=== PATIENT | female | born 1965 | race Caucasian/White ===

== ENCOUNTER 2018-08-16 09:05 | Outpatient (CLI) | payer BC, SELFPAY ==
--- NOTE | 2018-08-16 09:03 | DI.RAD_ITS ---
SYMPTOMS/DIAGNOSIS: RIGHT KNEE PAIN RIGHT KNEE: The joint spaces are well maintained. There is mild periarticular spurring. No joint effusion is visible. IMPRESSION: Mild degenerative changes.
== END 2018-08-16 09:25 ==
PROVIDERS: PCP Family Medicine; Visit Provider Physician Assistant
DX: M25.561 Pain in right knee (principal); M17.11 Unilateral primary osteoarthritis, right knee
CPT/HCPCS: 73562

== ENCOUNTER 2018-08-20 00:59 | Outpatient (CLI) | payer BC, SELFPAY ==
--- NOTE | 2018-08-20 15:17 | DI.MRI_ITS ---
SYMPTOMS/DIAGNOSIS: RIGHT KNEE INJURY LAST NOVEMBER, ANTERIOR PAIN, M25.569 MRI OF THE RIGHT KNEE: Comparison is made with plain films dated August,. Fat-suppressed T2 axial, proton density and fat-suppressed T2 sagittal and coronal sequences and proton density oblique sagittal sequences were performed. The cruciate and collateral ligaments and extensor mechanism appear intact. There is some fluid anterior to the anterior horn and body of the lateral meniscus, but no evidence of a meniscal tear. The medial meniscus is somewhat peripherally displaced and shows some irregularity, as well as some intrasubstance signal consistent with degenerative change. No focal tear is visible. There is some cartilage thinning over the medial femoral condyle. There is minimal high signal in the patellar cartilage near the apex, but no irregularity or focal defect. IMPRESSION: Degenerative changes of the medial meniscus and medial cartilage thinning.
== END 2018-08-20 01:19 ==
PROVIDERS: PCP Family Medicine; Visit Provider Physician Assistant
DX: M25.561 Pain in right knee (principal); M17.11 Unilateral primary osteoarthritis, right knee
CPT/HCPCS: 73721

== ENCOUNTER 2018-09-07 07:46 | Day surgery (SDC) | payer BC, SELFPAY ==
[2018-09-07] VITALS (8 sets, daily range): BP systolic 111–148; BP diastolic 60–83; PULSE 64–83; RESP 12–18; TEMP 36.1–36.9; O2SAT 94–98
[2018-09-07] MEDS: Lactated Ringers 1,000 ML 80 ML IV (08:40)
--- NOTE | 2018-09-07 09:56 | W.PM.DSUDISC ---
Discharge Plan Disposition Patient Disposition: HOME Condition: Good Discharge Details Reason For Visit: Right Knee Medial Meniscus Tear Attending Provider: Ernesto Bishop Primary Care Provider: Ceci Issa V Home Meds and New Rx's Prescriptions: New acetaminophen 500 mg tablet 1,000 mg PO Q8H PRN (Reason: pain) Qty: 90 RF: 3 hydromorphone 2 mg tablet 1 - 2 mg PO Q4H PRN (Reason: pain) Qty: 12 RF: 0 ibuprofen 600 mg tablet 600 mg PO TID PRNQty: 90 RF: 3 Continued dextroamphetamine-amphetamine [Adderall] 30 MG tablet 30 mg PO DAILY RF: 0 bupropion HCl [Wellbutrin] 100 MG tablet 100 mg PO BID RF: 0 albuterol sulfate 8.5 GM HFA aerosol inhaler 2 puff Inhalation PRN PRNRF: 0 Discharge Instructions Stand Alone Forms: Edna Knee Arthroscopy Referrals: Ernesto Bishop MD [ [facility] STAFF PHYSICIAN] - Equipment/Supplies: Partial Weight Bearing Crutches Activity:: Elevate Remove Dressings/Wound Care:: 72 hours Shower/Bathe:: 72 hours Diet:: As Tolerated Discharge Orders Discharge Orders: Discharge Order (Routine); Ordered 09/07/18 Ordered By: Ernesto Bishop DS: Diagnosis Discharge Diagnosis (1) Tear of medial meniscus of right knee: Status: Chronic
[2018-09-07] MEDS: ceFAZolin 2 GM/50 ML BAG IVPB (09:58)
[2018-09-07] MEDS: Bupivacaine 0.5% Pres-Free 30 ML VIAL (10:18)
[2018-09-07] MEDS: Normal Saline Flush 10 ML SYR IV (11:07)
[2018-09-07] MEDS: HYDROmorphone 2 MG/ML VIAL IVP (11:07)
[2018-09-07] MEDS: HYDROmorphone 2 MG TAB PO (11:56)
--- NOTE | 2018-09-07 14:38 | W.PM.OP ---
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 This was confirmed based on MRI and exam findings. Nonoperative measures were exhausted but disability and pain persisted. I discussed knee arthroscopy with meniscal intervention with the patient. I reviewed the risks of the procedure to include, but not limited to, bleeding, infection, pain, stiffness, damage to nerves or vessels, recurrence, blood clot. Despite these risks, the patient elected to proceed. Findings: A diagnostic arthroscopy was performed with the following findings: Suprapatellar Pouch: Mild inflammatory change, no loose bodies Medial Compartment: Complex medial meniscal tear, intact meniscal root, 2 small cartilage flaps from the medial, distal femur with grade III chondromalacia less than 1 cm? and some associated grade II chondromalacia in a similar space of the tibia, no loose bodies Notch: ACL and PCL were intact Lateral Compartment: No meniscal tear, fraying at the meniscal root but the root was still intact, focal area of grade III chondromalacia over the posterior lateral tibia, no loose bodies Patellofemoral Compartment: Grade I chondromalacia, no apparent patellar maltracking Procedure Description: Latisha was greeted in the preoperative holding area where the correct side was identified and marked. The consent was reviewed with the patient and signed. The history and physical was updated. All questions were answered. She was taken back to the operating room. The patient was placed into the supine position on the operating room table. A nonsterile tourniquet was placed high onto the leg but not used. All bony prominences were well padded. Prophylactic antibiotics in the form of cefazolin were administered. The right leg was then prepped with Chloraprep and draped in a standard fashion with stockinette and extremity drape. A timeout to confirm correct identity, side and site, procedure, allergies, anesthesia, and medical concerns was performed. The leg was placed into a pneumatic leg walden, SPIDER2. A standard lateral portal was made at the lateral border of the patella tendon in line with the inferior pole of the patella, soft spot. The skin and deep tissue was incised sharply and the blunt trochar was inserted atraumatically. A diagnostic arthroscopy was performed and the findings are listed above. The suprapatellar pouch had mild inflammatory change. The patellofemoral articulation showed grade I chondromalacia as well as good tracking. The lateral gutter had no loose bodies and the medial gutter had no loose bodies. The knee was brought into some valgus stress in extension to open the medial compartment. A medial portal was made, localized by a spinal needle. The portal was created with an #11 blade through skin and capsule under direct visualization avoiding any meniscal injury. A probe was then inserted into the medial compartment. The medial compartment was fully inspected. The chondral surface of the tibia showed grade II chondromalacia and the surface of the femur showed grade III chondromalacia with 2-3 small displaceable flaps. The medial meniscus had a complex meniscal tear at the posterior horn with both radial and horizontal components. After evaluation, the meniscus was debrided down to a stable base using a series of biters and arthroscopic nestor. It was probed afterwards to confirm that the tear had been removed and the meniscus was stable. Cartilage surfaces were debrided of any flaps, leaving any intact fibers. The notch was then inspected which showed an intact ACL and an intact PCL. The leg was then brought into a figure of 4 position. The lateral compartment was fully inspected with the arthroscope and a probe. The chondral surface of the lateral femur showed a focal area of grade III/IV chondromalacia over the posterior rim. The chondral surface of the lateral tibia showed no significant chondromalacia. The lateral meniscus had no discrete tear of the meniscus itself but there was significant fraying at the meniscal root. This tearing and fraying at the root was debrided down until stable fibers were appreciated. There is no disconnection of the meniscus from the posterior tibia. After evaluation, the meniscus was debrided down to a stable base using a series of biters and arthroscopic nestor. It was probed afterwards to confirm that the tear had been removed and the meniscus was stable. The arthroscope was brought back into the suprapatellar pouch and the leg was in full extension. The knee was thoroughly irrigated with the arthroscopic fluid on high flow and pressure. Inflow was stopped and excess fluid was removed. The wounds were closed with 4-0 Nylon. They were dressed with Xeroform, 4x4 gauze, ABD pad, Kerlix and an SUSAN wrap. A cryo-cuff was applied. The patient tolerated the procedure well and was returned to the Same Day Surgery area in a stable condition suffering no known complication.
== END 2018-09-07 13:28 | disposition home or self-care (01) ==
PROVIDERS: PCP Family Medicine; Visit Provider Student in an Organized Health Care Education/Training Program
PROC: (CPT 29870; principal; 2018-09-07 09:45)
DX: S83.231A Complex tear of medial meniscus, current injury, right knee, initial encounter (principal); X50.0XXA Overexertion from strenuous movement or load, initial encounter; M22.41 Chondromalacia patellae, right knee; M94.261 Chondromalacia, right knee
CPT/HCPCS: 29881; J0131; J0690; J1100; J1885; J2250; J2405

== ENCOUNTER 2018-11-17 03:34 | Outpatient (CLI) | payer BC, SELFPAY ==
--- NOTE | 2018-11-17 17:00 | DI.MAMMO_ITS ---
SYMPTOM/DIAGNOSIS: SCREENING Z12.31 MAMMOGRAM: Mammograms were interpreted according to the usual protocol including computer analysis with CAD system, tomosynthesis and C view imaging. The breasts are of moderate density with fairly symmetrical distribution of fibroglandular tissue. No dominant mass or clumped microcalcification is identified in either breast. The current examination is compared with previous examinations including 02/2016 and there is increased prominence of an area of asymmetric density with vaguely nodular appearance projected in the lateral aspect of the left breast on CC view. Additional mammographic views of this area are requested to include CC sot compression view of the left breast. No other significant change seen. CONCLUSION: Additional mammographic views of the left breast requested as described above. Breast ultrasound may be indicated as well depending on results of additional mammographic views. Category 0, breast density category B. MQSA ASSESSMENT OF FINDINGS: Incomplete: Needs additional imaging evaluation. Category 0. Patient will receive a letter notifying them of these results. BI-RADS category B. There are scattered areas of fibroglandular density.
== END 2018-11-17 03:54 ==
PROVIDERS: PCP Family Medicine; Visit Provider Nurse Practitioner Family
DX: R92.8 Other abnormal and inconclusive findings on diagnostic imaging of breast
CPT/HCPCS: 77063; 77067

== ENCOUNTER 2018-11-25 01:09 | Outpatient (CLI) | payer BC, SELFPAY ==
--- NOTE | 2018-11-25 13:59 | DI.COMBO_ITS ---
SYMPTOMS/DIAGNOSIS: F/U ABNORMAL MAMMO, INCREASED PROMINENCE OF AREA OF ASYMMETRIC DENSITY, LEFT BREAST ADDITIONAL VIEWS OF THE LEFT BREAST AND LEFT BREAST ULTRASOUND: Additional images are interpreted according to the usual protocol including tomosynthesis and 2D imaging. Additional views of the left breast fail to show a persistent discrete mass. A left breast ultrasound was performed. The upper outer and lower outer quadrants of the left breast were evaluated sonographically. No suspicious cystic or solid mass is seen. IMPRESSION: No evidence for malignancy. Yearly mammography is recommended. Category 1, breast density B. The findings were discussed with the patient on the date of the examination. SA ASSESSMENT OF FINDINGS: Negative. Category 1. Patient will receive a letter notifying them of these results. BI-RADS category B. There are scattered areas of fibroglandular density.
== END 2018-11-25 01:29 ==
PROVIDERS: PCP Family Medicine; Visit Provider Nurse Practitioner Family
DX: Z12.31 Encounter for screening mammogram for malignant neoplasm of breast (principal); R92.8 Other abnormal and inconclusive findings on diagnostic imaging of breast; N64.59 Other signs and symptoms in breast
CPT/HCPCS: 76642; 77063; 77067

== ENCOUNTER 2018-12-22 09:16 | Day surgery (SDC) | payer OTHER, BC, SELFPAY ==
[2018-12-22 09:30] VITALS: BP 129/85; PULSE 77; RESP 16; TEMP 36.5; O2SAT 94
[2018-12-22] MEDS: Lactated Ringers 1,000 ML 80 ML IV (09:56)
--- NOTE | 2018-12-22 09:56 | W.PM.HP.N ---
Date of service: 12/22/18 Time of Service: 09:56 Assessment and Plan Assessment and plan (1) Right carpal tunnel syndrome: Status: Chronic Assessment and plan: Recurrent CTS. I discussed carpal tunnel release. We will attempt to do this endoscopically although it is a revision from 27 years ago. I discusse dthe risks to include bleeding, infection, pain, stiffness, damage to nerves and vessels. She desires to proceed. (2) Ganglion cyst of volar aspect of right wrist: Status: Acute Assessment and plan: Likely volar ganglion cyst arising from tendon. Patient desires this to be removed. I discussed the risks in removal to include bleeding, infection, pain, stiffness, damage to nerves and vessels, numbness and tingling. She desires to proceed. History of Present Illness History of Present Illness Chief Complaint: Right Carpal Tunnel Syndrome and Cyst Narrative: Latisha is a 52yo female who has had pain and numbness in the median nerve distribution. She had a previous carpal tunnel release 27 years ago and has had recurrence. She also has a small cyst over the radial border of the palmaris longus which is bothersome and painful. Review of Systems Review of Systems ROS Unobtainable: All systems reviewed & are unremarkable except as noted in HPI and below PFSH Medical History Asthma (Chronic) Endometriosis Frequent vaginal yeast infections History of postoperative nausea and vomiting (Acute) Perfect anesthesia 09/07/2018 per Pt Menorrhagia Metatarsalgia of left foot (Inactive 03/11/17) Otalgia of right ear (Inactive 04/12/15) Vaginal yeast infection (Inactive 01/26/15) Surgical History Abdominal hysterectomy 2000 ovaries remain secondary to endometriosis and menorrhagia History of arthroscopy (Acute) Right knee Hx of foot surgery (Acute) L foot, surgical hardware in place Family History Sister Thyroid cancer Brother Tonsillar cancer Mother No problems noted. Father No problems noted. Other Personal history of malignant neoplasm Social History Smoking/Tobacco Use Status: Never Alcohol Intake: current Alcohol Intake frequency: a few times a week Alcohol type: wine Drug use: Never Substance use type: does not use current occupation: [employer] Do you feel safe at home: Yes Do you feel safe in your relationship?: Yes Additional Social history: unable to talk privately at this time. Meds Home Medications and Allergies Home Medications Medication Instructions Recorded Confirmed Type bupropion HCl [Wellbutrin] 100 mg PO BID tab-cap 12/07/13 12/22/18 History dextroamphetamine-amphetamine 30 mg PO DAILY 12/07/13 12/22/18 History [Adderall] albuterol sulfate 2 puff INHALATION PRN PRN 03/24/14 12/22/18 History acetaminophen 1,000 mg PO Q8H PRN #90 tab 09/07/18 12/22/18 Rx ibuprofen 600 mg PO TID PRN #90 tab 09/07/18 12/22/18 Rx cyclobenzaprine 5 mg tablet 5 mg PO TID PRN #10 tab 10/01/18 12/22/18 Rx Allergies Allergy/AdvReac Type Severity Reaction Status Date / Time oxycodone HCl [From Percocet] AdvReac Intermediate Psychosis Verified 12/21/18 12:45 Exam Resp Effort & Inspection: normal respiratory effort Auscultation: clear to auscultation bilaterally Cardio Rate: regular rate Rhythm: regular rhythm Extrem Other: +Durkins and +Phalens to the right carpal tunnel. 1cm cyst over the radial bordre of the palmaris longus, proximal to wrist crease. -Tinel at the cyst. No discoloration. Results Last Vital Signs Temp 36.5 C 12/22/18 09:30 Pulse 77 12/22/18 09:30 Resp 16 12/22/18 09:30 BP 129/85 12/22/18 09:30 Pulse Ox 94 L 12/22/18 09:30
--- NOTE | 2018-12-22 10:27 | PDOC.DSDIS_ITS ---
Discharge Plan Disposition Patient Disposition: HOME Condition: Good Discharge Details Reason For Visit: R carpal tunnel syndrome, R wrist ganglion cyst Attending Provider: Ernesto Bishop Primary Care Provider: Ceci Issa V Home Meds and New Rx's Prescriptions: New acetaminophen 500 mg tablet 1,000 mg PO Q8H PRN (Reason: pain) Qty: 30 RF: 3 hydromorphone 2 mg tablet 1 - 2 mg PO Q8H PRN PRN (Reason: pain) Qty: 5 RF: 0 ibuprofen 600 mg tablet 600 mg PO TID PRNQty: 30 RF: 3 Continued dextroamphetamine-amphetamine [Adderall] 30 MG tablet 30 mg PO DAILY RF: 0 bupropion HCl [Wellbutrin] 100 MG tablet 100 mg PO BID RF: 0 cyclobenzaprine 5 mg tablet 5 mg PO TID PRN (Reason: muscle spasm) Qty: 10 RF: 0 albuterol sulfate 8.5 GM HFA aerosol inhaler 2 puff Inhalation PRN PRNRF: 0 acetaminophen 500 mg tablet 1,000 mg PO Q8H PRN (Reason: pain) Qty: 90 RF: 3 ibuprofen 600 mg tablet 600 mg PO TID PRNQty: 90 RF: 3 Discharge Instructions Stand Alone Forms: Edna Dixon Tunnel Release Referrals: Ernesto Bishop MD [ [facility] STAFF PHYSICIAN] - Equipment/Supplies: Sling Activity:: Elevate Remove Dressings/Wound Care:: 48 hours Shower/Bathe:: 48 hours Diet:: As Tolerated Discharge Orders Discharge Orders: Discharge Order (Routine); Ordered 12/22/18 Ordered By: Ernesto Bishop DS: Diagnosis Discharge Diagnosis (1) Right carpal tunnel syndrome: Status: Chronic (2) Ganglion cyst of volar aspect of right wrist: Status: Acute
--- NOTE | 2018-12-22 11:48 | SOFT_PTH ---
PATIENT: Latisha Wiggins LOC: [facility] U#:[id number] AGE/SX: 52/F ROOM: RE12/22/[address]: Ernesto Bishop MD : 1965 BED: DIS: 12/22/2018 SPEC #: [id number] RECD: 12/22/18 12:36 STATUS: ANDREW REQ #: [id number] TOREY: 12/22/18 11:[address]: Ernesto Bishop DEPT: Surgical Specimen RECD BY: Mariana Hanks ENTERED: 12/22/18 12:39 SP TYPE: SOFT OTHR DR: Ceci Issa V Tissues: 1 - SOFT TISSUE MISC (INC. LIPOMA) Procedures: GROSS AND MICRO LEVEL 3 Comments: [id number]
[2018-12-22] MEDS: Lidocaine 1% Multi-Dose 50 ML VIAL (11:55)
[2018-12-22] MEDS: Sodium Bicarbonate 50 MEQ/50 ML VIAL (11:56)
[2018-12-22 12:35] VITALS: BP 126/77; PULSE 81; RESP 16; TEMP 36.3; O2SAT 95
--- NOTE | 2018-12-24 05:32 | W.PM.OP ---
Date of service: 12/24/18 Time of Service: 05:32 Operative Note Operative Note DATE OF PROCEDURE: 12/24/18 PRE-OP DIAGNOSIS: Right carpal tunnel syndrome, Right volar forearm mass POST-OP DIAGNOSIS: same PROCEDURE: Right Endoscopic Carpal Tunnel Release, Excisional Biopsy of Right Volar Forearm Mass SURGEON: Ernesto Bishop ANESTHESIA: GETA ESTIMATED BLOOD LOSS: 0 PATHOLOGY: none sent TOURNIQUET TIME: 10 COMPLICATIONS: None Patient was transported to: same day Patient's condition: stable Indications: I have seen Latisha in clinic for symptoms of carpal tunnel syndrome. The numbness, tingling, and pain limited function. Clinical exam findings with nerve conduction tests confirmed the diagnosis of carpal tunnel syndrome. Nonoperative measures such as bracing, time, activity modifications had been tried but disability and pain persisted. I discussed carpal tunnel release with the patient. I reviewed the risks of the procedure to include, but not limited to, bleeding, infection, pain, stiffness, incomplete release, damage to nerves or vessels, persistent numbness, recurrence. Additionally, Latisha had a persistent mass of the volar right forearm. It was superficial and small but has not gone away and continues to cause discomfort with direct pressure. She desired this to be removed. I discussed the risks of surgical excision to include recurrence, need for repeat procedures. Despite these risks, the patient elected to proceed. Findings: There was tightened carpal tunnel. This was dilated and released successfully with the endoscopic with increased space within the tunnel. The antebrachial fascia was released proximally freeing the median nerve at the wrist. A 1cm fatty mass was removed superficial to the fascia radial to the palmaris longus tendon. This was sent to pathology. Procedure Description: Latisha was greeted in the preoperative holding area where the correct side was identified and marked. The consent was reviewed with the patient and signed. The history and physical was updated. All questions were answered. Latisha was taken back to the operating room. The patient was placed into the supine position on the operating room table with the right arm on an arm board. A nonsterile tourniquet was placed high onto the arm. All bony prominences were well padded. Prophylactic antibiotics in the form of [Cefazolin] were administered. The right arm was then prepped with Chloraprep and draped in a standard fashion with stockinette and extremity drape. A timeout to confirm correct identity, side and site, procedure, allergies, anesthesia, and medical concerns was performed. The surgical site was marked in the volar wrist creases in line with the radial border of the fourth ray. This area was anesthetized with approximately 6cc of 1% Lidocaine. The area surrounding the volar forearm mass was also anesthetized with 1% lidocaine. The limb was then exsanguinated with an Esmarch. Starting with the excisional biopsy, a 1/2 cm incision was made longitudinally overlying the area of the forearm mass. This is incised sharply through the skin. Blunt dissection with tenotomy scissors was performed next which was able to easily identify a ovoid, fatty mass. It was superficial to the fascia and just radial to the palmaris longus tendon. It was loosely associated with connective tissue but not derived from any nerve or tendon. It appeared to be a lipoma. It was sent to the lab for pathology. This area was then irrigated and closed with a single 4-0 nylon suture. The skin for the carpal tunnel release was incised with a 15 blade in line with her previous incision, approximately 1cm. The skin only was cut and the deeper tissue was dissected bluntly with a tenotomy scissor, avoiding passing nerve and venous structures. The fascia was penetrated and opened bluntly. A two-prong skin hook was placed under this proximal fascial edge. A series of hamate finders were used to identify and dilate the carpal tunnel. Synovial elevator was used to free synovial attachments to the underside of the transverse carpal ligament. My thumb was kept in the palm to thomas the distal extent of the carpal tunnel and correctly position the hand. The Microaire endoscope was inserted without difficulty and without resistance. Excellent visualization showed horizontally running fibers of the transverse carpal ligament (TCL). The distal extent of the TCL was visualized and the end of the scope palpated with the thumb. The blade was elevated and withdrawn from distal to proximal. The TCL was split into two flaps. The endoscope was reinserted to confirm complete release and any remnant ligament was incised. The scope was withdrawn and the proximal aspect of the carpal tunnel was grossly inspected and appeared release with the median nerve visible. The antebrachial fascia at the level of the wrist was then freed from the overlying skin and then the underlying median nerve with blunt dissection. This was transected longitudinally for about 3cm proximal to the wrist incision. The wound was then irrigated with easy flow of irrigant distally and proximally. The incision was closed with a single 4-0 Nylon suture. The wound was dressed with Xeroform, Gauze, Kerlix and Twin. The tourniquet was deflated with the initial dressing and held with some pressure. Blood flow returned easily to all digits with capillary refill less than 2 seconds. The patient tolerated the procedure well and was returned to the Same Day Surgery area in a stable condition suffering no known complication.
== END 2018-12-22 12:50 | disposition home or self-care (01) ==
PROVIDERS: PCP Family Medicine; Visit Provider Student in an Organized Health Care Education/Training Program
PROC: 01N54ZZ Release Median Nerve, Percutaneous Endoscopic Approach (ICD-10-PCS; CPT 29848; principal; 2018-12-22 12:00)
DX: G56.01 Carpal tunnel syndrome, right upper limb (principal); D17.21 Benign lipomatous neoplasm of skin and subcutaneous tissue of right arm
CPT/HCPCS: 29848; 11400; NC; 88304; L3650

== ENCOUNTER 2019-01-10 11:49 | Day surgery (SDC) | payer BC, SELFPAY ==
--- NOTE | 2019-01-10 07:11 | W.COLOREPORT ---
Date of service: 01/10/19 Time of Service: 13:30 Colonoscopy Report Date of procedure: 01/10/19 Pre-op diagnosis general: Colon Cancer Screening Post-op diagnosis procedure note: other (polyps and internal hemorrhoids) Procedure: Colonoscopy with polypectomy Surgeon: Pily Torrez Anesthesia proc note operative: other (General/ ASA 2/ Jaycob Hoffman, ASHLEY) Estimated blood loss (mL): 3 Pathology: other (Transverse polyp x 2 and rectal polyp) Complications: None Disposition: same day Indications: Mrs. Wei is a pleasant 53 year old female seen in the office for a screening colonoscopy. Risks, benefits and complications have been reviewed. Complications include but are not limited to bleeding, pain, perforation, missed small lesion/polyp, sore throat, aspiration and adverse reaction to the medications. Questions were entertained and answered to their satisfaction and they wished to proceed. No guarantees were given or implied. Prep: Miralax/Dulcolax Procedure Start Time: 13:30 Procedure End Time: 14:00 Retraction Time: 16 minutes Findings: 3 polyps Grade 1 internal hemorrhoids Procedure Description: After informed consent was obtained the patient was taken to the procedure room and placed in a left decubitous position. Monitors were applied and a time out was done. The patients name, date of , procedure, allergies to medications and metal in their body was reviewed. The patient was then sedated. Once sedated and comfortable a rectal exam was done. External exam was normal. Internal exam revealed a normal sphincter tone and no palpable masses. The scope was then introduced and retro-flexed. Grade 1 internal hemorrhoids were identified. The scope was then advanced to the cecum with difficulty due to tortuousity. The TI and appendiceal orifice were identified. The prep was adequate. The scope was then slowly retracted over 16 minutes back into the rectum. Polyps were removed in the transverse colon x2 with cold forceps and x1 in the rectum with cold forceps. The scope was removed and the patient was woken up and taken back to Same day surgery in stable condition. The patient tolerated the procedure well and there were no immediate complications. Follow up: The patient should follow up in 3-5 years unless they develop changes in bowel habits or other new gastrointestinal complaints.
--- NOTE | 2019-01-10 07:13 | W.PM.DSUDISC ---
Discharge Plan Disposition Patient Disposition: HOME Condition: Good Discharge Details Reason For Visit: Colon Cancer Screening Attending Provider: Pily Torrez Primary Care Provider: Ceci Issa V Home Meds and New Rx's Prescriptions: Continued gabapentin 300 mg capsule 300 mg PO QHS Qty: 14 RF: 0 dextroamphetamine-amphetamine [Adderall] 30 MG tablet 30 mg PO DAILY RF: 0 bupropion HCl [Wellbutrin] 100 MG tablet 100 mg PO BID RF: 0 albuterol sulfate 8.5 GM HFA aerosol inhaler 2 puff Inhalation PRN PRNRF: 0 acetaminophen 500 mg tablet 1,000 mg PO Q8H PRN (Reason: pain) Qty: 30 RF: 3 ibuprofen 600 mg tablet 600 mg PO TID PRNQty: 30 RF: 3 Discontinued polyethylene glycol 3350 17 gram/dose powder 238 g PO ONCE Qty: 238 RF: 0 bisacodyl [Dulcolax (bisacodyl)] 5 mg tablet,delayed release (DR/EC) 5 mg PO ONCE Qty: 4 RF: 0 Discharge Instructions Instructions: Colonoscopy (DC), Colorectal Polyps (DC), Hemorrhoids (DC) Additional Instructions: Findings: Small internal hemorrhoids 3 polyps Follow up: 3-5 years Please call if you develop: fevers >101.5 Nausea or Vomiting Abdominal pain that is not transient DAY SURGERY UNIT POST ENDOSCOPY INSTRUCTIONS 1. Because there will be medication in your system for the next 24 hours, you may feel a little sleepy. Your coordination will be affected. Therefore: a. Do not drive or operate dangerous equipment for 24 hours. b. Do not drink alcohol beverages for 24 hours (not even beer). c. Plan to go home and rest for the day. 2. Generally there are no restrictions on your activity after a day or so has gone by, but you may feel a bit fatigued for a few days. 3 After you arrive home you may have a light meal and return to a normal diet as you can tolerate it without feeling sick to your stomach. 4. After surgery, you may feel pain or discomfort. This should be only transient, but if it persists please contact your doctor. 5. If there are any questions regarding the findings of your procedure, please feel free to contact your doctor. 6. If you are unable to contact your doctor with a problem, contact the hospital at [phone]. 7. Continue all your regular medications unless directed otherwise. I understand the above instructions and have no questions. Signature of Patient or Responsible Adult Escort Date/Time Name of Responsible Adult Escort Signature of Nurse Date/Time Activity:: Activity as Tolerated Diet:: high fiber diet Discharge Orders Discharge Orders: Discharge Order (Routine); Ordered 01/10/19 Ordered By: Pily Torrez DS: Diagnosis Discharge Diagnosis (1) S/P colonoscopy: Status: Acute (2) Colorectal polyp detected on colonoscopy: Status: Acute (3) Internal hemorrhoids without complication: Status: Acute
[2019-01-10 12:12] VITALS: BP 122/85; PULSE 86; RESP 16; TEMP 35.9; O2SAT 98
[2019-01-10] MEDS: Lactated Ringers 1,000 ML 80 ML IV (12:25)
--- NOTE | 2019-01-10 13:50 | BOWEL_PTH ---
PATIENT: Latisha Wiggins LOC: [facility] U#:[id number] AGE/SX: 53/F ROOM: RE01/10/[address]: Pily Torrez MD : [id number] BED: DIS: 01/10/2019 SPEC #: [id number] RECD: 01/10/19 17:26 STATUS: ANDREW REAntoni #: [id number] TOREY: 01/10/19 13:[address]: Pily Torrez DEPT: Surgical Specimen RECD BY: Mariana Hanks ENTERED: 01/10/19 17:26 SP TYPE: Bowel OTHR DR: Ceci Issa V Tissues: 1 - BIOPSY BOWEL 2 - BIOPSY BOWEL Procedures: GROSS AND MICRO LEVEL 4 Comments: [id number]
[2019-01-10 14:35] VITALS: BP 122/72; PULSE 74; RESP 18; TEMP 36.2; O2SAT 96
== END 2019-01-10 15:22 | disposition home or self-care (01) ==
LOC: SUR 11:49
PROVIDERS: PCP Family Medicine; Visit Provider Surgery
PROC: 0DJD8ZZ Inspection of Lower Intestinal Tract, Via Natural or Artificial Opening Endoscopic (ICD-10-PCS; CPT 45378; principal; 2019-01-10 13:15)
DX: Z12.11 Encounter for screening for malignant neoplasm of colon (principal); D12.3 Benign neoplasm of transverse colon; K63.5 Polyp of colon; K64.0 First degree hemorrhoids; K63.89 Other specified diseases of intestine; E66.9 Obesity, unspecified; J45.909 Unspecified asthma, uncomplicated
CPT/HCPCS: 88305; J2250

== ENCOUNTER 2019-03-09 09:22 | Day surgery (SDC) | payer OTHER, BC, SELFPAY ==
[2019-03-09 09:39] VITALS: BP 119/82; PULSE 82; RESP 18; TEMP 36.2; O2SAT 96
[2019-03-09] MEDS: Lactated Ringers 1,000 ML 80 ML IV (10:00)
[2019-03-09] MEDS: ceFAZolin 2 GM/50 ML BAG IVPB (10:56)
[2019-03-09] MEDS: Sodium Bicarbonate 50 MEQ/50 ML VIAL (11:13)
--- NOTE | 2019-03-09 11:52 | PDOC.DSDIS_ITS ---
Discharge Plan Disposition Patient Disposition: HOME Condition: Good Discharge Details Reason For Visit: Right Recurrent Carpal Tunnel Syndrome Attending Provider: Ernesto Bishop Primary Care Provider: Ceci Issa V Home Meds and New Rx's Prescriptions: New hydromorphone 2 mg tablet 2 mg PO Q6H PRN PRN (Reason: pain) Qty: 8 RF: 0 Continued dextroamphetamine-amphetamine [Adderall] 30 MG tablet 30 mg PO DAILY RF: 0 bupropion HCl [Wellbutrin] 100 MG tablet 100 mg PO BID RF: 0 albuterol sulfate 8.5 GM HFA aerosol inhaler 2 puff Inhalation PRN PRNRF: 0 acetaminophen 500 mg tablet 1,000 mg PO Q8H PRN (Reason: pain) Qty: 30 RF: 3 ibuprofen 600 mg tablet 600 mg PO TID PRNQty: 30 RF: 3 Discharge Instructions Additional Instructions: Activity: You should keep the hand/wrist elevated as much as possible for the first few days. You may use the other fingers as tolerated but avoid trying to do too much too soon. You may perform light activities with the splint in place. Dressing/Cast: Your splint should stay in place at all times. Do NOT get it wet. You may loosen the SUSAN wrap if you feel it is too tight and then rewrap more loosely. Medications: - You should take Tylenol and Ibuprofen for baseline pain control. - You have been prescribed a stronger pain medication, Hydromorphone, for breakthrough pain. - You may apply ice over the wrist, just double bag so it doesn't get wet. Follow-up: 10 days for wound check and suture removal and placement of removable brace Referrals: Ernesto Bishop MD [ [facility] ST[facility]FF PHYSICIAN] - Equipment/Supplies: Splint and Sling Activity:: Elevate Remove Dressings/Wound Care:: Do Not Remove Shower/Bathe:: Cover Diet:: As Tolerated Discharge Orders Discharge Orders: Discharge Order (Routine); Ordered 03/09/19 Ordered By: Ernesto Bishop DS: Diagnosis Discharge Diagnosis (1) Right carpal tunnel syndrome: Status: Chronic
[2019-03-09 12:29] VITALS: BP 109/72; PULSE 82; RESP 16; TEMP 36.4; O2SAT 94
--- NOTE | 2019-03-09 20:17 | ROE_ITS ---
Date of service: 03/09/19 Time of Service: 12:18 Operative Note Operative Note DATE OF PROCEDURE: 03/09/19 PRE-OP DIAGNOSIS: Right Carpal Tunnel Syndrome POST-OP DIAGNOSIS: same PROCEDURE: Open Right Carpal Tunnel Release SURGEON: Ernesto Bishop ANESTHESIA: GETA ESTIMATED BLOOD LOSS: 0 PATHOLOGY: none sent TOURNIQUET TIME: 31 COMPLICATIONS: None Patient was transported to: same day Patient's condition: stable Indications: Latisha is a 53yo who previously underwent an endoscopic right carpal tunnel release by myself. Unfortunately, she did not have complete relief of her symptoms but had persistent numbness and tingling of the median nerve, mostly of the radial ring finger and the ulnar middle finger. She gave this time but continued to be limited. Given the persistent symptoms, I recommended a revision open carpal tunnel release. I discussed the risks of the procedure to include bleeding, infection, pain, stiffness, continued symptoms, damage to nerves and vesels. Despite these risks,she elected to proceed. Findings: The carpal tunnel was notably limited with thickened tissue all the way to the previous incision/entry site. Procedure Description: Latisha was greeted in the preoperative holding area where the correct side was identified and marked. The consent was reviewed with the patient and signed. The history and physical was updated. All questions were answered. She was taken back to the operating room. The patient was placed into the supine position on the operating room table with the right arm on an arm board. A nonsterile tourniquet was placed high onto the arm. All bony prominences were well padded. Prophylactic antibiotics in the form of cefazolin were administered. The right arm was then prepped with Chloraprep and draped in a standard fashion with stockinette and extremity drape. A timeout to confirm correct identity, side and site, procedure, allergies, anesthesia, and medical concerns was performed. The surgical site was marked. This area was anesthetized with approximately 10cc of 1% Lidocaine with epinephrine. The limb was then exsanguinated with an Esmarch. The skin was incised with a 15 blade. The skin only was cut and the deeper tissue was dissected bluntly with a tenotomy scissor, avoiding passing nerve and venous structures. The carpal tunnel was identified and lightly feathered with a [place] blade. I was able to place a freer underneath the transverse carpal ligament and incise it close to the hamate. The tissue was very thick. It was difficult to appreciate any significant cut or thinning of the TCL. The transverse carpal ligament was fully released and I was able to inspect the contents of the carpal tunnel. There were no masses. There is no suspicious lesions. The median nerve did seem to have some scarring around it but there were no defects. The first branch to the 3rd webspace was intact and did not show any signs of clear injury . The median nerve was lightly freed from the overlying TCL. The antebrachial fascia at the level of the wrist was then freed from the overlying skin and then the underlying median nerve with blunt dissection. This was transected longitudinally for about 3cm proximal to the wrist incision. The wound was then irrigated. The incision was closed with a single 4-0 Nylon suture. The wound was dressed with Xeroform, Gauze, [place]br[place] and a short arm splint. The tourniquet was deflated with the initial dressing and held with some pressure. Blood flow returned easily to all digits with capillary refill less than 2 seconds. The patient tolerated the procedure well and was returned to the Same Day Surgery area in a stable condition suffering no known complication.
== END 2019-03-09 13:05 | disposition home or self-care (01) ==
PROVIDERS: PCP Family Medicine; Visit Provider Student in an Organized Health Care Education/Training Program
PROC: (CPT 64721; principal; 2019-03-09 10:45)
DX: G56.01 Carpal tunnel syndrome, right upper limb (principal)
CPT/HCPCS: 64721; J0690; J2250; L3650

== ENCOUNTER 2019-08-24 12:07 | Emergency (ER) | payer OTHER, SELFPAY ==
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
[2019-08-24 12:12] VITALS: BP 127/83; PULSE 92; RESP 16; TEMP 37; O2SAT 97
[2019-08-24 12:34] VITALS: BP 123/80; PULSE 86; O2SAT 94
[2019-08-24 12:35] VITALS: O2SAT 93
[2019-08-24 12:35] LABS: Abs Immature Grans 0.03 k/cumm (0.0-0.09); Absolute Basophil Count 0.02 k/cumm (0.0-0.2); Absolute Eosinophil Count 0.07 k/cumm (0.0-0.7); Absolute Lymphocyte Count 2.87 k/cumm (1.2-3.4); Absolute Monocyte Count 0.59 k/cumm (0.11-0.7); Absolute Neutrophil Count 5.39 k/cumm (1.2-6.7); Basophils % 0.2; Eosinophils % 0.8; HGB 14.9 g/dL (12.0-15.5); Immature Grans % 0.3 %; Mean Corp. HGB Concentration 33.9 g/dL (32.0-36.0); Mean Corpuscular Hemoglobin 31.2 pg (27.0-33.0); Mean Corpuscular Volume 92.1 fL (80-95); Mean Platelet Volume 10.9 fL (8.0-11.0); Monocytes % 6.6; Neutrophils % 60.1; Platelet Count 244 x1000/uL (130-400); RBC 4.78 m/cumm (4.00-5.20); White Blood Cell Count 8.97 k/cumm (4.4-10.8)
[2019-08-24] MEDS: Normal Saline 1,000 ML 1000 ML IV (12:35)
[2019-08-24] MEDS: Ondansetron 4 MG/2 ML VIAL IVP (12:35)
[2019-08-24 12:40] VITALS: O2SAT 96
[2019-08-24 12:51] LABS: ALT 65 U/L (14-59); AST 32 U/L (15-37); Albumin 3.5 g/dL (3.4-5.0); Alkaline Phosphatase 87 U/L (46-116); Anion Gap 8.6 mmol/L (3-11); BUN 12 mg/dL (7-18); Bilirubin, Total 0.5 mg/dL (0.2-1.0); CO2 24.4 mmol/L (21.0-32.0); CREATININE 0.77 mg/dL (0.55-1.02); Calcium 9.1 mg/dL (8.5-10.1); Chloride 105 mmol/L (98-107); Glucose 105 mg/dL (74-106); Lipase 90 U/L (73-393); Potassium 3.9 mmol/L (3.5-5.1); Sodium 138 mmol/L (136-145); Total Protein 7.4 g/dL (6.4-8.2)
[2019-08-24 13:24] LABS: Bilirubin Negative (Negative); Blood Negative (Negative); Clarity Clear (Clear); Glucose Negative (Negative); Ketones Negative (Negative); Leukocyte Esterase Negative (Negative); Nitrite Negative (Negative); Specific Gravity 1.015 (1.005-1.025); Urobilinogen 0.2 EU/dL (Up TO 0.2)
[2019-08-24] MEDS: Breeza Beverage 473 ML BTL PO (14:13)
[2019-08-24] MEDS: Omnipaque 350 MG/ML 50 ML BTL IJ (14:14)
[2019-08-24] MEDS: Normal Saline - Diluent 50 ML VIAL IV (14:15)
[2019-08-24] MEDS: Omnipaque 350 MG/ML 100 ML BTL IJ (14:16)
--- NOTE | 2019-08-24 14:17 | DI.CT_ITS ---
EXAM: CT ABDOMEN PELVIS W CLINICAL HISTORY: lower abd pain, worse in LLQ TECHNIQUE: Imaging Protocol: Axial computed tomography images with coronal and sagittal reformatted images were created and reviewed CONTRAST MATERIAL: Intravenous: Omnipaque 350 Contrast volume:100 mL Oral: Yes COMPARISON: CT RIGHT LOWER EXTREM WO CONTRAST from 01/13/2011 FINDINGS: ABDOMEN: Lung Bases: Atelectasis or scarring in the lung bases. Liver: Hepatic steatosis. No measurable mass. Portal, Superior Mesenteric, and Splenic Veins: Unremarkable. Gallbladder and Biliary Tract: No radiodense calculus or dilation. Pancreas: Normal density, no abnormal calcifications or inflammatory process. Spleen: Normal. Adrenals: No masses seen. Kidneys: Normal size, contour and axis. No radiodense stones or obstructive uropathy. No masses seen. Abdominal Aorta: Abdominal portion non-dilated. Bowel: No obstruction or bowel wall thickening. Large hiatal hernia. Scattered colonic diverticuli. No evidence of an acute appendicitis. There is a fat density ovoid structure seen in the left lowe r quadrant adjacent to the proximal sigmoid colon with surrounding inflammation. The finding is most suspicious for epiploic appendagitis. Acute diverticulitis is considered less likely. Peritoneal Cavity: No ascites, collection or mesenteric inflammatory response. Lymph Nodes: Within normal limits. Bones: Age appropriate degenerative changes. Soft Tissues: Unremarkable. PELVIS: Bladder: Symmetric distention, no gross wall thickening. Reproductive Organs: Status post hysterectomy. Lymph Nodes: Within normal limits. Bones: Degenerative changes. IMPRESSION: 1. Fat density ovoid structure adjacent to the proximal sigmoid colon. No bowel wall thickening is s een. Primary diagnostic concern is for epiploic appendagitis. Acute diverticulitis is considered le ss likely. 2. The findings were discussed with the emergency department on the date of the examination. RADIATION DOSE DELIVERED: 1,566.03mGy.cm Total DLP DATA REPOSITORY: All CT scans at this facility are submitted to the National Radiology Data Registry (NRDR) Dose Index Registry (DIR) with the [employer] (ACR). RADIATION OPTIMIZATION: All CT scans at this facility use at least one of these dose optimization te chniques: automated exposure control; mA and/or kV adjustment per patient size (includes targeted exa ms where dose is matched to clinical indication); or iterative reconstruction.
[2019-08-24 14:45] VITALS: BP 134/70; PULSE 79; RESP 17; TEMP 36.6; O2SAT 97
== END 2019-08-24 14:51 | disposition home or self-care (01) ==
PROVIDERS: Emergency Provider Physician Assistant; PCP Family Medicine
DX: K63.89 Other specified diseases of intestine (principal); R11.0 Nausea; K59.00 Constipation, unspecified
CPT/HCPCS: 36415; 80053; 83690; 96361; 96374; 96375; 96376; 99285; 74177; 81003; 85025; 99284; J2405; J3490; Q9967

== ENCOUNTER 2019-08-24 12:36 | Outpatient (REF) | payer OTHER, SELFPAY ==
[2019-08-24 20:13] LABS: Epithelial Cells Moderate HPF (Negative); RBC Negative HPF (0-2); WBC Negative HPF (0-5)
[2019-08-24 20:14] LABS: Bacteria Negative HPF (Negative); C & S Indicated? C&S Done As Ordered; Crystals Many Calcium Oxalate HPF (Negative); Mucus Moderate (Negative); Other Cells Few Renal (Negative)
== END 2019-08-24 12:56 ==
LOC: NCHCN 12:36
PROVIDERS: PCP Family Medicine; Visit Provider Nurse Practitioner Family
DX: R10.9 Unspecified abdominal pain (principal)
CPT/HCPCS: 81015; 87086

== ENCOUNTER 2020-04-03 12:31 | Emergency (ER) | payer BC, OTHER, SELFPAY ==
[2020-04-03 12:35] VITALS: BP 159/93; PULSE 94; RESP 16; TEMP 36.3; O2SAT 100
--- NOTE | 2020-04-03 12:35 | W.ED.GENAD ---
Discharge Plan Disposition Patient Disposition: HOME Condition: Improving Discharge Details Clinical Impression: Low back pain Primary Care Provider: Ceci Issa V ED Provider: Linda Mcbride Home Meds and New Rx's Prescriptions: New methocarbamol 500 mg tablet 500 mg PO Q6H PRN (Reason: muscle spasm) Qty: 14 RF: 0 lidocaine [Lidoderm] 5 % adhesive patch,medicated 1 patch TP DAILY PRN (Reason: pain) Qty: 15 RF: 0 Continued bupropion HCl [Wellbutrin] 100 MG tablet 100 mg PO BID RF: 0 albuterol sulfate 8.5 GM HFA aerosol inhaler 2 puff Inhalation PRN PRNRF: 0 ondansetron 4 mg tablet,disintegrating 4 mg PO TID PRN (Reason: nausea and vomiting) Qty: 6 RF: 0 Discharge Instructions Instructions: Back Pain (ED) Additional Instructions: Drink plenty of fluids and get plenty of rest. Alternate tylenol and motrin as needed and directed for pain. Use the Lidoderm patch as needed and directed. Take the muscle relaxers as needed and directed for pain not relieved with Tylenol or Motrin. Follow-up with your primary care doctor in 1 week. Return to the emergency department with any worsening or new concerning symptoms. If your nausea and decreased appetite persists, you can consider follow-up with general surgery for further evaluation and consideration for outpatient upper endoscopy to rule out possible gastritis or ulcer. Referrals: Lisa Armas MD [ [facility] STAFF PHYSICIAN] - Discharge Data Discharge Date/Time-TO BE ENTERED AT DEPARTURE: 04/03/20 15:35 Discharge Physician: Linda Mcbride Medical Decision Making 1245 -- 54-year-old female with a history of asthma and endometriosis presents with right flank pain for the past several months, more constant for the past 5 days. No cauda equina symptoms. She appears slightly uncomfortable but nontoxic. She has tenderness to palpation of her right flank. She does also have right upper quadrant and right lower quadrant tenderness. She has some pain with movement. She has no focal deficits. She has neurovascular intact. The chronic nature of her pain makes kidney stones or appendicitis less likely. Also less likely consistent with shingles considering there is no history of itching, burning or sensitivity to touch. Differential diagnosis includes muscle strain, sciatica, disc herniation, biliary colic, cholecystitis, peptic ulcer. We will place an IV, bolus IV fluids, screening labs, urinalysis, CT abdomen pelvis and gallbladder ultrasound. We will give a dose of 15 mg Toradol as she took 400 mg ibuprofen 2 hours prior to arrival. We will also give Zofran, Valium p.o. and Lidoderm patch and reassess. 1520 -- Labs and imaging reviewed and unremarkable. Normal white blood cell count, renal function and urinalysis. Abdominal ultrasound and CAT scan negative for acute findings. Patient reassessed and she feels much better. Suspect this is likely muscular in nature. Advised to alternate ice and heat, Tylenol and Motrin. We will send home with Lidoderm patch and muscle relaxers. Discussed that other possibilities could include sciatica or disc herniation and that if symptoms persist or worsen, can consider additional imaging with lumbar spine MRI. Advised to follow up with the primary care doctor for re-evaluation. Usual and customary return precautions given prior to discharge. She was also given referral information for surgery if her nausea and decreased appetite did not improve as she may need further evaluation including upper endoscopy. Medical Records Medical records reviewed: Yes I reviewed the patient's medical records. Imaging Data Radiologic Study: Radiologist's impression: US ABDOMEN LIMITED CLINICAL HISTORY: RUQ pain, r/o acute cholecystitis TECHNIQUE: Ultrasound abdomen performed using standard protocol. COMPARISON: CT CT ABDOMEN PELVIS W from 08/24/2019 FINDINGS: LIVER: Normal size. Increased echogenicity and decreased through transmission, consistent with fatty infiltration. Posterior portions of the liver are not well seen.. No focal liver lesions are visible.. GALLBLADDER: No evidence of cholelithiasis. No evidence of wall thickening. No pericholecystic fluid identified. STANFORD'S SIGN: Negative. BILIARY SYSTEM: No intrahepatic or extrahepatic biliary ductal dilation. KIDNEYS: Right kidney are symmetric in size. There is a small echogenic focus at the upper pole of the right kidney which could represent a stone versus artifact. No evidence of hydronephrosis. No renal mass identified. PANCREAS: Normal where visualized. ABDOMINAL AORTA AND IVC: Visualized portions normal caliber. ASCITES: None seen. IMPRESSION: No evidence of cholecystitis. Question of a small stone near the upper pole of the right kidney versus artifact. CT ABDOMEN PELVIS W CLINICAL HISTORY: RUQ/RLQ/R flank pain. TECHNIQUE: Imaging Protocol: Axial computed tomography images with coronal and sagittal reformatted images were created and reviewed CONTRAST MATERIAL: Intravenous: Omnipaque 350 Contrast volume:100 ml Oral: no COMPARISON: CT CT ABDOMEN PELVIS W from 08/24/2019 FINDINGS: A moderate-sized hiatal hernia is noted. There is no evidence of obstruction or of normal gastric distension. The appendix is normal. There is been interval clearing of previously noted inflammation anterior to the lower descending colon. There are small scattered diverticula in the sigmoid region. There is no evidence of diverticulitis. The bowel is not abnormally distended. There is a normal quantity of stool. Heart size is normal. The lung bases are clear. The liver shows fatty infiltration. The gallbladder is unremarkable. The spleen is normal in size. There is a small adjacent splenule. The pancreas and adrenals as well as kidneys are unremarkable. No renal calculi are seen. There is a tiny cyst near the upper pole of the right kidney. The urinary bladder is unremarkable. The patient is status post hysterectomy. No significant bony abnormalities are seen. The aorta is normal in diameter. Impression: Hiatal hernia. No acute abnormality. Lab Data Lab results reviewed: Yes I reviewed the patient's lab results. Labs: Laboratory Tests Range/Units 04/03/20 04/03/20 04/03/20 12:46 13:40 13:40 WBC (4.4-10.8) 10^3/uL 9.29 RBC (3.93-5.22) 10^6/uL 4.63 Hgb (11.2-15.7) g/dL 13.9 Hct (36.0-46.0) % 42.7 MCV (80-95) fL 92.2 MCH (27.0-33.0) pg 30.0 MCHC (32.0-36.0) % 32.6 RDW (11.7-14.6) % 12.6 Plt Count (130-400) 10^3/uL 235 MPV (8.0-11.0) fL 10.8 Immature Gran % 0.3 Neutrophils % 57.6 Lymphocytes % 34.1 Monocytes % 5.9 Eosinophils % 1.8 Basophils % 0.3 Nucleated RBC % % 0 Absolute Neutrophils (1.2-6.7) 10^3/uL 5.34 Absolute Lymphocytes (1.2-3.4) 10^3/uL 3.17 Absolute Monocytes (0.1-0.8) 10^3/uL 0.55 Absolute Eosinophils (0.0-0.7) 10^3/uL 0.17 Absolute Basophils (0.0-0.2) 10^3/uL 0.03 Sodium (136-145) mmol/L 138 Potassium (3.5-5.1) mmol/L 4.0 Chloride (98-107) mmol/L 107 Carbon Dioxide (21.0-32.0) mmol/L 23.3 Anion Gap (3-11) mmol/L 7.7 BUN (7-18) mg/dL 16 Creatinine (0.55-1.02) mg/dL 0.70 Estimated GFR/1.73 m2 (mL/min/1.73m2) >= 60.00 Glucose (74-106) mg/dL 107 H Calcium (8.5-10.1) mg/dL 8.6 Total Bilirubin (0.2-1.0) mg/dL 0.3 AST (15-37) U/L 24 ALT (14-59) U/L 48 Alkaline Phosphatase (46-116) U/L 91 Total Protein (6.4-8.2) g/dL 6.6 Albumin (3.4-5.0) g/dL 3.2 L Lipase (73-393) U/L 91 Urine Color (Yellow) Yellow Urine Clarity (Clear) Clear Urine pH (5-8) 5.5 Ur Specific [place] (1.005-1.025) 1.015 Urine Protein (Negative) mg/dL Negative Urine Ketones (Negative) mg/dL Negative Urine Blood (Negative) Negative Urine Nitrite (Negative) Negative Urine Bilirubin (Negative) Negative Urine Urobilinogen (Up TO 0.2) EU/dL 0.2 Ur Leukocyte Esterase (Negative) Negative Urine Glucose (Negative) mg/dL Negative HPI General Mode of arrival: ambulatory. Date/Time Provider Initiated Documentation: 04/03/20 12:32. Limitations to Documentation: no limitations. Information obtained by: patient. HPI Narrative: Patient is a 54-year-old female with a history of asthma, endometriosis, hysterectomy who presents for right lower back pain for the past several months, worse over the past 5 days. She states the pain has been intermittent, crampy and occasionally worse with movement but otherwise denies any aggravating or alleviating factors. She does admit to nausea and decreased appetite of the past 2 months. She states her back pain has been occurring 1 weekly for the past several months but has been constant for the past 5 days. She states the pain is currently 4/10 but was 8/10 earlier today. She admits to occasional radiation of pain around to her right mid to lower abdomen. She saw her primary care doctor for this complaint yesterday and was recommended for outpatient lab work and CT imaging but was told that her insurance did not yet cover for this to be done so was sent to the ER for further evaluation. Patient denies any known fever, abdominal pain, vomiting, urinary symptoms, recent travel, recent known sick contacts or recent known exposure to coronavirus. Patient states she was seen here in August 2019 and diagnosed with epiploic appendagitis and has had chronic loose stools occurring daily since then. She denies any rectal bleeding. She denies any recent antibiotics. She denies any history of injury to her back. Related Data Home Medications Medication Instructions Recorded Confirmed bupropion HCl [Wellbutrin] 100 mg PO BID tab-cap 12/07/13 04/03/20 albuterol sulfate 2 puff INHALATION PRN PRN 03/24/14 04/03/20 ondansetron 4 mg PO TID PRN #6 tab 08/24/19 04/03/20 lidocaine [Lidoderm] 1 patch TP DAILY PRN #15 each 04/03/20 methocarbamol 500 mg PO Q6H PRN #14 tab 04/03/20 Previous Rx's Medication Instructions Recorded ondansetron 4 mg PO TID PRN #6 tab 08/24/19 lidocaine [Lidoderm] 1 patch TP DAILY PRN #15 each 04/03/20 methocarbamol 500 mg PO Q6H PRN #14 tab 04/03/20 Allergies Allergy/AdvReac Type Severity Reaction Status Date / Time oxycodone HCl [From Percocet] AdvReac Intermediate Psychosis Verified 04/03/20 12:42 General TAMMIE: 3 Review of Systems All systems reviewed & are unremarkable except as noted in HPI and below Constitutional Constitutional: Reports as per HPI, Denies chills and Denies fever(s) Eyes Eyes: Denies blurry vision ENT Ears, Nose, Mouth, and Throat: Denies dizziness, Denies sore throat and Denies throat swelling Cardiovascular Cardiovascular: Denies chest pain and Denies dyspnea Respiratory Respiratory: Denies cough and Denies dyspnea Gastrointestinal Gastrointestinal: Denies abdominal pain, Denies diarrhea, Reports nausea and Denies vomiting Genitourinary Genitourinary: Denies hematuria and Denies dysuria Musculoskeletal Musculoskeletal: Reports back pain and Denies numbness Integumentary/Breasts Skin/Breast: Denies lesions and Denies rash Neurologic Neurologic: Denies dizziness, Denies localized weakness and Denies numbness Allergic/Immunologic Allergic/Immunologic: Denies throat swelling [facility] Medical History (Updated 04/03/20 @ 15:09 by Linda Mcbride DO) Asthma Colorectal polyp detected on colonoscopy Endometriosis Frequent vaginal yeast infections History of postoperative nausea and vomiting Perfect anesthesia 09/07/2018 per Pt Internal hemorrhoids without complication Menorrhagia Metatarsalgia of left foot (03/11/17) Otalgia of right ear (04/12/15) Vaginal yeast infection (01/26/15) Surgical History Abdominal hysterectomy 2001 ovaries remain secondary to endometriosis and menorrhagia History of arthroscopy Right knee History of hand surgery R hand, cyst and carpal tunnel Hx of foot surgery L foot, surgical hardware in place, five total surgeries S/P colonoscopy (~01/10/19) Family History Sister Thyroid cancer Brother Tonsillar cancer Mother No problems noted. Father No problems noted. Other Personal history of malignant neoplasm Social History Smoking/Tobacco Use Status: Never Smoking risk assessment performed?: Yes Alcohol Intake: current Alcohol Intake frequency: a few times a week Alcohol type: wine Drug use: Never Substance use type: does not use Details: alcohol: t-1, one glass current occupation: [employer] Current gender identity: female Do you feel safe at home: Yes Do you feel safe in your relationship?: Yes Exam Const General: cooperative, healthy appearing and no acute distress HENMT Head: normal to inspection Face and sinus: normal facial exam Eyes General: appearance normal, both eyes and all related structures Pupils: PERRL EOM: EOM intact bilaterally Neck Neck: normal visual inspection and No submandibular swelling Lymphatic: no lymphadenopathy noted Chest Chest: normal inspection of the chest and no tenderness Resp Effort & Inspection: normal respiratory effort and able to speak in complete sentences Auscultation: clear to auscultation bilaterally Cardio Rate: regular rate Rhythm: regular rhythm GI Inspection: normal to inspection Palpation: soft, not firm, not rigid and nontender Auscultation: normal bowel sounds Back/Spine/Pelvis Thoracic/Lumbar Spine: thoracic and lumbar spine normal to inspection and straight leg raise negative bilaterally Pelvis: no pain with anterior-posterior compression Other: There is no midline back or buttock tenderness. Back/spine/pelvis image: 1. Tenderness to palpation right flank. There is no erythema, edema, ecchymosis, crepitus, rash or evidence of trauma. Skin General skin exam: no rashes or lesions noted Neuro General: patient alert, patient awake and patient oriented x3 Cognition: normal cognition Speech: speech normal Motor: muscle tone normal throughout and strength 5/5 throughout Sensory Exam: no sensory deficits noted DTR's: Rt Patellar: 1+, Lt Patellar: 1+, Rt Ankle: 1+ and Lt Ankle: 1+ Plantar Reflexes: Equivocal: bilateral (Negative babinski bilaterally) Extrem General: normal to inspection, full ROM, capillary refill normal, no calf tenderness bilaterally and no edema Other: Bilateral DP/PT pulses intact. Psych Appearance: grossly normal Mental Status: mental status grossly normal Speech and Movement: speech and movement normal Affect: normal affect
--- NOTE | 2020-04-03 13:00 | DI.US_ITS ---
EXAM: US ABDOMEN LIMITED CLINICAL HISTORY: RUQ pain, r/o acute cholecystitis TECHNIQUE: Ultrasound abdomen performed using standard protocol. COMPARISON: CT CT ABDOMEN PELVIS W from 08/24/2019 FINDINGS: LIVER: Normal size. Increased echogenicity and decreased through transmission, consistent with fatty infiltration. Posterior portions of the liver are not well seen.. No focal liver lesions are visib le.. GALLBLADDER: No evidence of cholelithiasis. No evidence of wall thickening. No pericholecystic fluid identified. STANFORD'S SIGN: Negative. BILIARY SYSTEM: No intrahepatic or extrahepatic biliary ductal dilation. KIDNEYS: Right kidney are symmetric in size. There is a small echogenic focus at the upper pole of th e right kidney which could represent a stone versus artifact. No evidence of hydronephrosis. No lizeth l mass identified. PANCREAS: Normal where visualized. ABDOMINAL AORTA AND IVC: Visualized portions normal caliber. ASCITES: None seen. IMPRESSION: No evidence of cholecystitis. Question of a small stone near the upper pole of the right kidney vers us artifact. DATA REPOSITORY:
[2020-04-03] MEDS: diazePAM 5 MG TAB PO (13:20)
[2020-04-03 13:52] LABS: Abs Immature Grans 0.03 10^3/uL (0.0-0.06); Absolute Basophil Count 0.03 10^3/uL (0.0-0.2); Absolute Eosinophil Count 0.17 10^3/uL (0.0-0.7); Absolute Lymphocyte Count 3.17 10^3/uL (1.2-3.4); Absolute Monocyte Count 0.55 10^3/uL (0.1-0.8); Absolute Neutrophil Count 5.34 10^3/uL (1.2-6.7); Basophils % 0.3; Eosinophils % 1.8; HCT 42.7 % (36.0-46.0); HGB 13.9 g/dL (11.2-15.7); Immature Grans % 0.3; Lymphocytes % 34.1; MCHC 32.6 % (32.0-36.0); MCV 92.2 fL (80-95); MPV 10.8 fL (8.0-11.0); Monocytes % 5.9; Neutrophils % 57.6; Nucleated RBC 0 %; Platelet Count 235 10^3/uL (130-400); RBC 4.63 10^6/uL (3.93-5.22); RDW 12.6 % (11.7-14.6); RDW-SD 43.2 fL; WBC 9.29 10^3/uL (4.4-10.8)
[2020-04-03 14:02] LABS: ALT 48 U/L (14-59); AST 24 U/L (15-37); Albumin 3.2 g/dL (3.4-5.0); Alkaline Phosphatase 91 U/L (46-116); Anion Gap 7.7 mmol/L (3-11); BUN 16 mg/dL (7-18); Bilirubin, Total 0.3 mg/dL (0.2-1.0); CO2 23.3 mmol/L (21.0-32.0); Calcium 8.6 mg/dL (8.5-10.1); Chloride 107 mmol/L (98-107); Glucose 107 mg/dL (74-106); Lipase 91 U/L (73-393); Sodium 138 mmol/L (136-145); Total Protein 6.6 g/dL (6.4-8.2)
[2020-04-03] MEDS: Omnipaque 350 MG/ML 100 ML BTL IJ (14:33)
[2020-04-03] MEDS: Normal Saline - Diluent 50 ML VIAL IV (14:34)
[2020-04-03] MEDS: Normal Saline Flush 10 ML SYR IVP (14:34)
--- NOTE | 2020-04-03 14:35 | DI.CT_ITS ---
EXAM: CT ABDOMEN PELVIS W CLINICAL HISTORY: RUQ/RLQ/R flank pain. TECHNIQUE: Imaging Protocol: Axial computed tomography images with coronal and sagittal reformatted images were created and reviewed CONTRAST MATERIAL: Intravenous: Omnipaque 350 Contrast volume:100 ml Oral: no COMPARISON: CT CT ABDOMEN PELVIS W from 08/24/2019 FINDINGS: A moderate-sized hiatal hernia is noted. There is no evidence of obstruction or of normal gastric di stension. The appendix is normal. There is been interval clearing of previously noted inflammation anterior to the lower descending colon. There are small scattered diverticula in the sigmoid region. There is no evidence of diverticulitis. The bowel is not abnormally distended. There is a normal quantity of stool. Heart size is normal. The lung bases are clear. The liver shows fatty infiltration. The gallbladde r is unremarkable. The spleen is normal in size. There is a small adjacent splenule. The pancreas and adrenals as well as kidneys are unremarkable. No renal calculi are seen. There is a tiny cyst n ear the upper pole of the right kidney. The urinary bladder is unremarkable. The patient is status post hysterectomy. No significant bony abnormalities are seen. The aorta is normal in diameter. Impression: Hiatal hernia. No acute abnormality. RADIATION DOSE DELIVERED: 1,653.59mGy.cm Total DLP DATA REPOSITORY: All CT scans at this facility are submitted to the National Radiology Data Registry (NRDR) Dose Index Registry (DIR) with the [employer] (ACR). RADIATION OPTIMIZATION: All CT scans at this facility use at least one of these dose optimization te chniques: automated exposure control; mA and/or kV adjustment per patient size (includes targeted exa ms where dose is matched to clinical indication); or iterative reconstruction.
[2020-04-03 14:47] LABS: Bilirubin Negative (Negative); Blood Negative (Negative); Clarity Clear (Clear); Glucose Negative (Negative); Ketones Negative (Negative); Leukocyte Esterase Negative (Negative); Nitrite Negative (Negative); Specific Gravity 1.015 (1.005-1.025); Urobilinogen 0.2 EU/dL (Up TO 0.2); pH 5.5 (5-8)
[2020-04-03 15:30] VITALS: BP 137/76; PULSE 77; TEMP 36.6; O2SAT 96
== END 2020-04-03 15:35 | disposition home or self-care (01) ==
PROVIDERS: Emergency Provider Physician Assistant; PCP Family Medicine
DX: M54.5 Low back pain (principal)
CPT/HCPCS: 36415; 80053; 83690; 99285; 74177; 76705; 81003; 85025; J3490

== ENCOUNTER 2020-05-23 01:17 | Outpatient (CLI) | payer BC, OTHER, SELFPAY ==
--- NOTE | 2020-05-23 15:47 | DI.MAMMO_ITS ---
EXAM: MG MAMMO SCREENING CLINICAL HISTORY: screening. TECHNIQUE: Bilateral full field digital CC and MLO mammographic images were obtained with 3D tomosyn thesis and utilizing computer aided detection (CAD). COMPARISON: Prior mammograms dating back to 2013, the most recent being November 2018. Breast ultraso und November 2018 was also reviewed. FINDINGS: There are no new significant radiograph findings in left breast. Previously described asymmetric den sities unchanged from prior studies. In the opposite-right breast there is a small benign-appearing nodule located 5 cm in from the nipple which is unchanged from prior studies and has the appearance of a probable benign lymph node. Other small benign-appearing nodules in the right breast are noted, somewhat more prompt than on prior chica dies. There are no malignant-appearing microcalcification groups in either breast. There is no sig nificant architectural distortion nor skin thickening-retraction. IMPRESSION: 1. No radiographic evidence of malignancy in the left breast. 2. Right breast nodules. Spot compression views plus ultrasound of the right breast recommended. BI-RADS Category 0 - Assessment Incomplete: Need additional imaging evaluation Breast Density - Category B - Scattered areas of fibroglandular density Breast density Category C or D implies that the patient has dense breast tissue. Dense breast tissue can make it harder to find cancer on a mammogram. Dense breast tissue is also associated with an incr eased risk of breast cancer. This information about the result of the mammogram report was provided to the patient to raise their awareness. Use this report when you speak with the patient about their risks for breast cancer, which includes their family history. At that time, you may recommend additional screening tests (Ultrasoun d or MRI) as these tests may add significant information. A negative radiographic report should not delay biopsy if a dominant or clinically suspicious mass is present. Up to ten percent of cancers are not identified on mammography. A negative report may reinforce clinical impression. Adenosis and dense breasts may obscure an underlying neoplasm. False positive reports average 6 to 10%. Patient will receive a letter notifying them of these results.
== END 2020-05-23 01:18 ==
LOC: DI 01:17
PROVIDERS: PCP Family Medicine; Visit Provider Nurse Practitioner Family
DX: Z12.31 Encounter for screening mammogram for malignant neoplasm of breast (principal); R92.8 Other abnormal and inconclusive findings on diagnostic imaging of breast
CPT/HCPCS: 77063; 77067

== ENCOUNTER 2020-05-25 00:58 | Outpatient (CLI) | payer BC, SELFPAY ==
--- NOTE | 2020-05-25 14:48 | DI.MAMMO_ITS ---
EXAM: MG MAMMO SCREEN CALL BACK UNI CLINICAL HISTORY: F/U MAMMO, RT BREAST NODULES TECHNIQUE: Spot compression views and tomographic imaging were performed. COMPARISON: 23 May 2020 and exams from 2013 through 2018. FINDINGS: No suspicious masses or suspicious microcalcifications are seen. There has been no significant change from prior exams. IMPRESSION: BI-RADS Category 1, Negative Yearly screening mammography is recommended. Breast Density - Category B, scattered fibroglandular densities.
== END 2020-05-25 00:59 ==
PROVIDERS: PCP Family Medicine; Visit Provider Nurse Practitioner Family
DX: Z12.31 Encounter for screening mammogram for malignant neoplasm of breast (principal); R92.8 Other abnormal and inconclusive findings on diagnostic imaging of breast; N64.59 Other signs and symptoms in breast
CPT/HCPCS: 77063; 77067

== ENCOUNTER 2020-11-16 02:36 | Outpatient (CLI) | payer BC, SELFPAY ==
[2020-11-16 09:01] LABS: Calculated LDL 119 mg/dL (<100); Cholesterol 194 mg/dL (<200); Glucose 84 mg/dL (74-106); HDL Cholesterol 61 mg/dL (40-60); Triglyceride 72 mg/dL (<150)
== END 2020-11-16 02:37 | disposition home or self-care (01) ==
LOC: LBO 02:36
PROVIDERS: PCP Family Medicine; Visit Provider Nurse Practitioner Family
DX: Z13.220 Encounter for screening for lipoid disorders (principal); Z13.1 Encounter for screening for diabetes mellitus
CPT/HCPCS: 36415; 80061; 82947

== ENCOUNTER 2020-12-03 10:08 | Outpatient (REF) | payer BC, SELFPAY ==
[2020-12-04 17:56] LABS: COVID-19 RT-PCR UVMMC Result Negative (Negative)
== END 2020-12-03 10:09 | disposition home or self-care (01) ==
LOC: LBN 10:08
PROVIDERS: PCP Family Medicine; Visit Provider Family Medicine
DX: Z20.822 Contact with and (suspected) exposure to COVID-19 (principal); J06.9 Acute upper respiratory infection, unspecified
CPT/HCPCS: U0003

== ENCOUNTER → 2021-09-25 01:17 | Outpatient (CLI) | payer BC, SELFPAY ==
--- NOTE | 2021-09-25 16:30 | DI.MAMMO_ITS ---
Exam(s) MAMMO SCREENING EXAM: MAMMO SCREENING CLINICAL HISTORY: screening TECHNIQUE: Mammograms were interpreted according to the usual protocol including computer analysis w [employer] CAD system, tomosynthesis and C-view imaging. COMPARISON: 2013 through 2020 FINDINGS: The breasts are composed of mainly fatty density , Breast Density category A. No suspicious masses or suspicious microcalcifications are seen. No skin thickening or abnormal axillary lymph nodes are seen. There has been no significant change from prior exams. IMPRESSION: BI-RADS Category 1, Negative mammogram Yearly screening mammography is recommended. Breast Density - Category A, fatty density. A negative radiographic report should not delay biopsy if a dominant or clinically suspicious mass is present. Up to ten percent of cancers are not identified on mammography. A negative report may reinforce clinical impression. Adenosis and dense breasts may obscure an underlying neoplasm. False positive reports average 6 to 10%. Patient will receive a letter notifying them of these results.
== END ==
PROVIDERS: PCP Family Medicine; Visit Provider Nurse Practitioner Family
DX: Z12.31 Encounter for screening mammogram for malignant neoplasm of breast (principal)
CPT/HCPCS: 77063; 77067

== ENCOUNTER 2022-01-14 16:06 | Outpatient (REF) | payer BC, SELFPAY ==
[2022-01-14 19:07] LABS: ALT 32 U/L (14-59); AST 22 U/L (15-37); Albumin 3.8 g/dL (3.4-5.0); Alkaline Phosphatase 96 U/L (46-116); Anion Gap 12.4 mmol/L (3-11); BUN 13 mg/dL (7-18); Bilirubin, Total 0.5 mg/dL (0.2-1.0); CO2 21.6 mmol/L (21.0-32.0); CREATININE 0.7 mg/dL (0.55-1.02); Calcium 9.1 mg/dL (8.5-10.1); Calculated LDL 127 mg/dL (<100); Chloride 106 mmol/L (98-107); Cholesterol 205 mg/dL (<200); Estimated GFR 102.07 (mL/min/1.73m2); Glucose 92 mg/dL (74-106); HDL Cholesterol 64 mg/dL (40-60); Potassium 3.9 mmol/L (3.5-5.1); Sodium 140 mmol/L (136-145); TSH (W/Ref FT4) 1.16 uIU/mL (0.36-3.74); Total Protein 7.3 g/dL (6.4-8.2); Triglyceride 72 mg/dL (<150)
== END 2022-01-14 16:07 | disposition home or self-care (01) ==
LOC: NCHCN 16:06
PROVIDERS: PCP Family Medicine; Visit Provider Family Medicine
DX: R63.5 Abnormal weight gain (principal); K76.0 Fatty (change of) liver, not elsewhere classified; Z00.00 Encounter for general adult medical examination without abnormal findings
CPT/HCPCS: 80053; 80061; 84443

== ENCOUNTER 2023-01-27 16:52 | Outpatient (REF) | payer BC, SELFPAY ==
[2023-01-27 16:34] LABS: ALT 21 U/L (14-59); AST 12 U/L (15-37); Albumin 3.5 g/dL (3.4-5.0); Alkaline Phosphatase 95 U/L (46-116); Anion Gap 12.4 mmol/L (3-11); BUN 12 mg/dL (7-18); Bilirubin, Total 0.5 mg/dL (0.2-1.0); CO2 21.6 mmol/L (21.0-32.0); CREATININE 0.7 mg/dL (0.55-1.02); Calcium 9.1 mg/dL (8.5-10.1); Calculated LDL 119 mg/dL (<100); Chloride 109 mmol/L (98-107); Cholesterol 184 mg/dL (<200); Estimated GFR 101.44 (mL/min/1.73m2); Glucose 93 mg/dL (74-106); HDL Cholesterol 53 mg/dL (40-60); Potassium 3.9 mmol/L (3.5-5.1); Sodium 143 mmol/L (136-145); TSH (W/Ref FT4) 1.04 uIU/mL (0.36-3.74); Total Protein 6.7 g/dL (6.4-8.2); Triglyceride 62 mg/dL (<150)
[2023-01-27 17:22] LABS: Hemoglobin A1C 5.3 % (<5.7)
== END 2023-01-27 16:53 | disposition home or self-care (01) ==
LOC: NCHCN 16:52
PROVIDERS: PCP Family Medicine; Visit Provider Family Medicine
DX: E66.9 Obesity, unspecified (principal); Z00.00 Encounter for general adult medical examination without abnormal findings
CPT/HCPCS: 80053; 80061; 83036; 84443

== ENCOUNTER → 2023-02-11 00:38 | Outpatient (CLI) | payer BC, SELFPAY ==
--- NOTE | 2023-02-11 | DI.MAMMO_ITS ---
Exam(s) MAMMO SCREENING EXAM: MAMMO SCREENING CLINICAL HISTORY: screening, z12.31, preventive health care, z00.00 TECHNIQUE: Bilateral full field digital CC and MLO mammographic images were obtained with 3D tomosyn thesis and utilizing computer aided detection (CAD). COMPARISON: Available for comparison. FINDINGS: Masses/Architectural Distortion: Stable small bilateral breast nodules are present. No suspicious no dules or areas of architectural distortion are seen. Microcalcifications: No suspicious pleomorphic-type are seen. Skin Thickening/Nipple Retraction: None. IMPRESSION: 1. No significant interval change with no specific features of malignancy noted. 2. Unless there is more urgent need, screening mammography is recommended, as per [employer] guidelines. BI-RADS Category 2 - Benign Findings Breast Density - Category B - Scattered areas of fibroglandular density Breast density category C or D implies that the patient has dense breast tissue. Dense breast tissue is very common and is not abnormal but dense breast tissue can make it harder to find cancer on a ma mmogram. Also, dense breast tissue may increase their breast cancer risk. This information about the result of the mammogram report was provided to the patient to raise their awareness. Use this report when you speak with the patient about their risks for breast cancer, which includes their family hist ory. At that time, you may recommend for more screening tests (Ultrasound or MRI) as they might be us eful based on their risk. A negative radiographic report should not delay biopsy if a dominant or clinically suspicious mass is present. Up to ten percent of cancers are not identified on mammography. A negative report may reinforce clinical impression. Adenosis and dense breasts may obscure an underlying neoplasm. False positive reports average 6 to 10%. Patient will receive a letter notifying them of these results.
== END ==
PROVIDERS: PCP Family Medicine; Visit Provider Family Medicine
DX: Z12.31 Encounter for screening mammogram for malignant neoplasm of breast (principal); R92.323 Mammographic fibroglandular density, bilateral breasts
CPT/HCPCS: 77063; 77067

== ENCOUNTER 2023-05-05 08:26 | Day surgery (SDC) | payer BC, SELFPAY ==
[2023-05-05 08:30] VITALS: BP 124/82; PULSE 93; RESP 18; TEMP 36.7; O2SAT 99
[2023-05-05] MEDS: Lactated Ringers 1,000 ML 80 ML IV (09:00)
[2023-05-05 09:13] VITALS: BMI 36.5
--- NOTE | 2023-05-05 09:13 | ANES.PREOP_ITS ---
General Info Date of Service Date Performed: 05/05/23 Height: 5 ft 5 in Weight: 99.5 kg Body Mass Index (BMI): 36.5 Surgical Procedure: Operation Date: 05/05/23 10:20 Proposed Procedure Side Surgeon p Lyubov Brewster MD Meds Allergies and Home Medications Allergies Allergy/AdvReac Type Severity Reaction Status Date / Time oxycodone HCl [From Percocet] AdvReac Intermediate Psychosis Verified 05/05/23 08:37 Home Medication Medication Instructions Recorded albuterol sulfate 90 mcg/actuation 2 puff inhalation PRN PRN 03/24/14 aerosol inhaler estradiol-norethindrone acet 1 See Rx Instructions .Route 08/13/21 mg-0.5 mg tablet .COMPLEX #84 tabs budesonide-formoterol HFA 80 2 puff inhalation BID PRN 04/17/23 mcg-4.5 mcg/actuation aerosol inhaler (Symbicort) bupropion HCl 100 mg tablet 300 mg PO ONCE 04/17/23 (Wellbutrin) diazepam 10 mg tablet 10 mg PO ONCE PRN 04/17/23 fluocinonide 0.05 % topical 1 applic topical BID PRN 04/17/23 ointment ondansetron HCl 4 mg tablet 4 mg PO Q8H PRN 04/17/23 semaglutide (weight loss) 2.4 2.4 mg subcut QWEEK 04/17/23 mg/0.75 mL subcutaneous pen injector (Wegovy) triamcinolone acetonide 55 mcg 2 spray intranasal DAILY 04/17/23 nasal spray aerosol (Nasacort) bisacodyl 5 mg tablet,delayed 5 mg PO ONCE colonscopy bowel prep 04/23/23 release (Dulcolax (bisacodyl)) #4 tabs gabapentin 100 mg capsule 100 mg PO TID PRN 04/23/23 omeprazole 20 mg capsule,delayed 20 mg PO DAILY 04/23/23 release polyethylene glycol 3350 17 238 g PO ONCE colonoscopy prep 04/23/23 gram/dose oral powder #238 grams polyethylene glycol 3350 17 238 g PO ONCE colonoscopy prep 04/23/23 gram/dose oral powder #238 grams Current Visit Medications: Current Medications Generic Name Dose Route Start Last Admin Trade Name Freq PRN Reason Stop Dose Admin Ringer's Solution 1,000 mls @ 80 mls/hr 05/05/23 06:00 05/05/23 09:00 IV 06/03/23 23:59 80 mls/hr INFUSION MENDEL Administration IV Miscellaneous Supplies 1 each 05/05/23 06:00 Iv Access IV 06/03/23 23:59 DIRECTED MENDEL Sodium Chloride 0 ml 05/05/23 06:00 Normal Saline Flush 10 Ml Syr IV 06/03/23 23:59 PRN PRN Sodium Chloride 0 ml 05/05/23 06:00 Normal Saline 10 Ml Vial IJ 06/03/23 23:59 DIRECTED PRN Sterile Water 0 ml 05/05/23 06:00 Water,Injection,Sterile 10 Ml Vial IJ 06/03/23 23:59 DIRECTED PRN PFSH Active Problems Active Problems: Problem Status Onset Code Obesity E66.9 Chronic rhinitis 04/12/15 J31.0 Acquired absence of both cervix and uterus 01/26/15 Z90.710 Pes anserinus bursitis of right knee M70.51 Tear of medial meniscus of right knee S83.241A Right carpal tunnel syndrome 03/09/19 G56.01 Lipoma of right forearm 12/22/18 D17.21 Internal hemorrhoids without complication K64.8 Colorectal polyp detected on colonoscopy K63.5 S/P colonoscopy ~01/10/19 Z98.890 History of arthroscopy Z98.890 Medical History Medical History History of postoperative nausea and vomiting Perfect anesthesia 09/07/2018 per Pt Asthma Metatarsalgia of left foot (03/11/17) Otalgia of right ear (04/12/15) Vaginal yeast infection (01/26/15) Menorrhagia Frequent vaginal yeast infections Endometriosis Medical History Comments:: pt states PONV after anesthesia and high anxiety before. pt states she is normally pre-medicated before procedures d/t anxiety Surgical History Surgical History History of colonoscopy History of hand surgery R hand, cyst and carpal tunnel Hx of foot surgery L foot, surgical hardware in place, five total surgeries Abdominal hysterectomy 2000 ovaries remain secondary to endometriosis and menorrhagia Tobacco Smoking/Tobacco Use Status: Never Alcohol Alcohol Intake: current Alcohol intake frequency: other Alcohol type: wine Substance Use Substance use: Never Substance use type: does not use Details: pt states she no longer drinks alcohol since starting wegovy-feels unw ell when she does Vital Signs and Lab Results Vital Signs Most Recent Vital Signs in EMR: Most Recent Vital Signs Temp Pulse Resp BP Pulse Ox 36.7 C 93 H 18 124/82 99 05/05/23 08:30 05/05/23 08:30 05/05/23 08:30 05/05/23 08:30 05/05/23 08:30 Lab Results Blood Type / Crossmatch: No Data to Display Complete Blood Count: No Data to Display Complete Metabolic Panel: No Data to Display Liver Function Panel: No Data to Display Coagulation Panel: No Data to Display Cardiac Panel: No Data to Display Arterial Blood Gas: No Data to Display Venous Blood Gas: No Data to Display Pancreas Panel: No Data to Display Thyroid Panel: No Data to Display Infectious Disease: No Data to Display Blood Cultures: No Data to Display Toxicology Panel: No Data to Display Anesthesia Assessment and Plan Anesthesia History Personal History: PONV Family History: No Family History of Anesthesia Complications Exercise Tolerance Exercise Tolerance: Metabolic Equivalents>4 Pertinent Negatives Pertinent Negatives: No Symptoms of GERD Cardiac & Pulmonary Exam Cardiac Exam: Normal S1/S2 Heart Sounds Pulmonary Exam: Clear Bilateral Breath Sounds Implantable Cardiac Device Does patient have a Pacemaker or an ICD?: No Airway Exam Known Difficult Airway: No Mallampati Class: 2 Mouth Opening: Normal (> 3cm) Thyromental Distance: Greater than 3 cm Neck Range of Motion: Full ROM Neck Circumference: Normal Teeth Condition: Normal Dentition ASA Classification ASA Score: ASA 2 Emergency Case?: No NPO Status NPO Status: NPO Clears >2 hours, Solids >8 hours Anesthesia Plan Resuscitation Status: Full Code Anesthesia Technique: General Anesthesia Airway Planned: Natural Airway Monitors Used: Standard Monitors
--- NOTE | 2023-05-05 09:29 | BOWEL_PTH ---
PATIENT: Latisha Wiggins LOC: [facility] U#:[id number] AGE/SX: 57/F ROOM: RE05/05/[address]: Roland Brewster : 1965 BED: DIS: 05/05/2023 SPEC #: [id number] RECD: 05/05/23 11:33 STATUS: [facility] #: [id number] TOREY: 05/05/23 09:[address]: Roland Brewster DEPT: Surgical Specimen RECD BY: Mariana Hanks ENTERED: 05/05/23 11:34 SP TYPE: Bowel OTHR DR: Ceci Issa V Tissues: 1 - BIOPSY BOWEL 2 - BIOPSY BOWEL 3 - BIOPSY BOWEL 4 - BIOPSY BOWEL Procedures: GROSS AND MICRO LEVEL 4 Comments: [id number]
--- NOTE | 2023-05-05 09:52 | W.COLOREPORT ---
Date of service: 05/05/23 Time of Service: 09:45 Colonoscopy Report Procedure Description: PROCEDURES PERFORMED: 1. Colonoscopy with hot snare polypectomy x2 2. Endoscopic clip placement 3. Cold Forceps biopsy/polypectomy PREOPERATIVE DIAGNOSIS: Surveillance colonoscopy POSTOPERATIVE DIAGNOSIS: Colon polyps, mild diverticular changes, mild grade 1 internal hemorrhoids, colon lipoma SURGEON: Malaika Brewster MD INDICATION for procedure: The patient is a 57-year-old woman due for surveillance colonoscopy. No family history of colon cancer. FINDINGS: The terminal ileum was normal. In the cecum a 10-12 mm sessile polyp was removed with hot snare technique. The mucosal defect edges were approximated with an endoscopic clip. Nearby an ascending colon polyp, 5-7 mm in size was removed with hot snare technique. At the hepatic flexure, within 10-20 cm of the valve, there is a large lipoma of the colon wall. This was biopsied to confirm benign histology. In the sigmoid colon are some very minimal/mild diverticular changes. In the sigmoid and rectum are a couple of flat, hyperplastic?appearing polyps and one was removed with cold forceps technique to confirm benign histology. Minimal grade 1 internal hemorrhoids noted. SURVEILLANCE interval/FOLLOW-UP: 3 years SPECIMENS: yes EBL: Minimal COMPLICATIONS: None QUALITY of prep: Excellent Procedure in detail: The patient gave written consent and was in agreement with the indications, the potential risks as well as the benefits of the procedure. They taken to the endoscopy suite and laid in the left lateral decubitus position. A timeout was performed and anesthesia was administered which was tolerated well. I started the procedure. Digital rectal and visual examination was performed and grossly within normal limits. A well-lubricated flexible colonoscope was then introduced and passed without any notable difficulty all the way to the cecum identified by the ileocecal valve and the appendiceal orifice. The terminal ileum was intubated and appeared normal. The scope was then slowly withdrawn with the above-noted findings. The patient tolerated the procedure well and was taken to the PACU in hemodynamically stable condition.
[2023-05-05 09:55] VITALS: BP 84/67; PULSE 84; RESP 16; TEMP 36.2; O2SAT 100
--- NOTE | 2023-05-05 09:56 | W.PM.DSUDISC ---
Date of service: 05/05/23 Time of Service: 09:56 Discharge Plan Disposition Patient Disposition: Home Condition: Good Discharge Details Attending Provider: Roland Brewster Primary Care Provider: Ceci Issa V Home Meds and New Rx's Prescriptions: No Action Wegovy 2.4 mg/0.75 mL pen injector 2.4 mg subcut QWEEK diazepam 10 mg tablet 10 mg PO ONCE PRN Rx Instructions: as needed for migraine budesonide-formoterol [Symbicort] 80-4.5 mcg/actuation HFA aerosol inhaler 2 puff inhalation BID PRN ondansetron HCl 4 mg tablet 4 mg PO Q8H PRN Rx Instructions: as needed for nausea triamcinolone acetonide [Nasacort] 55 mcg aerosol,spray 2 spray intranasal DAILY Rx Instructions: administer into each nostril fluocinonide 0.05 % ointment 1 applic topical BID PRN gabapentin 100 mg capsule 100 mg PO TID PRN omeprazole 20 mg capsule,delayed release(DR/EC) 20 mg PO DAILY polyethylene glycol 3350 17 gram/dose powder 238 g PO ONCE Qty: 238 0RF Rx Instructions: take per colonoscopy instructions bisacodyl [Dulcolax (bisacodyl)] 5 mg tablet,delayed release (DR/EC) 5 mg PO ONCE Qty: 4 0RF Rx Instructions: take per colonoscopy instructions polyethylene glycol 3350 17 gram/dose powder 238 g PO ONCE Qty: 238 0RF Rx Instructions: take per colonoscopy instructions estradiol-norethindrone acet 1-0.5 mg tablet See Rx Instructions .ROUTE .COMPLEX Qty: 84 3RF Dose Instruction: TAKE ONE TABLET BY MOUTH EVERY DAY Rx Instructions: TAKE ONE TABLET BY MOUTH EVERY DAY bupropion HCl [Wellbutrin] 100 mg tablet 300 mg PO ONCE albuterol sulfate 8.5 GM HFA aerosol inhaler 2 puff Inhalation PRN PRN Discharge Instructions Additional Instructions: FINDINGS: 3 polyps were found today and removed from your colon. These were above?average/large polyps. Because of this she need to have another colonoscopy in 3 years. Some mild hemorrhoid disease and diverticular disease was seen today. This is extremely common, benign and nothing needs to be done about these conditions. Stand Alone Forms: Colonoscopy Post Instructions Activity:: Activity as Tolerated Diet:: As Tolerated
--- NOTE | 2023-05-05 10:01 | W.ANESPOSTOP ---
Postoperative Evaluation Date, Time and Location Date Performed: 05/05/23 Time Performed: 10:01 Patient Location: Day Surgery Unit Vital Signs Most Recent Imported Vital Signs: Most Recent Vital Signs Temp Pulse Resp BP Pulse Ox 36.2 C L 84 16 84/67 L 100 05/05/23 09:55 05/05/23 09:55 05/05/23 09:55 05/05/23 09:55 05/05/23 09:55 Pain Score Most Recent Pain Score: Most Recent Pain Score Pain Level 0 05/05/23 09:55 Assessment Mental Status: Awake (Alert & Oriented to Patient Baseline) Airway and Respiratory Function: Patent airway with normal (patient baseline) respiratory exam Cardiovascular Function: Hemodynamically Stable Hydration Status: Adequately Hydrated Nausea & Vomiting: No Nausea or Vomiting Pain: Pt. Denies Any Pain Peripheral Nerve Block: Patient did not receive a nerve block
[2023-05-05 10:02] VITALS: BP 97/69; PULSE 81; RESP 18; TEMP 36.6; O2SAT 96
[2023-05-05 10:25] VITALS: BP 103/73; PULSE 79; RESP 16; TEMP 36.6; O2SAT 100
== END 2023-05-05 10:43 | disposition home or self-care (01) ==
PROVIDERS: PCP Family Medicine; Visit Provider Student in an Organized Health Care Education/Training Program
PROC: 0DJD8ZZ Inspection of Lower Intestinal Tract, Via Natural or Artificial Opening Endoscopic (ICD-10-PCS; CPT 45378; principal; 2023-05-05 10:15)
DX: Z12.11 Encounter for screening for malignant neoplasm of colon (principal); D12.0 Benign neoplasm of cecum; D17.5 Benign lipomatous neoplasm of intra-abdominal organs; K57.30 Diverticulosis of large intestine without perforation or abscess without bleeding; K64.0 First degree hemorrhoids; Z86.010 Personal history of colon polyps; D12.2 Benign neoplasm of ascending colon
CPT/HCPCS: 45380; 45385; 00123; 88305; J2001; J2704

== ENCOUNTER 2023-12-17 20:06 | Outpatient (REF) | payer BC, SELFPAY ==
--- OUTSIDE RECORDS SUMMARY | 2023-12-17 20:10 | XMS_ITS | Encounter Summary ---
[place] [address] Care Team Providers Care Clinical Engineering Manager Name Role Phone Ceci Issa MD Primary Care Provider [phone] Encounter Details Date Type Department Care Team (Latest Contact Info) Description 05/24/2021 Travel Social History Tobacco Use Types Packs/Day Years Used Date Smoking Tobacco: Never Smokeless Tobacco: Never Alcohol Use Standard Drinks/Week Comments Yes 0 (1 standard drink = 0.6 oz pur e alcohol) occasional Sex and Gender Information Value Date Recorded Sex Assigned at Not on file Gender Identity Not on file Sexual Orientation Not on file documented as of this encounter Plan of Treatment Upcoming Encounters Date Type Department Care Team (Late st Contact Info) Description 12/21/2023 3:15 PM EDT Office Visit Dermatology at [address] [place] [phone] John Leon MD [address], [place] [address] documented as of this encounter Visit Diagnoses Not on filedocumented in this encounter Care Teams Clinical Engineering Manager Relationship Specialty Start Date End Date Ceci Issa MD [address] [place] [address] PCP - General 02/26/10 documented as of this encounter
--- OUTSIDE RECORDS SUMMARY | 2023-12-17 20:10 | XMS_ITS | Encounter Summary ---
[place] [address] Care Team Providers Care Credit Risk Manager Name Role Phone Ceci Issa MD Primary Care Provider [phone] Encounter Details Date Type Department Care Team (Latest Contact Info) Description 02/05/2023 Travel Social History Tobacco Use Types Packs/Day [...] 3:15 PM EDT Office Visit Dermatology at [address] [place] [phone] John Leon MD [address], [place] [address] documented as of this encounter Visit Diagnoses Not on filedocumented in this encounter Care Teams Credit Risk Manager Relationship Specialty Start Date End Date Ceci Issa MD [address] [place] [address] PCP - General 02/26/10 documented as of this encounter
--- OUTSIDE RECORDS SUMMARY | 2023-12-17 20:10 | XMS_ITS | Encounter Summary ---
[place] [address] Care Team Providers Care Supervisor Taping Name Role Phone Ceci Issa MD Primary Care Provider [phone] Reason for Visit * Reason Comments Annual Exam Encounter Details Date Type Department Care Team (Late st Contact Info) Description 12/18/2022 3:30 PM EDT Office Visit Dermatology at [address] [phone] John Leon MD [address] [place] [address], [place] [address] Nevus; Family history of malignant melanoma; Tinea versicolor Social History Tobacco Use Types Packs/Day Years Used Date Smoking Tobacco: Never Smokeless Tobacco: Never Alcohol Use Standard Drinks/Week Comments Yes 0 (1 standard drink = 0.6 oz pur e alcohol) occasional Sex and Gender Information Value Date Recorded Sex Assigned at Not on file Gender Identity Not on file Sexual Orientation Not on file documented as of this encounter Progress Notes * John Leon MD - 12/18/2022 3:30 PM EDT PROBLEM: 1. Yearly skin checkup. 2. History of tinea versicolor. 3. History of melanoma in her father, on his toe, with later metastasis. 4. Patient desirous of yearly skin examinations given her father's history of skin cancers Latisha follows up for her yearly skin checkup. She has been doing well. Her daughter was this November. Physical examination reveals a pleasant 56-year-old woman who has benign examination of the head and the neck the chest the back the hands informs thighs and calves. She has some tinea versicolor in the lower presacral back area. She is moderately tanned. She has a number of solar lentigos over thedorsal arms and forearms. There is no evidence of any cutaneous malignancy today. She has mild melasma along the lateral cheeks and lateral neck bilaterally. Right more prominently than left. Assessment and plan: Benign skin examination 1. Patient reassured about her benign skin examination 2. Continue sun avoidance precautions. Outlined these at some length. 3. Return to clinic in a year for repeat check. Family history of malignant melanoma in her father 1. Patient reassured about her benign examination today Tinea versicolor 1. Patient is using selenium sulfide containing Selsun Blue shampoo as needed. Continue this Melasma 1. Patient reassured about benign nature of these 2. Could consider hydroquinone 4% cream in the future, but patient defers for today. CC: Ceci Issa MD documented in this encounter Plan of Treatment Upcoming Encounters Date Type Department Care Team (Late st Contact Info) Description 12/21/2023 3:15 PM EDT Office Visit Dermatology at [address] [phone] John Leon MD [address], [place] [address] documented as of this encounter Visit Diagnoses Diagnosis Nevus Benign neoplasm of skin, site unspecified Family history of malignant melanoma Family history of other specified malignant neoplasm Tinea versicolor Pityriasis versicolor documented in this encounter Care Teams Supervisor Taping Relationship Specialty Start Date End Date Ceci Issa MD [address] [place] [address] PCP - General 02/26/10 documented as of this encounter
--- OUTSIDE RECORDS SUMMARY | 2023-12-17 20:10 | XMS_ITS | Encounter Summary ---
[place] [address] Care Team Providers Care Equipment Superintendent Name Role Phone Ceci Issa MD Primary Care Provider [phone] Reason for Visit * Reason Comments Suture / Staple Removal Encounter Details Date Type Department Care Team (Late st Contact Info) Description 12/13/2020 4:15 PM EDT Office Visit Dermatology at [address] [place] [address] John Leon MD [address] [place] [address], [facility] [place] [address] Visit for suture removal Social History Tobacco Use Types Packs/Day Years [...] Progress Notes * John Leon MD - 12/13/2020 4:15 PM EDT Problem: Follow-up for suture removal and biopsy results Noemy follows up and had an uneventful postoperative course. The biopsy did come back showing follicular cyst and it was completely removed with excision. Physical examination reveals good healing of the site. Assessment plan: Status post excision follicular cyst nape left lateral base of neck 1. Sutures removed 2. August DC wound instructions 3. Return to clinic in a year for repeat check cc: Ceci Dowling MD documented in this encounter Plan of Treatment Upcoming Encounters Date Type Department Care Team (Late st Contact Info) Description 12/21/2023 3:15 PM EDT Office Visit Dermatology at [place] [address] [place] [address] John Leon MD [address] [facility], [place] [address] documented as of this encounter Visit Diagnoses Diagnosis Visit for suture removal Encounter for removal of sutures documented in this encounter Care Teams Equipment Superintendent Relationship Specialty Start Date End Date Ceci Issa MD [address] [place] [address] PCP - General 02/26/10 documented as of this encounter
--- OUTSIDE RECORDS SUMMARY | 2023-12-17 20:10 | XMS_ITS | Clinical Summary ---
[facility] [address] Care Team Providers Care Insurance Executive Name Role Phone Ceci Issa MD Primary Care Provider [phone] Allergies Active Allergy Reactions Criticality Noted Date Comments Oxycodone-Acetaminophen CIS - feeling of disorientation Medications Medication Sig Dispensed Refills Start Date End Date Status fluocinonide (LIDEX) 0.05 % Ointment 09/14/2015 Active SYMBICORT 80-4.5 mcg/actuation HFA Aerosol Inhaler INHALE TWO PUFFS BY MOUTH ONCE OR TWICE A DAY 3 10/22/2016 Active fluticasone (FLONASE) 50 mcg/actuation Bypro, Suspension 03/31/2017 Active ibuprofen (ADVIL;MOTRIN) 600 mg Tablet TAKE ONE TABLET BY MOUTH THREE TIMES A DAY NEEDED 3 11/17/2018 Active albuteroL 90 mcg/actuation HFA Aerosol Inhaler INHALE 2 PUFFS BY MOUTH EVERY 4 HOURS NEEDED 11/14/2020 Active benzonatate (Tessalon) 100 mg Capsule 12/05/2020 Active diazePAM (Valium) 10 mg Tablet TAKE ONE TABLET BY MOUTH EVERY DAY 10/25/2020 Active estradiol-norethindr one (ACTIVELLA) 1-0.5 mg Tablet TAKE ONE TABLET BY MOUTH EVERY DAY 11/14/2020 Active cefdinir (OMNICEF) 300 mg Capsule Take 300 mg by mouth 2 times daily. 11/19/2021 Active gabapentin (Neurontin) 100 mg Capsule Take 1 capsule by mouth 3 times daily. 90 capsule 12 06/09/2022 Active ondansetron (Zofran) 4 mg tablet TAKE ONE TABLET BY MOUTH THREE TIMES A DAY NEEDED FOR NAUSEA 08/01/2022 Active Wegovy 1 mg/0.5 mL Pen Injector INJECT 1MG UNDER THE SKIN ONCE WEEKLY 09/04/2022 Active Wegovy 1.7 mg/0.75 mL Pen Injector INJECT 1.7MG (0.75ML) UNDER THE SKIN ONCE WEEKLY 10/01/2022 Active buPROPion XL (Wellbutrin XL) 300 mg XL 24 hr tablet Take 300 mg by mouth daily. 07/16/2022 Active fluconazole (Diflucan) 100 mg tablet TAKE ONE TABLET BY MOUTH EVERY DAY NEEDED FOR YEAST SYMPTOMS 09/30/2022 Active Active Problems Problem Noted Date Diagnosed Date Surgery follow-up 11/08/2020 Nerve injury 07/20/2020 Overview (07/20/2020): Added automatically from request for surgery [id number] Left foot pain 04/14/2017 Nevus 09/07/2014 Tinea versicolor 12/29/2011 Melasma 12/29/2011 Encounters Date Type Department Care Team Description 10/06/2023 Interpretation Only [address] [address] Greg Lobato, SUSI from Last 3 Months Social History Tobacco Use Types Packs/Day Years Used Date Smoking Tobacco: Never Smokeless Tobacco: Never Alcohol Use Standard Drinks/Week Comments Yes 0 (1 standard drink = 0.6 oz pur e alcohol) occasional Sex and Gender Information Value Date Recorded Sex Assigned at Not on file Gender Identity Not on file Sexual Orientation Not on file Last Filed Vital Signs Vital Sign Reading Time Taken Comments Blood Pressure 107/80 10/14/2021 2:09 PM EDT Pulse 78 10/14/2021 2:09 PM EDT Temperature 36 ??C (96.8 ??F) 10/14/2021 1:50 PM EDT Respiratory Rate 20 10/14/2021 2:09 PM EDT Oxygen Saturation 95% 10/14/2021 2:09 PM EDT Inhaled Oxygen Concentration - - Weight 113.4 kg (250 lb) 10/14/2021 11:07 AM EDT Height 165.1 cm (5' 5) 10/14/2021 11:07 AM EDT Body Mass Index 41.6 10/14/2021 11:07 AM EDT Plan of Treatment Upcoming Encounters Date Type Department Care Team (Late st Contact Info) Description 12/21/2023 3:15 PM EDT Office Visit Dermatology at [place] [address] [facility] [place] [phone] John Leon MD [address], [place] [address] Health Maintenance Due Date Last Done Comments CT Colonography 1966 Colonoscopy 1966 Colorectal Cancer Screening 1966 FIT DNA 1966 FIT 1966 Sigmoidoscopy (10 year) with FIT yearly 1966 Sigmoidoscopy 1966 HIV screen 1984 Hepatitis C Screening 1984 Lipid Screening 1984 Hepatitis B vaccine (0-59 yrs) (1) 1985 Tdap adult 1985 Tetanus vaccine 1985 HPV test 1996 PAP Smear 1996 Breast Cancer Share Decision Needed 2006 Breast Cancer screening 2006 Diabetes Screening (HgbA1C or Glucose) 2006 Zoster vaccine (1 of 2) 2016 Advance Directive 2021 Covid-19 Vaccine (1 - 2022- season) 2023 Influenza (Flu) vaccine (1 o f 1 - Influenza standard series) 12/06/2023 Medical Devices Implanted Type Area Manufacturing Group Leader Device Identifier Shelf Expiration Date Model / Serial / Lot Graft Tissue Peripheral Nerve Repair 2-3x70mm Dermis ([id number]) - [id number] Implanted:Qty: 1 on 10/14/2021 by Danny Veliz MD at [facility] IMPLANTS Right: Hand [employer]EN Feesheh - AXOGEN [id number] 06/03/2024 [id number] / / [id number] Avance Nerve Graft Implanted:Qty: 1 on 07/27/2020 by Danny Veliz MD at [facility] Right: Wrist [employer]heh - [employer] [id number] 11/03/2020 [id number] / / [id number] Description:2-3mm diameter 7 0mm length Procedures Procedure Name Priority Date/Time Associated Diagnosis Comments XR FOOT MIN 3 VIEWS LEFT Routine 10/06/2023 1:39 PM EDT from Last 3 Months Results * XR Foot Min 3 views Left (Generic) (10/06/2023 1:39 PM EDT) PT CLASS O RAD ADMITDTTM [id number] RAD PT RAD MD INFO [id number]^[place] ^Greg^P RAD EXAM DESC [id number]^XR Foot Complete 3+ Views Left^RIS [facility] WORKSTATION ID [id number] [facility] Anatomical Region Laterality Modality Foot Left Radiographic Jenni ging 10/06/2023 1:29 PM EDT Impressions 10/06/2023 3:45 PM EDT 1. No fracture. Slight lateral deviation of the fourth toe is of uncertain acuity but could correspond with medial collateral ligament injury at the PIP joint in the appropriate clinical setting. 2. Uncomplicated second hammertoe correction hardware. Thank you for letting us participate in the care of this patient. ??If you are a health care provider and have any questions regarding this report, please contact the number below. ??For patients who have questions please contact the health wound care coordinator that requested your imaging first. ? Narrative 10/06/2023 3:45 PM EDT EXAMINATION: XR Foot Complete 3+ Views Left CLINICAL HISTORY: Left foot injury TECHNIQUE: AP, oblique and lateral weightbearing views left foot COMPARISON: None FINDINGS: Percutaneous pin reduces the second toe PIP joint. Osseous bridging is complete. No adjacent lucency or malalignment. Single screw reduces the healed second metatarsal neck osteotomy. No adjacent lucency or bone malalignment. Bones are intact with mildly decreased mineralization. Slight lateral deviation at the fourth toe PIP joint without subluxation. Mild pes cavus alignment. Aside from peripheral arterial calcifications, no focal soft tissue abnormality. Procedure Note Rosana Ward MD - 10/06/2023 EXAMINATION: XR Foot Complete 3+ Views Left CLINICAL HISTORY: Left foot injury TECHNIQUE: AP, oblique and lateral weightbearing views left foot COMPARISON: None FINDINGS: Percutaneous pin reduces the second toe PIP joint. Osseous bridging iscomplete. No adjacent lucency or malalignment. Single screw reduces the healed second metatarsal neck osteotomy. Noadjacent lucency or bone malalignment. Bones are intact with mildly decreased mineralization. Slight lateral deviation at the fourth toe PIP joint without subluxation.Mild pes cavus alignment. Aside from peripheral arterial calcifications, no focal soft tissueabnormality. IMPRESSION 1. No fracture. Slight lateral deviation of the fourth toe is ofuncertain acuity but could correspond with medial collateral ligament injury at thePIP joint in the appropriate clinical setting. 2. Uncomplicated second hammertoe correction hardware. Thank you for letting us participate in the care of this patient. If youare a health care provider and have any questions regarding this report,please contact the number below. For patients who have questions please contactthe health wound care coordinator that requested your imaging first. Electronically signed by: Rosana Ward MD, [facility]([phone]), at 10/06/2023 3:45 PM Greg Lobato DPWilda IMG DX ORDERABLES from Last 3 Months Advance Directives * Attempt Cardiopulmonary Resuscitation - Inpatient (Latest Code Status on File) Date Activated Date Inactivated Comments 07/27/2020 1:04 PM 07/27/2020 6:41 PM Question Answer Comments Code Status decision made by: Patient Care Teams Insurance Executive Relationship Specialty Start Date End Date Ceci Issa MD [address] [place] [address] PCP - General 02/26/10
--- OUTSIDE RECORDS SUMMARY | 2023-12-17 20:10 | XMS_ITS | Encounter Summary ---
[place] [address] Care Team Providers Care Application Development Project Manager Name Role Phone Ceci Issa MD Primary Care Provider [phone] Encounter Details Date Type Department Care Team (Latest Contact Info) Description 12/18/2022 Travel Social History Tobacco Use Types Packs/Day [...] 3:15 PM EDT Office Visit Dermatology at [address] [place] [address] John Leon MD [address], [place] [address] documented as of this encounter Visit Diagnoses Not on filedocumented in this encounter Care Teams Application Development Project Manager Relationship Specialty Start Date End Date Ceci Issa MD [address] [place] [address] PCP - General 02/26/10 documented as of this encounter
--- OUTSIDE RECORDS SUMMARY | 2023-12-17 20:10 | XMS_ITS | Encounter Summary ---
Author Organization [facility] [place] [address] Care Team Providers Care Skoog Patching Machine Operator Name Role Phone Ceci Issa MD Primary Care Provider [phone] Reason for Visit * Reason Comments Follow-up Follow Up Surgery S/p right median clint sheila Encounter Details Date Type Department Care Team (Late st Contact Info) Description 02/05/2023 3:45 PM EDT Office [place] [address] Danny Veliz MD [facility] [place] [address] Nerve injury Social History Tobacco Use Types Packs/Day Years Used Date Smoking Tobacco: Never Smokeless Tobacco: Never Alcohol Use Standard Drinks/Week Comments Yes 0 (1 standard drink = 0.6 oz pur e alcohol) occasional Sex and Gender Information Value Date Recorded Sex Assigned at Not on file Gender Identity Not on file Sexual Orientation Not on file documented as of this encounter Progress Notes * Marilynn Vergara - 02/05/2023 3:45 PM EDT Plastic Surgery Follow Up Note Danny Veliz M.D Reason for visit: follow up Date of surgery: 10/14/21 Procedure(s): Right long finger suture digital nerve, fat grafting, nerve repair, allograft, neuroplasty Complications: None reported Date of surgery: 07/27/20 Procedure(s): nerve repair, right CTR Complications: None reported HPI: Patient is here in follow up. She reports having numbness in her fingers. She notes that one of her finger is cold all of the time. Examination: Patient is alert, conversant, comfortable, ambulating Right Hand: Normal finger on radial side of index Tingling Protective sensibility on ulnar side of index finger Tingling on radial side of long finger Tingling on ulnar side of long finger Absent feeling on ulnar side of long finger Absent feeling on radial side of ring finger Normal feeling on ulnar side of ring finger Impression: Latisha Wiggins is a 57 y.o. female who was seen today for follow up. Improving. Plan: Follow up 6 months. Workers comp paperwork completed in clinic today. The patient was provided with a copy of the report. Marilynn Faustin am acting as scribe for Dr. Danny Veliz. All work documented was performed by Dr. Veliz. documented in this encounter Plan of Treatment Upcoming Encounters Date Type Department Care Team (Late st Contact Info) Description 12/21/2023 3:15 PM EDT Office Visit Dermatology at [place] [address] [place] [phone] John Leon MD [address] [facility], [place] [address] documented as of this encounter Visit Diagnoses Diagnosis Nerve injury Injury to nerves, unspecified site documented in this encounter Care Teams Skoog Patching Machine Operator Relationship Specialty Start Date End Date Ceci Issa MD [address] [place] [address] PCP - General 02/26/10 documented as of this encounter
--- OUTSIDE RECORDS SUMMARY | 2023-12-17 20:10 | XMS_ITS | Encounter Summary ---
Author Organization [facility] Address [facility] [place] [address] Care Team Providers Care Date Night Caregiver Name Role Phone Ceci Issa MD Primary Care Provider [phone] Reason for Visit * Reason Comments Follow Up Surgery S/p exploration R me cherry nerve 10/14 Encounter Details Date Type Department Care Team (Late st Contact Info) Description 11/04/2021 1:15 PM EDT Office [place] [address] Danny Dennis MD [facility] [place] [address] Nerve injury Social History Tobacco Use Types [...] as of this encounter Progress Notes * Danny Dennis MD - 11/04/2021 1:15 PM EDT Plastic Surgery Post Op Note Provider: Danny Dennis M.D Reason for visit: F/U status post procedure Date of surgery: 10/14/21 Procedure(s): re-explore the nerve Complications: None reported Date of surgery: 07/27/20 Procedure(s): 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 Having increased aching pain. Primary concern is the numbness on the ulnar and radial side of the long finger which she reports is new and concerning. She has not started Occupational Therapy as of yet but is scheduled to do so in the middle of the month. Examination: There were no vitals taken for this visit. Patient is alert, conversant, comfortable, ambulating Right hand Incision: CDI, healing well. Good ROM Numbness on the radial side of the ring finger and the ulnar and radial side of the long finger andthe ulnar side of the little finger No collection, no erythema, no evidence of cellulitis. Impression: Latisha Wigigns is a 55 y.o. female who was seen today for follow-up after the aboveprocedure. Please see the operative note for details. Healing well with some increased discomfort. Reassured patient that there are no signs or infection. Her pain should improve over time. Will trycourse of gabapentin to see if this offers relief. Plan: Follow up: in one month. Prescription for gabapentin I, Magaly Ortega, have performed the documentation for this encounter in the presence of and acting as a scribe for DANNY DENNIS MD. documented in this encounter Plan of Treatment Upcoming Encounters Date Type Department Care Team (Late st Contact Info) Description 12/21/2023 3:15 PM EDT Office Visit Dermatology at [place] [address] [facility] [place] [address] John Leon MD [address], [place] [address] documented as of this encounter Visit Diagnoses Diagnosis Nerve injury Injury to nerves, unspecified site documented in this encounter Care Teams Date Night Caregiver Relationship Specialty Start Date End Date Ceci Issa MD [address] [place] [address] PCP - General 02/26/10 documented as of this encounter
--- OUTSIDE RECORDS SUMMARY | 2023-12-17 20:10 | XMS_ITS | Encounter Summary ---
[place] [address] Care Team Providers Care Research Home Economist Name Role Phone Ceci Issa MD Primary Care Provider [phone] Reason for Visit * Reason Comments Follow Up Surgery S/p neuroma excision 07/27 - no improvements since last visit Encounter Details Date Type Department Care Team (Late st Contact Info) Description 07/22/2021 10:00 AM EDT Office Visit [place] [address] Danny Dennis MD [facility] [place] [address] Nerve injury Social History Tobacco Use Types Packs/Day Years Used Date Smoking Tobacco: Never Smokeless Tobacco: Never Alcohol Use Standard Drinks/Week Comments Yes 0 (1 standard drink = 0.6 oz pur e alcohol) occasional Sex and Gender Information Value Date Recorded Sex Assigned at Not on file Gender Identity Not on file Sexual Orientation Not on file documented as of this encounter Patient Instructions * Patient Instructions* Adriana Yancey RN - 07/22/2021 10:28 AM EDT Preoperative Instructions You have been scheduled to have plastic surgery. The instructions below are specific to your procedure. If you are a smoker, we ask that you stop at least 2 months prior to your surgical date and remain nicotine free for at least a month after surgery. Smoking can impair healing and increase your chance of infection. Two Weeks prior to Surgery Do not take any Aspirin or aspirin containing products for the 2 weeks leading up to surgery. You may resume taking 48 hours after surgery. Stop Vitamin E, Garlic supplements, Ginseng, Fish Oil tablets, Ginkgo and Olivia's Wort and any other herbals. You may resume taking 48 hours after surgery. If you need medication for pain, you may take Tylenol or extra strength Tylenol during this two week period. One Week prior to Surgery Please call if you feel ill, have cold or fever, have a rash or breaks in the skin near your surgical site. Stay hydrated. Avoid alcohol and recreational drugs Three Days before Surgery Do not shave near your surgical site One Day before Surgery Hand Surgery - Scrub your hand with an antibacterial soap for several minutes the night before and morning of surgery. Trim your fingernails and scrub them with a nail brush. DO NOT wear any rings, nail kenyan or artifical nails. The Same Day Surgery Team will call you the business day before your surgery to give you instructions specific to your procedure and your surgical time. Generally, you will be asked not to eat any solids after midnight. You are allowed clear liquids (water, daniel lin, apple juice, black coffee andplain tea) until 2 hours prior to your surgery. Day of Surgery A rickshaw driver is required at time of discharge. If you are a Same Day procedure and do not have a driveryour surgery will be canceled. DO NOT wear any jewelry, makeup or artificial nails the day of surgery. DO NOT apply any lotions, powders or deodorants on or near the surgical site the day of surgery. Do wear comfortable, loose fitting clothes. Anesthesia will meet with you the morning of surgery. They will perform an assessment and review your history with you. Contact Information: During regular office hours (Thursday- Thursday, non-holiday 8:00 am- 5:00 pm) For an appointment or insurance questions For questions pertaining to your surgical date [phone] For nursing related questions [phone] On weekends, holidays or after office hours: Call [phone] and ask the electroslag welding machine operator to page the Plastic Surgery Resident rag production worker. documented in this encounter Progress Notes * Danny Dennis MD - 07/22/2021 10:00 AM EDT Plastic Surgery Post Op Note Danny Dennis M.D. 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 She reports no new changes since her last visit. She continues to have tingling on the ulnar aspect of the long finger. Even after proceeding with surgery she has seen minimal improvement and is a little disappointed. Examination: There were no vitals taken for this visit. Patient is alert, conversant, comfortable, ambulating. Right hand- Sensation in tact to the median distrubution except tingling on the ulnar aspect of the long finger 80 % radial aspect of ring finger and normal distrubution No tinels sign Impression: Latisha Wiggins is a 55 y.o. female who was seen today for follow-up after the aboveprocedure. Please see the operative note for details. Reassured patient that there are signs of nerve regeneration/recovery. Discussed with her that I could offer proceeding with revision/explorationto ensure nerve is still intact. Will also proceed with fat grafting. (Fat from abdomen area) Patient would like to proceed. Surgical Grid Dr Dennis Duration: 2 hours Timeframe: next available Procedure: common digital nerve/possible nerve graft/ CPT: 48523,63537, 36851, [address]056 Surgical site: hand Side: finger, long Anesthesia: General Follow up: 10 Days THHF: Y/N: no PAT: No Implants needed: Micro instruments needed and advance graft 7cm long 2mm diameter graft, mini c-arm, 50 cc's of puregraft, sandhu cannulas and tumesecent Plan: Proceed with neurolysis Follow up 10 days postop Magaly Faustin have performed the documentation for this encounter in the presence of and acting as a scribe for DANNY DENNIS MD. documented in this encounter Plan of Treatment Upcoming Encounters Date Type Department Care Team (Late st Contact Info) Description 12/21/2023 3:15 PM EDT Office Visit Dermatology at [place] [address] [place] [address] John Leon MD [address], [place] [address] documented as of this encounter Visit Diagnoses Diagnosis Nerve injury Injury to nerves, unspecified site documented in this encounter Care Teams Research Home Economist Relationship Specialty Start Date End Date Ceci Issa MD [address] [place] [address] PCP - General 02/26/10 documented as of this encounter
--- OUTSIDE RECORDS SUMMARY | 2023-12-17 20:10 | XMS_ITS | Encounter Summary ---
Author Organization [facility] Address [facility] [place] [address] Care Team Providers Care Educational Assistant Teacher Name Role Phone Ceci Issa MD Primary Care Provider [phone] Reason for Visit * Auth/Cert Specialty Diagnoses / Procedures Referred By Stuart stone Referred To Contact Diagnoses Other injury of unspecified body region, initial encounter nerve Procedures PRO SUTURE DIGITAL NERVE HAND/FOOT 1 NERVE PRO GRAFTING OF AUTOLOGOUS SOFT TISS BY DIRECT EXCISION PRO NERVE REPAIR W/ALLOGRAFT OR SYNTH PRO REVISE/REPAIR HAND/FOOT NERVE SUTURE DIGITAL NERVE, HAND, ONE NERVE (WRVU 9.16) GRAFTING OF AUTOLOGOUS SOFT TISSUE, OTHER, HARVESTED BY DIRECT EXCISION (FAT, DERMIS, OR FASCIA) NERVE REPAIR, W/ SYNTHETIC CONDUIT OR VEIN ALLOGRAFT, EACH NERVE (WRVU 11.39) NEUROPLASTY, NERVE HAND (WRVU 4.69) Referral ID Status Reason Start Date Expiration Date Visits Re quested Visits Authorized [id number] 1 1 Encounter Details Date Type Department Care Team (Late st Contact Info) Description 10/14/2021 12:22 PM EDT - 10/14/2021 3:12 PM EDT Surgery Outpatient [place] [address] Danny Dennis MD [facility] [place] [address] SUTURE DIGITAL NERVE, HAND, ONE NERVE (WRVU 9.16) Social History Tobacco Use Types Packs/Day Years Used Date Smoking Tobacco: Never Smokeless Tobacco: Never Alcohol Use Standard Drinks/Week Comments Yes 0 (1 standard drink = 0.6 oz pur e alcohol) occasional Sex and Gender Information Value Date Recorded Sex Assigned at Not on file Gender Identity Not on file Sexual Orientation Not on file documented as of this encounter Last Filed Vital Signs Vital Sign Reading [...] Mass Index 41.6 10/14/2021 11:07 AM EDT documented in this encounter Discharge Instructions * Discharge Instructions* Lisandra Bhatt, RN - 10/14/2021 1:47 PM EDT You received Ibuprofen/or other nsaid medication at 130 pm. Your next dose should not be taken before 730 pm today. General Anesthesia Discharge Instructions Go home and rest. You may be sleepy for several hours. Take it easy as sudden position changes may cause nausea and/or dizziness. Use caution on stairs. Do not smoke if you are alone. Follow a light to regular diet as tolerated today. If nausea occurs, start with clear liquids, and progress slowly to a regular diet. Do not drive, operate machinery, drink alcoholic beverages or make any legal decisions after havinggeneral anesthesia. The medications given change your reaction time and alter your judgement. IV site -- slight redness is normal, you can use warm compresses. If tenderness and redness increases or foul drainage occurs, please contact your M.D. Patients who have had endotracheal tubes/LMA (tubes used by the anesthesia staff to ensure a safe airway during your operation) may have a sore throat. This is normal and cold liquids or soothing lozenges will help ease this discomfort. Narcotic pain medications can cause constipation, please ask the surgeons office what they recommend for prevention of this. Some non-pharmaceutical means of constipation prevention include increasing intake of fluids, eating more fruits and vegetables as well as fruit juices. If you are uncomfortable and/or unable to urinate within 8 hours of discharge and it is before 5 pm, call your physician. If it is after 5pm go to the closest emergency room or call the hospital envelope sealer operator at [phone] and ask for physician diamond die polisher covering for your physician. Questions or problems after 5pm or on a weekend: Call the [facility] envelope sealer operator at and ask for the physician diamond die polisher covering for your doctor. * Patient Instructions* Chantell Quintana APRN - 10/14/2021 11:27 AM EDT Instructions following Surgery Keep your splint clean and dry and leave on until your follow up appointment. You may shower after 48 hours (protect the splint with a plastic bag etc.) ICE: You may apply ice to incision during the first 48 hours following surgery to help limit swelling, bruising, and discomfort. Your stitches will need to be removed at your clinic appointment in 1-2 weeks Activity: As tolerated by your comfort level. Call Doctor for: Please call if you notice worsening redness or drainage from incision(s) lasting longer than 5 days after your surgery, any foul-smelling drainage from the incision, pain not controlled by pain medications, persistent nausea and vomiting, or for any fevers greater than 101.3 F. The number for questions is [phone] before 5 PM weekdays and [phone] after 5 PM and weekends. Pain Medication: No driving for 8 hours after any dose of opioid pain medication if one was prescribed for you. You may use ibuprofen (motrin, advil) in addition to this medication if your pain is not totally controlled by the opioid. Follow-up: Follow-up appointment will be scheduled with Dr. Dennis in 1-2 weeks. Appointment will bemailed to you. Please call [phone] (clinic number for appointments) to confirm date and time of your appointment if you do not receive your apointment in 1 week. Future Appointments Date Time Provider Department Center 10/24/2021 3:30 PM Danny Dennis MD [facility] [address] [place] [address] 12/16/2021 3:30 PM John Leon MD [facility] documented in this encounter Medications at Time of Discharge Medication Sig Dispensed Refills Start Date End Date albuteroL 90 mcg/actuation HFA Aerosol Inhaler INHALE 2 PUFFS BY MOUTH EVERY 4 HOURS NEEDED 11/14/2020 SYMBICORT 80-4.5 mcg/actuation HFA Aerosol Inhaler INHALE TWO PUFFS BY MOUTH ONCE OR TWICE A DAY 3 10/22/2016 benzonatate (Tessalon) 100 mg Capsule 12/05/2020 diazePAM (Valium) 10 mg Tablet TAKE ONE TABLET BY MOUTH EVERY DAY 10/25/2020 estradiol-norethindrone (ACTIVELLA) 1-0.5 mg Tablet TAKE ONE TABLET BY MOUTH EVERY DAY 11/14/2020 ibuprofen (ADVIL;MOTRIN) 600 mg Tablet TAKE ONE TABLET BY MOUTH THREE TIMES A DAY NEEDED 3 11/17/2018 fluticasone (FLONASE) 50 mcg/actuation Fletcher, Suspension 03/31/2017 fluocinonide (LIDEX) 0.05 % Ointment 09/14/2015 buPROPion (WELLBUTRIN SR OR ZYBAN) 150 mg Tablet Sustained Release 12 hr 01/22/2017 12/18/2022 ADDERALL XR 30 mg Capsule, Sust. Release 24 hr TAKE ONE CAPSULE BY MOUTH EVERY DAY 0 09/20/2015 02/10/2022 fluconazole (Diflucan) 150 mg Tablet TAKE ONE TABLET BY MOUTH ONCE A SINGLE DOSE 08/13/2021 12/18/2022 traMADoL (Ultram) 50 mg Tablet Take 1 tablet by mouth every 6 hours as needed for Pain. 10 tablet 10/14/2021 11/04/2021 acetaminophen-codeine (Tylenol #3) 300-30 mg Tablet TAKE 1 TO 2 TABLETS BY MOUTH EVERY 4 HOURS FOR PAIN 08/17/2019 02/10/2022 fluconazole (DIFLUCAN) 100 mg Tablet 09/14/2015 12/16/2021 documented as of this encounter Progress Notes * Lisandra Bhatt RN - 10/14/2021 2:20 PM EDT Discharge instructions and medications reviewed with patient and . All questions answered and written copy sent home with patient. Patient ambulated to car for discharge accompanied by Lisandra DUFFY. documented in this encounter H&P Notes * Tamanna Dang MD - 10/14/2021 11:20 AM EDT Patient Name: Latisha Wiggins Patient Age: 55 y.o. Birthdate: 1965 Admit date: 10/14/2021 Attending Physician: Danny Dennis MD Plastic Surgery Preoperative H&P: Patient Name: Latisha Wiggins Patient : 1965 Today's Date: 10/14/2021 Latisha Wiggins is a 55 y.o. female with No chief complaint on file. who presents today for right hand common digital nerve to 3rd webspace neurolysis and fat grafting,possible nerve autograft/allograft. No changes since last seen. History reviewed. No pertinent past medical history. Past Surgical History: Procedure Laterality Date ??? PRO GRAFTING OF AUTOLOGOUS SOFT TISS BY DIRECT EXCISION 07/27/2020 GRAFTING OF AUTOLOGOUS SOFT TISSUE, OTHER, HARVESTED BY DIRECT EXCISION (FAT, DERMIS, OR FASCIA) performed by Danny Dennis MD at [facility] MAIN OR ??? PRO NERVE REPAIR W/NERVE ALLOGRAFT FIRST STRAND Right 07/27/2020 NERVE REPAIR,W/ NERVE ALLOGRAFT,EA.NERVE,FIRST STRAND performed by Danny Dennis MD at [facility]RAD ??? PRO REVISE MEDIAN N/CARPAL TUNNEL SURG Right 07/27/2020 MEDIAN NERVE DECOMPRESSION (CARPAL TUNNEL RELEASE) (WRVU 4.97) performed by Danny Dennis MD at [facility] MAIN OR History reviewed. No pertinent family history. Social History Socioeconomic History ??? Marital status: Spouse name: Not on file ??? Number of children: Not on file ??? Years of education: Not on file ??? Highest education level: Not on file Occupational History ??? Not on file Tobacco Use ??? Smoking status: Never Smoker ??? Smokeless tobacco: Never Used Vaping Use ??? Vaping Use: Never used Substance and Sexual Activity ??? Alcohol use: Yes Comment: occasional ??? Drug use: No ??? Sexual activity: Not on file Other Topics Concern ??? Not on file Social History Narrative ??? Not on file Social Determinants of Health Financial Resource Strain: Not on file Food Insecurity: Not on file Transportation Needs: Not on file Physical Activity: Not on file Housing Stability: Not on file Allergies Allergen Reactions ??? Oxycodone-Acetaminophen CIS - feeling of disorientation Review of systems: As per HPI, otherwise non-contributory. Exam: General: NAD Resp: CTAB CV: normal rate, regular rhythm A/P: Latisha Wiggins is a 55 y.o. female with No chief complaint on file. who presents for right hand common digital nerve to 3rd webspace neurolysis and fat grafting, possible nerve autograft/allograft. - Proceed to OR. The risks, benefits and indications were reviewed with the patient and there remains an indication for surgery. Consent signed. - Preoperative abx ordered Tamanna Dang MD Plastic Surgery Resident P# [id number] documented in this encounter Miscellaneous Notes * Brief Op Note - Chanetll Quintana APRN - 10/14/2021 1:48 PM EDT Brief Operative Note Patient Name: Latisha Wiggins : [id number] MR#: [id number] Case Date: 10/14/2021 Surgeon: Surgeon(s) and Role: * Danny Dennis MD - Primary * Chantell Quintana APRN - Nurse Practitioner * Tamanna Dang MD - Resident Preoperative diagnosis: nerve pain Postoperative diagnosis: nerve pain Procedure(s) (LRB): SUTURE DIGITAL NERVE, HAND, ONE NERVE (WRVU 9.16) (Right) GRAFTING OF AUTOLOGOUS SOFT TISSUE, OTHER, HARVESTED BY DIRECT EXCISION (FAT, DERMIS, OR FASCIA) (Right) NERVE REPAIR, W/ SYNTHETIC CONDUIT OR VEIN ALLOGRAFT, EACH NERVE (WRVU 11.39) (Right) NEUROPLASTY, NERVE HAND (WRVU 4.69) (Right) Anesthesia: General Minimal sedation Findings: Common digital nerve to 3rd webspace, proximal nerve ending with neuroma identified, significant thelma-neural scar tissue s/p neurolysis and interpositional nerve allograft Complications: none Estimated Blood Loss: * No values recorded between 10/14/2021 11:56 AM and 10/14/2021 1:43 PM No values recorded between 10/14/2021 11:56 AM and 10/14/2021 1:43 PM * Specimens removed during surgery: Order Name Source Comment Collection Info Order Time SPECIMEN TO PATHOLOGY nerve pain right hand proximal neuroma excision 10/14/2021 12:58 PM Time specimen removed from patient: 12:54 PM Number of tissue samples (in container) 1 SPECIMEN TO PATHOLOGY nerve pain right hand neuroma excision 10/14/2021 12:58 PM Time specimen removed from patient: 12:54 PM Number of tissue samples (in container) 1 Fluids: Intraprocedure Crystalloid Total Intake lactated ringers infusion 700.00 mL Total Intake 700 mL Output Blood Loss 3 mL Total Output 3 mL Net Net Volume 697 mL PRBCs: none (See Anesthesia Record/Report for Other Blood Products) Urine Output: (no urine output recorded) Drains: none Disposition: awakened from anesthesia, extubated and taken to the recovery room in a stable condition, having suffered no apparent untoward event. Condition: doing well without problems (Please see the Surgical Encounter Summary for any Implant and Specimen details pertinent to this patient.) Surgical Infection Prevention Bundle Used? N/A Post-Op Plan: - Follow up in: 10-14 days - Wound Check - Suture removal: 10-14 days - Dressings: remove splint and replace Future Appointments Date Time Provider Department Center 10/24/2021 3:30 PM Danny Dennis MD [facility] 12/16/2021 3:30 PM John Leon MD [facility] * Op Note - Danny Dennis MD - 10/14/2021 11:56 AM EDT [facility] [place] [place] Patient Name: Latisha Wiggins : [id number] MR#: [id number] Case Date: 10/14/2021 Surgeon: Surgeon(s) and Role: * Danny Dennis MD - Primary * Chantell Quintana APRN - Nurse Practitioner * Tamanna Dang MD - Resident Preoperative diagnosis: nerve pain Postoperative diagnosis: nerve pain Procedure(s) (LRB): SUTURE DIGITAL NERVE, HAND, ONE NERVE (WRVU 9.16) (Right) GRAFTING OF AUTOLOGOUS SOFT TISSUE, OTHER, HARVESTED BY DIRECT EXCISION (FAT, DERMIS, OR FASCIA) (Right) NERVE REPAIR, W/ SYNTHETIC CONDUIT OR VEIN ALLOGRAFT, EACH NERVE (WRVU 11.39) (Right) NEUROPLASTY, NERVE HAND (WRVU 4.69) (Right) Exploration of the Right median nerve and common digital branches, resection of neuroma, and nerve grafting with allograft Anesthesia: General Estimated Blood Loss: * No values recorded between 10/14/2021 11:56 AM and 10/14/2021 1:43 PM * Specimens removed during surgery: Order Name Source Comment Collection Info Order Time SPECIMEN TO PATHOLOGY nerve pain right hand proximal neuroma excision 10/14/2021 12:58 PM Time specimen removed from patient: 12:54 PM Number of tissue samples (in container) 1 SPECIMEN TO PATHOLOGY nerve pain right hand neuroma excision 10/14/2021 12:58 PM Time specimen removed from patient: 12:54 PM Number of tissue samples (in container) 1 Drains: * No LDAs found * Surgical Closure: Primary Closure - skin incision is completely closed without any wires, jayne, drains or other devices Disposition: awakened from anesthesia, extubated and taken to the recovery room in a stable condition, having suffered no apparent untoward event. Condition: doing well without problems (Please see the Surgical Encounter Summary for any Implant and Specimen details pertinent to this patient.) HPI/Surgical Indications: Patient had prior carpal tunnel release with injury to the common digitalnerve to the third web space. This was explored 07/25/2020 and a neuroma in continuity was excised and replaced with a graft. She however failed to have any significant return of function after one year. There fore it was elected to re-explore the nerve and perform either a neurolysis or re- rection and repeat nerve grafting either with another allograft or an autograft. Procedure Description: Patient was brought to the OR. Time out was done. Patient was given general anesthesia. Right arm was prepped and draped. In a sterile manner. A tourniquet was applied. Throughthe prior incision the common Digital nerve was explored. Proper digital nerve to the third web space were found. The radial digital nerve to the radial side of the ring finger and ulnar digital nerve to the ulnar side of the long finger. However proximally the nerves ended in scar and a proximal end was not found in the palm. We then explored the wrist where we found the proximal end of the nerve to the third web space. . We cleaned the proximal end of the distal branches and the distal end ofthe proximal nerve for nerve grafting. There was a 5 cm gap between the ends. Neuromas were sent topathology for evaluation. Using magnification the allograft was sewn in place between the proximal stump and the distal stump.8-0 nylon micro sutures were used. There was a good match between the 3 mm diameter allograft and the nerve stumps. This was all done under tourniquet control. At the end ofthe case the tourniquet was taken down. Bleeding was controled with electrocautery.Skin was closed with 4-0 vicryl deep sutures and skin with 4-0 nylon. The patient was then Placed in a resting splint for immobilization. There were no complications. Surgical Infection Prevention Bundle Used? No Attestation: Case Date: 10/14/2021 I was present and I participated during the entire procedure (does not need to include opening and closing). DANNY DENNIS MD 10/14/2021 documented in this encounter Plan of Treatment Upcoming Encounters Date Type Department Care Team (Late st Contact Info) Description 12/21/2023 3:15 PM EDT Office Visit Dermatology at [place] [address] [facility] [place] [address] John Leon MD [address] [facility] [place] [address] documented as of this encounter Procedures Procedure Name Priority Date/Time Associated Diagnosis Comments SURGICAL PATHOLOGY REPORT Routine 10/14/2021 12:58 PM EDT SPECIMEN TO PATHOLOGY Routine 10/14/2021 12:58 PM EDT SPECIMEN TO PATHOLOGY Routine 10/14/2021 12:58 PM EDT Revise/Repair Hand/Foot Nerve (07985) 10/14/2021 11:34 AM EDT Nerve injury Nerve Repair W/Allograft Or Synth (14129) 10/14/2021 11:34 AM EDT Nerve injury Grafting of Autologous Soft Tiss by Direct Excision (41304) 10/14/2021 11:34 AM EDT Nerve injury Suture Digital Nerve Hand/Foot 1 Nerve (25269) 10/14/2021 11:34 AM EDT Nerve injury NERVE REPAIR,W/SYN CONDUIT/VEIN ALLOGRAFT,EA NERVE Routine 10/14/2021 10:45 AM EDT Nerve injury GRAFTING OF AUTOLOGOUS SOFT TISSUE, OTHER, HARVESTED BY DIRECT EXCISION (FAT, DERMIS, OR FASCIA) Routine 10/14/2021 10:45 AM EDT Nerve injury SUTURE DIGITAL NERVE, HAND, ONE NERVE Routine 10/14/2021 10:45 AM EDT Nerve injury NEUROPLASTY, NERVE HAND Routine 10/14/2021 10:45 AM EDT Nerve injury documented in this encounter Results * Surgical Pathology Report (10/14/2021 12:58 PM EDT) Final Diagnosis [id number] ? Location: [facility] The signing pathologist has (i) examined the relevant preparation(s) for the specimen(s) and (ii) rendered or confirmed the diagnosis(es). . ?Surgical Pathology DIAGNOSIS A - Right hand proximal neuroma; excision: ?Consistent with neuroma. B - Right hand neuroma ?Consistent with neuroma. Electronically signed by: ?Dameon Cervantes MD Verified: ??10/17/2021 13:35 ??Pathologist Performed at: ??-[facility] [place], [place], [place] SPECIMEN(S) SUBMITTED A - Right hand proximal neuroma B - Right hand neuroma CLINICAL INFORMATION Nerve pain. SPECIMEN PROCESSING A - Labeled/Fixativ e: ?? Right hand proximal neuroma , formalin. Quantity/Size: Single, 0.5 x 0.4 x 0.3 cm. Tissue Description: Goss-pink soft tissue. Sections/Proces sing: Entirely submitted in 1 cassette labeled A1. B - Labeled/Fixativ e: ?? Right hand neuroma, formalin. Quantity/Size: Single, 1.3 x 0.7 x 0.2 cm. Tissue Description: Soft, goss-pink tissue. Sections/Proces sing: Entirely submitted in 1 cassette labeled B1. ??pps 10/17/2021 1:35 PM EDT [facility] SPECIMEN FROM NERVE / Unknown 10/14/2021 12:58 PM EDT 10/14/2021 12:58 PM EDT SPECIMEN FROM NERVE / Unknown 10/14/2021 12:58 PM EDT 10/14/2021 12:58 PM EDT Danny Dennis MD PATHOLOGY/CYTOLOGY O YUMIKO Performing Organization Address [facility] Co de Phone Number [facility] [place] [address] * Specimen to Pathology (10/14/2021 12:58 PM EDT) AP Specimen 10/14/2021 12:5 8 PM EDT 10/14/2021 12:58 PM EDT Narrative [facility] - 10/14/2021 12:58 PM EDT Specimen requisition ordered. ??Separate Pathology report to follow Danny Dennis MD PATHOLOGY/CYTOLOGY O YUMIKO Performing Organization Address [facility]/ZIP Co de Phone Number [facility] [place] [address] * Specimen to Pathology (10/14/2021 12:58 PM EDT) AP Specimen 10/14/2021 12:5 8 PM EDT 10/14/2021 12:58 PM EDT Narrative [facility] - 10/14/2021 12:58 PM EDT Specimen requisition ordered. ??Separate Pathology report to follow Danny Dennis MD PATHOLOGY/CYTOLOGY O RDERAMISTY [facility] [place] [address] documented in this encounter Visit Diagnoses Diagnosis Nerve injury Injury to nerves, unspecified site Nerve injury Injury to nerves, unspecified site documented in this encounter Administered Medications Inactive Administered Medications - up to 3 most recent administrations Medication Order MAR Action Action Date Dose Rate Site bacitracin ointment ONCE PRN, Starting on Thu10/14/21 at 1212, Until Thu10/14/21 at 1625, Intra-Operative (Intra-Procedure) Given 10/14/2021 12:12 PM EDT 1 Tube 19- Surgical Site BUpivacaine (pf) (Marcaine) (2.5 mg/mL) 0.25% injection ONCE PRN, Starting on Thu10/14/21 at 1157, Until Thu10/14/21 at 1625, Intra-Operative (Intra-Procedure), Routine Given 10/14/2021 1:35 PM EDT 5.5 mLs 19- Surgical Site Given 10/14/2021 12:35 PM EDT 3 mLs 1 9- Surgical Site Given 10/14/2021 11:57 AM EDT 7 mLs 1 9- Surgical Site traMADoL (Ultram) tablet 50 mg 50 mg, Oral, EVERY 6 HOURS PRN, Starting on Thu10/14/21 at 1122, Until Thu10/14/21 at 1625, Pain, Routine documented in this encounter Active and Recently Administered Medications Times are shown in EDT. Continuous Medication Order 10/12/2021 10/13/2021 10/14/2021 lactated ringers infusion (CANCELED) 1,000 mL, at 100 mL/hr, Intravenous, CONTINUOUS, Starting on Thu10/14/21 at 1115, Until Thu10/14/21 at 1422, Day of Surgery (Day of Procedure) 1128 (New Bag - Prov ider: Katy S Lexy, MATERIAL CONTROLLER)1146 (Anesthesia Volume Adjustment - Provider: Katy Pugh CRNA)1223 (Anesthesia Volume Adjustment - Provider: Katy Pugh CRNA)1332 (Anesthesia Volume Adjustment - Provider: Katy Pugh CRNA) PRN Medication Order 10/12/2021 10/13/2021 10/14/2021 bacitracin ointment (CANCELED) ONCE PRN, Starting on Thu10/14/21 at 1212, Until Thu10/14/21 at 1625, Intra-Operative (Intra-Procedure) 1212 (Given - Provid er: Danny Dennis MD - Comment: Contents of tube placed on field for surgeon use) BUpivacaine (pf) (Marcaine) (2.5 mg/mL) 0.25% injection (CANCELED) ONCE PRN, Starting on Thu10/14/21 at 1157, Until Thu10/14/21 at 1625, Intra-Operative (Intra-Procedure), Routine 1157 (Given - Provid er: Danny Dennis MD - Comment: Hand)1235 (Given - Provider: Danny Dennis MD)1335 (Given - Provider: Danny Dennis MD) traMADoL (Ultram) tablet 50 mg 50 mg, Oral, EVERY 6 HOURS PRN, Starting on Thu10/14/21 at 1122, Until Thu10/14/21 at 1625, Pain, Routine No Frequency Medication Order 10/12/2021 10/13/2021 10/14/2021 ceFAZolin (Ancef) 2 gram/100 mL infusion Soln 1 dose, Starting on Thu10/14/21 at 1113, Until Thu10/14/21 at 1625, Patricia Villa: cabinet override 1115 (Due) documented in this encounter Care Teams Educational Assistant Teacher Relationship Specialty Start Date End Date Ceci Issa MD [address] [place] [address] PCP - General 02/26/10 documented as of this encounter
--- OUTSIDE RECORDS SUMMARY | 2023-12-17 20:10 | XMS_ITS | Encounter Summary ---
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 [place] [address] Nerve injury Social History Tobacco Use Types [...] Progress Notes * Danny Dennis MD - 05/24/2021 10:00 AM EST Plastic Surgery Post Op Note Danny Dennis M.D. 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 She continues to have significant numbness on the ulnar aspect of her right long finger. Otherwise, she has seen some improvement. Examination: There were no vitals taken for this visit. Patient is alert, conversant, comfortable, ambulating. Right hand- Incision well healed Pt has complete numbness on the ulnar aspect right long finger. Mid palm + tinel sign Impression: Latisha Wiggins is a 55 y.o. female who was seen today for follow-up after the aboveprocedure. Please see the operative note for details. Seeing some overall improvement but continuesto have complete numbness on the ulnar aspect right long finger. Will re evaluate in 3 months -may consider nerve exploration. Plan: Follow up in 3 months Magaly Faustin have performed the documentation for this encounter in the presence of and acting as a scribe for DANNY DENNIS MD. documented in this encounter Plan of Treatment Upcoming Encounters Date Type Department Care Team (Late st Contact Info) Description 12/21/2023 3:15 PM EDT Office Visit Dermatology at [place] [address] [place] [phone] John Leon MD [address] [facility], [place] [address] documented as of this encounter Visit Diagnoses Diagnosis Nerve injury Injury to nerves, unspecified site documented in this encounter Care Teams Warp Knitting Machine Operator Relationship Specialty Start Date End Date Ceci Issa MD [address] [place] [address] PCP - General 02/26/10 documented as of this encounter
--- OUTSIDE RECORDS SUMMARY | 2023-12-17 20:10 | XMS_ITS | Encounter Summary ---
[place] [address] Care Team Providers Care Portfolio Analyst Name Role Phone Ceci Issa MD Primary Care Provider [phone] Encounter Details Date Type Department Care Team (Latest Contact Info) Description 08/28/2022 Travel Social History Tobacco Use Types Packs/Day [...] 3:15 PM EDT Office Visit Dermatology at [address] [place] [phone] John Leon MD [address], [place] [address] documented as of this encounter Visit Diagnoses Not on filedocumented in this encounter Care Teams Portfolio Analyst Relationship Specialty Start Date End Date Ceci Issa MD [address] [place] [address] PCP - General 02/26/10 documented as of this encounter
--- OUTSIDE RECORDS SUMMARY | 2023-12-17 20:10 | XMS_ITS | Encounter Summary ---
Author Organization [facility] [place] [address] Care Team Providers Care Obiee Consultant Name Role Phone Ceci Issa MD Primary Care Provider [phone] Encounter Details Date Type Department Care Team (Late Contact Info) Description 02/12/2023 Telephone [place] [phone] Marilynn Vergara Social History Tobacco Use Types Packs/Day Years Used Date Smoking Tobacco: Never Smokeless Tobacco: Never Alcohol Use Standard Drinks/Week Comments Yes 0 (1 standard drink = 0.6 oz pur e alcohol) occasional Sex and Gender Information Value Date Recorded Sex Assigned at Not on file Gender Identity Not on file Sexual Orientation Not on file documented as of this encounter Miscellaneous Notes * Telephone Encounter - Marilynn Vergara - 02/12/2023 10:08 AM EST LM for pt to call and schedule 6 month follow up with Veliz: OBDULIO, s/p right median neuroma 10/14/21. documented in this encounter Plan of Treatment Upcoming Encounters Date Type Department Care Team (Late Contact Info) Description 12/21/2023 3:15 PM EDT Office Visit Dermatology at [address] [place] [phone] John Leon MD [address], [place] [address] documented as of this encounter Visit Diagnoses Not on filedocumented in this encounter Care Teams Obiee Consultant Relationship Specialty Start Date End Date Ceci Issa MD [address] [place] [address] PCP - General 02/26/10 documented as of this encounter
--- OUTSIDE RECORDS SUMMARY | 2023-12-17 20:10 | XMS_ITS | Encounter Summary ---
Author Organization [facility] Address [facility] [place] [address] Care Team Providers Care Assembler Ping Pong Table Name Role Phone Ceci Issa MD Primary Care Provider [phone] Reason for Visit * Auth/Cert Specialty Diagnoses [...] Expiration Date Visits Re quested Visits Authorized [id number] 1 1 Encounter Details Date Type Department Care Team (Late st Contact Info) Description 10/14/2021 11:33 AM EDT Anesthesia Event Outpatient [place] [phone] Hayder Watson MD [facility] [place] [address] Leanne De Leon DO [facility] [place] [address] Anesthesia Record Procedure Summary Procedure Name Responsible Anesthesiologist Anesthesia Start Time Anesthesia Stop Time SUTURE DIGITAL NERVE, HAND, ONE NERVE (WRVU 9.16) (Right: Hand) Hayder Watson MD 10/14/21 1133 10/14/21 1353 Events Date Time Event Comment 10/14/2021 1104 1133 Start 1135 AN Verify 1135 An Start Data 1136 An Induction 1138 An Intubation 1139 Anesthesia Ready 1347 Extubation/LMA Out 1347 an stop data 1352 Recovery or ICU Handoff Natalia ent care was transferred to the destination unit staff after review of the patient's medical history, current anesthetic/surgical status and plan, according to the Provider Handoff Checklist. 1353 Stop Meds Name Total Propofol 200 mg Propofol INF 635.04 mg fentaNYL 100 mcg Midazolam 2 mg IV Lidocaine 100 mg Dexamethasone 8 mg Ondansetron 8 mg ePHEDrine 10 mg PHENYLephrine 640 mcg Dexmedetomidine 24 mcg ceFAZolin 2 g PHENYLephrine INF 2,270 mcg ketorolac (Toradol) (30 mg/mL) injection 30 mg lactated ringers infusion 700 mL * Agents Name O2 Air N2O Sevoflurane (et) * Blood No blood administrations on file. Lines, Drains, and Airways Type Details Placement Removal Incision 07/27/20; 1352; Righ t; wrist 07/27/20 1352 by Shayla Mccray, RN (RETIRED) Peripheral IV Line - Single Lumen 10/14/21; 1112; metacarpal vein (top of hand), left; duet-ryv-kvaykg catheter system; 20 gauge; Laurence Villa RN; 10/14/21; 1420 10/14/21 1112 by Patricia Villa RN 10/14/21 1420 by Lisandra Bhatt RN Supraglottic Mask Ventilation: Ea sy (1); LMA Type: iGel; LMA Size: 5; Inserted by: HW; Removal Date: 10/14/21; Removal Time: 1347 10/14/21 1143 by Katy Pugh CRNA 10/14/21 1347 by Katy Pugh CRNA documented in this encounter Social History Tobacco Use Types Packs/Day Years Used Date Smoking Tobacco: Never Smokeless Tobacco: Never Alcohol Use Standard Drinks/Week Comments Yes 0 (1 standard drink = 0.6 oz pur e alcohol) occasional Sex and Gender Information Value Date Recorded Sex Assigned at Not on file Gender Identity Not on file Sexual Orientation Not on file documented as of this encounter OR Notes * Anesthesia Postprocedure Evaluation - Hayder Watson MD - 10/16/2021 11:18 AM EDT Department of Anesthesiology Post-procedure Note Patient: Latisha Wiggins Procedure Summary Date: 10/14/21 [place] / [place] [facility] [place] [address] [place] [address] Anesthesia Start: 1133 Anesthesia Stop: 1353 Procedures: SUTURE DIGITAL NERVE, HAND, ONE NERVE (WRVU 9.16) (Right Hand) GRAFTING OF AUTOLOGOUS SOFT TISSUE, OTHER, HARVESTED BY DIRECT EXCISION (FAT, DERMIS, OR FASCIA) (Right Hand) NERVE REPAIR, W/ SYNTHETIC CONDUIT OR VEIN ALLOGRAFT, EACH NERVE (WRVU 11.39) (Right Hand) NEUROPLASTY, NERVE HAND (WRVU 4.69) (Right Hand) Diagnosis: Nerve injury (nerve pain) Surgeons: Danny Veliz MD Responsible Provider: Hayder Watson MD Anesthesia Type: general ASA Status: 2 All Anesthesia Providers: Anesthesiologist: Hayder Watson MD ASSOCIATE VICE PRESIDENT: Katy Pugh CRNA Vitals Value Taken Time BP 107/80 10/14/21 1409 Temp 36 ??C (96.8 ??F) 10/14/21 1350 Pulse 78 10/14/21 1409 Resp 20 10/14/21 1409 SpO2 95 % 10/14/21 1409 Pain Level 0 10/14/21 1409 Patient Location: PACU/[facility] Level of Consciousness: Awake and Alert Pain Management: Satisfactory Analgesia PONV: None Cardiovascular Status: At Baseline and Hemodynamically Stable Respiratory Status: At Baseline and Room Air Postoperative Fluid Status: Intravascular EUvolemia Possible Anesthetic Complications: NONE apparent at time of evaluation Final Primary Anesthesia Type: General (The anesthetic type performed was the same as planned.) Comments: Hayder Watson MD * Anesthesia Preprocedure Evaluation - Hayder Watson MD - 10/14/2021 9:14 AM EDT Pre-Anesthesia Evaluation for: Latisha Wiggins a 55 y.o. female. Procedure(s): SUTURE DIGITAL NERVE, HAND, ONE NERVE (WRVU 9.16) GRAFTING OF AUTOLOGOUS SOFT TISSUE, OTHER, HARVESTED BY DIRECT EXCISION (FAT, DERMIS, OR FASCIA) NERVE REPAIR, W/ SYNTHETIC CONDUIT OR VEIN ALLOGRAFT, EACH NERVE (WRVU 11.39) NEUROPLASTY, NERVE HAND (WRVU 4.69) Patient Active Problem List Diagnosis Date Noted ??? Surgery follow-up 11/08/2020 ??? Nerve injury 07/20/2020 ??? Left foot pain 04/14/2017 ??? Nevus 09/07/2014 ??? Tinea versicolor 12/29/2011 ??? Melasma 12/29/2011 No past medical history on file. Past Surgical History: Procedure Laterality Date ??? PRO GRAFTING OF AUTOLOGOUS SOFT TISS BY DIRECT EXCISION 07/27/2020 GRAFTING OF AUTOLOGOUS SOFT TISSUE, OTHER, HARVESTED BY DIRECT EXCISION (FAT, DERMIS, OR FASCIA) performed by Danny Veliz MD at [facility] MAIN OR ??? PRO NERVE REPAIR W/NERVE ALLOGRAFT FIRST STRAND Right 07/27/2020 NERVE REPAIR,W/ NERVE ALLOGRAFT,EA.NERVE,FIRST STRAND performed by Danny Veliz MD at [facility] [place] ??? PRO REVISE MEDIAN N/CARPAL TUNNEL SURG Right 07/27/2020 MEDIAN NERVE DECOMPRESSION (CARPAL TUNNEL RELEASE) (WRVU 4.97) performed by Danny Veliz MD at [facility] MAIN OR Social History Tobacco Use ??? Smoking status: Never Smoker ??? Smokeless tobacco: Never Used Substance Use Topics ??? Alcohol use: Yes Comment: occasional Social History Substance and Sexual Activity Drug Use No Allergies Allergen Reactions ??? Oxycodone-Acetaminophen CIS - feeling of disorientation Medications: MAR and/or home medications have been reviewed. Physical Exam: Preprocedure Vitals Current as of 10/14/21 0914 No BP, pulse, respiration, SpO2, or temperature recorded. Height: Weight: BMI: IBW: Airway Assessment: Mallampati: II TM distance: >3 FB Neck ROM: full Cardiovascular Assessment: Rhythm: regular Rate: normal system normal Pulmonary Assessment: unlabored breathing pulmonary exam normal Dental Assessment: Misc Assessment: IV access: Peripheral line Last Filed Perioperative Cognitive Screening None Anesthesia Plan: ASA 2 general, with a(n) intravenous induction Brief HPI: 55 y.o. for ??SUTURE DIGITAL NERVE, HAND, ONE NERVE (WRVU 9.16) (N/A Hand) ?GRAFTING OF AUTOLOGOUS SOFT TISSUE, OTHER, HARVESTED BY DIRECT EXCISION (FAT, DERMIS, OR FASCIA) (N/A Hand) ?NERVE REPAIR, W/ SYNTHETIC CONDUIT OR VEIN ALLOGRAFT, EACH NERVE (WRVU 11.39) (N/A Hand) ?NEUROPLASTY, NERVE HAND (WRVU 4.69) (N/A Hand) Patient Active Problem List: Tinea versicolor (B36.0) Melasma (L81.1) Nevus (D22.9) Left foot pain (M79.672) Nerve injury (T14.8XXA) Surgery follow-up (Z09) No past medical history on file. METS:>4 Cardiac Symptoms: none LABS: Type and Screen: No results found for: ABORH Past anesthetic problems: none NPO status: Reviewed and appropriate Anesthetic Plan: GALMA, ETT back up, piv Monitoring: Standard ASA monitors I have seen and examined the patient. I have reviewed the medical record and pertinent laboratory information. I have reviewed risks from minor to major as outlined in the anesthesia consent form. The patient acknowledged These risks and would like to proceed with the anesthesia plan. Region - Other Informed Consent: Anesthetic plan and risks discussed with patient. Use of blood products discussed with patient who. Plan discussed with ASSOCIATE VICE PRESIDENT and attending. Anesthesia Screening documented in this encounter Plan of Treatment Upcoming Encounters Date Type Department Care Team (Late st Contact Info) Description 12/21/2023 3:15 PM EDT Office Visit Dermatology at [place] [address] [facility] [address] John Leon MD [address], [place] [address] documented as of this encounter Visit Diagnoses Not on filedocumented in this encounter Administered Medications Inactive Administered Medications - up to 3 most recent administrations Medication Order MAR Action Action Date Dose Rate Site ceFAZolin (Ancef) 1 g in dextrose 5% 50 mL infusion Intravenous, PRN, Starting on Thu10/14/21 at 1137, Until Thu10/14/21 at 1353, Administer over 30 Minutes, Anesthesia Intra-op Given 10/14/2021 11:37 AM EDT 2 g dexAMETHasone (Decadron) injection Intravenous, PRN, Starting on Thu10/14/21 at 1138, Until Thu10/14/21 at 1353, Anesthesia Intra-op, Routine Given 10/14/2021 11:38 AM EDT 8 mg dexmedeTOMIDine (Precedex) (4 mcg/mL) bolus injection (Anesthsia) Intravenous, PRN, Starting on Thu10/14/21 at 1134, Until Thu10/14/21 at 1353, Anesthesia Intra-op, Routine Given 10/14/2021 1:24 PM EDT 4 mcg Given 10/14/2021 1:12 PM EDT 8 mcg Given 10/14/2021 11:48 AM EDT 4 mcg ePHEDrine sulfate (5 mg/mL) multi-dose injection Intravenous, PRN, Starting on Thu10/14/21 at 1225, Until Thu10/14/21 at 1353, Anesthesia Intra-op, Routine Given 10/14/2021 12:25 PM EDT 10 mg fentaNYL (pf) (50 mcg/mL) multi-dose injection Intravenous, PRN, Starting on Thu10/14/21 at 1154, Until Thu10/14/21 at 1353, Anesthesia Intra-op, Routine Given 10/14/2021 12:37 PM EDT 50 mcg Given 10/14/2021 11:54 AM EDT 50 mcg ketorolac (Toradol) (30 mg/mL) injection Intravenous, PRN, Starting on Thu10/14/21 at 1317, Until Thu10/14/21 at 1353, Anesthesia Intra-op, Routine Given 10/14/2021 1:17 PM EDT 30 mg lactated ringers infusion 1,000 mL, at 100 mL/hr, Intravenous, CONTINUOUS, Starting on Thu10/14/21 at 1115, Until Thu10/14/21 at 1422, Day of Surgery (Day of Procedure) New Bag 10/14/2021 11:28 AM EDT lidocaine (pf) (Xylocaine) (20 mg/mL) 2% injection syringe Intravenous, PRN, Starting on Thu10/14/21 at 1136, Until Thu10/14/21 at 1353, Anesthesia Intra-op, Routine Given 10/14/2021 11:36 AM EDT 100 mg midazolam (pf) (Versed) (1 mg/mL) multi-dose injection Intravenous, PRN, Starting on Thu10/14/21 at 1134, Until Thu10/14/21 at 1353, Anesthesia Intra-op, Routine Given 10/14/2021 11:34 AM EDT 2 mg ondansetron (pf) (Zofran) (2 mg/mL) injection Intravenous, PRN, Starting on Thu10/14/21 at 1317, Until Thu10/14/21 at 1353, Anesthesia Intra-op, Routine Given 10/14/2021 1:17 PM EDT 8 mg PHENYLephrine (Sanford-Synephrine) (80 mcg/mL) in sodium chloride 0.9% 250 mL infusion Intravenous, CONTINUOUS PRN, Starting on Thu10/14/21 at 1211, Until Thu10/14/21 at 1353, Anesthesia Intra-op, Routine Rate/Dose Change 10/14/2021 12:21 PM EDT 30 mcg/min 22.5 mL/hr New Bag 10/14/2021 12:11 PM EDT 20 mcg/min 15 mL/hr PHENYLephrine in NS (PF) (SANFORD-SYNEPHRINE) 0.8 mg/10 mL (80 mcg/mL) multi-dose injection Syrg Intravenous, PRN, Starting on Thu10/14/21 at 1158, Until Thu10/14/21 at 1353, Anesthesia Intra-op, Routine Given 10/14/2021 12:30 PM EDT 160 mcg Given 10/14/2021 12:14 PM EDT 160 mcg Given 10/14/2021 12:08 PM EDT 160 mcg propofoL (Diprivan) (10 mg/mL) infusion Intravenous, CONTINUOUS PRN, Starting on Thu10/14/21 at 1140, Until Thu10/14/21 at 1353, Anesthesia Intra-op, Routine Rate/Dose Change 10/14/2021 12:02 PM EDT 50 mcg/kg/min 34.02 mL/hr New Bag 10/14/2021 11:40 AM EDT 50 mcg/kg/min 34.02 mL/ hr propofoL (Diprivan) 10 mg/mL bolus injection (Anesthesia) Intravenous, PRN, Starting on Thu10/14/21 at 1136, Until Thu10/14/21 at 1353, Anesthesia Intra-op Given 10/14/2021 11:36 AM EDT 200 mg documented in this encounter Care Teams Assembler Ping Pong Table Relationship Specialty Start Date End Date Ceci Issa MD [address] [place] [address] PCP - General 02/26/10 documented as of this encounter
--- OUTSIDE RECORDS SUMMARY | 2023-12-17 20:10 | XMS_ITS | Encounter Summary ---
Author Organization [facility] [place] [address] Care Team Providers Care Senior Software Engineer Name Role Phone Ceci Issa MD Primary Care Provider [phone] Encounter Details Date Type Department Care Team (Late st Contact Info) Description 12/02/2021 3:15 PM EDT Office [place] [address] Danny Dennis MD [facility] [place] [address] Surgery follow-up Social History Tobacco Use Types Packs/Day Years Used Date Smoking Tobacco: Never Smokeless Tobacco: Never Alcohol Use Standard Drinks/Week Comments Yes 0 (1 standard drink = 0.6 oz pur e alcohol) occasional Sex and Gender Information Value Date Recorded Sex Assigned at Not on file Gender Identity Not on file Sexual Orientation Not on file documented as of this encounter Progress Notes * Magaly Ortega H - 12/02/2021 3:15 PM EDT Plastic Surgery Post Op Note Provider: Danny Dnenis M.D Reason for visit: F/U status post procedure Date of surgery: 10/14/21 Procedure(s): re-explore the nerve Complications: None reported Date of surgery: 07/27/20 Procedure(s): 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 Examination: Patient is alert, conversant, comfortable, ambulating Incision well healed Normal feeling in little finger Ulnar side of ring finger Protective sensibility of radial side right finger Numbness in long finger of radial ulnar side Protective sensibility of ulnar side of index Normal feeling of radial side and ulnar side of thumb Full ROM Impression: Latisha Wiggins is a 55 y.o. female who was seen today for follow-up. Recommend waiting for things to heal more. Workers comp paperwork completed in clinic today. The patient was provided with a copy of the report. Plan: Follow up: 6 weeks. Continue with OT. IMarilynn, have performed the documentation for this encounter in the presence of and acting as a scribe for DANNY DENNIS MD. documented in this encounter Plan of Treatment Upcoming Encounters Date Type Department Care Team (Late st Contact Info) Description 12/21/2023 3:15 PM EDT Office Visit Dermatology at [place] [address] [place] [address] John Leon MD [address] [facility] [place] [address] documented as of this encounter Visit Diagnoses Diagnosis Surgery follow-up Follow-up examination, following unspecified surgery documented in this encounter Care Teams Senior Software Engineer Relationship Specialty Start Date End Date Ceci Issa MD [address] [place] [address] PCP - General 02/26/10 documented as of this encounter
--- OUTSIDE RECORDS SUMMARY | 2023-12-17 20:10 | XMS_ITS | Encounter Summary ---
[place] [address] Care Team Providers Care Engraver Machine Name Role Phone Ceci Issa MD Primary Care Provider [phone] Encounter Details Date Type Department Care Team (Latest Contact Info) Description 06/09/2022 Travel Social History Tobacco Use Types Packs/Day [...] 3:15 PM EDT Office Visit Dermatology at [address] [place] [phone] John Leon MD [address], [place] [address] documented as of this encounter Visit Diagnoses Not on filedocumented in this encounter Care Teams Engraver Machine Relationship Specialty Start Date End Date Ceci Issa MD [address] [place] [address] PCP - General 02/26/10 documented as of this encounter
--- OUTSIDE RECORDS SUMMARY | 2023-12-17 20:10 | XMS_ITS | Encounter Summary ---
[place] [address] Care Team Providers Care Cattle Manager Name Role Phone Ceci Issa MD Primary Care Provider [phone] Encounter Details Date Type Department Care Team (Late st Contact Info) Description 09/24/2021 Telephone [place] [phone] Elva Byers Social History Tobacco Use Types Packs/Day Years [...] 3:15 PM EDT Office Visit Dermatology at [place] [address] [facility] [place] [phone] John Leon MD [address] [facility], [place] [address] documented as of this encounter Visit Diagnoses Not on filedocumented in this encounter Care Teams Cattle Manager Relationship Specialty Start Date End Date Ceci Issa MD [address] [place] [address] PCP - General 02/26/10 documented as of this encounter
--- OUTSIDE RECORDS SUMMARY | 2023-12-17 20:10 | XMS_ITS | Encounter Summary ---
Author Organization [facility] Address [facility] [place] [address] Care Team Providers Care Mine Engineering Superintendent Name Role Phone Ceci Issa MD Primary Care Provider [phone] Reason for Visit * Auth/Cert Specialty Diagnoses [...] Expiration Date Visits Re quested Visits Authorized [id number] 1 1 Encounter Details Date Type Department Care Team (Latest Contact Info) Description 10/14/2021 10:42 AM EDT - 10/14/2021 2:20 PM EDT Hospital Encounter [place] [address] Danny Dennis MD [facility] [place] [address] Nerve injury Discharge Disposition: Home Social History Tobacco Use Types Packs/Day Years [...] closest emergency room or call the hospital sanding machine operator at [phone] and ask for physician concrete hopper operator covering for your physician. Questions or problems after 5pm or on a weekend: Call the [facility] sanding machine operator at and ask for the physician concrete hopper operator covering for your doctor. * Patient Instructions* Chantell Quintana, MANUFACTURING TEST TECHNICIAN - 10/14/2021 11:27 AM EDT Instructions following [...] 101.3 F. The number for questions is [phone] before 5 PM weekdays and [phone] after 5 PM and weekends. Pain Medication: [...] Appointment will bemailed to you. Please call [phone] (clinic number for appointments) to confirm date and time of your appointment if you do not receive your apointment in 1 week. Future Appointments Date Time Provider Department Center 10/24/2021 3:30 PM Danny Dennis MD [facility] [address] [place] [address] 12/16/2021 3:30 PM John Leon MD [facility] documented in this encounter Medications at Time [...] NEEDED 3 11/17/2018 fluticasone (FLONASE) 50 mcg/actuation Midnight, Suspension 03/31/2017 fluocinonide (LIDEX) 0.05 % Ointment [...] FASCIA) performed by Danny Dennis MD at [facility] MAIN OR ??? PRO NERVE REPAIR W/NERVE ALLOGRAFT FIRST STRAND Right 07/27/2020 NERVE REPAIR,W/ NERVE ALLOGRAFT,EA.NERVE,FIRST STRAND performed by Danny Dennis MD at [facility] CONRAD ??? PRO REVISE MEDIAN N/CARPAL TUNNEL SURG Right 07/27/2020 MEDIAN NERVE DECOMPRESSION (CARPAL TUNNEL RELEASE) (WRVU 4.97) performed by Danny Dennis MD at [facility] MAIN OR History reviewed. No [...] Tamanna Dang MD Plastic Surgery Resident P# [id number] documented in this encounter Miscellaneous Notes * Brief Op Note - Chantell Quintana APRN - 10/14/2021 1:48 PM EDT Brief Operative Note Patient Name: Latisha Wiggins : [id number] MR#: [id number] Case Date: 10/14/2021 Surgeon: Surgeon(s) and Role: [...] Center 10/24/2021 3:30 PM Danny Dennis MD [facility] [address] [place] [address] 12/16/2021 3:30 PM John Leon MD [facility] * Op Note - Danny Dennis MD - 10/14/2021 11:56 AM EDT [facility] Operative Note Patient Name: Latisha Wiggins : [id number] MR#: [id number] Case Date: 10/14/2021 Surgeon: Surgeon(s) and Role: [...] 3:15 PM EDT Office Visit Dermatology at [place] [address] [facility] [place] [id number] John Leon MD [address] [facility] [place] [address] documented as of this encounter Procedures Procedure Name Priority Date/Time Associated Diagnosis Comments SURGICAL PATHOLOGY REPORT Routine 10/14/2021 12:58 PM EDT SPECIMEN TO PATHOLOGY Routine 10/14/2021 12:58 PM EDT SPECIMEN TO PATHOLOGY Routine 10/14/2021 12:58 PM EDT Revise/Repair Hand/Foot Nerve (81875) 10/14/2021 11:34 AM EDT Nerve injury Nerve Repair W/Allograft Or Synth (44116) 10/14/2021 11:34 AM EDT Nerve injury Grafting of Autologous Soft Tiss by Direct Excision (99202) 10/14/2021 11:34 AM EDT Nerve injury Suture Digital Nerve Hand/Foot 1 Nerve (10118) 10/14/2021 11:34 AM EDT Nerve injury NERVE [...] Report (10/14/2021 12:58 PM EDT) Final Diagnosis [id number] ? Location: [facility] The signing pathologist has (i) examined the relevant preparation(s) for the specimen(s) and (ii) rendered or confirmed the diagnosis(es). . ?Surgical Pathology DIAGNOSIS A - Right hand proximal neuroma; excision: ?Consistent with neuroma. B - Right hand neuroma ?Consistent with neuroma. Electronically signed by: ?Dameon Cervantes MD Verified: ??10/17/2021 13:35 ??Pathologist Performed at: ??-[facility] Dept. of Pathology, [place], [place] SPECIMEN(S) SUBMITTED A - Right hand [...] labeled B1. ??pps 10/17/2021 1:35 PM EDT [facility] SPECIMEN FROM NERVE / Unknown 10/14/2021 12:58 PM EDT 10/14/2021 12:58 PM EDT SPECIMEN FROM NERVE / Unknown 10/14/2021 12:58 PM EDT 10/14/2021 12:58 PM EDT Danny Dennis MD PATHOLOGY/CYTOLOGY O YUMIKO Performing Organization Address City/[facility]/ZIP Co de Phone Number [facility] [place] [address] * Specimen to Pathology (10/14/2021 12:58 PM EDT) AP Specimen 10/14/2021 12:5 8 PM EDT 10/14/2021 12:58 PM EDT Narrative [facility] - 10/14/2021 12:58 PM EDT Specimen requisition ordered. ??Separate Pathology report to follow Danny Dennis MD PATHOLOGY/CYTOLOGY O YUMIKO Performing Organization Address City/[facility]/ZIP Co de Phone Number [facility] [place] [address] * Specimen to Pathology (10/14/2021 12:58 PM EDT) AP Specimen 10/14/2021 12:5 8 PM EDT 10/14/2021 12:58 PM EDT Narrative [facility] - 10/14/2021 12:58 PM EDT Specimen requisition ordered. ??Separate Pathology report to follow Danny Dennis MD PATHOLOGY/CYTOLOGY O RDERAMISTY [facility] [place] [address] documented in this encounter Visit Diagnoses Diagnosis Nerve injury Injury to nerves, unspecified site documented in this encounter Administered Medications Inactive Administered Medications - up to 3 most recent administrations Medication Order MAR Action Action Date Dose Rate Site traMADoL (Ultram) tablet 50 mg 50 [...] 1128 (New Bag - Prov ider: Katy Pugh CRNA)1146 (Anesthesia Volume Adjustment - Provider: Katy Pugh [...] (Due) documented in this encounter Care Teams Mine Engineering Superintendent Relationship Specialty Start Date End Date Ceci Issa MD [address] [place] [address] PCP - General 02/26/10 documented as of this encounter
--- OUTSIDE RECORDS SUMMARY | 2023-12-17 20:10 | XMS_ITS | Encounter Summary ---
[place] [address] Care Team Providers Care Marine Transport Professionals Name Role Phone Ceci Issa MD Primary Care Provider [phone] Reason for Visit * Reason Comments Skin Check Encounter Details Date Type Department Care Team (Late st Contact Info) Description 12/06/2020 3:45 PM EDT Office Visit Dermatology at [address] [address] John Leon MD [address] [place] [address], [facility] [address] Nevus; Epidermal cyst Social History Tobacco Use Types Packs/Day Years [...] Progress Notes * John Leon MD - 12/06/2020 3:45 PM EDT PROBLEM: 1. ??Yearly skin checkup. 2. ??History of tinea versicolor. 3. ??History of melasma. 4. ??Patient desirous of yearly skin examinations given her father's history of skin cancers Noemy follows up today and is 54. She would like to have a general skin checkup as well as have a small cyst removed from the nape of her neck. We had made note of this last year and she decided to wait until today to have it treated. Physical examination reveals a pleasant 54-year-old woman who has a benign examination of the face the hands of forearms and arms thighs and the calves. She does have a small follicular cyst on the left lateral base of her neck. Assessment and plan: Follicular cyst 1. Today site was anesthetized and excised and submitted pathologic analysis 2. Closed with 4-0 Ethilon and dressing placed 3. Wound care instructions and supplies given 4. Return to clinic in 1 week for suture movable and biopsy results 5. Size of the cyst was 6 mm. Benign skin examination 1. Patient reassured about her benign skin examination 2. Return to clinic in a year for repeat skin checkup. CC: Ceci Issa MD documented in this encounter Plan of Treatment Upcoming Encounters Date Type Department Care Team (Late st Contact Info) Description 12/21/2023 3:15 PM EDT Office Visit Dermatology at [address] [address] John Leon MD [address] [facility], [facility] [place] [address] documented as of this encounter Visit Diagnoses Diagnosis Nevus Benign neoplasm of skin, site unspecified Epidermal cyst Sebaceous cyst documented in this encounter Care Teams Marine Transport Professionals Relationship Specialty Start Date End Date Ceci Issa MD [address] [place] [address] PCP - General 02/26/10 documented as of this encounter
--- OUTSIDE RECORDS SUMMARY | 2023-12-17 20:10 | XMS_ITS | Encounter Summary ---
Author Organization [facility] [place] [address] Care Team Providers Care Laborer Drying Department Name Role Phone Ceci Issa MD Primary Care Provider [phone] Reason for Visit * Occupational Therapy (Routine) - Closed Specialty Diagnoses / Procedures Referred By Stuart stone Referred To Contact Occupational Therapy Diagnoses Nerve injury Dior Berkowitz, BULLARD OPERATOR [facility] [place] [address] [address] [address] [place] [address] Referral ID Status Reason Start Date Expiration Date V isits Requested Visits Authorized [id number] Closed Evaluate and Treat 10/23/2021 10/23/2022 100 100 Encounter Details Date Type Department Care Team (Late st Contact Info) Description 12/31/2021 3:00 PM EDT Office Visit Occupational Therapy at [address] [place] [address] Nicko Tomas, [facility] PHYSICAL MEDICINE & [place] [address] Nerve injury Social History Tobacco Use Types [...] as of this encounter Progress Notes * Nicko Tomas, OT - 12/31/2021 3:00 PM EDT OCCUPATIONAL THERAPY PROGRESS NOTE Referral Source: DR. Danny Welch MD Follow-up: 01/16/22 Total Treatment time: 55 Minutes Timed Code Treatment Time: 40 minutes History of Current Condition: Latisha Wiggins is a 56 y.o. year old Right hand dominant female who had an initial right hand carpal tunnel release in 09/2018, following this surgery she had electrical feelings very intense to the middle finger, therefore she had a return surgical exploration withremoval of scar tissue in 02/2019 , eventually she was referred to Dr. Veliz at [facility] due to ongoingnumbness at her middle finger, who recommended further surgical intervention as well. 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 Latisha participated in therapy here at [facility] making gains, but game agent reports she continue to have numbness at her middle finger. She returned for further surgery this year to address this problem. The nerve was re explored in October with cleaning of proximal end of distal branchesof the middle finger ulnar digital nerve and the ring finger radial digital and the proximal ends for nerve grafting per MD OP note. There was a 5 cm gap between ends. An allograft was performed between the proximal and distal stumps. Noemy is referred back to hand therapy. Latisha reports she now has no sensation to her middle finger, or the median nerve side of her ring finger and medial side ofher index finger. She has motion to digits, but has sensory loss. Latisha Wiggins is referred to Occupational Therapy for evaluation and treatment. Patient presents today alone. Pertinent History and/or Co-morbidities: 1. 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 office Avocational Activities: Camping Patient-stated intentions for therapy: to have more feeling in hand, to decrease sensitivity, and to be able to use hand to type at work and extractor filler comfortably Patient Specific Functional Scale (PSFS) (unable to perform 0/10 - Able to perform without difficulty 10/10) Activity At Evaluation 12/31/21 1.) showering - squeeze shampoo 5 8/0 2.) dressing - hook bra- using index and thumb mostly 7 08/12 3.) typing - avoids use with this hand - 0 If watch hand 5 4.) gripping 3 Have to look at it and it quick or will slide out of hand 5 5.) lifting grandchildren 2-3 5 Average Score: 3.5 5.28 Pain: (Assessed using the visual analog pain scale) IE: At Rest: 4-5/10 middle finger always - 1/2 of index and ring some of the time With Activity: 610 Description: touching any of these fingers gets super hypersensitive reaction - can't touch the keyboard Location: middle finger Symptoms improve with: rest - little use Symptoms worsen with: cold air, gripping, touching fingertips, swim in pool Special Testing Completed: SENSATION: (Measured using Brownfield-Ignacio monofilaments) Monofilament Size Target Force Hand Thresholds 2.83 0.07 Normal 3.61 0.4 Diminished Light Touch 4.31 2 Diminished Protective Sensation 4.56 4 Loss of Protective Sensation 6.65 300 Deep Pressure Only Sensation Areas of Hand Right Right 12/31/21 Median Nerve Middle finger full volar surface and dorsal DIP to distal 6.65 4.65 intact to all volar except the median nerve side of ring finger from PIP to distal - dorsal all intact, with decreased localization at PIP to DIP on middle finger 4.31 intact 3.61 absent at volar index finger and median nerve side of ring finger from PIP to distal Middle finger 6.65 full volar down to at DPC of palm and dorsal DIP to distal. Index and ring 4.31 except 6.65 at volar DIP to distal Base of index felt 4.31 at volar surface Ulnar Nerve 2.83 2.83 Radial Nerve 2.83 2.83 Active Range of Motion: Right Left Right 12/31/21 Wrist Extension/Flexion 50/66 72/70 60/66 Digits Right: MP PIP DIP DPC Thumb - 0 Index Finger 0 Middle Finger -9/ 0 Ring Finger .50 Small Finger 0 Middle finger 9/27/22 0/ .50 Digits right: MP PIP DIP DPC Middle finger 11/27/21 0/ - 0 0 0 0 0 DPC = distance measured from finger tip to distal palmar crease Strength: 12/31/21 Right Left Monitor Tech setting 2 8.0/6.6 38.3 Monitor Tech Average 7.3 Loco 5 10 3 Pt 1 10 Tip 2.5 8 Treatment Today: Educated patient in etiology and biomechanics as related to the patient's symptoms Instructed patient in: Rest and activity modification, Appropriate pacing and how to safely return to normal activities, Safe posture and positioning to avoid re-injury and Protocol related to current diagnosis Hot pack (10619) for 15 minutes: applied with eight layers of towels in addition to hot pack insulation for a total of 12 layers, utilized for superficial heating for soft tissue preparation prior totreatment activities applied to the right hand Scar massage Soft tissue massage at volar wrist, palm, dorsal and campo interossei Metacarpal glides anterior posterior Passive wrist flexion and extension stretching including fingers for full extension Composite gripping and full finger extension actively Re-assessment of function, range of motion, strength, and sensation Discussion of function and adaptive means for middle finger during typing and driving. Recommended try of purchase of silopos gel sleeves for neutral warmth during driving and support during typing. Her finger gets cold easy. Gripping of yellow putty for tendon gliding and extractor filler strength and pinch strength and to roll on palm to work on scar and desensitize Continue with Gel pad for scar for night time, compression glove for night time and fingertip free for daytime as needed, bob straps of index to middle finger as she is finding holding the middle finger in extension outof the activity to wear as needed with activity home exercise program to include scar massage, desensitization program, compression glove use , seescanned documents Instructed in home modalities to include: Moist heat and Compression garment use ASSESSMENT: Latisha is 11weeks post surgery for nerve conduit surgery for her digital nerves in median nerve distribution. Latisha reports she notes a definite help to her symptoms with the compressiongloves especially at night time. She is working to incorporate the middle finger into more tasks even though she cannot feel when it is touching. She is using the bob straps to help have the index f kristina pull the middle finger into activity. Latisha is experiencing multiple functional limitations due to her lack of sensation to her middle finger. Updated sensory testing today does not reveal a change to her middle finger sensation, with slight improvement to the side of her index and ring fingers. Her strength numbers reveal a very weak right hand as well. She is noting need for the visual compensation of her use of the right hand but even then finds herself dropping objects as she looks at her hand. This too may be a product of her weakened strength. She will work on her extractor filler and pinch strength and look to purchase silopos sleeves as a neutral warmth to her cold middle finger during ta sks such as driving and typing. She has an upcoming MD follow up in 2 weeks, and will send updated note to surgeon following next appointment. Latisha Wiggins has fair potential for gains with therapy; potential barriers to progress include previous injury to nerve, and current decreased level of sensation post op. Global Mental Function: With gross screening of patient's global mental functions, patient demonstrates orientation to person, place, time, and situation. Patient's affect/behavior is appropriate andcooperative today. Residential Goals (to be met by discharge): Date Goal Met: 1.) Latisha Wiggins will demonstrate significantly improved functional performance from re-assessment as measured by a total average score of 7 using the PSFS. Goal Status: In progress Short Term Goals (to be met by 12/20/21): Date Goal Met: 12/31/21 Latisha Wiggins will be independent with home exercise program with written instructions. Goal Status: Ongoing meeting 12/31/21 Latisha Wiggins will gain 10 degrees of wrist extension to demonstrate significantly improved functional performance as measured by >/= 2 point improvement on the total average score ofthe PSFS. Goal Status: Met 12/31/21 Partially met Latisha Wiggins will demonstrate the ability to complete functional tasks of typing at a level of 7/10, with 1-2/10 pain using the visual analog pain scale. Goal Status: In progress PLAN: The patient is to be seen 1 time in 2 weeks to progress toward short and skilled nursing goals, Soft tissue mobilization as therapeutically necessary to decrease pain and/or increase mobility, Therapeutic exercises to increase functional mobility, Perform modalities as therapeutically necessary to decrease pain and increase mobility to include: Hot pack and Paraffin Bath, Provide positive feedback and encouragement to improve emotional and mental well-being and Due to the complex nature of injury patient will benefit from OT with a hand therapist (X) Latisha Wiggins participated in the evaluation, collaborated on treatment goals, and agrees to the treatment plan. documented in this encounter Plan of Treatment Upcoming Encounters Date Type Department Care Team (Late st Contact Info) Description 12/21/2023 3:15 PM EDT Office Visit Dermatology at [place] [address] [facility] [place] [address] John Leon MD [address] [facility] [place] [address] documented as of this encounter Visit Diagnoses Diagnosis Nerve injury Injury to nerves, unspecified site documented in this encounter Care Teams Laborer Drying Department Relationship Specialty Start Date End Date Ceci Issa MD [address] [place] [address] PCP - General 02/26/10 documented as of this encounter
--- OUTSIDE RECORDS SUMMARY | 2023-12-17 20:10 | XMS_ITS | Encounter Summary ---
Author Organization [facility] [place] [address] Care Team Providers Care Automobile Leasing Supervisor Name Role Phone Ceci Issa MD Primary Care Provider [phone] Encounter Details Date Type Department Care Team (Late st Contact Info) Description 02/10/2022 3:15 PM EST Office [place] [address] Danny Dennis MD [facility] [place] [address] Surgery follow-up Social History Tobacco Use Types [...] Progress Notes * Magaly Ortega H - 02/10/2022 3:15 PM EST Plastic Surgery Post Op Note Provider: Danny [...] up visit s/p re exploration of nerve. There has been some very slow recovery occurring and continues working with OT. Examination: Patient is alert, conversant, comfortable, ambulating Incision well healed Normal feeling on the radial and ulnar side of the thumb Normal feeling on the radial side of the index finger Protective sensibility to the ulnar side of index finger No sensation with the long finger Protective sensibility on the radial side of ring finger Normal feeing ulnar side of the small finger 5/5 abduction of thumb Scars well healed Full ROM +tinels sign is mid palm Impression: Latisha Wiggins is a 56 y.o. female who was seen today for follow-up. Continues withthe healing process. Seeing very small findings in nerve regeneration. Will continue to monitor. Ifin time there continues to be a significant delay in recovery may consider proceeding with a nerve transfer. Plan: Follow up in 3 months Magaly Faustin, have performed the documentation for this encounter in the presence of and acting as a scribe for DANNY DENNIS MD. documented in this encounter Plan of Treatment Upcoming Encounters Date Type Department Care Team (Late st Contact Info) Description 12/21/2023 3:15 PM EDT Office Visit Dermatology at [place] [address] [place] [address] John Leon MD [address] [facility] [place] [address] documented as of this encounter Visit Diagnoses Diagnosis Surgery follow-up Follow-up examination, following unspecified surgery documented in this encounter Care Teams Automobile Leasing Supervisor Relationship Specialty Start Date End Date Ceci Issa MD [address] [place] [address] PCP - General 02/26/10 documented as of this encounter
--- OUTSIDE RECORDS SUMMARY | 2023-12-17 20:10 | XMS_ITS | Encounter Summary ---
Author Organization [facility] Address [facility] [place] [address] Care Team Providers Care Net Sorter Name Role Phone Ceci Issa MD Primary Care Provider [phone] Reason for Visit * Reason Comments Follow Up Surgery Encounter Details Date Type Department Care Team (Late st Contact Info) Description 02/08/2021 11:45 AM EDT Office [place] [address] Danny Dennis MD [facility] [place] [address] Surgery follow-up Social History Tobacco Use Types [...] this encounter Progress Notes * Magaly Ortega - 02/08/2021 11:45 AM EDT Plastic Surgery Post Op Note Danny Dennis M.D. 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 She is doing well and has noticed some recovery of nerve. Examination: There were no vitals taken for this visit. Patient is alert, conversant, comfortable, ambulating. Right hand- + tinels out to the DIPJ Impression: Latisha Wiggins is a 55 y.o. female who was seen today for follow-up after the aboveprocedure. Please see the operative note for details. Healing well up to this point in time. Seeingsigns of nerve regeneration. Reassured her that this process will continue. She will need OT in the future to focus on sensory re education. Plan: Follow up in 3 months in clinic or telehealth. IMagaly have performed the documentation for this encounter in the presence of and acting as a scribe for DANNY DENNIS MD. documented in this encounter Plan of Treatment Upcoming Encounters Date Type Department Care Team (Late st Contact Info) Description 12/21/2023 3:15 PM EDT Office Visit Dermatology at [place] [address] [facility] [place] [address] John Leon MD [address] [facility], [place] [address] documented as of this encounter Visit Diagnoses Diagnosis Surgery follow-up Follow-up examination, following unspecified surgery documented in this encounter Care Teams Net Sorter Relationship Specialty Start Date End Date Ceci Issa MD [address] [place] [address] PCP - General 02/26/10 documented as of this encounter
--- OUTSIDE RECORDS SUMMARY | 2023-12-17 20:10 | XMS_ITS | Encounter Summary ---
Author Organization [facility] [place] [address] Care Team Providers Care Toggler Name Role Phone Ceci Issa MD Primary Care Provider [phone] Reason for Visit * Occupational Therapy (Routine) - Closed Specialty Diagnoses / Procedures Referred By Stuart stone Referred To Contact Occupational Therapy Diagnoses Nerve injury Dior Berkowitz, INCIDENT RESPONSE COORDINATOR [facility] [place] [address] [address] [address] [place] [address] Referral ID Status Reason Start Date Expiration Date V isits Requested Visits Authorized [id number] Closed Evaluate and Treat 10/23/2021 10/23/2022 100 100 Encounter Details Date Type Department Care Team (Late st Contact Info) Description 11/20/2021 2:00 PM EDT Office Visit Occupational Therapy at [address] [place] [address] Nicko Tomas, [facility] [place] [address] Nerve injury Social History Tobacco [...] as of this encounter Miscellaneous Notes * Initial Evaluation - Nicko Tomas Laurence, OT - 11/20/2021 2:00 PM EDT OCCUPATIONAL THERAPY INITIAL UPPER EXTREMITY EVALUATION Referral Source: DR. Danny Veliz Next Follow-up: 12/02/21 Total Treatment time: 55 Minutes Timed Code Treatment Time: 0 minutes History of Current Condition: Latisha Wiggins is a 55 y.o. year old Right hand dominant female who had an initial right hand carpal tunnel release in 09/2018, following this surgery she had electrical feelings very intense to the middle finger, therefore she had a return surgical exploration withremoval of scar tissue in 02/2019 , eventually she was referred to Dr. Veliz at [facility] due to ongoingnumbness at her middle finger, who recommended further surgical intervention as well. 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 Open a tight or new jar Unable 2. Write Severe difficulty 3. Turn a loco Unable 4. Prepare a meal Severe difficulty 5. Push open a heavy door Severe difficulty 6. Place an object on a shelf above your head Severe difficulty 7. Do heavy participant administrator (eg wash shea, wash floors) Unable 8. Garden or do yard work Unable 9. Make a bed Severe difficulty 10. Carry a shopping bag or briefcase Unable 11. Carry a heavy object (over 10 lbs) Unable 12. Change a lightbulb overhead Unable 13. Wash or blow dry your hair Severe difficulty 14. Wash your back Severe difficulty 15. Put on a pullover sweater Severe difficulty 16. Use a knife to cut food Severe difficulty 17. Recreational activities which require little effort (eg cardplaying, knitting, etc) Unable 18. Recreational activities in which you take some force or impact through your arm, shoulder or hand (eg golf, hammering, tennis, etc) Unable 19. Recreational activities in which you move your arm freely (eg playing frisbee, badminton, etc) Unable 20. Manage transportation needs (getting from one place to another) Moderate difficulty 21. Sexual activities Moderate difficulty 22. During the past week, to what extent has your arm, shoulder or hand problem interfered with your normal social activities with family, friends, neighbours or groups? Extremely 23. During the past week, were you limited in your work or other regular daily activities as a result of your arm, shoulder or hand problem? Very limited 24. Arm, shoulder or hand pain Severe 25. Arm, shoulder or hand pain when you performed any specific activity Severe 26. Tingling (pins and needles) in your arm, shoulder or hand Extreme 27. Weakness in your arm, shoulder or hand Extreme 28. Stiffness in your arm, shoulder or hand Extreme 29. During the past week, how much difficulty have you had sleeping because of the pain in your arm, shoulder or hand? Severe difficulty 30. I feel less capable, less confident or less useful because of my arm, shoulder or hand problem Strongly agree 1. Please select the answers that best describes your physical ability in the past week. Did you have any difficulty: using your usual technique for your work? Severe Difficulty 2. Did you have any difficulty: doing your usual work because of arm, shoulder or hand pain? SevereDifficulty 3. Did you have any difficulty: doing your work as well as you would like? Severe Difficulty 4. Did you have any difficulty: spending your usual amount of time doing your work? Severe Difficulty If you play more than one sport or instrument (or play both), please answer with respect to that activity which is most important to you. Do you currently play a sport or an instrument? No DASH Score 85.83 DASH - Work Score 75 Standardized measurement of functional limitation related to an upper extremity disability, using 0-100 scale indicating percent of perceived functional impairment. Pain: (Assessed using the visual analog pain scale) At Rest: 4-5/10 middle finger always - 1/2 of index and ring some of the time With Activity: 6/10 Description: touching any of these fingers gets super hypersensitive reaction - can't touch the keyboard Location: middle finger Symptoms improve with: rest - little use Symptoms worsen with: cold air, gripping, touching fingertips, swim in pool Special Testing Completed: SENSATION: (Measured using Moulton-Minh monofilaments) Monofilament Size Target Force Hand Thresholds 2.83 0.07 Normal 3.61 0.4 Diminished Light Touch 4.31 2 Diminished Protective Sensation 4.56 4 Loss of Protective Sensation 6.65 300 Deep Pressure Only Sensation Areas of Hand Right Median Nerve Middle finger full volar surface and dorsal DIP to distal 6.65 4.65 intact to all volar except the median nerve side of ring finger from PIP to distal - dorsal all intact, with decreased localization at PIP to DIP on middle finger 4.31 intact 3.61 absent at volar index finger and median nerve side of ring finger from PIP to distal Ulnar Nerve 2.83 Radial Nerve 2.83 Summary median nerve: Index finger: 4.31 Middle finger: 6.65 Ring finger: 4.31 Small finger: 2.83 Thumb: 2.83 Active Range of Motion: Right Left Wrist Extension/Flexion 50/66 72/70 Digits Right: MP PIP DIP DPC Thumb - 0 Index Finger 0 Middle Finger -9/ 0 Ring Finger .50 Small Finger 0 Digits Left: MP PIP DIP DPC Thumb - Index Finger 0 Middle Finger 0/ 0 Ring Finger 0 Small Finger 0 DPC = distance measured from finger tip to distal palmar crease Strength: not tested today Right Left Assistant Attorney General setting 2 Assistant Attorney General Average Loco 3 Pt Tip Treatment Today: Evaluation MODERATE Complexity (08620) Educated patient in etiology and biomechanics as related to the patient's symptoms Instructed patient in: Rest and activity modification, Appropriate pacing and how to safely return to normal activities, Safe posture and positioning to avoid re-injury and Protocol related to current diagnosis Scar massage Desensitization with scrub brush starting volar forearm down into palm of hand to distal tip of fingers Gel pad for scar for night time Fitted with compression glove for night time and fingertip free for daytime as needed Coban wrap to middle finger at night over coban to decrease flexion during sleep Volar plate stretch for middle finger Finger extension stretch with hand flat on table semmes minh testing Provided with home exercise program to include scar massage, desensitization program, compression glove use , see scanned documents Instructed in home modalities to include: Moist heat and Compression garment use ASSESSMENT: Latisha is 5.5 weeks post surgery for nerve conduit surgery for her digital nerves in median nerve distribution causing functional deficits in ADL/IADL performance. Please see above, PSFS and DASH for specific functional deficits. Latisha demonstrates tightness of middle finger due to scarring in palm pulling finger into flexion. She has complete less of sensation to her middle finger and diminished protective sensation to her index and ring finger. She has good motion of her wrist and digits, but is experiencing hypersensitivity to touch with her right finger tips and with grippingtasks. She will begin a desensitization program at home and scar massage and stretching. Latisha Astudillo Nhi eduardomary is able to demonstrate home exercises with written instructions provided. Latisha has identified needs for skilled therapy to address deficits noted during evaluation to maximize functional performance. Latisha Astudillo Wiggins has fair potential for gains with therapy; potential barriers to progress include previous injury to nerve, and current decreased level of sensation post op. Global Mental Function: With gross screening of patient's global mental functions, patient demonstrates orientation to person, place, time, and situation. Patient's affect/behavior is appropriate andcooperative today. Correction Goals (to be met by discharge): Date Goal Met: 1.) Latisha Wiggins will demonstrate significantly improved functional performance from re-assessment as measured by a total average score of 7 using the PSFS. Goal Status: In progress Short Term Goals (to be met by 12/20/21): Date Goal Met: Latisha Wiggins will be independent with home exercise program with written instructions. Goal Status: In progress Latisha Wiggins will gain 10 degrees of wrist extension to demonstrate significantly improved functional performance as measured by >/= 2 point improvement on the total average score of the PSFS. Goal Status: In progress Latisha Wiggins will demonstrate the ability to complete functional tasks of typing at a level of 7/10, with 1-2/10 pain using the visual analog pain scale. Goal Status: In progress PLAN: The patient is to be seen 1 time(s) per week, for 6-8 week(s) to progress toward short and termite control technician goals, Soft tissue mobilization as therapeutically necessary [...] 3:15 PM EDT Office Visit Dermatology at [place] [address] [facility] [place] [id number] John Leon MD [address], [place] [address] Scheduled Referrals Name Type Priority Associated Diagnoses Order Schedule Referral to Occupational Therapy Outpatient Referral Routine Nerve injury Ordered: 10/23/2021 documented as of this encounter Visit Diagnoses Diagnosis Nerve injury Injury to nerves, unspecified site documented in this encounter Care Teams Toggler Relationship Specialty Start Date End Date Ceci Issa MD [address] [place] [address] PCP - General 02/26/10 documented as of this encounter
--- OUTSIDE RECORDS SUMMARY | 2023-12-17 20:10 | XMS_ITS | Encounter Summary ---
Author Organization [facility] [place] [address] Care Team Providers Care Environmental Health Physician Name Role Phone Ceci Issa MD Primary Care Provider [phone] Reason for Referral * Occupational Therapy (Routine) - Closed Specialty Diagnoses / Procedures Referred By Stuart stone Referred To Contact Occupational Therapy Diagnoses Nerve injury Dior Berkowizt [employer] [facility] [place] [address] [facility] [address] [place] [address] Referral ID Status Reason Start Date Expiration Date V isits Requested Visits Authorized [id number] Closed Evaluate and Treat 10/23/2021 10/23/2022 100 100 Reason for Visit * Reason Comments Follow-up Encounter Details Date Type Department Care Team (Late st Contact Info) Description 10/23/2021 11:40 AM EDT Office [place] [address] Dior Berkowitz APRN [facility] [place] [address] Nerve injury; Surgery follow-up Social History Tobacco Use Types [...] as of this encounter Progress Notes * Dior Berkowitz APRN - 10/23/2021 11:40 AM EDT Plastic Surgery Post Op Note Date of surgery: 10/14/21 Procedure(s): Exploration of the Right median nerve and common digital branches, resection of neuroma, and nerve grafting with allograft- Dr. 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 She reports new numbness on the radial side or long finger and ulnar side of index. Examination: Patient is alert, conversant, comfortable, ambulating Fingers well perfused to the tips. Incision: CDI, healing well. Nylon sutures removed and steri-strips place. No collection, no erythema, no evidence of cellulitis. Pathology report: A - Right hand proximal neuroma; excision: ? Consistent with neuroma. B - Right hand neuroma ? Consistent with neuroma. Impression: Latisha Wiggins is a 55 y.o. female who was seen today for follow-up after the aboveprocedure. Please see the operative note for details. Healing well, no signs or concerns for infection. Plan: Follow up: 1 month. Referral to Occupation Therapy. Leave splint on and dry until OT appointment. May return to work next week 4 hours per day, no use of right hand. Slowly increase hours as tolerated. I, Magaly Oretga, have performed the documentation for this encounter in the presence of and acting as a scribe for DIOR BERKOWITZ APRN. I performed the services which were documented by the scribe, and I agree with the accuracy of the documentation in this encounter. DIOR BERKOWITZ APRN documented in this encounter Plan of Treatment Upcoming Encounters Date Type Department Care Team (Late st Contact Info) Description 12/21/2023 3:15 PM EDT Office Visit Dermatology at [place] [address] [place] [address] John Leon MD [address], [place] [address] Scheduled Referrals Name Type Priority Associated Diagnoses Order Schedule Referral to Occupational Therapy Outpatient Referral Routine Nerve injury Ordered: 10/23/2021 documented as of this encounter Visit Diagnoses Diagnosis Nerve injury Injury to nerves, unspecified site Surgery follow-up Follow-up examination, following unspecified surgery documented in this encounter Care Teams Environmental Health Physician Relationship Specialty Start Date End Date Ceci Issa MD [address] [place] [address] PCP - General 02/26/10 documented as of this encounter
--- OUTSIDE RECORDS SUMMARY | 2023-12-17 20:10 | XMS_ITS | Encounter Summary ---
Author Organization Formerly [facility] [place] [address] Care Team Providers Care Physical Metallurgist Name Role Phone Ceci Issa MD Primary Care Provider [phone] Reason for Visit * Occupational Therapy (Routine) - Closed Specialty Diagnoses / Procedures Referred By Stuart stone Referred To Contact Occupational Therapy Diagnoses Nerve injury Dior Berkowitz, BUSINESS OPERATIONS MANAGER [facility] [place] [address] [address] [place] [address] Referral ID Status Reason Start Date Expiration Date V isits Requested Visits Authorized [id number] Closed Evaluate and Treat 10/23/2021 10/23/2022 100 100 Encounter Details Date Type Department Care Team (Late st Contact Info) Description 11/27/2021 2:00 PM EDT Office Visit Occupational Therapy at [address] [place] [address] Nicko Tomas, [facility] PHYSICAL MEDICINE & [place] [address] Nerve injury Social History Tobacco [...] as of this encounter Miscellaneous Notes * Treatment - Therapy - Nicko Tomas, OT - 11/27/2021 2:00 PM EDT OCCUPATIONAL THERAPY TREATMENT NOTE Referral Source: DR. Danny Welch MD Follow-up: 12/02/21 Total Treatment time: 57 Minutes Timed Code Treatment Time: 42 minutes History of Current Condition: Latisha Wiggins is a 55 y.o. year old Right hand dominant female who had an initial right hand carpal tunnel release in 09/2018, following this surgery she had electrical feelings very intense to the middle finger, therefore she had a return surgical exploration withremoval of scar tissue in 02/2019 , eventually she was referred to Dr. Veliz at [facility] due to ongoingnumbness at her middle finger, who recommended further surgical intervention as well. 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 [...] pool Special Testing Completed: SENSATION: (Measured using Edelstein-Ignacio monofilaments) Monofilament Size Target Force Hand Thresholds [...] Ring Finger .50 Small Finger 0 Digits right: MP PIP DIP DPC Middle finger 8/24/22 0/ - 0 DPC = distance measured from finger tip to distal palmar crease Strength: not tested today Right Left Extension Clerk setting 2 Extension Clerk Average Loco 3 Pt Tip Treatment Today: Educated patient in etiology and biomechanics as related to the patient's symptoms Instructed patient in: Rest and activity modification, Appropriate pacing and how to safely return to normal activities, Safe posture and positioning to avoid re-injury and Protocol related to current diagnosis Hot pack (90977) for 15 minutes: applied with eight layers [...] Composite gripping and full finger extension actively Table top and prayer stretch for wrist extension and finger extension at middle finger Volar plate stretch for middle finger Finger extension stretch with hand flat on table Ultrasound (36627) (50%, 3.3 MHz, 0.8 W/cm2, 7 minutes) with additional 2 minutes of set-up time, used for soft tissue preparation prior to treatment activities applied today to the campo incision avoiding CT wrist area - mostly at campo built up scar tissue Desensitization with rice bucket at palm, wrist and gripping Gripping of yellow putty for tendon gliding and cement sack breaker strength and to roll on palm to work on scar and desensitize Continue with Gel pad for scar for night time, compression glove for night time and fingertip free for daytime as needed, Coban wrap to middle finger at night over coban to decrease flexion during sleep home exercise program to include scar massage, desensitization program, compression glove use , seescanned documents Instructed in home modalities to include: Moist heat and Compression garment use ASSESSMENT: Latisha is 6. 5 weeks post surgery for nerve conduit surgery for her digital nerves in median nerve distribution. Latisha reports she notes a definite help to her symptoms with the compression gloves especially at night time. She was able to carry out her home program recommended from last session without an issue. She is working to incorporate the middle finger into more tasks even thou gh she cannot feel when it is touching. She notes the electrical radiation to index and middle finger with compression at wrist and when she goes into ulnar deviation range of motion. She tolerated the desensitization of scrub brush from home program, and rice today. She did try to use the fingers for typing but due to decreased sensation she cannot tell what loco she is hitting for middle and index fingers, so she makes more errors. She continues to try but also uses a pencil eraser to help with typing at times for the right hand. Latisha wasserman was able to fully straighten the middle finger PIP joint today. She has complete less of sensation to her middle finger and diminished protective sensation to her index and ring finger. She has good motion of her wrist and digits, but is experiencing hypersensitivity to touch with her right finger tips and with gripping tasks. Latisha Wiggins has fair potential for gains with therapy; potential barriers to progress include previous injury to nerve, and current decreased level of sensation post op. Global Mental Function: With gross screening of patient's global mental functions, patient demonstrates orientation to person, place, time, and situation. Patient's affect/behavior is appropriate andcooperative today. Retirement Goals (to be met by discharge): Date [...] 6-8 week(s) to progress toward short and intermediate goals, Soft tissue mobilization as therapeutically necessary [...] 3:15 PM EDT Office Visit Dermatology at [place] [address] [facility] [place] [address] John Leon MD [address], [place] [address] Scheduled Referrals Name Type Priority Associated Diagnoses Order Schedule Referral to Occupational Therapy Outpatient Referral Routine Nerve injury Ordered: 10/23/2021 documented as of this encounter Visit Diagnoses Diagnosis Nerve injury Injury to nerves, unspecified site documented in this encounter Care Teams Physical Metallurgist Relationship Specialty Start Date End Date Ceci Issa MD [address] [place] [address] PCP - General 02/26/10 documented as of this encounter
--- OUTSIDE RECORDS SUMMARY | 2023-12-17 20:10 | XMS_ITS | Encounter Summary ---
Author Organization [facility] [place] [address] Care Team Providers Care Monitor And Storage Bin Tender Name Role Phone Ceci Issa MD Primary Care Provider [phone] Encounter Details Date Type Department Care Team (Late st Contact Info) Description 08/28/2022 1:00 PM EDT [place] [address] Danny Veliz MD [facility] [place] [address] Nerve injury Social History Tobacco Use Types [...] encounter Progress Notes * Marilynn Vergara - 08/28/2022 1:00 PM EDT Plastic Surgery Follow Up Note Danny Veliz M.D Reason for visit: follow up Date of surgery: 10/14/21 Procedure(s): nerve reexploration right hand Complications: None reported Date of surgery: 07/27/20 Procedure(s): 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 She notes having new tingling in her right thumb. Examination: Patient is alert, conversant, comfortable, ambulating Right Hand: 100% feeing on ulnar and radial side of the little finger. Normal feeling on ulnar side of ring finger Protective sensibility on radial side of ring finger +tinel's on right long finger at base of proximal phalanx Protective sensibility on ulnar side of index finger Normal feeling of radial side of index finger Full ROM Impression: Latisha Wiggins is a 56 y.o. female who was seen today for follow up. Improving. Plan: Follow up 3 months. Marilynn Faustin am acting as scribe for Dr. Danny Veliz. All work documented was performed by Dr. Veliz. documented in this encounter Plan of Treatment Upcoming Encounters Date Type Department Care Team (Late st Contact Info) Description 12/21/2023 3:15 PM EDT Office Visit Dermatology at [place] [address] [facility] [place] [address] John Leon MD [address] [facility], [place] [address] documented as of this encounter Visit Diagnoses Diagnosis Nerve injury Injury to nerves, unspecified site documented in this encounter Care Teams Monitor And Storage Bin Tender Relationship Specialty Start Date End Date Ceci Issa MD [address] [place] [address] PCP - General 02/26/10 documented as of this encounter
--- OUTSIDE RECORDS SUMMARY | 2023-12-17 20:10 | XMS_ITS | Encounter Summary ---
[place] [address] Care Team Providers Care Lumber Handler Name Role Phone Ceci Issa MD Primary Care Provider [phone] Encounter Details Date Type Department Care Team (Late st Contact Info) Description 10/06/2023 Interpretation Only [address] [address] Greg Lobato, SUSI [address] [place] [address] Social History Tobacco Use Types Packs/Day Years [...] 3:15 PM EDT Office Visit Dermatology at [place] [address] [facility] [place] [phone] John Leon MD [address] [facility], [place] [place] [address] documented as of this encounter Procedures Procedure Name Priority Date/Time Associated Diagnosis Comments XR FOOT MIN 3 VIEWS LEFT Routine 10/06/2023 1:39 PM EDT documented in this encounter Results * XR Foot Min 3 views Left (Generic) (10/06/2023 1:39 PM EDT) PT CLASS O RAD ADMITDTTM [id number] RAD PT RAD INFO [id number]^Luis Alfredo ^Greg^P RAD EXAM DESC [id number]^XR Foot Complete 3+ Views Left^[facility] WORKSTATION ID [id number] RAD Anatomical Region Laterality Modality Foot Left Radiographic [...] who have questions please contact the health manager medicare marketing that requested your imaging first. ? Narrative [...] patients who have questions please contactthe health manager medicare marketing that requested your imaging first. Greg Lobato DPWilda IMG DX ORDERABLES documented in this encounter Visit Diagnoses Not on filedocumented in this encounter Care Teams Lumber Handler Relationship Specialty Start Date End Date Ceci Issa MD [address] [place] [address] PCP - General 02/26/10 documented as of this encounter
--- OUTSIDE RECORDS SUMMARY | 2023-12-17 20:10 | XMS_ITS | Encounter Summary ---
[place] [address] Care Team Providers Care Oyster Shucker Name Role Phone Ceci Issa MD Primary Care Provider [phone] Encounter Details Date Type Department Care Team (Latest Contact Info) Description 02/10/2022 Travel Social History Tobacco Use Types Packs/Day [...] 3:15 PM EDT Office Visit Dermatology at [address] [place] [address] John Leon MD [address] [facility] [facility] [address], [place] [address] documented as of this encounter Visit Diagnoses Not on filedocumented in this encounter Care Teams Oyster Shucker Relationship Specialty Start Date End Date Ceci Issa MD [address] [place] [address] PCP - General 02/26/10 documented as of this encounter
--- OUTSIDE RECORDS SUMMARY | 2023-12-17 20:10 | XMS_ITS | Encounter Summary ---
[place] [address] Care Team Providers Care Supervisor Feed Mill Name Role Phone Ceci Issa MD Primary Care Provider Reason for Visit * Reason Comments Annual Exam Encounter Details Date Type Department Care Team (Late st Contact Info) Description 12/16/2021 3:30 PM EDT Office Visit Dermatology at [address] [address] John Leon MD [address] [place] [address], [place] [address] Nevus; Family history of malignant melanoma; Tinea [...] Progress Notes * John Leon MD - 12/16/2021 3:30 PM EDT PROBLEM: 1. ??Yearly skin checkup. 2. ??History of tinea versicolor. 3. ??History of melasma in her father, on his toe with later metastasis. 4. ??Patient desirous of yearly skin examinations given her father's history of skin cancers Noemy follows up for her repeat yearly skin checkup. Physical examination reveals a pleasant 55-year-old woman who has a benign examination of the head and the neck the chest the back the hands the arms of forearms the thighs and the calves. The left lateral nape of neck follicular cyst excision site has healed very well. She has some mild tinea versicolor at the upper nape of her neck. She is moderately tanned. Assessment and plan: Benign skin examination 1. Patient reassured about her benign skin examination 2. Continue sun avoidance precautions 3. Return to clinic in a year for repeat check. Family history malignant melanoma in her father. 1. Patient reassured about her benign examination today. Tinea versicolor 1. Patient is using selenium sulfide containing Selsun Blue shampoo 2. May also use clotrimazole or similar antifungal cream to upper back/nape of neck sites 3. Overall control has been very good. CC: Ceci Issa MD documented in this encounter Plan of Treatment Upcoming Encounters Date Type Department Care Team (Late st Contact Info) Description 12/21/2023 3:15 PM EDT Office Visit Dermatology at [address] [address] John Leon MD [address] [facility] [place] [address] documented as of this encounter Visit Diagnoses Diagnosis Nevus Benign neoplasm of skin, site unspecified Family history of malignant melanoma Family history of other specified malignant neoplasm Tinea versicolor Pityriasis versicolor documented in this encounter Care Teams Supervisor Feed Mill Relationship Specialty Start Date End Date Ceci Issa MD [address] [place] [address] PCP - General 02/26/10 documented as of this encounter
--- OUTSIDE RECORDS SUMMARY | 2023-12-17 20:10 | XMS_ITS | Encounter Summary ---
Author Organization [facility] [place] [address] Care Team Providers Care Supervisor Cytology Name Role Phone Ceci Issa MD Primary Care Provider [phone] Reason for Visit * Occupational Therapy (Routine) - Closed Specialty Diagnoses / Procedures Referred By Stuart stone Referred To Contact Occupational Therapy Diagnoses Nerve injury Dior Berkowitz, POURER OFF [facility] [place] [address] [address] Ot [address] [place] [address] Referral ID Status Reason Start Date Expiration Date V isits Requested Visits Authorized [id number] Closed Evaluate and Treat 10/23/2021 10/23/2022 100 100 Encounter Details Date Type Department Care Team (Late st Contact Info) Description 12/05/2021 2:30 PM EDT Office Visit Occupational Therapy at [address] [place] [address] Nicko Tomas, [facility] PHYSICAL MEDICINE & [place] [address] Nerve injury Social History Tobacco [...] - Therapy - Nicko Tomas, OT - 12/05/2021 2:30 PM EDT OCCUPATIONAL THERAPY TREATMENT NOTE Referral [...] she was referred to Dr. Veliz at [facility] due to ongoingnumbness at her middle finger, who recommended further surgical intervention as well. 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 Latisha participated in therapy here at [facility] making gains, but custodial reports she continue to have numbness at [...] presents today alone. Pertinent History and/or Co-morbidities: No diagnosis found. 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 Patient Specific Functional Scale (PSFS) (unable to perform 0/10 - Able to perform without difficulty 10/10) Activity At Evaluation 1.) showering 5 2.) dressing 7 3.) typing - avoids use with this hand 0 4.) gripping 3 5.) lifting grandchildren 2-3 Average Score: 3.5 Pain: (Assessed using the visual analog pain [...] pool Special Testing Completed: SENSATION: (Measured using Lincoln-Ignacio monofilaments) Monofilament Size Target Force Hand Thresholds [...] DPC Middle finger 8/24/22 0/ - 0 0 0 0 0 DPC = distance measured from finger tip to distal palmar crease Strength: not tested today Right Left Vascular Tech setting 2 Vascular Tech Average Loco 3 Pt Tip Treatment Today: Educated patient in etiology and biomechanics as related to the patient's symptoms Instructed patient in: Rest and activity modification, Appropriate pacing and how to safely return to normal activities, Safe posture and positioning to avoid re-injury and Protocol related to current diagnosis Hot pack (80214) for 15 minutes: applied with eight layers [...] Composite gripping and full finger extension actively Adaptive writing techniques practiced/demonstrated and products reviewed - she cannot feel what themiddle finger is doing so the posture is awkward. Showed Pen Again, built up handles, adaptive posture, dispensed pen rn intern. Applied bob straps of index to middle finger as she is finding holding the middle finger in extension out of the activity. Ultrasound (61934) (100%, 3.3 MHz, 0.8 W/cm2, 7 minutes) with additional 2 minutes of set-up time, used for soft tissue preparation prior to treatment activities applied today to the campo incision avoiding CT wrist area - mostly at campo built up scar tissue Gripping of yellow putty for tendon gliding and rn intern strength and to roll on palm to [...] and Compression garment use ASSESSMENT: Latisha is 7.5 weeks post surgery for nerve conduit surgery for her digital nerves in median nerve distribution. Latisha reports she notes a definite help to her symptoms with the compression gloves especially at night time. She is working to incorporate the middle finger into more tasks even though she cannot feel when it is touching. She will try the bob straps to help have the index finger pull the middle finger into activity. Latisha saw the hand surgeon for follow up earlier in the week and he educated her to give the nerve time as the new nerve graft was placed and it takes time for the nerve information to provide sensation. Latisha is seriously concerned if her middle finger is going to feel permanently. Educate to nerve process. She has complete less of sensation to [...] situation. Patient's affect/behavior is appropriate andcooperative today. Equipment Operator Warehouse Goals (to be met by discharge): Date [...] 6-8 week(s) to progress toward short and custodial goals, Soft tissue mobilization as therapeutically necessary [...] 3:15 PM EDT Office Visit Dermatology at [place] [address] [place] [address] John Leon MD [address], [place] [address] documented as of this encounter Visit Diagnoses Diagnosis Nerve injury Injury to nerves, unspecified site documented in this encounter Care Teams Supervisor Cytology Relationship Specialty Start Date End Date Ceci Issa MD [address] [place] [address] PCP - General 02/26/10 documented as of this encounter
--- OUTSIDE RECORDS SUMMARY | 2023-12-17 20:10 | XMS_ITS | Encounter Summary ---
Author Organization [facility] Address [facility] [place] [address] Care Team Providers Care Press Feeder Name Role Phone Ceci Issa MD Primary Care Provider [phone] Reason for Visit * Reason Comments Follow Up Surgery S/p numbness and tin gling/pain up to shoulder on R arm started last week Encounter Details Date Type Department Care Team (Late st Contact Info) Description 06/09/2022 2:15 PM EST Office [place] [address] Danny Dennis MD [facility] [place] [address] Surgery follow-up Social History Tobacco Use Types [...] as of this encounter Progress Notes * Carolyn Pool - 06/09/2022 2:15 PM EST Plastic Surgery Post Op Note [...] up visit s/p re exploration of nerve. The patient reports tingling and numbness that starts in her right hand and travels up into her shoulder. She states that this was intermittent but has been constant for the last couple weeks. She reports pain in her rightshoulder and shoulder blade. However, she does not have much pain in her hand or arm. She still hasdecreased sensation in her right fingers. She primarily uses her left hand now. She take ibuprofen for pain management. She is not taking gabapentin. The patient completed OT. Examination: Patient is alert, conversant, comfortable, ambulating Right Hand: Incisions well healed with minimal hypertrophy. Full ROM. 5/5 strength. Full abduction 5/5. 100% on ulnar and radial side of the little finger. No feeling on the radial side of ring finger. No feeling on ulnar side or radial side of long finger. Protective sensibility on the ulnar side of the index finger. 100% feeling on radial side of index finger. 100% on ulnar and radial side of thumb. Positive Tinel's at the distal palm. Impression: Latisha Wiggins is a 56 y.o. female who was seen today for follow-up. The patient reports numbness and tingling in her right hand that travels up to her right shoulder. Upon physical exam today, the sensation in the fingers of her right hand has improved. I suspect her symptoms will continue to improve over time. In the meantime, I will prescribe her gabapentin for pain management. Plan: Prescription for gabapentin 100 mg TID was sent. Follow up 3 months. ICarolyn, have performed the documentation for this encounter in the presence of and acting as a scribe for DANNY DENNIS MD. documented in this encounter Plan of Treatment Upcoming Encounters Date Type Department Care Team (Late st Contact Info) Description 12/21/2023 3:15 PM EDT Office Visit Dermatology at [address] [address] John Leon MD [address], [place] [address] documented as of this encounter Visit Diagnoses Diagnosis Surgery follow-up Follow-up examination, following unspecified surgery documented in this encounter Care Teams Press Feeder Relationship Specialty Start Date End Date Ceci Issa MD [address] [place] [address] PCP - General 02/26/10 documented as of this encounter
--- OUTSIDE RECORDS SUMMARY | 2023-12-17 20:11 | XMS_ITS | Encounter Summary ---
Author Organization [facility]ly [facility] [place] [address] Care Team Providers Care Green Building Design Specialist Name Role Phone Ceci Issa MD Primary Care Provider [phone] Reason for Visit * Reason Comments Follow Up Surgery s/p nerve injury Encounter Details Date Type Department Care Team (Late st Contact Info) Description 09/10/2020 8:45 AM EDT [place] [address] Danny Dennis MD [facility] [place] [address] Nerve injury Social History Tobacco Use Types [...] Progress Notes * Danny Dennis MD - 09/10/2020 8:45 AM EDT Plastic Surgery Post Op Note Provider: Danny Dennis M.D. 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 Dennis. Complications: None reported HPI: Pt returns to clinic for her first post operative follow up visit. 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 She continues with OT which has been beneficial. Overall, the hand continues to be very sensitive especially at the tips of her fingers. Examination: There were no vitals taken for this visit. Patient is alert, conversant, comfortable, ambulating No collection, no erythema, no evidence of cellulitis. Right upper extremity- Incision healed, spitting a couple of sutures Persistent numbness along the ulnar side of long and radial side of ring finger with lack of sweat sudomotor. Full ROM. Pathology: 07/27/20 A - Right neuroma, excision Impression: Latisha Wiggins is a 54 y.o. female who was seen today for follow-up after the aboveprocedure. Please see the operative note for details. Patient is healing well. No sign or concerns for infection. Discussed with patient that there were signs of nerve injury, therefore I proceeded with resection and repairing of the nerve. Discussed the time line for nerve regeneration which can take up to several years to achieve. She will continue proceeding with OT. Plan: Follow up in one month Continue with OT W/C form given to the patient. I, Pamela Ortega, have performed the documentation for this encounter in the presence of and acting as a scribe for DANNY DENNIS MD. documented in this encounter Plan of Treatment Upcoming Encounters Date Type Department Care Team (Late st Contact Info) Description 12/21/2023 3:15 PM EDT Office Visit Dermatology at [place] [address] [facility] [place] [address] John Leon MD [address], [place] [address] documented as of this encounter Visit Diagnoses Diagnosis Nerve injury Injury to nerves, unspecified site documented in this encounter Care Teams Green Building Design Specialist Relationship Specialty Start Date End Date Ceci Issa MD [address] [place] [address] PCP - General 02/26/10 documented as of this encounter
--- OUTSIDE RECORDS SUMMARY | 2023-12-17 20:11 | XMS_ITS | Encounter Summary ---
Author Organization [facility] Address [facility] [place] [address] Care Team Providers Care Data Scientist Name Role Phone Ceci Issa MD Primary Care Provider [phone] Reason for Visit * Occupational Therapy (Routine) - Specialty Diagnoses / Procedures Referred By Stuart stone Referred To Contact Diagnoses Nerve injury Danny Veliz MD [facility] [place] [address] Referral ID Status Reason Start Date Expiration Date V isits Requested Visits Authorized [id number] Evaluate and Treat 08/06/2020 02/02/2021 12 12 Encounter Details Date Type Department Care Team (Late st Contact Info) Description 09/05/2020 4:30 PM EDT Office Visit Occupational Therapy at [facility] [address] [place] [address] Nicko Tomas, OT [facility] PHYSICAL MEDICINE & [place] [address] Nerve injury Social History Tobacco Use Types [...] - Therapy - Nicko Tomas, OT - 09/05/2020 4:30 PM EDT OCCUPATIONAL THERAPY TREATMENT NOTE Referral Source: Dr. Nuno Welch MD Follow-up: 09/10/20 Total Treatment time: 40 Minutes Timed Code Treatment Time: 40 minutes OCCUPATIONAL PROFILE: Latisha Wiggins is a 54 y.o. year old Right hand dominant female who had an initial right hand carpal tunnel release in 09/2018, following this surgery she had electrical feelings very intense to the middle finger, therefore she had a return surgical exploration with removalof scar tissue in 02/2019 , eventually she was [place] [facility] [place] to ongoing numbness at her middle finger, who recommended further surgical intervention as well. 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 Latisha Wiggins is referred to Occupational Therapy for evaluation and treatment to begin range of motion, nerve glide, tendon glide, and desensitization. Patient presents today alone. Date of onset of symptoms: Gradual onset prior to 2018 Date of surgery: 09/2018, 02/2019, 07/27/20 Pertinent History and/or Co-morbidities: 1. 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 Global Mental Function: With gross screening of patient???s global mental functions, patient demonstrates orientation to person, place, time, and situation. Patient???s affect/behavior is appropriateand cooperative today. Patient Specific Functional Scale (PSFS) (unable to perform 0/10 - Able to perform without difficulty 10/10) Activity At Evaluation 1.) shampoo hair 5 2.) dressing - using only the index finger to pull up 5 3.) handwriting 0 4.) typing 0 5.) cooking 0 Average Score: 1.0 Pain: (Assessed using the visual analog pain scale) At Rest: 0/10 With Activity: 5/10 8 at times if bump it Active Range of Motion: Measured in degrees of active motion with goniometer ?? Right Left Right 08/31/20 finger DPC 08/31/20 Wrist Extension/Flexion 27/61 80/75 59/55 0 Ulnar/Radial Deviation 30/10 35/20 NT 0 Pronation/Supination 104/90 104/95 NT 0 Composite Extension/Flexion 20/ 75/64 45/44 0 Treatment Today: Therex: Strength/Endurance/ROM (96940) 31 min Ultrasound (26836) 9 min Ultrasound (46163) (100%, 3.3 MHz, 1.0 W/cm2, 7 minutes) with additional 2 minutes of set-up time, used for soft tissue preparation prior to treatment activities applied today to the volar hand incision (minus the distal portion where one suture just came out) Educated patient in etiology and biomechanics as related to the patient's symptoms Instructed patient in: Rest and activity modification, Appropriate pacing and how to safely return to normal activities, and Protocol related to current diagnosis wrist cock up orthosis with block at MP joints as well for night time to assist with stretching palm in more open posture - hand is posturing with cupping resting posture and difficulty to open palm and fingers. Additionally fabricated orthosis over the gel pad for the incision to help hold and place and fit properly. STM to volar wrist/palmar incision, and mild suture removal Performed the following: ?? Passive and active wrist flex/ext ?? Flexor tendon glides ?? Gentle finger extension stretch with hand flat on table (addition of table drags for digit extension) ?? Wrist extension stretch (prayer/table top/wall) ?? Hines putty for tendon gliding/light gripping ?? Nerve desensitization with use of sponge side of surgical scrub to brush from volar forearm intodistal fingertips of ring and middle finger ?? Fitted middle finger and ring finger with coban wrap for her to use when in the car driving withAC on - fingertips very sensitive to cold full finger compression glove for night time gel pad to place along scar and underneath compression glove or splint at night, for scar management Reviewed with home exercise program to include flexor tendon glides, wrist flexion/extension and radial and ulnar deviation, intrinsic finger stretch, finger extension stretch, gripping with foam block, wrist extension stretch, scar massage and compression glove, see scanned documents Instructed in home modalities to include: Moist heat and Compression garment use CLINICAL DECISION MAKING: Latisha Wiggins is improving nicely with her active motion of wrist and digits. She is able to bear weight on her palm as well for weight bearing and holding her 18 monthold grandson. She had one stitch fall out today with slight opening, and 2 remain at the proximal portion of her incision. The orthosis for night time is helping to decrease the extreme cupping posture of her palm. She continues with sensitivity to touch and cold air with the middle and ring fingertips. Use of coban for the cold air recommended today, but also practiced and educated to desensitization of these fingers with a variety of textures and brushing every day. She is to see the MD Thursday, therefore will send this note to her surgeon. Detention Goals (to be met by discharge): Date Goal Met: 1.) Latisha Wiggins will demonstrate significantly improved functional performance from re-assessment as measured by a total average score of 8 using the PSFS. Goal Status: In progress 2.) Latisha Wiggins will be able resume occupational roles independently or modified, based on the occupational profile, with a DASH score of less than 95 . Goal Status: In progress Short Term Goals (to be met by 09/14/20): Date Goal Met: Latisha Wiggins will be independent with home exercise program with written instructions. Goal Status: In progress Latisha Wiggins will gain 10 degrees of wrist flexion and extension, and finger range of DPC 1.0cm to digits 2-5 to demonstrate significantly improved functional performance as measured by >/=2 point improvement on the total average score of the PSFS. Goal Status: In progress Latisha Wiggins will demonstrate the ability to complete functional tasks of typing at a level of 8/10, with 0-2/10 pain using the visual analog pain scale. Goal Status: In progress Latisha Wiggins will be able resume significantly greater occupational roles independently or modified, based on the occupational profile, with a DASH score of less than 95 (using a ten point decrease for minimal detectable change that can be considered as meeting criteria for ???significant?? 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 documented in this encounter Plan of Treatment Upcoming Encounters Date Type Department Care Team (Late st Contact Info) Description 12/21/2023 3:15 PM EDT Office Visit Dermatology at [place] [address] [facility] [place] [address] John Leon MD [address], [place] [address] documented as of this encounter Visit Diagnoses Diagnosis Nerve injury Injury to nerves, unspecified site documented in this encounter Care Teams Data Scientist Relationship Specialty Start Date End Date Ceci Issa MD [address] [place] [address] PCP - General 02/26/10 documented as of this encounter
--- OUTSIDE RECORDS SUMMARY | 2023-12-17 20:11 | XMS_ITS | Encounter Summary ---
Author Organization [facility] Address [address] [place] [address] Care Team Providers Care Child Protective Investigator Name Role Phone Unavailable Primary Care Provider Unavailabl e Encounter Details Date Type Department Care Team (Late st Contact Info) Description 07/31/[address] [facility] - Maple conversion [address] [place] [address] Lauren Mart, ANGELA Social History Tobacco Use Types Packs/Day Years Used Date Smoking Tobacco: Never Assessed Sex and Gender Information Value Date Recorded Sex Assigned at Not on file Gender Identity Not on file Sexual Orientation Not on file documented as of this encounter Plan of Treatment Not on file documented as of this encounter Procedures Procedure Name Priority Date/Time Associated Diagnosis Comments CYTOPATHOLOGY Routine 07/31/1999 7:49 EDT documented in this encounter Results * CYTOPATHOLOGY (07/31/1999 7:49 EDT) Pathology Report: CYTOPATHOLOGY REPORT Reports generated via electronic interface contain original data; however they are lacking the format of the original report. Caution should be taken when reading/interpreti ng unformatted reports. Name: ? ALEX VICENTE ? Accession #: ? [id number] : ? 1965 (Age: 33) ??F ?Collect Date: ? 07/31/1999 Location: ?Receive Date: ? 07/31/1999 Provider: ?LAUREN MART NP Copy to: ?LAUREN MART SENIOR TEST ENGINEER ? Specimen/Source: ?Hob Grinder ThinPrep Last Menstrual Period: ? GYNECOLOGIC ??CYTOPATHOLOGY ??REPORT Name: ALEX VICENTE ? [facility] : 1965 ?? 33Y F ?Client ID: [id number] SS#: [id number] ? Clinician: ARIANA MART NP ?? Location: [facility] ??Copy to: ?? Specimen: ?Hob Grinder ThinPrep ? Source: Cervix/Endocervix ?Collected: 07/29/99 ? Received: 07/31/1999 ?LMP: 07/20/99 ? Hormone Therapy: No ? : No ? Radiation Therapy: No ?? Post : No ?Chemotherapy: No ?IUD: No ? Prev Abnormal Pap: Yes ?? Clinical Hx: ASCUS. Benign Cellular Changes. ?(Blank harding indicate information not provided on requisition) SPECIMEN ADEQUACY: ? Satisfactory For Evaluation ?? GENERAL CATEGORIZATION: ? EPITHELIAL CELL ABNORMALITY ?? DESCRIPTIVE DIAGNOSIS: ? Atypical Squamous Cells Of Undetermined Significance (ASCUS), ? Favor Reactive Process ? Reviewed And Electronically Signed By: ? Bianca Alonso MD., PhD. ? Report Date: ?? 08/08/1999 Subject Company Archived Tests - Final Diagnosis Text Field: Clinical History : ; ASCUS. Benign Cellular Changes. ? Document reviewed and electronically signed by: ? Conversion ? Report Date: ??08/08/1999 00:00 End of Report RAQUEL WHITNEY 07/31/1999 7:49 EDT 07/31/1999 7:50 EDT Lauren Mart SENIOR TEST ENGINEER PATHOLOGY ORDERABLES RAQUEL WHITNEY [address] [place] [address] documented in this encounter Visit Diagnoses Not on filedocumented in this encounter
--- OUTSIDE RECORDS SUMMARY | 2023-12-17 20:11 | XMS_ITS | Encounter Summary ---
Author Organization [facility] Address [address] [place] [address] Care Team Providers Care Gun Barrel Finisher Name Role Phone Unavailable Primary Care Provider Unavailabl e Encounter Details Date Type Department Care Team (Late st Contact Info) Description 03/21/2002 Results Only [facility] - Maple conversion [address] [place] [address] Lauren Mart, HOTEL OFFICE MANAGER Social History Tobacco Use Types Packs/Day Years Used Date Smoking Tobacco: Never Assessed Sex and Gender Information Value Date Recorded Sex Assigned at Not on file Gender Identity Not on file Sexual Orientation Not on file documented as of this encounter Plan of Treatment Not on file documented as of this encounter Procedures Procedure Name Priority Date/Time Associated Diagnosis Comments CYTOPATHOLOGY Routine 03/21/2002 0:00 EST documented in this encounter Results * CYTOPATHOLOGY (03/21/2002 0:00 EST) Pathology Report: CYTOPATHOLOGY REPORT Reports generated via electronic interface contain original data; however they are lacking the format of the original report. Caution should be taken when reading/interpreti ng unformatted reports. Name: ? AELX VICENTE ? Accession #: ? [id number] : ? 1965 (Age: 36) ??F ?Collect Date: ? 03/21/2002 Location: ? [facility] ? Receive Date: ? 03/22/2002 Provider: ?LAUREN MART NP Copy to: ? Specimen/Source: ?ThinPrep Pap Test, Vagina Last Menstrual Period: ? 2000 Previous Gynecologic Pathology: ? ASC-US: Benign cellular changes: Treatment History: ? Hysterectomy ? SPECIMEN ADEQUACY ? Satisfactory for Evaluation - assessment of transformation zone component not applicable ( e.g. atrophy, vaginal sample, hysterectomy) GENERAL CATEGORIZATION ? Negative for Intraepithelial Lesion or Malignancy ? Document reviewed and electronically signed by: ? SAL York(ASCP) ? Report Date: ??03/23/2002 08:01 End of Report RAQUEL WHITNEY 03/21/2002 03/22/2002 Lauren Mart NP PATHOLOGY ORDERABLES RAQUEL WHITNEY [address] [place] [address] documented in this encounter Visit Diagnoses Not on filedocumented in this encounter
--- OUTSIDE RECORDS SUMMARY | 2023-12-17 20:11 | XMS_ITS | Encounter Summary ---
Author Organization [facility] [place] [address] Care Team Providers Care Ebay Reseller Name Role Phone Ceci Issa MD Primary Care Provider [phone] Reason for Visit * Reason Onset Date Comments Medication Refill 08/27/2020 Encounter Details Date Type Department Care Team (Late st Contact Info) Description 08/27/2020 Refill [place] [address] Danny Veliz MD [facility] [place] [address] Social History Tobacco Use Types Packs/Day Years [...] 3:15 PM EDT Office Visit Dermatology at [address] [place] [address] John Leon MD [address], [place] [address] documented as of this encounter Visit Diagnoses Not on filedocumented in this encounter Care Teams Ebay Reseller Relationship Specialty Start Date End Date Ceci Issa MD [address] [place] [address] PCP - General 02/26/10 documented as of this encounter
--- OUTSIDE RECORDS SUMMARY | 2023-12-17 20:11 | XMS_ITS | Encounter Summary ---
Author Organization [facility] Address [address] [place] [address] Care Team Providers Care Optoelectronics Engineer Name Role Phone Unavailable Primary Care Provider Unavailabl e Encounter Details Date Type Department Care Team (Late st Contact Info) Description 03/01/2001 Results Only [facility] - Maple conversion [address] [place] [address] Sanket Tomlin MD [address] [place], [place] [id number] Social History Tobacco Use Types Packs/Day Years Used Date Smoking Tobacco: Never Assessed Sex and Gender Information Value Date Recorded Sex Assigned at Not on file Gender Identity Not on file Sexual Orientation Not on file documented as of this encounter Plan of Treatment Not on file documented as of this encounter Procedures Procedure Name Priority Date/Time Associated Diagnosis Comments SURGICAL PATHOLOGY Routine 03/01/2001 0:00 EST documented in this encounter Results * SURGICAL PATHOLOGY (03/01/2001 0:00 EST) Pathology Report: SURGICAL PATHOLOGY REPORT Reports generated via electronic interface contain original data; however they are lacking the format of the original report. Caution should be taken when reading/interpreti ng unformatted reports. Name: ? ALEX VICENTE ? Accession #: ? [id number] ? : ? 1965 (Age: 35) ??F ? Collect Date: ? 03/01/2001 ? Location: ? [facility] ? Receive Date: ? 03/02/2001 ? Provider: SANKET TOMLIN MD Copy to: KOBY ADAMES MD ? Final Pathologic Diagnosis: ? Uterus, left fallopian tube, and ovary, hysterectomy and unilateral salpingo-oophorect dayanna: 1. ?Cervix: ? - Chronic cervicitis. 2. ?Endometrium: ? - Weakly proliferative endometrium. 3. ?Myometrium: ? - ??Adenomyosis. ? - Subserosal leiomyoma (greatest diameter 0.7 cm). 4. ?Serosa: ? - Granulomatous inflammation associated with cauterized tissue, possibly secondary to previous endometriosis. - Adhesions. 5. ?Fallopian tube: ? - No pathologic features. 6. ?Ovary: ? - No pathologic features. ? Document reviewed and electronically signed by: JODY LEE MD Report ??Date: 03/04/2001 14:36 By the signature above, the attending physician certifies that he/she has personally conducted a gross and/or microscopic examination of the described specimens and rendered or confirmed the above diagnosis. Specimen(s) Received: ? Uterus lt tube and ovary Clinical History: ? Pelvic pain endometriosis Gross Description: ? Received in formalin labelled Lambert and uterus left tube and ovary is the product of a hysterectomy and unilateral salpingo-oophorect dayanna. The corpus uteri weighs 96 grams and measures 8.0 cm fundus to cervix, 5.2 cm cornu to cornu and 2.8 cm anterior to posterior. ??The serosal surface is goss-orange and focally purple-ontiveros. ??There is a single 0.7 x 0.6 x 0.3 cm subserosal nodule that is well circumscribed and firm, located on the anterior portion of the fundus. ??The posterior portion of the fundus is remarkable for a dark brown-red potential adhesion to multiple subserosal, well circumscribed, goss-orange nodule measuring no greater than 0.4 cm in maximum dimension. The cervical mucosa is goss-white and grossly unremarkable. ??There is a centrally located slit-like os measuring 1.8 cm in maximum diameter, and the transformation zone is identifiable. The specimen is bivalved into anterior and posterior halves revealing a goss-orange, blood tinged, lush endometrium measuring 0.3 cm in thickness. ??The goss-yellow, whorled-like myometrium ranges in thickness from 2.0 cm at the fundus to 0.9 cm at the lower uterine segment. ??Sectioning through the endomyometrium reveals potential hemorrhagic foci (adenomyosis) located mainly within the fundus of both the anterior and posterior portions of the uterus. These foci measure no greater than 0.2 cm in maximum dimension. The remainder of the sections are grossly unremarkable. ??The fallopian tube has a ontiveros-purple, smooth and shiny exterior surface, and the tube measures 6.5 cm in length. Sectioning of the fallopian tube reveals a ogss-white cut surface with a centrally located pinpoint lumen. ??In addition, there are approximately three foci of paratubal, well-circumscribed , dark brown hemorrhagic foci measuring no greater than 0.2 cm in maximum dimension. ??The ovary measures 3.1 x 2.4 x 2.1 cm and has a purple-ontiveros, smooth, focally lobulated exterior surface. ??In addition, there is a 1.2 x 0.8 cm well-circumscribed brown hemorrhagic lesion located on the anterior surface of the ovary. ??Sectioning through the ovary reveals a multicystic and hemorrhagic cut surface which makes identification of normal ovarian parenchyma difficult. ?? BLOCK CHAN A1 ?Cervix, 12 o' clock A2 ?Cervix, 6 o' clock ? A3-A5 ? Pigs Feet Finisher sections of posterior endomyometrium (A3 with posterior nodules and adhesions) ? A6-A9 ?Pigs Feet Finisher sections of anterior myometrium (A6 subserosal myomatous nodule) A10 ?Three truck sales representative sections of fallopian tube A11 ?Two truck sales representative sections of left ovary (Catrachita Rosado)/[facility] End of Report RAQUEL WHITNEY 03/01/2001 03/02/2001 15: 29 EST Sanket Tomlin MD PATHOLOGY ORDERABLES RAQUEL WHITNEY [address] [place] [address] documented in this encounter Visit Diagnoses Not on filedocumented in this encounter
--- OUTSIDE RECORDS SUMMARY | 2023-12-17 20:11 | XMS_ITS | Encounter Summary ---
[place] [address] Care Team Providers Care Relay Worker Name Role Phone Ceci Issa MD Primary Care Provider [phone] Reason for Visit * Reason Comments Annual Exam Encounter Details Date Type Department Care Team (Late st Contact Info) Description 12/02/2018 1:45 PM EDT Office Visit Dermatology at [address] [address] John Leon MD [address] [place] [address], [facility] [place] [address] Nevus; Melasma; Tinea versicolor Social History Tobacco Use Types [...] Progress Notes * John Leon MD - 12/02/2018 1:45 PM EDT PROBLEM: 1. Yearly skin checkup. 2. History of tinea versicolor. 3. History of melasma. 4. Patient desirous of yearly skin examinations given her father's history of skin cancers Latisha follows up is now 52. She is here for a repeat skin checkup. She enjoys the sun and tries toprotect herself but does get pretty dark goss over the course of the summer. Her melasma is been forthe most part behaving itself. Her tinea versicolor is acting up again. Because of her father's history of skin cancer she like to get a yearly skin checkup. Physical examination reveals a pleasant 52-year-old woman who has melasma present on the right cheek and right upper forehead. She is a dark goss of the presternal chest and face and neck. She fortunately has a benign examination of the head and the neck the chest the back the hands arms forearms thighs and the calves. There is no evidence of any malignant lesions on examination today. She has some erythematous patches of tinea versicolor on the lower pre-spinous back Assessment plan: Benign nevi/benign skin examination 1. Patient assured about her benign skin examination 2. No lesions of concern noted 3. Continue sun avoidance precautions 4. Return to clinic in a year for repeat check. Melasma 1. Continue to try and follow sun avoidance precautions 2. Utilize hydroquinone cream 4% twice daily in the winter to fade; will refill as needed Tinea versicolor 1. Active today on the patient's lower back otherwise quiescent 2. In the past we had used selenium sulfide 2.5% lotion but Selsun Blue worked better for it was less irritating the resume Selsun Blue to lower back. Allow lather to sit on skin for 20 minutes on a daily basis for a week and then once a week thereafter to combine his back under control. CC: Ceci Dowling MD documented in this encounter Plan of Treatment Upcoming Encounters Date Type Department Care Team (Late st Contact Info) Description 12/21/2023 3:15 PM EDT Office Visit Dermatology at [place] [address] [facility] [place] [phone] John Leon MD [address] [facility], [place] [address] documented as of this encounter Visit Diagnoses Diagnosis Nevus Benign neoplasm of skin, site unspecified Melasma Other dyschromia Tinea versicolor Pityriasis versicolor documented in this encounter Care Teams Relay Worker Relationship Specialty Start Date End Date Ceci Issa MD [address] [place] [address] PCP - General 02/26/10 documented as of this encounter
--- OUTSIDE RECORDS SUMMARY | 2023-12-17 20:11 | XMS_ITS | Encounter Summary ---
Author Organization [facility] Address [address] [place] [address] Care Team Providers Care Painting And Coating Worker Name Role Phone Ceci Issa MD Primary Care Provider [phone] Reason for Visit * Reason Comments Foot Pain left Encounter Details Date Type Department Care Team (Late st Contact Info) Description 11/12/2017 13:30 EDT Post-op Visit [facility] - [address] [id number] Beto Vega MD [address] [place] [address] Flexor hallucis longus tendinitis (Primary Dx) Social History Tobacco Use Types Packs/Day Years Used Date Smoking Tobacco: Never Smokeless Tobacco: Never Sex and Gender Information Value Date Recorded Sex Assigned at Not on file Gender Identity Not on file Sexual Orientation Not on file documented as of this encounter Progress Notes * Beto Vega MD - 11/12/2017 1330 EDT PROGRESS NOTE/FOLLOWUP NOTE Chief Complaint Patient presents with ??? Foot Pain left PROCEDURE: Left FHL tenosynovectomy on 10/29/17. SUBJECTIVE: Latisha Wei came in today in follow up of the above surgery, stating that things have been going very well and she had no complaints. REVIEW OF SYSTEMS: Negative except for pertinent positives listed above. OBJECTIVE: Patient is in no acute distress. Left Foot: Skin: Incision dry, clean, healing well, no sign of infection. Appropriate swelling and ecchymoses. Pulses: Nicely palpable. Sensation: Intact. Musculoskeletal: FHL has much better motion. Good plantarflexion at 1st MTP. ASSESSMENT AND PLAN: The patient is doing well and she is having a good recovery. Her FHL already has much improved motion and she had no pain today. Continue to work at ankle motion. She can get back to her FHL stretches and can work at grasping a towel with her toes. Will keep previously scheduled appointment. Abena Faustin, am scribing for Dr. Beto Vega, while he is personally performing the service. 11/12/2017 13:46 documented in this encounter Plan of Treatment Not on file documented as of this encounter Visit Diagnoses Diagnosis Flexor hallucis longus tendinitis- Primary Tenosynovitis of foot and ankle documented in this encounter Care Teams Painting And Coating Worker Relationship Specialty Start Date End Date Ceci Issa MD [address] [place] [address] PCP - General 09/02/17 documented as of this encounter
--- OUTSIDE RECORDS SUMMARY | 2023-12-17 20:11 | XMS_ITS | Encounter Summary ---
Author Organization [facility] [place] [address] Care Team Providers Care Dry Box Operator Name Role Phone Ceci Issa MD Primary Care Provider [phone] Encounter Details Date Type Department Care Team (Latest Contact Info) Description 12/10/2016 - 12/10/2016 11:59 PM EDT Hospital Encounter [place] [address] Jay Jay Barry MD [facility] [place] [address] Discharge Disposition: Home Social History Tobacco Use Types Packs/Day Years Used Date Smoking Tobacco: Never Sex and Gender Information Value Date Recorded Sex Assigned at Not on file Gender Identity Not on file Sexual Orientation Not on file documented as of this encounter Medications at Time of Discharge Medication Sig Dispensed Refills Start Date End Date SYMBICORT 80-4.5 mcg/actuation HFA Aerosol Inhaler INHALE TWO PUFFS BY MOUTH ONCE OR TWICE A DAY 3 10/22/2016 fluocinonide (LIDEX) 0.05 % Ointment 09/14/2015 ketorolac (TORADOL) 10 mg Tablet 10/21/2016 12/02/2018 ADDERALL XR 30 mg Capsule, Sust. Release 24 hr TAKE ONE CAPSULE BY MOUTH EVERY DAY 0 09/20/2015 02/10/2022 fluconazole (DIFLUCAN) 100 mg Tablet 09/14/2015 12/16/2021 hydroquinone 4 % Cream Apply topically 2 times daily. To darkened areas on face until they fade 28.35 g 10/11/2015 12/05/2019 CIS Free Text Med - BuSpar 08/23/2009 04/14/2017 BUPROPION HCL (WELLBUTRIN ORAL) 08/23/2009 04/14/2017 documented as of this encounter Plan of Treatment Upcoming Encounters Date Type Department Care Team (Late st Contact Info) Description 12/21/2023 3:15 PM EDT Office Visit Dermatology at [place] [address] [facility] [place] [address] John Leon MD [address] [facility], [place] [address] documented as of this encounter Procedures Procedure Name Priority Date/Time Associated Diagnosis Comments FILM LIBRARY STORAGE ONLY DX FOOT Routine 12/10/2016 12:00 AM EDT documented in this encounter Results * Film Library- Storage Only DX Foot (12/10/2016 12:00 AM EDT) Narrative [facility] - 03/20/2017 11:41 AM EST This exam is for storage only and is auto-finalizing. Jay Jay Barry MD IMG FILM LIBRARY ORD ERABLES [place], [place] documented in this encounter Visit Diagnoses Not on filedocumented in this encounter Care Teams Dry Box Operator Relationship Specialty Start Date End Date Ceci Issa MD [address] [place] [address] PCP - General 02/26/10 documented as of this encounter
--- OUTSIDE RECORDS SUMMARY | 2023-12-17 20:11 | XMS_ITS | Encounter Summary ---
[place] [address] Care Team Providers Care Chemical Research Technician Name Role Phone Ceci Issa MD Primary Care Provider [phone] Reason for Visit * Reason Onset Date Comments Questions 04/28/2017 Encounter Details Date Type Department Care Team (Late st Contact Info) Description 04/28/2017 Telephone [place] [address] Magaly Ortega Questions Social History Tobacco Use Types Packs/Day Years [...] encounter Miscellaneous Notes * Telephone Encounter - Magaly Ortega - 04/28/2017 2:32 PM EST Christine called in today because at her last appointment with Dr. Barry he told her he was going to speak with a colleague then give her a call back. It has been a couple weeks and Latisha is just checking in because she hasn't heard anything yet. I told her I would let Dr. Barry know she is waiting and the best number to reach her at is [phone] Mon-Thu 8-5. documented in this encounter Plan of Treatment Upcoming Encounters Date Type Department Care Team (Late st Contact Info) Description 12/21/2023 3:15 PM EDT Office Visit Dermatology at [place] [address] [facility] [address] [place] [address] John Leon MD [address] [address] [place] [address] documented as of this encounter Visit Diagnoses Not on filedocumented in this encounter Care Teams Chemical Research Technician Relationship Specialty Start Date End Date Ceci Issa MD [address] [place] [address] PCP - General 02/26/10 documented as of this encounter
--- OUTSIDE RECORDS SUMMARY | 2023-12-17 20:11 | XMS_ITS | Encounter Summary ---
Author Organization [facility] Address [address] [place] [address] Care Team Providers Care Care Transition Mgr Name Role Phone Ceci Issa MD Primary Care Provider [phone] Encounter Details Date Type Department Care Team (Latest Contact Info) Description 01/10/2019 14:02 EDT - 01/10/2019 23:59 EDT Hospital Encounter [address] [address] Unknown, Provider, Discharge Disposition: Home or Self Care Social History Tobacco Use Types Packs/Day Years Used Date Smoking Tobacco: Never Smokeless Tobacco: Never Sex and Gender Information Value Date Recorded Sex Assigned at Not on file Gender Identity Not on file Sexual Orientation Not on file documented as of this encounter Medications at Time of Discharge Medication Sig Dispensed Refills Start Date End Date albuterol 90 mcg/actuation inhaler Inhale 180 mcg as directed every 4 hours as needed for Wheezing. buPROPion (WELLBUTRIN XL) 150 mg XL tablet Take 150 mg by mouth 2 times daily. dextroamphetamine-ampheta mine (ADDERALL XR) 30 mg XR capsule Take 30 mg by mouth every morning. fluticasone (FLONASE) 50 mcg/actuation nasal spray Instill 100 mcg into both nostrils daily. HYDROmorphone (DILAUDID) 2 mg tablet Take 1 Tab by mouth every 4 hours as needed for Pain. Daily Max: 12 mg 10 Tab 10/29/2017 documented as of this encounter Discharge Disposition Disposition Code Departure Means Destination Home or Self Longterm documented in this encounter Plan of Treatment Not on file documented as of this encounter Visit Diagnoses Not on filedocumented in this encounter Care Teams Care Transition Mgr Relationship Specialty Start Date End Date Ceci Issa MD [address] [place] [address] PCP - General 09/02/17 documented as of this encounter
--- OUTSIDE RECORDS SUMMARY | 2023-12-17 20:11 | XMS_ITS | Encounter Summary ---
[place] [address] Care Team Providers Care Anesthesiologists' Assistant Name Role Phone Ceci Issa MD Primary Care Provider [phone] Reason for Visit * Reason Comments Skin Check Encounter Details Date Type Department Care Team (Late st Contact Info) Description 12/29/2011 8:05 AM EDT Office Visit Dermatology [address] [facility] [address] [place] [address] John Leon MD [address] [place] [address], [facility] [place] [address] Tinea versicolor (Primary Dx); Melasma Social History Tobacco Use Types Packs/Day Years Used Date Smoking Tobacco: Never Sex and Gender Information Value Date Recorded Sex Assigned at Not on file Gender Identity Not on file Sexual Orientation Not on file documented as of this encounter Progress Notes * John Leon MD - 12/29/2011 8:27 AM EDT Dictated documented in this encounter Miscellaneous Notes * Miscellaneous - Martinez Sharma - 01/01/2012 5:23 PM EDT documented in this encounter Plan of Treatment Upcoming Encounters Date Type Department Care Team (Late st Contact Info) Description 12/21/2023 3:15 PM EDT Office Visit Dermatology at [place] [address] [place] [address] John Leon MD [address] [place] [address] documented as of this encounter Visit Diagnoses Diagnosis Tinea versicolor- Primary Pityriasis versicolor Melasma Other dyschromia documented in this encounter Care Teams Anesthesiologists' Assistant Relationship Specialty Start Date End Date Ceci Issa MD [address] [place] [address] PCP - General 02/26/10 documented as of this encounter
--- OUTSIDE RECORDS SUMMARY | 2023-12-17 20:11 | XMS_ITS | Encounter Summary ---
Author Organization [facility] [place] [address] Care Team Providers Care Stroke Belt Sander Operator Name Role Phone Ceci Issa MD Primary Care Provider [phone] Reason for Visit * Reason Comments Left Foot Pain 2nd Opinion * Consultation (Routine) - Closed Specialty Diagnoses / Procedures Referred By Contclotilde t Referred To Contact Orthopaedics Diagnoses Left Foot pain Multiple Surgeries on the Left Foot Metatarsal Heads are not Balanced Procedures Ernesto Bishop MD [address] [place] [address] Jay Jay Barry MD [facility] [place] [address] Referral ID Status Reason Start Date Expiration Date V isits Requested Visits Authorized [id number] Closed Consult, Test & Treat 03/20/2017 03/20/2018 1 1 Encounter Details Date Type Department Care Team (Late st Contact Info) Description 04/14/2017 2:30 PM EST Office [place] [phone] Jay Jay Barry MD [facility] [place] [address] Left foot pain Social History Tobacco Use Types Packs/Day Years [...] Sign Reading Time Taken Comments Blood Pressure 134/93 04/14/2017 2:25 PM EST Pulse 106 04/14/2017 2:25 PM EST Temperature - - Respiratory Rate - - Oxygen Saturation - - Inhaled Oxygen Concentration - - Weight 111.6 kg (246 lb) 04/14/2017 2:2 5 PM EST measured last week Height 166.4 cm (5' 5.5) 04/14/2017 2: 25 PM EST measured last week Body Mass Index 40.31 04/14/2017 2:25 PM EST documented in this encounter Progress Notes * Cassandra Bedolla PA - 04/14/2017 2:30 PM EST Chief complaint: Left foot pain History of present illness: Latisha Wei is a 51 y.o. year-old female 2 years of left foot pain. Noemy reports that 2 years ago she fell down stairs and broke her foot. Since that time she is obtained 3 surgeries however continues to have significant discomfort. She is unclear on what specific area of the foot she broke, or what surgeries she obtained. She does note that she has a pin in her 2cd ray. The pain she describes is located on the plantar aspect of her second metatarsal head, noticed primarily when weightbearing, however can sometimes experience pain not related to ambulation.She reports that she feels as if she is cupping foot to avoid walking on this area. She is seen multiple orthopedic surgeons including the original surgeon Dr. Jernigan from [facility] And recently Dr. Bishop in [facility]. She recently obtained a CT and was sent here for second opinion She is not currently taking any pain medication. She has previously tried metatarsal pads as well as orthotics with no pain relief. Past medical history: Patient Active Problem List Diagnosis Date Noted ??? Left foot pain 04/14/2017 ??? Nevus 09/07/2014 ??? Tinea versicolor 12/29/2011 ??? Melasma 12/29/2011 Medications: ??? buPROPion (WELLBUTRIN SR OR ZYBAN) 150 mg Tablet Sustained Release 12 hr ??? SYMBICORT 80-4.5 mcg/actuation HFA Aerosol Inhaler ??? fluticasone (FLONASE) 50 mcg/actuation [place], Suspension ??? ketorolac (TORADOL) 10 mg Tablet ??? ADDERALL XR 30 mg Capsule, Sust. Release 24 hr ??? fluconazole (DIFLUCAN) 100 mg Tablet ??? fluocinonide (LIDEX) 0.05 % Ointment ??? hydroquinone 4 % Cream Allergies: Allergies Allergen Reactions ??? Oxycodone-Acetaminophen CIS - feeling of disorientation Social history: Social History Substance Use Topics ??? Smoking status: Never Smoker ??? Smokeless tobacco: Never Used ??? 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 No flexion or extension of the 2cd toe. Appropriate flexion and extension of the 1, 3, 4, 5 ray. 2cd and 3rd toe does not touch the floor when weightbearing. Palpable met head on the plantar aspect TTP PT/DP pulses 2+. Superficial peroneal, deep peroneal, sural, saphenous, and tibial nerves intact totouch. Imaging: Personal review of the patient's imaging reveals: CT imaging shows no fracture line. Hardware is appropriately placed. Assessment: 51 y.o. year-old female with metatarsalgia of the left foot. Plan: Patient seen and plan discussed in conjunction with Dr. Barry. We had a long discussion about the nature of his pain. We reviewed his x-ray images together which show no fracture line with well placed hardware. Clinically, she has a palpable 2cd met head plantarly. She is not bearing weight on her 2cd and 3rd ray. It does not appear as if there is any complication of the surgical treatments. She has previously attempted conservative management for this. In terms of surgical treatment, we could offer removal of the metatarsal head, however this is unlikely to relieve her pain. She would like us to look into this as a possible treatment. At this point, we will need to obtain the images ofher 8.5/17 XR images done at [facility] and review these. We will discuss this case with Dr. Dixon and give her a call back with our suggestions. Follow up: PRN This plan was discussed with the patient and they are in agreement. All of the patient's questions were answered. The above dictation was made with voice recogonition software * Jay Jay Barry MD - 04/14/2017 2:30 PM EST I saw the patient in conjunction with debbie Bedolla and agree with her assessment and plan. 51-year-old female who has had numerous surgeries to her left second ray. Her current complaints are pain underneath the second metatarsal head. She has a plantar incision here. She has pain with palpation an d walks with a antalgic gait. X-rays and CT show that she is status post PIP joint fusion of the second toe with a retained K wire interosseously. She has a Klaus shortening osteotomy of the second metatarsal. Imaging shows healing of the osteotomy site without prominent hardware or osteophytes. Shehas tried numerous different treatment options. She feels she is at her wits end and desperately desires to be able to stand and walk with less discomfort. Unfortunately, I am not optimistic that another surgery will be able to reliably produce this. The only other thing to potentially consider is resection of the second metatarsal head. This has the potential to create a floating toe with loss of alignment. I am concerned that a large portion of her discomfort may be coming from soft tissue injury from the numerous surgeries she has had. I would like her to further consider her options. I donot think that surgery again for this problem is something to be entered into lightly. documented in this encounter Plan of Treatment Upcoming Encounters Date Type Department Care Team (Late st Contact Info) Description 12/21/2023 3:15 PM EDT Office Visit Dermatology at [place] [address] [facility] [place] [phone] John Leon MD [address] [place] [address] documented as of this encounter Visit Diagnoses Diagnosis Left foot pain Pain in limb documented in this encounter Care Teams Stroke Belt Sander Operator Relationship Specialty Start Date End Date Ceci Issa MD [address] [place] [address] PCP - General 02/26/10 documented as of this encounter
--- OUTSIDE RECORDS SUMMARY | 2023-12-17 20:11 | XMS_ITS | Encounter Summary ---
[place] [address] Care Team Providers Care Mannequin Sander And Finisher Name Role Phone Ceci Issa MD Primary Care Provider [phone] Reason for Visit * Reason Comments Skin Check Encounter Details Date Type Department Care Team (Late st Contact Info) Description 09/07/2014 11:00 AM EDT Office Visit Dermatology at [address] [place] [id number] John Leon MD [address] [place] [address], [place] [address] Nevus (Primary Dx) Discharge Disposition: Home Social History Tobacco Use Types Packs/Day Years Used Date Smoking Tobacco: Never Sex and Gender Information Value Date Recorded Sex Assigned at Not on file Gender Identity Not on file Sexual Orientation Not on file documented as of this encounter Patient Instructions * Patient Instructions* Joy Stone LPN - 09/07/2014 11:06 AM EDT Images from the original note were not included. [facility] Moles: After Your Visit Your Care Instructions Moles are skin growths made up of cells that produce color (pigment). A mole can appear anywhere onthe skin, alone or in groups. Most people get a few moles during their first 20 years of life. Theyare usually brown in color but can be blue, black, or flesh-colored. Most moles are harmless and donot cause pain or other symptoms, unless you rub them or they bump against something. You usually do not need treatment for moles. But some can turn into cancer. Talk to your doctor if a mole bleeds, itches, martínez, or changes size or color. Also let your doctor know if you get a new mole. Make sure to wear sunscreen and other sun protection every day to help prevent skin cancer. Follow-up care is a card part of your treatment and safety. Be sure to make and go to all appointments, and call your doctor if you are having problems. It???s also a good idea to know your test results and keep a list of the medicines you take. How can you care for yourself at home? ?? Check all the skin on your body once a month for skin growths or other changes, such as in the color and feel of the skin. ?? embedded software test engineer front of a full-length mirror. Look carefully at the front and back of your body. Then look at your right and left sides with your arms raised. ?? Bend your elbows and look carefully at your forearms, the back of your upper arms, and your palms. ?? Look at your feet, the bottoms of your feet, and the spaces between your toes. ?? Use a hand mirror to look at the back of your legs, the back of your neck, and your back, rear end (buttocks), and genital area. Part the hair on your head to look at your scalp. ?? If you see a change in a skin growth, contact your doctor. Look for: ?? A mole that bleeds. ?? A fast-growing mole. ?? A scaly or crusted growth on the skin. ?? A sore that will not heal. To prevent skin cancer ?? Always wear sunscreen on exposed skin. Make sure the sunscreen blocks ultraviolet rays (both UVAand UVB) and has a sun protection factor (SPF) of at least 15. Use it every day, even when it is cloudy. Some doctors may recommend a higher SPF, such as 30. ?? Wear a wide-brimmed hat and long sleeves and pants if you are going to be outdoors for very long. ?? Avoid the sun between 10 a.m. and 4 p.m., which is the peak time for the sun's ultraviolet rays. ?? Avoid sunburns, tanning booths, and sunlamps. ?? Be sure to protect children from the sun. Sunburns in childhood damage the skin and increase therisk of cancer. When should you call for help? Watch closely for changes in your health, and be sure to contact your doctor if: ?? A mole looks different than it did before. It may have changed in size, color, shape, or the wayit looks. ?? You have a new mole. ?? You have a new pimple or skin growth that does not go away. Where can you learn more? Visit our health information library at http://[employer] You can also view health information on [employer], your personal patient account. Log in or sign up today. Enter M489 in the search box to learn more about Moles: After Your Visit. ?? [id number] [employer]. Care instructions adapted under license by [facility]. This care instruction is for use with your licensed healthcare professional. If you have questions about a medical condition or this instruction, always ask your healthcare professional. [employer] disclaims any warranty or liability for your use of this information. Content Version: 10.4.752408; Current as of: June 15, 2013 documented in this encounter Progress Notes * John Leon MD - 09/07/2014 11:18 AM EDT Problem: Changing nevus. Latisha follows up after last being seen in 2011. Her tinea versicolor is under control, and her melasma has largely faded. However, she would like to have a new mole on her left shoulder checked. She just noticed it over the winter. Physical examination reveals a pleasant, 48-year-old woman who has a 4-mm, light goss, dome-shaped, compound versus intradermal nevus, which is symmetric and round on the left superior shoulder; it is about 4 or 5 mm in diameter. It has some speckled pigmentation, light goss, within it. It appears benign by the ABCD criteria. Examination of the face, chest, back, hands, arms, forearms, thighs, and calves is otherwise benign. She has benign-appearing junctional melanocytic nevi and several compound versus intradermal nevi also on the upper arms and upper chest. She has no tinea versicolor and no melasma currently. Assessment and Plan: 1. Benign nevus, left superior shoulder. a. Patient reassured. b. I recommended I see her again in another year for repeat check. If doing well at that time, we will then just plan p.r.n. followup. 2. Benign skin examination. a. Patient reassured about benign skin examination. b. Continue sun avoidance precautions. c. Congratulated on current resolution of tinea versicolor/melasma. COPY: Ceci Issa M.D. documented in this encounter Plan of Treatment Upcoming Encounters Date Type Department Care Team (Late st Contact Info) Description 12/21/2023 3:15 PM EDT Office Visit Dermatology at [address] [address] John Leon MD [address] [facility] [place] [address] documented as of this encounter Visit Diagnoses Diagnosis Nevus- Primary Benign neoplasm of skin, site unspecified documented in this encounter Care Teams Mannequin Sander And Finisher Relationship Specialty Start Date End Date Ceci Issa MD [address] [place] [address] PCP - General 02/26/10 documented as of this encounter
--- OUTSIDE RECORDS SUMMARY | 2023-12-17 20:11 | XMS_ITS | Encounter Summary ---
Author Organization [facility] Address [address] [place] [address] Care Team Providers Care Senior Sustainability Consultant Name Role Phone Ceci Issa MD Primary Care Provider [phone] Reason for Visit * Reason Comments Foot Pain left Encounter Details Date Type Department Care Team (Late st Contact Info) Description 01/19/2018 14:45 EDT Office Visit [facility] Foot & Ankle Program - [address] [id number] Beto Vega MD [address] [place] [address] Flexor hallucis longus tendinitis (Primary Dx) Social History Tobacco Use Types Packs/Day Years Used Date Smoking Tobacco: Never Smokeless Tobacco: Never Sex and Gender Information Value Date Recorded Sex Assigned at Not on file Gender Identity Not on file Sexual Orientation Not on file documented as of this encounter Progress Notes * Beto Vega MD - 01/19/2018 4896 EDT PROGRESS NOTE/FOLLOWUP NOTE Chief Complaint Patient presents with ??? Foot Pain left PROCEDURE: ??Left FHL tenosynovectomy, 10/29/17. SUBJECTIVE: Latisha Wei came in today in follow up of the above surgery, stating today that things are progressing well. REVIEW OF SYSTEMS: Negative except for pertinent positives listed above. OBJECTIVE: Patient is in no acute distress. Right Foot: Skin: Well healed incision. Pulses: Nicely palpable. Sensation: Intact. Strength: Intact. Musculoskeletal: FHL has improved motion. ASSESSMENT AND PLAN: Ms. Wei has had a nice recovery and is doing well. She has no restrictions. Continue to work ather FHL stretches. Increase activity gradually as tolerated. Follow up PRN. I, Abena Jim, am scribing for Dr. Beto Vega, while he is personally performing the service. 01/19/2018 15:32 documented in this encounter Plan of Treatment Not on file documented as of this encounter Visit Diagnoses Diagnosis Flexor hallucis longus tendinitis- Primary Tenosynovitis of foot and ankle documented in this encounter Care Teams Senior Sustainability Consultant Relationship Specialty Start Date End Date Ceci Issa MD [address] [place] [address] PCP - General 09/02/17 documented as of this encounter
--- OUTSIDE RECORDS SUMMARY | 2023-12-17 20:11 | XMS_ITS | Encounter Summary ---
Author Organization [facility] [place] [address] Care Team Providers Care Court Monitor Name Role Phone Ceci Issa MD Primary Care Provider [phone] Reason for Visit * Reason Comments Follow-up S/P right digital ne rve repain 07/27/20 Encounter Details Date Type Department Care Team (Late st Contact Info) Description 11/08/2020 2:15 PM EDT Office Visit [place] [address] Danny Dennis MD [facility] [place] [address] Surgery follow-up Social History Tobacco Use Types [...] as of this encounter Progress Notes * Zina Tanner - 11/08/2020 2:15 PM EDT Plastic Surgery Post Op Note Danny Dennis M.D. 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 She is unaccompanied for today's visit. She reports numbness in her middle finger. She noticed this right after surgery. Examination: There were no vitals taken for this visit. Patient is alert, conversant, comfortable, ambulating. Numbness in the 3rd web space, radial side of ring finger and ulnar side of long finger. Incisions are well-healed. Some hypertrophy of incision on the distal forearm. Full ROM. Impression: Latisha Wiggins is a 54 y.o. female who was seen today for follow-up after the aboveprocedure. Please see the operative note for details. She is doing relatively well with complaints of numbness in the 3rd web space, radial side of the ring finger and the ulnar side of the long finger. The incisions are well-healed. There is some hypertrophy of the incision on the distal forearm. She has full ROM. I assured the patient that she is healing well and that it takes time for everything to fully settle and heal. We will continue to monitor her progression and will see her back in clinic in 3 months for follow-up. Plan: Follow up: [address] Dennis. I, Zina Tanner, have performed the documentation for this encounter in the presence of andacting as a scribe for DANNY DENNIS MD. I performed the services which were documented by the scribe, and I agree with the accuracy of the documentation in this encounter. DANNY DENNIS MD. documented in this encounter Plan of Treatment Upcoming Encounters Date Type Department Care Team (Late st Contact Info) Description 12/21/2023 3:15 PM EDT Office Visit Dermatology at [place] [address] [facility] [place] [phone] John Leon MD [address], [place] [address] documented as of this encounter Visit Diagnoses Diagnosis Surgery follow-up Follow-up examination, following unspecified surgery documented in this encounter Care Teams Court Monitor Relationship Specialty Start Date End Date Ceci Issa MD [address] [place] [address] PCP - General 02/26/10 documented as of this encounter
--- OUTSIDE RECORDS SUMMARY | 2023-12-17 20:11 | XMS_ITS | Encounter Summary ---
Author Organization [facility] Address [address] [place] [address] Care Team Providers Care Grain Scooper Name Role Phone Ceci Issa MD Primary Care Provider [phone] Reason for Visit * Reason Comments Foot Pain left * Consult, Test and Treat (Routine) - Closed Specialty Diagnoses / Procedures Referred By Stuart stone Referred To Contact Orthopedic Surgery Diagnoses Left foot pain Edgardo Erazo MD [address] [place] [address] [facility] [address] [place] [address] Referral ID Status Reason Start Date Expiration Date Visits Re quested Visits Authorized [id number] Closed 1 1 Encounter Details Date Type Department Care Team (Late st Contact Info) Description 09/03/2017 8:45 EDT Office Visit [facility] Foot & Ankle Program - [place] [address] Beto Vega MD [address] [place] [address] Flexor hallucis longus tendinitis (Primary Dx); Gastrocnemius equinus of left lower extremity; Metatarsalgia of left foot Social History Tobacco Use Types Packs/Day Years Used Date Smoking Tobacco: Never Smokeless Tobacco: Never Sex and Gender Information Value Date Recorded Sex Assigned at Not on file Gender Identity Not on file Sexual Orientation Not on file documented as of this encounter Last Filed Vital Signs Vital Sign Reading Time Taken Comments Blood Pressure - - Pulse - - Temperature - - Respiratory Rate - - Oxygen Saturation - - Inhaled Oxygen Concentration - - Weight 104.3 kg (230 lb) 09/03/2017 0834 EDT Height 165.1 cm (5' 5) 09/03/2017 0834 EDT Body Mass Index 38.27 09/03/2017 0834 EDT documented in this encounter Progress Notes * Beto Vega MD - 09/03/2017 0845 EDT NEW FOOT PAIN Chief Complaint Patient presents with ??? Foot Pain left SUBJECTIVE: Latisha Wei came in today as a new patient regarding left foot pain, sent here by Dr. Erazo at [facility]. The patient has a complicated history with regard to her foot and she is s/p multiple cortisone injection and three surgeries. Today she said that when she walks it feels like there is a big marble in her shoe or like she is walking on bone. It is very painful and she avoids walking as much as possible. At this point her 3rdtoe is curling in because of the way she holds her foot. She tends to cup her foot when walking to avoid pain. All shoes are uncomfortable and she cannot walk barefoot at all. Occasionally she gets atingling feeling in the foot. At rest the foot has a tight feeling in the toe area, but no pain. 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 Prior to having her foot issues she liked to walk and camp, but at this point she does not do much. She thinks she has had at least 6 cortisone injection into the dorsal foot. The injections helped for about a month the first time and then for about a week and the last did nothing. Injections went between 2nd and 3rd toes. She has had 3 surgeries. She thought that surgery helped at first, but shethinks the last surgery was focused on the wrong bone, as it did nothing to change her symptoms. She has been doing regular calf stretching, which may have helped a bit. For some time she was seeing a chiropractor who was manipulating her foot and that worked for some time, but no longer does. Her right hip is painful now as she tries to put all her weight on the right side. Right foot has some heel pain, especially with the first few steps in the morning. No past medical history on file. No past surgical history on file. Current Outpatient Prescriptions: buPROPion (WELLBUTRIN XL) 150 mg XL tablet dextroamphetamine-amphetamine (ADDERALL XR) 30 mg XR capsule fluticasone (FLONASE) 50 mcg/actuation nasal spray No current facility-administered medications for this visit. Allergies Allergen Reactions ??? Percocet [Oxycodone-Acetaminophen] Nausea Only REVIEW OF SYSTEMS: Documented on the patient intake form. These were reviewed by me. Pertinent positives mentioned above. OBJECTIVE: Patient is in no acute distress. Standing alignment: Does not have any significant hind, mid or forefoot malalignment. She ambulates with a shorter stance phase on left compared to right. Not an antalgic gait. Right Foot: Skin: Intact, no skin changes. Pulses: Nicely palpable. Sensation: Intact. Strength: Intact. Musculoskeletal: Foot does come past neurtral with knee extended. No tenderness. The FHL is tight. No plantar tenderness. No pain with Sidney's. There is a Soto's click in the 3rd webspace. Left Foot: Skin: Intact, no skin changes. Pulses: Nicely palpable. Sensation: Intact. Strength: Intact. Musculoskeletal: Hindfoot moves well. The gastroc is tight. Foot comes to neutral with knee extended. Well healed dorsal incision over 2nd metatarsal. Plantar incision. The 2nd is elevated more than 3rd. More fat pad atrophy compared to right. No tenderness over posterior tibial tendon. The FHL is tight. The 3rd is tender with Sidney's. IMAGING: X-rays: Three views of left foot, weightbearing, obtained at [facility] and independently reviewed by me show a snap off screw in 2nd metatarsal neck. Residual K-wire in 2nd toe. Her 3rd metatarsal is longer than 2nd and 4th . The 2nd is shortened so it is just shorter than the 1st. Hallux looks good. No midfoot degenerative change. Alignment looks good otherwise. ASSESSMENT AND PLAN: She has some fat pad atrophy and unfortunately there is nothing that can be done for that. I do notthink that shortening her 3rd metatarsal will be helpful for her. Her pain is not over the 3rd metatarsal and is more over some thickening of her plantar scar. For this she can try using Gelsheet to condition the scar, which may or may not help. Her bigger issue is that her gastroc muscles are still tight and as well, the FHL is very tight andboth issues are contributing to her pain by shifting weight onto the lateral foot, causing metatarsalgia. Before deciding to do any further surgery on her foot, the recommendation is to begin regularFHL stretches to see if she can get the tendon stretched out so that her foot position improves. It was stressed that the stretches must be done religiously, 2 to 3 times a day on a daily basis in order to make a difference. It will take 4 to 6 weeks before the patient begins to feel that the stretches are being effective. Stretches were demonstrated and a handout of stretches was provided. She should continue with regular gastroc stretches on a regular basis as well. If she cannot get her FHL moving and gliding and it is entrapped, then we can consider surgical release of the tendon along with gastroc lengthening and we briefly discussed this today. The patient was satisfied with the assessment and plan and will return in 6 weeks. Abena Faustin, am scribing for Dr. Beto Vega, while he is personally performing the service. 09/03/2017 8:39 Cc: Ceci Issa Cc: Kacey documented in this encounter Plan of Treatment Not on file documented as of this encounter Visit Diagnoses Diagnosis Flexor hallucis longus tendinitis- Primary Tenosynovitis of foot and ankle Gastrocnemius equinus of left lower extremity Metatarsalgia of left foot Enthesopathy of ankle and tarsus, unspecified documented in this encounter Historical Medications * This list may reflect changes made after this encounter. Medication Sig Dispensed Refills Start Date End Date fluticasone (FLONASE) 50 mcg/actuation nasal spray Instill 100 mcg into both nostrils daily. buPROPion (WELLBUTRIN XL) 150 mg XL tablet Take 150 mg by mouth 2 times daily. dextroamphetamine-ampheta mine (ADDERALL XR) 30 mg XR capsule Take 30 mg by mouth every morning. added in this encounter Care Teams Grain Scooper Relationship Specialty Start Date End Date Ceci Issa MD [address] [place] [address] PCP - General 09/02/17 documented as of this encounter
--- OUTSIDE RECORDS SUMMARY | 2023-12-17 20:11 | XMS_ITS | Encounter Summary ---
Author Organization [facility] Address [address] [place] [address] Care Team Providers Care Registered Nurse Fetal Name Role Phone Ceci Issa MD Primary Care Provider [phone] Reason for Visit * Reason Onset Date Comments Pre-procedure 10/13/2017 Encounter Details Date Type Department Care Team (Late st Contact Info) Description 10/13/2017 Pre-Procedure Orders Encounter [facility] Foot & [facility]le Program - [place] [address] [place] [address] Elana Lea LPN [address] [place] [address] Flexor hallucis longus tendinitis (Primary Dx) Social [...] ankle documented in this encounter Care Teams Registered Nurse Fetal Relationship Specialty Start Date End Date Ceci Issa MD [address] [place] [address] PCP - General 09/02/17 documented as of this encounter
--- OUTSIDE RECORDS SUMMARY | 2023-12-17 20:11 | XMS_ITS | Encounter Summary ---
Author Organization [facility] Address [address] [place] [address] Care Team Providers Care Fusion Analyst Name Role Phone Unavailable Primary Care Provider Unavailabl e Encounter Details Date Type Department Care Team (Late st Contact Info) Description 03/22/2003 Results Only [facility] - Maple conversion [address] [place] [address] Lauren Mart, ASSISTANT COOK Social History Tobacco Use Types Packs/Day Years Used Date Smoking Tobacco: Never Assessed Sex and Gender Information Value Date Recorded Sex Assigned at Not on file Gender Identity Not on file Sexual Orientation Not on file documented as of this encounter Plan of Treatment Not on file documented as of this encounter Procedures Procedure Name Priority Date/Time Associated Diagnosis Comments CYTOPATHOLOGY Routine 03/22/2003 0:00 EST documented in this encounter Results * CYTOPATHOLOGY (03/22/2003 0:00 EST) Pathology Report: CYTOPATHOLOGY REPORT Reports generated via electronic interface contain original data; however they are lacking the format of the original report. Caution should be taken when reading/interpreti ng unformatted reports. Name: ? ALEX VICENTE ? Accession #: ? [id number] : ? 1965 (Age: 37) ??F ?Collect Date: ? 03/22/2003 Location: ? [facility] ? Receive Date: ? 03/23/2003 Provider: ?LAUREN MART ASSISTANT COOK Copy to: ? Specimen/Source: ?ThinPrep Pap Test, Vagina Last Menstrual Period: ? 02/04 hyst. Previous Gynecologic Pathology: ? ASC-US: Benign cellular changes: Treatment History: ? Hysterectomy: 03/01/01 ? SPECIMEN ADEQUACY ? Satisfactory for Evaluation - assessment of transformation zone component not applicable ( e.g. atrophy, vaginal sample, hysterectomy) GENERAL CATEGORIZATION ? Negative for Intraepithelial Lesion or Malignancy ? Document reviewed and electronically signed by: ? Irish Parry, SCT(ASCP) ? Report Date: ??03/27/2003 16:08 End of Report [facility] 03/22/2003 03/23/2003 Lauren Mart NP PATHOLOGY ORDERABLES [facility] [address] [place] [address] documented in this encounter Visit Diagnoses Not on filedocumented in this encounter
--- OUTSIDE RECORDS SUMMARY | 2023-12-17 20:11 | XMS_ITS | Encounter Summary ---
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 Name Role Phone Ceci Issa MD Primary Care Provider Encounter Details Date Type Department Care Team (Latest Contact Info) Description 10/29/2017 11:22 EDT - 10/29/2017 18:15 EDT Hospital Encounter [facility] Perioperative Services- [facility] [address] [place] [address] Beto Vega MD [address] [place] [id number] Flexor hallucis longus tendinitis Discharge Disposition: Home or Self Care Social History Tobacco Use Types Packs/Day Years Used Date Smoking Tobacco: Never Smokeless Tobacco: Never Sex and Gender Information Value Date Recorded Sex Assigned at Not on file Gender Identity Not on file Sexual Orientation Not on file documented as of this encounter Last Filed Vital Signs Vital Sign Reading Time Taken Comments Blood Pressure 133/81 10/29/2017 1730 EDT Pulse - - Temperature 36.1 ??C (97 ??F) 10/29/2017 1715 EDT Respiratory Rate 16 10/29/2017 1730 EDT Oxygen Saturation 97% 10/29/2017 1730 EDT Inhaled Oxygen Concentration - - Weight 106.6 kg (235 lb) 10/22/2017 0955 EDT Height 165.1 cm (5' 5) 10/22/2017 0955 EDT Body Mass Index 39.11 10/22/2017 0955 EDT documented in this encounter Discharge Diagnoses Diagnosis M77.52 Other enthesopathy of left foot-M77.52[ICD-10-CM] E66.9 Obesity, unspecified-E66.9[ICD-10-CM] Z68.39 Body mass index (BMI) 39.0-39.9, adult-Z68.39[ICD-10-CM] J45.909 Unspecified asthma, uncomplicated-J45.909[ICD-10-CM] documented in this encounter Discharge Instructions * Discharge Instr - Activity* Adelina Santiago MD - 10/29/2017 15:59 EDT Foot/Ankle Surgery Post-Op Discharge Instructions Your Surgeon: Beto Vega MD [facility] [address] [place] [address] [place] [address] (ask for Elana Lea LPN) After Hours (ask for the Orthopaedic Chief Resident injection molding machine offbearer) What to expect: It is normal to feel tired and washed out after surgery. Rest is important, but being up and about is also important to prevent problems and to regain your strength and energy. Pace yourself according to how you feel. Rest when you feel tired. You may have a sore throat if you have had general anesthesia. This is normal and will resolve typically in 1-2 days. If you have a nerve block, the local anesthetic may keep your foot/ankle numb for up to 24 hours. Please refer to the separate nerve block instructions for more information. Your foot/ankle can remain painful and swollen for several weeks time, depending on the problem youhave and the amount of surgery that was done to correct it. You may experience some bruising aroundyour incisions. Swelling is to be expected after any surgery. It is difficult to specify what constitutes an abnormal amount of swelling. You can minimize swelling by staying off your feet and keeping the foot elevated above the level of your heart. This is best accomplished by lying flat on your back with your foot propped up on a few pillows. Pain management: You can expect to have pain for the first week or so after surgery. The pain is often worse at night. You will be given a prescription for pain medication upon discharge from the hospital. You should take this pain medication as directed for moderate to severe pain. You should takeyour pain medication with food. If you cannot tolerate the pain medication because of nausea or itching, please call the office. If you are going to run out of pain medication call the office prior to running out. Narcotics will not be refilled by the on-call physician after hours or on weekends. The narcotic pain medication you are prescribed is: dilaudid Take acetaminophen (tylenol) 2 extra strength tablets every 6 hours around the clock. Do not [id number] mg of acetaminophen in a 24 hour period. Do not drink alcohol while taking acetaminophen. You may take ibuprofen (Advil) 600 mg every 6 hours around the clock, alternating with acetaminophen (space them 3 hours apart). Pain medication can cause constipation. To help prevent this you can drink extra fluids, eat foods high in fiber or take an over the counter stool softener such as Colace (docusate sodium). Do not drive, drink alcohol or make any important decisions while taking narcotic pain medication. Please call your doctor if the pain medication is not working. Pain medication can also cause itching of the skin. For mild itching you can take Benadryl. Treatment of Nausea: If you are nauseous or vomiting limit your intake to clear liquids only, and advance diet as tolerated. If you are still nauseous or vomiting after 12 hours, please call the office. Dressing/Splint: You may remove your dressing three days following the operation and at that point get into the shower and let warm soapy water run over the wound. Do not scrub the incision. Then cover with dry gauzeand an SUSAN wrap. Keep your splint clean and dry. You may shower with a bag and tape over the splint. Call if the splint becomes saturated. If it just gets damp you can try and use a chairman president and chief executive officer on the lowest setting to dry it out. Weight Bearing: You can weight bear on your left extremity, using crutches if needed. Tomorrow, youcan take boot off and start range of motion exercises of your ankle. Elevate your foot as much as possible. It is ok to be up and about for the things you absolutely need to do such as meals and using the restroom, but now is not the time to begin cleaning the house or running errands. You should try to keep your foot above the level of your heart. You should not do any sports or athletics, such as aerobics, running, or weight lifting until you have been seen for your first post operative visit at which point activities moving forward can be addressed. Do not drive until you have been cleared by Dr. Vega or his staff. You should drink lots of fluids, and eat light foods at first such as toast, crackers, soup and daniel lin. Smoking and caffeinated beverages can impair healing so avoid these. When to Call: If you have any trouble breathing or are having chest pain, you should dial 911 rightaway. For any of the following danger signs, you should call our office: You have continual bleeding that soaks through the dressing. You have a fever over 100.4 degrees Fahrenheit (38.6 degrees Celsius) There is redness, a foul odor, or white drainage associated with your wound. Your toes become pale, cool or feel numb. Please understand that the post-operative course varies from patient to patient, and these are meant only as guidelines to a smoother recovery. These instructions may not cover all aspects of your post-operative care and recovery. Please call if you have any further questions that are unanswered bythis sheet. LOWER EXTREMITY NERVE BLOCK INSTRUCTIONS WHAT IS REGIONAL ANESTHESIA/NERVE BLOCK? *Regional anesthesia or Nerver Block is a procedure that makes a certain part (or region) of yourbody numb (or blocked) for surgery. Your lower extremity is your leg, knee, ankle, foot and/or toes. *Your anesthesiologist will use an ultrasound machine to find the nerves in your leg that will be blocked. They will then use a special needle to inject a numbing medication into the area. *The local anesthetic (numbing medication) is similar to Novacaine which is often used by dentists. It makes the blocked leg/foot numb and weak. It may be impossible to move your leg/foot until the effect wears off. HOW LONG DOES THE BLOCK LAST? *The amount of time the block lasts will vary. It can last from 4-24 hours depending on the type ofnumbing medication that is used and if adjuvant medicines are added. Sometimes the block can last up to 48 hours. The block is usually still in effect when you go home the day of surgery. FOR YOUR COMFORT: *Fill your prescription of pain medication. Often it will be sent to the pharmacy electronically and you can pick it up on your way home. *Begin taking tylenol every 6 hours even while the block is working so you already have it in your system. *As the nerve block wears off, you will begin to regain sensation (pins and needles, tingling, hot, etc) When this begins, it is important to use your pain medication so that you do not get behind on your pain control. FOR YOUR SAFETY: *You should protect your leg/foot because you may not be able to feel or move it. *You should NOT put weight on your leg/foot while the block is in effect. *You must use crutches/walker/rolling knee walker while block is in effect. *Do not walk by yourself until you regain full sensation in your leg/foot (unless otherwise directed by your surgeon). *Be careful with hot/cold objects. *Avoid banging your leg/foot, such as walking through doorways, getting into a car etc... *Be careful when you dress, stand or walk; keeping balance may be difficult. You may not have full muscle control or normal strength. WHOM AND WHEN TO CALL: For any of the following warning signs, call your surgeon and our anesthesia team: *If you experience shortness of breath or chest pain -- Call 911. *If your leg or foot turns cool. *If your leg or foot turns purple, elevate the leg first to make certain it is not from pooling of blood in a dependant extremity. If it doesn't resolve within 5-10 minutes call. *If you notice increasing tenderness, swelling, or redness at the site of the block injection. *If you have any weakness, numbness, or tingling long after the block wears off. documented in this encounter Medications at Time [...] Tab 10/29/2017 documented as of this encounter Ordered Prescriptions Prescription Sig Dispensed Refills Start Date End Da te HYDROmorphone (DILAUDID) 2 mg tablet Take 1 Tab by mouth every 4 hours as needed for Pain. Daily Max: 12 mg 10 Tab 10/29/2017 documented in this encounter Discharge Disposition Disposition Code Departure Means Destination Home or Self Care documented in this encounter Progress Notes * Brianna Wiley RN - 10/22/2017 1010 EDT Latisha Wei has been instructed as follows regarding medication administration for the day of the scheduled procedure. Date of Surgery: 10/29/17 Instructions for Taking Medications Day of Surgery Medication Sig Last Dose Hold DOS Take DOS albuterol 90 mcg/actuation inhaler Inhale 180 mcg as directed every 4 hours as needed for Wheezing.Yes buPROPion (WELLBUTRIN XL) 150 mg XL tablet Take 150 mg by mouth 2 times daily. yes dextroamphetamine-amphetamine (ADDERALL XR) 30 mg XR capsule Take 30 mg by mouth every morning. yes fluticasone (FLONASE) 50 mcg/actuation nasal spray Instill 100 mcg into both nostrils daily. yes documented in this encounter H&P Notes * Beto Vega MD - 10/29/2017 1508 EDT The preoperative history and physical which was performed within 30 days of this procedure has been reviewed and the clinically appropriate elements of the physical examination have been repeated. There are no changes to the documented history and physical or if so such changes are documented below Beto Vega MD 10/29/2017 15:08 Source Note - SIMULATION TECH, CHAR 2 - 10/20/2017 13:46 EDT documented in this encounter OR Notes * OR Surgeon - Adelina Santiago MD - 10/29/2017 0000 EDT OPERATIVE REPORT SERVICE DATE: 10/29/2017 PREOPERATIVE DIAGNOSIS: Left flexor hallucis longus tendinitis. SURGEON: Beto Vega MD GRID INSPECTOR: Adelian Santiago MD POSTOPERATIVE DIAGNOSIS: Left flexor hallucis longus tendinitis. PROCEDURE: Left FHL tenosynovectomy. ANESTHESIA: General. ESTIMATED BLOOD LOSS: Minimal. IV FLUIDS: 500 mL of crystalloid. TOURNIQUET TIME: Four minutes. INDICATIONS: Latisha Wei is a 51-year-old female who presented today with Dr Vega's clinic with complaints of left great toe pain and decreased motion. On exam, she was found to have a tight left flexor hallucis longus that was refractory to stretching and conservative treatment. She elected to proceed with FHL tenosynovectomy after risks, benefits,and alternatives were discussed with her, and Dr Vega. Consent was obtained and all of her questions were answered. NARRATIVE: She was met in the preoperative holding area where her consent was updated, her identitywas confirmed and her surgical site was marked. All of her questions were answered. She was broughtback to the operating room suite where a WHO 1 was performed and all participating members were in agreement. She was given general anesthesia by our anesthesia colleagues and then flipped prone ontothe operating room table and all bony prominences were padded. A nonsterile tourniquet was placed in the left lower extremity. She was then prepped and draped in the usual sterile fashion. Prior to surgical start, a WHO 2 was performed and again all participating members were in agreement. Using a roughly 2.5 inch incision medial to the Achilles tendon, her FHL tendon was clearly visualized usinga combination of sharp and blunt dissection. There was extensive tenosynovitis around the sheath, which was removed. The fibro-osseous tunnel was released sharply. The FHL tendon was then clinically tested using FHL stress test and found to have a significant improved excursion prior to preoperative ly. The wound was then thoroughly irrigated and was sutured closed with Monocryl and Prolene stitches. She was placed in a sterile dressing and a walking boot. The tourniquet was up for 4 minutes. PLAN: For her to be weightbearing as tolerated in a walking boot. She can remove her walking boot tomorrow and start light range of motion exercises. Dr Vega was present and scrubbed for the entirety of the procedure. Unless otherwise noted, there were no complications, no blood loss, no cultures obtained, no specimens removed, and no drains retained. Beto Vega MD 04 05 PM / Adelina Santiago MD cn Confirmation: [id number] Dictation ID: [id number] documented in this encounter Miscellaneous Notes * Anesthesia Post-Eval - Danny Fry - 10/29/2017 1817 EDT Anesthesia Post op Note Latisha Wei AO0100/01 Anesthesia received: General; Vital Signs: Temp: 36.1 ??C (97 ??F), Heart Rate: 79 BPM, BP: 133/81, Resp: 16, SpO2: 97 % Vital signs Stable: Yes Consciousness: Recovered to baseline Patient's participation in evaluation:Able to participate Temperature Status: Normothermic Respiratory Status: Airway patent Supplemental O2: Room air Oxygen Saturation: Within patient's normal range Cardiovascular Status: Within patient's normal range Post-op Hydration: Adequate Nausea / Vomiting: None Pain Control: Adequate Current Pain Score: Numeric Pain Level (Scale 1-10): 5 Post-op Assessment: Tolerated procedure well Disposition: Home Complications: No apparent anesthetic complications Danny Fry MD 10/29/2017 18:17 * Brief Op Note - Adelina Santiago MD - 10/29/2017 1600 EDT BRIEF OP NOTE Preop Diagnosis: left FHL tendinitis Post op Diagnosis: same Procedure: left FHL tenosynovectomy Surgeon: Gary KRAUSE Solidworks Mechanical Designer: Pamela KRAUSE Anesth: general Findings: tenosynovitis EBL: Minimal mL IVF: 500 cc crystalloid UOP: NR Tourniquet time: 4 minutes Specimen: none Cultures: none Closure: prolene Complications: None Dispo: PACU then home Adelina Santiago MD 10/29/2017 16:00 Pager: [phone] documented in this encounter Plan of Treatment Not on file documented as of this encounter Procedures Procedure Name Priority Date/Time Associated Diagnosis Comments ECG REPORT - SCANNED 11/02/2017 13:36 EDT documented in this encounter Results * ECG REPORT - SCANNED (11/02/2017 13:36 EDT) 11/02/2017 13:3 6 EDT Scan 2 Fire Prevention Chief PROCEDURE/MINOR CHUCKY GICAL ORDERABLES documented in this encounter Visit Diagnoses Diagnosis Flexor hallucis longus tendinitis Tenosynovitis of foot and ankle Flexor hallucis longus tendinitis Tenosynovitis of foot and ankle documented in this encounter Administered Medications Inactive Administered Medications - up to 3 most recent administrations Medication Order MAR Action Action Date Dose Rate Site acetaminophen (TYLENOL) solution unit dose cup 995 mg 995 mg (rounded from 1,000 mg), oral, EVERY 6 HOURS PRN, Starting on Tory 10/29/17 at 2000, Until Tory 10/29/17 at 2035, Fever, Routine, Recovery (only) acetaminophen (TYLENOL) tablet 1,000 mg 1,000 mg, oral, PRN, Starting on Tory 10/29/17 at 2000, Until Tory 10/29/17 at 2035, Fever, Routine, Recovery (only) acetaminophen (TYLENOL) tablet 1,000 mg 1,000 mg, oral, ONCE PRN, 1 dose, Starting on Tory 10/29/17 at 1617, Until Tory 10/29/17 at 1635, Pain, Routine Given 10/29/2017 16:35 EDT 1,000 mg atropine 0.1 mg/mL syringe 0.5 mg 0.5 mg, intravenous, PRN, Starting on Tory 10/29/17 at 1551, Until Tory 10/29/17 at 2035, Symptomatic HR < 50, Routine, Recovery (only) ceFAZolin (ANCEF) syringe 2 g 2 g, intravenous, Administer over 10 Minutes, PRE-OP ONCE, 1 dose, On Tory 10/29/17 at 1300, Routine, Pre-Op DOS Rx Approved Given 10/29/2017 15:33 EDT 2 g celecoxib (CELEBREX) capsule 200 mg 200 mg, oral, PRE-OP ONCE, 1 dose, On Tory 10/29/17 at 1300, Routine, Pre-Op DOS Rx Approved Given 10/29/2017 13:08 EDT 200 mg diphenhydrAMINE (BENADRYL) injection 12.5 mg 12.5 mg, intravenous, PRN, 1 dose, Starting on Tory 10/29/17 at 1551, Until Tory 10/29/17 at 2035, nausea, Routine, Recovery (only) fentaNYL citrate (PF) 50 mcg/mL injection 25-50 mcg 25-50 mcg, intravenous, EVERY 5 MIN PRN, Starting on Tory 10/29/17 at 1551, Until Tory 10/29/17 at 2035, Pain, Routine, Recovery (only) Given 10/29/2017 17:17 EDT 50 mcg Given 10/29/2017 16:57 EDT 50 mcg Given 10/29/2017 16:49 EDT 50 mcg HYDROmorphone (DILAUDID) tablet 2-4 mg 2-4 mg, oral, EVERY 30 MINUTES PRN, 2 doses, Starting on Tory 10/29/17 at 1551, Until Tory 10/29/17 at 1657, Pain, Routine, Recovery (only) Given 10/29/2017 16:57 EDT 2 mg Given 10/29/2017 16:35 EDT 2 mg lactated ringers (LR) infusion at 100 mL/hr, intravenous, CONTINUOUS, Starting on Tory 10/29/17 at 1300, Until Tory 10/29/17 at 2035, Routine, Pre-Op DOS Rx Approved New Bag 10/29/2017 13:06 EDT 100 mL/hr lactated ringers (LR) infusion at 75 mL/hr, intravenous, CONTINUOUS, Starting on Tory 10/29/17 at 1615, Until Tory 10/29/17 at 2035, Routine, Recovery (only) metoCLOPramide (REGLAN) injection 10 mg 10 mg, intravenous, PRN, 1 dose, Starting on Tory 10/29/17 at 1551, Until Tory 10/29/17 at 203, Nausea, Routine, Recovery (only) naloxone (NARCAN) injection 0.2 mg 0.2 mg, intravenous, PRN, Starting on Tory 10/29/17 at 1551, Until Tory 10/29/17 at 2036, Opioid Reversal, Routine, Recovery (only) ondansetron (PF) (ZOFRAN) injection 4 mg 4 mg, intravenous, PRN, 1 dose, Starting on Tory 10/29/17 at 1551, Until Tory 10/29/17 at 1759, Nausea, Vomiting, Routine, Recovery (only) Given 10/29/2017 17:59 EDT 4 mg pregabalin (LYRICA) capsule 75 mg 75 mg, oral, PRE-OP ONCE, 1 dose, On Tory 10/29/17 at 1300, Routine, Pre-Op DOS Rx Approved Given 10/29/2017 13:07 EDT 75 mg documented in this encounter Historical Medications * This list may reflect changes made after this encounter. Medication Sig Dispensed Refills Start Date End Date albuterol 90 mcg/actuation inhaler Inhale 180 mcg as directed every 4 hours as needed for Wheezing. added in this encounter Active and Recently Administered Medications Times are shown in EDT. Scheduled Medication Order 10/27/2017 10/28/2017 10/29/2017 acetaminophen (TYLENOL) tablet 1,000 mg 1,000 mg, oral, PRE-OP ONCE, 1 dose, On Tory 10/29/17 at 1300, Routine, Pre-Op DOS Rx Approved 1306 (Not Given - Pr ovider: Susan Hernandez RN - Reason: Other - Comment: patient took 2 tabs of 500 mg at 0800) ceFAZolin (ANCEF) syringe 2 g (COMPLETED) 2 g, intravenous, Administer over 10 Minutes, PRE-OP ONCE, 1 dose, On Tory 10/29/17 at 1300, Routine, Pre-Op DOS Rx Approved 1533 (Given - Provid er: Sarah Castanon RN) celecoxib (CELEBREX) capsule 200 mg (COMPLETED) 200 mg, oral, PRE-OP ONCE, 1 dose, On Tory 10/29/17 at 1300, Routine, Pre-Op DOS Rx Approved 1308 (Given - Provid er: Susan Hernandez RN) pregabalin (LYRICA) capsule 75 mg (COMPLETED) 75 mg, oral, PRE-OP ONCE, 1 dose, On Tory 10/29/17 at 1300, Routine, Pre-Op DOS Rx Approved 1307 (Given - Provid er: Susan Hernandez RN) Continuous Medication Order 10/27/2017 10/28/2017 10/29/2017 lactated ringers (LR) infusion at 100 mL/hr, intravenous, CONTINUOUS, Starting on Tory 10/29/17 at 1300, Until Tory 10/29/17 at 2036, Routine, Pre-Op DOS Rx Approved 1306 (New Bag - Prov ider: Susan Hernandez RN)1613 (Completed - Provider: Rahat Khan RN) lactated ringers (LR) infusion at 75 mL/hr, intravenous, CONTINUOUS, Starting on Tory 10/29/17 at 1615, Until Tory 10/29/17 at 203, Routine, Recovery (only) 1613 (Continued Infu julio - Provider: Rahat Khan, TATI)1815 (Completed - Provider: Rahat Khan, TATI) PRN Medication Order 10/27/2017 10/28/2017 10/29/2017 acetaminophen (TYLENOL) solution unit dose cup 995 mg(Linked Group 1) 995 mg (rounded from 1,000 mg), oral, EVERY 6 HOURS PRN, Starting on Tory 10/29/17 at 2000, Until Tory 10/29/17 at 2036, Fever, Routine, Recovery (only) acetaminophen (TYLENOL) tablet 1,000 mg(Linked Group 1) 1,000 mg, oral, PRN, Starting on Tory 10/29/17 at 2000, Until Tory 10/29/17 at 2036, Fever, Routine, Recovery (only) acetaminophen (TYLENOL) tablet 1,000 mg (COMPLETED) 1,000 mg, oral, ONCE PRN, 1 dose, Starting on Tory 10/29/17 at 1617, Until Tory 10/29/17 at 1635, Pain, Routine 1635 (Given - Provid er: Rahat Khan RN) atropine 0.1 mg/mL syringe 0.5 mg 0.5 mg, intravenous, PRN, Starting on Tory 10/29/17 at 1551, Until Tory 10/29/17 at 2036, Symptomatic HR < 50, Routine, Recovery (only) diphenhydrAMINE (BENADRYL) injection 12.5 mg 12.5 mg, intravenous, PRN, 1 dose, Starting on Tory 10/29/17 at 1551, Until Tory 10/29/17 at 2035, nausea, Routine, Recovery (only) fentaNYL citrate (PF) 50 mcg/mL injection 25-50 mcg 25-50 mcg, intravenous, EVERY 5 MIN PRN, Starting on Tory 10/29/17 at 1551, Until Tory 10/29/17 at 203, Pain, Routine, Recovery (only) 1635 (Given - Provid er: Rahat Khan RN)1649 (Given - Provider: Rahat Khan, RN)1657 (Given - Provider: Rahat Khan, RN)1717 (Given - Provider: Rahat Khan, RN) HYDROmorphone (DILAUDID) tablet 2-4 mg (COMPLETED) 2-4 mg, oral, EVERY 30 MINUTES PRN, 2 doses, Starting on Tory 10/29/17 at 1551, Until Tory 10/29/17 at 1657, Pain, Routine, Recovery (only) 1635 (Given - Provid er: Rahat Khan, TATI)1657 (Given - Provider: Rahat Khan, RN) metoCLOPramide (REGLAN) injection 10 mg 10 mg, intravenous, PRN, 1 dose, Starting on Tory 10/29/17 at 1551, Until Tory 10/29/17 at 2035, Nausea, Routine, Recovery (only) naloxone (NARCAN) injection 0.2 mg 0.2 mg, intravenous, PRN, Starting on Tory 10/29/17 at 1551, Until Tory 10/29/17 at 2035, Opioid Reversal, Routine, Recovery (only) ondansetron (PF) (ZOFRAN) injection 4 mg (COMPLETED) 4 mg, intravenous, PRN, 1 dose, Starting on Tory 10/29/17 at 1551, Until Tory 10/29/17 at 1759, Nausea, Vomiting, Routine, Recovery (only) 1759 (Given - Provid er: Rahat Khan RN) Linked Groups Order Group 1: acetaminophen (TYLENOL) solution unit dose cup 995 mgJump to med 995 mg (rounded from 1,000 mg), oral, EVERY 6 HOURS PRN, Starting on Tory 10/29/17 at 2000, Until Tory 10/29/17 at 2035, Fever, Routine, Recovery (only) Or acetaminophen (TYLENOL) tablet 1,000 mgJump to med 1,000 mg, oral, PRN, Starting on Tory 10/29/17 at 2000, Until Tory 10/29/17 at 2035, Fever, Routine, Recovery (only) documented in this encounter Orders Medications Ordered That Randall ht Not Have Been Administered Count Last Ordered Date First Ordered Date acetaminophen (TYLENOL) solu tion unit dose cup 995 mg 1 10/29/2017 acetaminophen (TYLENOL) tablet 1,000 mg 2 0 10/29/2017 atropine 0.1 mg/mL syringe 0.5 mg 2 018 diphenhydrAMINE (BENADRYL) i njection 12.5 mg 2 10/29/2017 fentaNYL citrate (PF) 50 mcg /mL injection 25-50 mcg 1 10/29/2017 HYDROmorphone (DILAUDID) tablet 2-4 mg 1 lactated ringers (LR) infusion 2 10/29/2017 metoCLOPramide (REGLAN) injection 10 mg 1 0 10/29/2017 naloxone (NARCAN) injection 0.2 mg 2 2017 Admission Count Last Ordered Date First Orde red Date STATUS: OUTPATIENT SURGICAL OP BED/SERVICES 1 10/29/2017 Transfer Count Last Ordered Date First Orde red Date NOTIFY PPS PACU PATIENT DISCHARGE 1 018 NOTIFY PPS PATIENT ARRIVAL IN PACU 1 2017 Discharge Count Last Ordered Date First Orde red Date DISCHARGE PATIENT 1 10/29/2017 documented in this encounter Care Teams Sewing Trimmer Relationship Specialty Start Date End Date Ceci Issa MD [address] [place] [address] PCP - General 09/02/17 documented as of this encounter
--- OUTSIDE RECORDS SUMMARY | 2023-12-17 20:11 | XMS_ITS | Encounter Summary ---
Author Organization [facility] Address [address] [place] [address] Care Team Providers Care Heavy Duty Diesel Mechanic Name Role Phone Ceci Issa MD Primary Care Provider [phone] Encounter Details Date Type Department Care Team (Late st Contact Info) Description 05/05/2023 Lab Requisition [facility] Pathology & Laboratory Medicine - [facility] [address] [place] [address] Roland Brewster MD [address] [place] [phone] Encounter for other general examination Social History Tobacco Use Types Packs/Day Years Used Date Smoking Tobacco: Never Smokeless Tobacco: Never Interpersonal Safety Answer Date Record ed Physically Hurt Never 11/06/2019 Verbally Threaten Not on file 11/06/2019 Sex and Gender Information Value Date Recorded Sex Assigned at Not on file Gender Identity Not on file Sexual Orientation Not on file documented as of this encounter Plan of Treatment Not on file documented as of this encounter Procedures Procedure Name Priority Date/Time Associated Diagnosis Comments SURGICAL PATHOLOGY Today 05/05/2023 9: 29 EST Encounter for other general examination documented in this encounter Results * SURGICAL PATHOLOGY (05/05/2023 9:29 EST) Note to Patient The following pathology results have been interpreted by your pathologist and may be available to you before your health provider has had the opportunity to review them. Please allow time for your provider to receive these results and explore management options, if applicable. 05/08/2023 11:16 [facility] Final Diagnosis A. COLON, CECUM, POLYP, BIOPSY: - Tubular adenoma. B. COLON, HEPATIC FLEXURE, LIPOMA, BIOPSY: - Consistent with benign submucosal lipoma. C. COLON, ASCENDING, POLYP, BIOPSY: - Tubular adenoma. D. RECTUM, POLYP, BIOPSY: - Hyperplastic polyp. 05/08/2023 11:16 [facility] Attestation There was significant resident/fellow involvement in the diagnostic evaluation of this case. By the signature below, the attending physician certifies that they have personally conducted a gross and/or microscopic examination of the described specimens and rendered or confirmed the above diagnosis. 05/08/2023 11:16 [facility] at 1116 Clinical History Screening history of polyps 05/08/2023 11:16 [facility] Gross Description A. Received in formalin labelled with proper patient identification (initials G, D) and cecal polyp are multiple goss irregular soft tissue fragments ranging from 0.2 x 0.2 x 0.2 cm to 1.1 x 0.6 x 0.4 cm. Entirely submitted as follows: BLOCK CHAN A1- 2 larger tissue fragments A2- 3 smaller tissue fragments B. Received in formalin labelled with proper patient identification (initials G, D) and hepatic flexure lipoma is a 0.4 x 0.3 x 0.2 cm goss irregular soft tissue fragment. Entirely submitted in B1. C. Received in formalin labelled with proper patient identification (initials G, D) and ascending colon polyp are 3 goss irregular soft tissue fragments ranging from 0.1 x 0.1 x 0.1 cm to 0.3 x 0.2 x 0.2 cm. Entirely submitted in C1. D. Received in formalin labelled with proper patient identification (initials G, D) and rectal polyp is a 0.3 x 0.3 x 0.3 cm goss irregular soft tissue fragment. Entirely submitted in D1. TIM STONE(ASCP) 05/06/2023 7:51 05/08/2023 11:16 [facility] Resident/Torres w: Melissa Fan MD 05/08/2023 11:16 EST [facility] Performing Lab [facility] 05/08/2023 11:16 EST [facility] Scanned Images 05/08/2023 11:16 EST [facility] Tissue SPECIMEN FROM RECTUM / Unknown 05/05/2023 9:29 EST 05/05/2023 20:06 EST Tissue specimen (specimen) STRUCTURE OF RIGHT COLIC FLEXURE / Unknown 05/05/2023 9:29 EST 05/05/2023 20:06 EST Tissue specimen (specimen) POLYP OF COLON / Unknown 05/05/2023 9:29 EST 05/05/2023 20:06 EST Tissue specimen (specimen) SPECIMEN FROM RECTUM / Unknown 05/05/2023 9:29 EST 05/05/2023 20:06 EST Roland Brewster MD PATHOLOGY [facility] [address] [place] [address] documented in this encounter Visit Diagnoses Diagnosis Encounter for other general examination documented in this encounter Care Teams Heavy Duty Diesel Mechanic Relationship Specialty Start Date End Date Ceci Issa MD [address] [place] [address] PCP - General 09/02/17 documented as of this encounter
--- OUTSIDE RECORDS SUMMARY | 2023-12-17 20:11 | XMS_ITS | Encounter Summary ---
[place] [address] Care Team Providers Care Hospital Carrier Name Role Phone Ceci Issa MD Primary Care Provider [phone] Encounter Details Date Type Department Care Team (Late st Contact Info) Description 12/05/2019 Refill Dermatology at [address] [phone] Rylee Mijraes LPN Social History Tobacco Use Types Packs/Day Years [...] 3:15 PM EDT Office Visit Dermatology at [address] [phone] John Leon MD [address] [place] [address], [facility] DERMAT[facility] [place], [place] [phone] documented as of this encounter Visit Diagnoses Not on filedocumented in this encounter Care Teams Hospital Carrier Relationship Specialty Start Date End Date Ceci Issa MD [address] [place] [address] PCP - General 02/26/10 documented as of this encounter
--- OUTSIDE RECORDS SUMMARY | 2023-12-17 20:11 | XMS_ITS | Encounter Summary ---
Author Organization [facility] Address [facility] [place] [address] Care Team Providers Care Kitchen Food Server Name Role Phone Ceci Issa MD Primary Care Provider [phone] Reason for Referral * Occupational Therapy (Routine) - Specialty Diagnoses / Procedures Referred By Stuart stone Referred To Contact Diagnoses Nerve injury Danny Dennis MD [facility] [place] [address] Referral ID Status Reason Start Date Expiration Date V isits Requested Visits Authorized [id number] Evaluate and Treat 08/06/2020 02/02/2021 12 12 Reason for Visit * Reason Comments Follow Up Surgery right hand nerve rep air Encounter Details Date Type Department Care Team (Late st Contact Info) Description 08/06/2020 8:15 AM EDT Office [place] [phone] Danny Dennis MD [facility] [place] [address] Nerve injury Social History Tobacco Use Types [...] Progress Notes * Danny Dennis MD - 08/06/2020 8:15 AM EDT Plastic Surgery Post Op Note Provider: Danny Dennis M.D. 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 Dennis. Complications: None reported HPI: Pt returns to clinic for her first post operative follow up visit. She is doing well. No signsor concerns for pain. She had some slight discomfort post operatively but is doing well now and manages with over the counter medications (Tylenol/Ibuprofen.) Occasionally, she will notice some shock like sensations. Examination: There were no vitals taken for this visit. Patient is alert, conversant, comfortable, ambulating Incision: CDI, healing well. No collection, no erythema, no evidence of cellulitis. Sutures removed today Pathology: 07/27/20 A - Right neuroma, excision Impression: Latisha Wiggins is a 54 y.o. female who was seen today for follow-up after the aboveprocedure. Please see the operative note for details. I discussed with patient the surgical technique completed during her surgical procedure. I had to disect the common digital nerves, it was noted that there was a neuroma in continuity in one of the branches. To confirm it was of the long finger the incision was extended distally and the proper digital branch of the long finger was dissected out and traced to the neuroma identified. I discussed that she will need to proceed with OT to help with ROM/nerve Gliding/desensitization. If she continues to have hypersensitivity/nerve pain may continue with her gabapentin. Plan: Follow up in one month Referral to OT for Nerve gliding/ROM-closer to home Pamela Faustin, have performed the documentation for this encounter in the presence of and acting as a scribe for DANNY DENNIS MD. documented in this encounter Plan of Treatment Upcoming Encounters Date Type Department Care Team (Late st Contact Info) Description 12/21/2023 3:15 PM EDT Office Visit Dermatology at [place] [address] [place] [phone] John Leon MD [address], [place] [address] Scheduled Referrals Name Type Priority Associated Diagnoses Order Schedule Referral to Occupational Therapy Outpatient Referral Routine Nerve injury Ordered: 08/06/2020 documented as of this encounter Visit Diagnoses Diagnosis Nerve injury Injury to nerves, unspecified site documented in this encounter Care Teams Kitchen Food Server Relationship Specialty Start Date End Date Ceci Issa MD [address] [place] [address] PCP - General 02/26/10 documented as of this encounter
--- OUTSIDE RECORDS SUMMARY | 2023-12-17 20:11 | XMS_ITS | Encounter Summary ---
Author Organization [facility] Address [address] [place] [address] Care Team Providers Care Cranberry Bog Supervisor Name Role Phone Ceci Issa MD Primary Care Provider [phone] Reason for Visit * Reason Comments Foot Pain left Encounter Details Date Type Department Care Team (Late st Contact Info) Description 12/10/2017 14:00 EDT Office Visit [facility] Foot & Ankle Program - [address] [phone] Beto Vega MD [address] [place] [address] Flexor hallucis longus tendinitis (Primary Dx) Social History Tobacco Use Types Packs/Day Years Used Date Smoking Tobacco: Never Smokeless Tobacco: Never Sex and Gender Information Value Date Recorded Sex Assigned at Not on file Gender Identity Not on file Sexual Orientation Not on file documented as of this encounter Progress Notes * Beto Vega MD - 12/10/2017 1400 EDT PROGRESS NOTE/FOLLOWUP NOTE Chief Complaint Patient presents with ??? Foot Pain left PROCEDURE: Left FHL tenosynovectomy, 10/29/17. SUBJECTIVE: Latisha Wei came in today in follow up of the above. She still has swelling and has not worn a regular shoe yet. Also the incision is somewhat sore, but overall she feels that thingsare going well. REVIEW OF SYSTEMS: Negative except for pertinent positives listed above. OBJECTIVE: Patient is in no acute distress. Left Foot: Skin: Well healed incision. Pulses: Nicely palpable. Sensation: Intact. Strength: Intact. Musculoskeletal: FHL motion is very improved. ASSESSMENT AND PLAN: Ms. Wei continues to have a good recovery. Her foot looks very good on exam and FHL motion is improved with no pain. gelsheet provided to help condition scar. Continue with her FHL stretches and working at gripping with her toes. Will keep previously scheduled appointment. IAbena, am scribing for Dr. Beto Vega, while he is personally performing the service. 12/10/2017 14:34 documented in this encounter Plan of Treatment Not on file documented as of this encounter Visit Diagnoses Diagnosis Flexor hallucis longus tendinitis- Primary Tenosynovitis of foot and ankle documented in this encounter Care Teams Cranberry Bog Supervisor Relationship Specialty Start Date End Date Ceci Issa MD [address] [place] [address] PCP - General 09/02/17 documented as of this encounter
--- OUTSIDE RECORDS SUMMARY | 2023-12-17 20:11 | XMS_ITS | Encounter Summary ---
Author Organization [facility] [place] [address] Care Team Providers Care Wood Processing Worker Name Role Phone Ceci Issa MD Primary Care Provider [phone] Reason for Visit * Auth/Cert Specialty Diagnoses / Procedures Referred By Stuart stone Referred To Contact Diagnoses finger injury Procedures PRO NERVE REPAIR W/NERVE ALLOGRAFT FIRST STRAND PRO GRAFTING OF AUTOLOGOUS SOFT TISS BY DIRECT EXCISION PRO REVISE MEDIAN N/CARPAL TUNNEL SURG NERVE REPAIR,W/ NERVE ALLOGRAFT,EA.NERVE,FIRST STRAND GRAFTING OF AUTOLOGOUS SOFT TISSUE, OTHER, HARVESTED BY DIRECT EXCISION (FAT, DERMIS, OR FASCIA) MEDIAN NERVE DECOMPRESSION (CARPAL TUNNEL RELEASE) (WRVU 4.97) Referral ID Status Reason Start Date Expiration Date Visits Re quested Visits Authorized [id number] 1 1 Encounter Details Date Type Department Care Team (Late st Contact Info) Description 07/27/2020 1:24 PM EDT Anesthesia Event [place] [phone] Annette Joseph MD [facility] [place] [address] Sarah Win CRNA [facility] [place] [address] Anesthesia Record Procedure Summary Procedure Name Responsible Anesthesiologist Anesthesia Start Time Anesthesia Stop Time NERVE REPAIR,W/ NERVE ALLOGRAFT,EA.NERVE, FIRST STRAND (WRVU 12) (Right: Wrist) Annette Joseph MD 07/27/20 1324 07/27/20 1512 Events Date Time Event Comment 07/27/2020 1250 1324 AN Verify 1324 Start 1327 An Start Data 1329 Masked Placed/ Pre O2 1329 ASA Monitors 1332 An Induction 1334 An Intubation 1338 Anesthesia Ready 1351 Skin Incision Local injected by surgeon 1351 An Tourn Inflated 250mmHg 1440 An Tourn Deflated Ttime 49 m in 1500 PACU Bed Splinting 1505 Extubation/LMA Out 1508 an stop data 1512 Recovery or ICU Handoff Natalia ent care was transferred to the destination unit staff after review of the patient's medical history, current anesthetic/surgical status and plan, according to the Provider Handoff Checklist. 1512 Stop Meds Name Total Propofol 300 mg Propofol INF 1,672.88 mg fentaNYL 200 mcg Midazolam 4 mg IV Lidocaine 60 mg Dexamethasone 8 mg Ondansetron 4 mg ceFAZolin 2 g PHENYLephrine 160 mcg Lactated Ringers 600 mL * Agents Name O2 Air N2O O2 Auxiliary Flowmeter 1 * Blood No blood administrations on file. Lines, Drains, and Airways Type Details Placement Removal Incision 07/27/20; 1352; Righ t; wrist 07/27/20 1352 by Shayla Mccray, RN (RETIRED) Peripheral IV Line - Single Lumen 07/27/20; 1256; metacarpal vein (top of hand), left; ewsj-ziz-qyphku catheter system; Anatomical Landmarks; 22 gauge; hardy; intradermal injection; 07/27/20; 1633 07/27/20 1256 by Capri Wlil RN 07/27/20 1633 by Nas Vega RN Supraglottic Mask Ventilation: No t Attempted (0); LMA Type: iGel; LMA Size: 4; Inserted by: ASHLEY; Removal Date: 07/27/20; Removal Time: 1505 07/27/20 1334 by Sarah Win CRNA 07/27/20 1505 by Sarah Win CRNA documented in this encounter Social History [...] OR Notes * Anesthesia Postprocedure Evaluation - Annette Joseph MD - 07/27/2020 3:19 PM EDT Department of Anesthesiology Post-procedure Note Patient: Latisha Wiggins Procedure Summary Date: 07/27/20 Room / Location: [facility] OR [facility] MAIN OR Anesthesia Start: 1324 Anesthesia Stop: 1512 Procedures: NERVE REPAIR,W/ NERVE ALLOGRAFT,EA.NERVE,FIRST STRAND (Right Wrist) GRAFTING OF AUTOLOGOUS SOFT TISSUE, OTHER, HARVESTED BY DIRECT EXCISION (FAT, DERMIS, OR FASCIA) (Abdomen) MEDIAN NERVE DECOMPRESSION (CARPAL TUNNEL RELEASE) (WRVU 4.97) (Right Wrist) Diagnosis: Nerve injury (finger injury) Surgeons: Danny Veliz MD Responsible Provider: Annette Joseph MD Anesthesia Type: general ASA Status: 2 All Anesthesia Providers: Anesthesiologist: Annette Joseph MD STACK CLERK: Sarah Win CRNA Vitals Value Taken Time BP 112/68 07/27/20 1515 Temp 36 ??C (96.8 ??F) 07/27/20 1513 Pulse 83 07/27/20 1519 Resp 18 07/27/20 1519 SpO2 95 % 07/27/20 1519 Pain Level Vitals shown include unvalidated device data. Patient Location: PACU/[facility] Level of Consciousness: Awake and Alert Pain Management: Satisfactory Analgesia PONV: None Cardiovascular Status: At Baseline and Hemodynamically Stable Respiratory Status: At Baseline and Room Air Postoperative Fluid Status: Intravascular EUvolemia Possible Anesthetic Complications: NONE apparent at time of evaluation Final Primary Anesthesia Type: General (The anesthetic type performed was the same as planned.) Comments: Annette Joseph MD * Anesthesia Preprocedure Evaluation - Annette Joseph MD - 07/27/2020 12:49 PM EDT Pre-Anesthesia Evaluation for: Latisha Wiggins a 54 y.o. female. Procedure(s): NERVE REPAIR,W/ NERVE ALLOGRAFT,EA.NERVE,FIRST STRAND GRAFTING OF AUTOLOGOUS SOFT TISSUE, OTHER, HARVESTED BY DIRECT EXCISION (FAT, DERMIS, OR FASCIA) MEDIAN NERVE DECOMPRESSION (CARPAL TUNNEL RELEASE) ([facility]) Patient Active Problem List Diagnosis ??? Nerve injury Added automatically from request for surgery [id number] ??? Left foot pain ??? Nevus ??? Tinea versicolor ??? Melasma History reviewed. No pertinent past medical history. History reviewed. No pertinent surgical history. Social History Tobacco Use ??? Smoking status: Never Smoker ??? Smokeless tobacco: Never Used Substance Use Topics ??? Alcohol use: Yes Comment: occasional Social History Substance and Sexual Activity Drug Use No Allergies Allergen Reactions ??? Oxycodone-Acetaminophen CIS - feeling of disorientation Medications: MAR and/or home medications have been reviewed. Physical Exam: Preprocedure Vitals Current as of 07/27/20 1249 BP: 136/77 Pulse: 76 Resp: 16 SpO2: 99 Temp: 36.9 ??C (98.4 ??F) Height: 165.1 cm (5' 5) (07/20/20) Weight: 112.5 kg (248 lb) (07/20/20) BMI: 41.26 IBW: 57 kg (125 lb 10.6 oz) Last edited 07/27/20 1207 by CS Airway Assessment: Mallampati: II TM distance: >3 FB Neck ROM: full Cardiovascular Assessment: Rhythm: regular Rate: normal system normal Pulmonary Assessment: unlabored breathing pulmonary exam normal Dental Assessment: Misc Assessment: IV access: Peripheral line Last Filed Perioperative Cognitive Screening None Anesthesia Plan: ASA 2 general, with a(n) intravenous induction 54 yo F with nerve injury present for nerve repair with nerve allograft. PMH: L foot pain Anes: LMA Region - Other Informed Consent: Anesthetic plan and risks discussed with patient. Plan discussed with STACK CLERK and attending. PAT Clinic Note documented in this encounter Plan of Treatment Upcoming Encounters Date Type Department Care Team (Late st Contact Info) Description 12/21/2023 3:15 PM EDT Office Visit Dermatology at [place] [address] [place] [address] John Leon MD [address], [place] [address] documented as of this encounter Visit Diagnoses Not on filedocumented in this encounter Administered Medications Inactive Administered Medications - up to 3 most recent administrations Medication Order MAR Action Action Date Dose Rate Site ceFAZolin (Ancef) 1 g in dextrose 5% 50 mL infusion Intravenous, PRN, Starting on Thu07/27/20 at 1338, Until Thu07/27/20 at 1514, Administer over 30 Minutes, Anesthesia Intra-op Given 07/27/2020 1:38 PM EDT 2 g dexamethasone (Decadron) injection Intravenous, PRN, Starting on Thu07/27/20 at 1337, Until Thu07/27/20 at 1514, Anesthesia Intra-op, Routine Given 07/27/2020 1:37 PM EDT 8 mg fentaNYL (pf) (50 mcg/mL) multi-dose injection Intravenous, PRN, Starting on Thu07/27/20 at 1332, Until Thu07/27/20 at 1514, Anesthesia Intra-op, Routine Given 07/27/2020 3:01 PM EDT 25 mcg Given 07/27/2020 2:55 PM EDT 25 mcg Given 07/27/2020 2:11 PM EDT 50 mcg lactated ringers infusion Intravenous, CONTINUOUS PRN, Starting on Thu07/27/20 at 1300, Until Thu07/27/20 at 1514, Anesthesia Intra-op New Bag 07/27/2020 1:00 PM EDT lidocaine (pf) (Xylocaine) (20 mg/mL) 2% injection syringe Intravenous, PRN, Starting on Thu07/27/20 at 1332, Until Thu07/27/20 at 1514, Anesthesia Intra-op, Routine Given 07/27/2020 1:32 PM EDT 60 mg midazolam (pf) (Versed) (1 mg/mL) multi-dose injection Intravenous, PRN, Starting on Thu07/27/20 at 1324, Until Thu07/27/20 at 1514, Anesthesia Intra-op, Routine Given 07/27/2020 1:24 PM EDT 2 mg Given 07/27/2020 1:11 PM EDT 2 mg ondansetron (pf) (Zofran) (2 mg/mL) injection Intravenous, PRN, Starting on Thu07/27/20 at 1337, Until Thu07/27/20 at 1514, Anesthesia Intra-op, Routine Given 07/27/2020 1:37 PM EDT 4 mg PHENYLephrine in NS (PF) (DARELL-SYNEPHRINE) 0.8 mg/10 mL (80 mcg/mL) multi-dose injection Syrg Intravenous, PRN, Starting on Thu07/27/20 at 1427, Until Thu07/27/20 at 1514, Anesthesia Intra-op, Routine Given 07/27/2020 2:52 PM EDT 80 mcg Given 07/27/2020 2:27 PM EDT 80 mcg propofoL (Diprivan) 10 mg/mL bolus injection (Anesthesia) Intravenous, PRN, Starting on Thu07/27/20 at 1332, Until Thu07/27/20 at 1514, Anesthesia Intra-op Given 07/27/2020 2:55 PM EDT 50 mg Given 07/27/2020 1:54 PM EDT 50 mg Given 07/27/2020 1:32 PM EDT 200 mg propofoL (Diprivan) infusion Intravenous, CONTINUOUS PRN, Starting on Thu07/27/20 at 1333, Until Thu07/27/20 at 1514, Anesthesia Intra-op, Routine Rate/Dose Change 07/27/2020 2:47 PM EDT 125 mcg/kg/min 84.375 mL/hr Rate/Dose Change 07/27/2020 2:41 PM EDT 150 mcg/kg/min 101 .25 mL/hr Rate/Dose Change 07/27/2020 2:27 PM EDT 180 mcg/kg/min 121 .5 mL/hr documented in this encounter Care Teams Wood Processing Worker Relationship Specialty Start Date End Date Ceci Issa MD [address] [place] [address] PCP - General 02/26/10 documented as of this encounter
--- OUTSIDE RECORDS SUMMARY | 2023-12-17 20:11 | XMS_ITS | Encounter Summary ---
Author Organization [facility] Address [address] [place] [address] Care Team Providers Care Certified Surgical Tech/First Assistant Name Role Phone Ceci Issa MD Primary Care Provider [phone] Encounter Details Date Type Department Care Team (Late st Contact Info) Description 01/10/2019 Results Only [facility] [phone] Julito Gonzalez MD [address] [place] [address] [id number] Social History Tobacco Use Types Packs/Day Years [...] Date/Time Associated Diagnosis Comments SURGICAL PATHOLOGY Routine 01/10/2019 22 :50 EDT documented in this encounter Results * SURGICAL PATHOLOGY (01/10/2019 22:50 EDT) Pathology Report: SURGICAL PATHOLOGY REPORT Reports generated via electronic interface contain original data; however they are lacking the format of the original report. Caution should be taken when reading/interpret ing unformatted reports. Name: ? ALEX VICENTE ? Accession #: ? [id number] ? : ? 1965 (Age: 53) ??F ? Collect Date: ? 01/10/2019 ? Location: ? [facility] ? Receive Date: ? 01/10/2019 ? Provider: JULITO GONZALEZ MD Copy to: CECI ISSA MD ? Final Pathologic Diagnosis: A. COLON, TRANSVERSE, POLYPS, BIOPSY: - ??Fragments of tubular adenomas. B. COLON, SIGMOID, POLYP, BIOPSY: - ??Fragments of hyperplastic polyp with features of mucosal prolapse. - ??Additional findings suggestive of angiodysplasia. ?? Document reviewed and electronically signed by: JUAN ANTONIO ENWMAN MD Report ??Date: 01/14/2019 14:18 By the signature above, the attending physician certifies that he/she has personally conducted a gross and/or microscopic examination of the described specimens and rendered or confirmed the above diagnosis. Specimen(s) Received: A. ??Transverse colon polyps x2 B. ??Sigmoid polyp Clinical History: Colon cancer screening Gross Description: A. ?Received in formalin labelled with proper patient identification (initials L, D) and transverse colon polyp are five goss-white tissues (0.1 x 0.1 x 0.1 cm to 0.3 x 0.2 x 0.1 cm). Entirely submitted in A1 and A2. B. ?Received in formalin labelled with proper patient identification (initials L, D) and sigmoid polyp is a single goss-brown tissue fragment (0.3 x 0.2 x 0.1 cm). Submitted intact in B1. Analy Maher 01/11/2019 8:31 AM End of Report [facility] 01/10/2019 22:5 0 EDT 01/10/2019 22:50 EDT Julito Gonzalez MD PATHOLOGY ORDERA BLES [facility] [address] [place] [address] documented in this encounter Visit Diagnoses Not on filedocumented in this encounter Care Teams Certified Surgical Tech/First Assistant Relationship Specialty Start Date End Date Ceci Issa MD [address] [place] [address] PCP - General 09/02/17 documented as of this encounter
--- OUTSIDE RECORDS SUMMARY | 2023-12-17 20:11 | XMS_ITS | Encounter Summary ---
Author Organization [facility] Address [facility] [place] [address] Care Team Providers Care Fire Investigator Name Role Phone Ceci Issa MD Primary Care Provider [phone] Reason for Visit * Occupational Therapy (Routine) - Specialty Diagnoses / Procedures Referred By Stuart stone Referred To Contact Diagnoses Nerve injury Danny Veliz MD [facility] [place] [address] Referral ID Status Reason Start Date Expiration Date V isits Requested Visits Authorized [id number] Evaluate and Treat 08/06/2020 02/02/2021 12 12 Encounter Details Date Type Department Care Team (Late st Contact Info) Description 08/31/2020 1:30 PM EDT Office Visit Occupational Therapy at [facility] [address] [place] [address] Nicko Tomas, OT [facility] PHYSICAL MEDICINE & [place] [address] Nerve injury Social History Tobacco Use Types [...] - Therapy - Nicko Tomas, OT - 08/31/2020 1:30 PM EDT OCCUPATIONAL THERAPY TREATMENT NOTE Referral Source: Dr. Nuno Welch MD Follow-up: 09/10/20 Total Treatment time: 35 Minutes Timed Code Treatment Time: 35 minutes OCCUPATIONAL PROFILE: Latisha Wiggins is a 54 y.o. year old Right hand dominant female who had an initial right hand carpal tunnel release in 09/2018, following this surgery she had electrical feelings very intense to the middle finger, therefore she had a return surgical exploration with removalof scar tissue in 02/2019 , eventually she was referred to Dr. 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 Avocational Activities: 2 [...] 75/64 45/44 0 Treatment Today: Therex: Strength/Endurance/ROM (55528) 20 min Orthosis - Wrist-Hand Orthotic, W/O Jts, Incs Fit & Adj (L3906) Educated patient in etiology and biomechanics as related to the patient's symptoms Instructed patient in: Rest and activity modification, Appropriate pacing and how to safely return to normal activities, and Protocol related to current diagnosis Fabricated wrist cock up orthosis with block at MP joints as well for night time to assist with stretching palm in more open posture - hand is posturing with cupping resting posture and difficulty toopen palm and fingers. Additionally fabricated orthosis over the gel pad for the incision to help hold and place and fit properly. STM to volar wrist/palmar incision, and mild suture trim/removal Performed the following: ?? Passive and active wrist flex/ext ?? Intrinsic stretch digits 2-5 ?? Flexor tendon glides ?? Gentle finger extension stretch with hand flat on table (addition of table drags for digit extension) ?? Wrist extension stretch (prayer/table top/wall) full finger compression glove gel pad to place along scar and [...] MAKING: Latisha Wiggins is improving nicely with gains noted today with wrist range of motion and fingers back to full DPC. She has scar tissue build up and the hand wants to posture in a cupping palm position. Fabricated orthosis with gel pad for night time today. She reports numbness at the middle and ring fingers. She is using the hand more functionally. She has a gap of wrist extension which was addressed with stretching today. She did report hypersensitivity to cold air on her hand. 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 (to be met by discharge): Date [...] 4-6 week(s) to progress toward short and exterminator termite goals, Soft tissue mobilization as therapeutically necessary [...] 3:15 PM EDT Office Visit Dermatology at [address] [phone] John Leon MD [address], [place] [address] documented as of this encounter Visit Diagnoses Diagnosis Nerve injury Injury to nerves, unspecified site documented in this encounter Care Teams Fire Investigator Relationship Specialty Start Date End Date Ceci Issa MD [address] [place] [address] PCP - General 02/26/10 documented as of this encounter
--- OUTSIDE RECORDS SUMMARY | 2023-12-17 20:11 | XMS_ITS | Encounter Summary ---
Author Organization [facility] Address [facility] [place] [address] Care Team Providers Care Workday Manager Name Role Phone Ceci Issa MD Primary Care Provider [phone] Reason for Visit * Occupational Therapy (Routine) - Specialty Diagnoses / Procedures Referred By Stuart stone Referred To Contact Diagnoses Nerve injury Danny Veliz MD [facility] [place] [address] Referral ID Status Reason Start Date Expiration Date V isits Requested Visits Authorized [id number] Evaluate and Treat 08/06/2020 02/02/2021 12 12 Encounter Details Date Type Department Care Team (Late st Contact Info) Description 08/20/2020 3:30 PM EDT Office Visit Occupational Therapy at [facility] [address] [place] [address] Leisa Heredia, OT Nerve injury Social History Tobacco Use Types [...] Miscellaneous Notes * Treatment - Therapy - Leisa Heredia OT - 08/20/2020 3:30 PM EDT OCCUPATIONAL THERAPY TREATMENT NOTE Referral Source: Dr. Nuno Welch MD Follow-up: 09/10/20 Total Treatment time: 30 Minutes Timed Code Treatment Time: 30 minutes OCCUPATIONAL PROFILE: Latisha Wiggins is a 54 y.o. year old Right hand dominant female who had an initial right hand carpal tunnel release in 09/2018, following this surgery she had electrical feelings very intense to the middle finger, therefore she had a return surgical exploration with removalof scar tissue in 02/2019 , eventually she was referred to Dr. 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 Passive and active wrist flex/ext ?? Intrinsic stretch digits 2-5 ?? Flexor tendon glides ?? Gentle finger extension stretch with hand flat on table (addition of table drags for digit extension) ?? Gripping with pink foam block Provided with new full finger compression glove, as previous size was loose and falling off at night Provided with gel pad to place along scar and underneath compression glove at night, for scar management Reviewed with home exercise program to include flexor tendon glides, wrist flexion/extension and radial and ulnar deviation, intrinsic finger stretch, active place and hold composite flexion, finger extension stretch, gripping with foam block, scar massage and compression glove, see scanned documents Instructed in home modalities to include: Moist heat and Compression garment use CLINICAL DECISION MAKING: Latisha Wiggins has post op hand/finger/wrist stiffness causing functional deficits in ADL/IADL performance. She tolerated all tasks with no complaints of pain, and she has improving stiffness since last session as noted by ability to touch palm with composite flexion of all digits. She remains limited with active and passive extension of all digits as well. Her scar is firm with limited mobility and will benefit from gel pad use at night. She continues to have one area of tenderness in distal portion. Latisha Wiggins is able to demonstrate home exercises with written instructions provided. Latisha Wiggins has good potential for gains with therapy with iden tified needs for skilled therapy for treatment of deficits noted during evaluation today, to maximize functional performance during daily activities. 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 (to be met by discharge): Date [...] 4-6 week(s) to progress toward short and jail goals, Soft tissue mobilization as therapeutically necessary [...] 3:15 PM EDT Office Visit Dermatology at [place] [address] [place] [address] John Leon MD [address], [place] [address] Scheduled Referrals Name Type Priority Associated Diagnoses Order Schedule Referral to Occupational Therapy Outpatient Referral Routine Nerve injury Ordered: 08/06/2020 documented as of this encounter Visit Diagnoses Diagnosis Nerve injury Injury to nerves, unspecified site documented in this encounter Care Teams Workday Manager Relationship Specialty Start Date End Date Ceci Issa MD [address] [place] [address] PCP - General 02/26/10 documented as of this encounter
--- OUTSIDE RECORDS SUMMARY | 2023-12-17 20:11 | XMS_ITS | Encounter Summary ---
Author Organization [facility] Address [address] [place] [address] Care Team Providers Care Stroboroma Operator Name Role Phone Unavailable Primary Care Provider Unavailabl e Encounter Details Date Type Department Care Team (Late st Contact Info) Description 03/08/2007 Results Only [facility] - [facility] conversion [address] [place] [address] Cassandra Sánchez, [address] [address] Social History Tobacco Use Types Packs/Day Years Used Date Smoking Tobacco: Never Assessed Sex and Gender Information Value Date Recorded Sex Assigned at Not on file Gender Identity Not on file Sexual Orientation Not on file documented as of this encounter Plan of Treatment Not on file documented as of this encounter Procedures Procedure Name Priority Date/Time Associated Diagnosis Comments CYTOPATHOLOGY Routine 03/08/2007 0:00 EST documented in this encounter Results * CYTOPATHOLOGY (03/08/2007 0:00 EST) Pathology Report: CYTOPATHOLOGY REPORT Reports generated via electronic interface contain original data; however they are lacking the format of the original report. Caution should be taken when reading/interpreti ng unformatted reports. Name: ? ALEX VICENTE ? Accession #: ? [id number] : ? 1965 (Age: 41) ??F ?Collect Date: ? 03/08/2007 Location: ? [facility] ? Receive Date: ? 03/09/2007 Provider: ?CASSANDRA SÁNCHEZ BACK HAND Copy to: ? Specimen/Source: ?ThinPrep Pap Test, Vagina, processed on XenSourcePrep Imaging System, with manual evaluation Last Menstrual Period: ? Previous Gynecologic Pathology: ? ASC-US: Benign cellular changes: Treatment History: ? Hysterectomy: 02/04 Other: ? HPVA - HPV testing requested if ASC-US on the current ThinPrep Pap test. ? SPECIMEN ADEQUACY ? Satisfactory for Evaluation - assessment of transformation zone component not applicable ( e.g. atrophy, vaginal sample, hysterectomy) GENERAL CATEGORIZATION ? Negative for Intraepithelial Lesion or Malignancy INTERPRETATION ? Reactive cellular changes associated with inflammation present (includes repair). ? Document reviewed and electronically signed by: ? MARLINE ALLISON MD ? Report Date: ??03/13/2007 14:27 End of Report [facility] WHITNEY 03/08/2007 03/09/2007 Cassandra Sánchez BACK HAND PATHOLOGY ORDERABLES RAQUEL WHINTEY [address] [place] [address] documented in this encounter Visit Diagnoses Not on filedocumented in this encounter
--- OUTSIDE RECORDS SUMMARY | 2023-12-17 20:11 | XMS_ITS | Encounter Summary ---
Author Organization [facility] [place] [address] Care Team Providers Care Metal Checker Name Role Phone Ceci Issa MD Primary Care Provider [phone] Encounter Details Date Type Department Care Team (Latest Contact Info) Description 03/17/2017 - 03/17/2017 11:59 PM EST Hospital Encounter [place] [phone] Jay Jay Barry MD [facility] [place] [address] Discharge Disposition: Home Social History Tobacco Use [...] 10/22/2016 fluocinonide (LIDEX) 0.05 % Ointment 09/14/2015 buPROPion (WELLBUTRIN SR OR ZYBAN) 150 mg Tablet Sustained Release 12 hr 01/22/2017 12/18/2022 ketorolac (TORADOL) 10 mg Tablet 10/21/2016 12/02/2018 [...] 3:15 PM EDT Office Visit Dermatology at [place] [address] [place] [address] John Leon MD [address], [place] [address] documented as of this encounter Procedures Procedure Name Priority Date/Time Associated Diagnosis Comments FILM LIBRARY STORAGE ONLY CT LOWER EXTREMITY Routine 03/17/2017 12:00 AM EST documented in this encounter Results * Film Library- Storage Only CT Lower Extremity (03/17/2017 12:00 AM EST) Narrative [facility] - 03/20/2017 11:43 AM EST This exam is for storage only and is auto-finalizing. Jay Jay Barry MD IMG FILM LIBRARY ORD ERABLES [place], [place] documented in this encounter Visit Diagnoses Not on filedocumented in this encounter Care Teams Metal Checker Relationship Specialty Start Date End Date Ceci Issa MD [address] [place] [address] PCP - General 02/26/10 documented as of this encounter
--- OUTSIDE RECORDS SUMMARY | 2023-12-17 20:11 | XMS_ITS | Encounter Summary ---
Author Organization [facility] Address [address] [place] [address] Care Team Providers Care Back Hoe Machine Operator Name Role Phone Ceci Issa MD Primary Care Provider [phone] Encounter Details Date Type Department Care Team (Late st Contact Info) Description 12/03/2020 Lab Requisition [facility] Pathology & Laboratory Medicine - [facility] [address], [place] [address] Outr Resulting Lab, Provider Social History Tobacco Use Types Packs/Day Years Used Date Smoking Tobacco: Never Assessed Interpersonal Safety Answer Date Record ed Physically Hurt Never 11/06/2019 Verbally Threaten Not on file 11/06/2019 Sex and Gender Information Value Date Recorded Sex Assigned at Not on file Gender Identity Not on file Sexual Orientation Not on file documented as of this encounter Plan of Treatment Not on file documented as of this encounter Procedures Procedure Name Priority Date/Time Associated Diagnosis Comments ZZCOVID-19 TEST [facility] PCR Today 12/03/2020 9:39 EDT COVID-19 TESTING Routine 12/03/2020 9:39 EDT documented in this encounter Results * COVID-19 TEST [facility] PCR (12/03/2020 9:39 EDT) Swab ENTIRE NASOPHARYNX / Unknown 12/03/2020 9:39 EDT 12/03/2020 21:40 EDT Provider Outr Resulting Lab MICROBIOLOGY - GENERAL ORDERABLES Performing Organization Address City/State/[facility] Co de Phone Number [facility] [address] [place] [address] * COVID-19 TESTING (12/03/2020 9:39 EDT) COVID-19 rt-PCR Result Negative Negative 12/04/2020 17:52 EDT [facility] Comment: This test has not been FDA cleared or approved. This test has been authorized by FDA under an EUA for use by authorized laboratories. This test has been authorized only for detection of nucleic acid from 2019-nCoV, not for any other viruses or pathogens. This test is only authorized for the duration of the declaration that circumstances exist justifying the authorization of emergency use of in vitro diagnostic tests for detection and/or diagnosis of 2019-nCoV under section 564(b)(1) of Act, 21 U.S.C ?? 360bbb-3(b) (1), unless the authorization is terminated or revoked sooner. Negative results do not preclude 2019-nCoV infection and should not be used as the sole basis for treatment or other patient management decisions. Negative results must be combined with clinical observations, patient history, and epidemiological information. Testing was performed using the raheel SARS-CoV-2 assay ([employer] on the Raheel 6800 System Performing Lab Raheel [address] [facility] 12/04/2020 17:52 EDT [facility] Swab 12/03/2020 9:39 EDT 12/03/2020 21:40 EDT Provider Outr Resulting Lab MICROBIOLOGY - GENERAL ORDERABLES [facility] [address] [place] [address] documented in this encounter Visit Diagnoses Not on filedocumented in this encounter Care Teams Back Hoe Machine Operator Relationship Specialty Start Date End Date Ceci Issa MD [address] [place] [address] PCP - General 09/02/17 documented as of this encounter
--- OUTSIDE RECORDS SUMMARY | 2023-12-17 20:11 | XMS_ITS | Encounter Summary ---
Author Organization [facility] Address [address] [place] [address] Care Team Providers Care Beater Room Supervisor Name Role Phone Unavailable Primary Care Provider Unavailabl e Encounter Details Date Type Department Care Team (Late st Contact Info) Description 09/30/2000 Results Only [facility] - Maple conversion [address] [place] [address] Sanket Tomlin MD [address] [place], [place] [id number] Social History Tobacco Use Types Packs/Day Years Used Date Smoking Tobacco: Never Assessed Sex and Gender Information Value Date Recorded Sex Assigned at Not on file Gender Identity Not on file Sexual Orientation Not on file documented as of this encounter Plan of Treatment Not on file documented as of this encounter Procedures Procedure Name Priority Date/Time Associated Diagnosis Comments SURGICAL PATHOLOGY Routine 09/30/2000 0:00 EDT documented in this encounter Results * SURGICAL PATHOLOGY (09/30/2000 0:00 EDT) Pathology Report: SURGICAL PATHOLOGY REPORT Reports generated via electronic interface contain original data; however they are lacking the format of the original report. Caution should be taken when reading/interpreti ng unformatted reports. Name: ? ALEX VICENTE ? Accession #: ? [id number] ? : ? 1965 (Age: 34) ??F ? Collect Date: ? 09/30/2000 ? Location: ? [facility] ? Receive Date: ? 10/01/2000 ? Provider: SANKET TOMLIN MD Copy to: KOBY ADAMES MD ? Final Pathologic Diagnosis: A. ?Endometrium, curettage: 1. ?Fragments of secretory endometrium with chronic endometritis. B. ?Pelvic sidewall, right, biopsy: 1. ?Benign fibrovascular connective tissue and benign adipose tissue. See comment. C. ?Cul-de-sac, biopsy: 1. ?Benign fibrovascular connective tissue and benign adipose tissue. See comment. D. ?Pelvic sidewall, biopsy: 1. ?Endosalpingiosis . ??See comment. Comment: ? There is no evidence of endometrial glands or stroma in any of the sections examined from these three peritoneal biopsies. ??(Dr. Urias)/[facility] Document reviewed and electronically signed by: Noemy Ruiz MD Report ??Date: 10/05/2000 18:54 By the signature above, the attending physician certifies that he/she has personally conducted a gross and/or microscopic examination of the described specimens and rendered or confirmed the above diagnosis. Specimen(s) Received: A. ?Endometrial curettings (#1) B. ?Right pelvic sidewall (#2) C. ?Cul-de-sac (#3) D. ?Left pelvic sidewall (#4) Clinical History: ? Endometrioma Gross Description: ? Received in formalin labelled Lambert and #1 endometrial curettings is a small amount of goss-white to goss-brown mucoid material that measures in aggregate 1.0 x 0.8 x 0.5 cm. ??Submitted entirely as (A1) and (A2). Received in formalin labelled Lambert and #2 right pelvic sidewall is a goss-white to goss-pink irregularly shaped fragment of soft tissue that measures 1.6 x 0.5 x 0.2 cm. ??Submitted entirely as (B). Received in formalin labelled Lambert and #3 cul-de-sac is a goss-yellow roughly circular fragment of soft tissue that measures 0.7 x 0.8 x 0.2 cm. ??It is submitted entirely as (C). Received in formalin labelled Lambert and #4 left pelvic sidewall are two goss-white to goss-pink fibromembranous irregularly shaped fragments of soft tissue that measure 1.5 x 0.2 x 0.2 cm and 3.5 x 1.9 x 0.4 cm. ??The smaller piece is submitted entirely as (D1), and the larger piece is submitted entirely as (D2) and (D3). ??(Dr. Ramos-KANE)/[facility] End of Report [facility]QU[facility] WHITNEY 09/30/2000 10/01/2000 15: 32 EDT Sanket Tomlin MD PATHOLOGY ORDERABLES Performing Organization Address City/State/[facility] Co de Phone Number [facility] [address] [place] [address] documented in this encounter Visit Diagnoses Not on filedocumented in this encounter
--- OUTSIDE RECORDS SUMMARY | 2023-12-17 20:11 | XMS_ITS | Encounter Summary ---
[place] [address] Care Team Providers Care Exhaust Worker Name Role Phone Ceci Issa MD Primary Care Provider [phone] Reason for Visit * Reason Comments Skin Check Encounter Details Date Type Department Care Team (Late st Contact Info) Description 10/28/2016 11:30 AM EDT Office Visit Dermatology at [address] [phone] John Leon MD [address] [place] [address], [facility] [place] [address] Nevus; Melasma; Tinea versicolor Social History Tobacco Use Types Packs/Day Years Used Date Smoking Tobacco: Never Sex and Gender Information Value Date Recorded Sex Assigned at Not on file Gender Identity Not on file Sexual Orientation Not on file documented as of this encounter Progress Notes * John Leon MD - 10/28/2016 11:30 AM EDT PROBLEM: 1. Yearly skin checkup. 2. History of tinea versicolor. 3. History of melasma. Latisha follows up and is now 50. She just got back from vacation in [place], and had a wonderful week. Her melasma had responded nicely last year to the hydroquinone 4% cream which she still has plenty of. She is noticing it is starting to come back a little bit now this summer as well, although not too bad yet. She is keeping an eye on a pigmented area on her left shoulder, but has not noted any particular lesions of concern otherwise. She has noticed some spots lying somewhat vertically over the paraspinous back. Physical examination reveals just mild melasma starting again on the lateral cheeks bilaterally. She is moderately tanned. Fortunately careful examination of the face and the neck, the chest, the back, shoulders, hands, arms, forearms, thighs and calves, feet is benign. She does have 6 or 7 dime- to jorden-sized erythematous patches which are slightly papulosquamous and consistent with tinea versicolor aligning themselves over her central back vertically. A/P: Benign nevi. a. Patient reassured about benign skin examination. b. No lesions of concern noted. Continue sun avoidance precautions. Recommend I see her on a once-yearly basis. 2. Melasma. a. Patient is aware that she must protect herself from the sun and use sunscreen to prevent this. b. She does have hydroquinone which she can use, the 4% cream, b.i.d. to try and treat and fade it again. 3. Tinea versicolor. a. This has been quiescent for some time, but now again active. b. In the past we had used selenium sulfide 2.5% lotion, but this was a bit too strong for her. She had then used Selsun Blue and this was quite effective. Recommend that she again use Selsun Blue shampoo on a once-daily basis, applying to her chest and back but allowing it to sit for 2 or 3 minutes before rinsing off. After once-daily applications for a week, then just apply once weekly thereafter. Return to clinic here will be in another year for repeat check. cc: Ceci Issa MD documented in this encounter Plan of Treatment Upcoming Encounters Date Type Department Care Team (Late st Contact Info) Description 12/21/2023 3:15 PM EDT Office Visit Dermatology at [address] [phone] John Leon MD [address], [place] [address] documented as of this encounter Visit Diagnoses Diagnosis Nevus Benign neoplasm of skin, site unspecified Melasma Other dyschromia Tinea versicolor Pityriasis versicolor documented in this encounter Care Teams Exhaust Worker Relationship Specialty Start Date End Date Ceci Issa MD [address] [place] [address] PCP - General 02/26/10 documented as of this encounter
--- OUTSIDE RECORDS SUMMARY | 2023-12-17 20:11 | XMS_ITS | Encounter Summary ---
Author Organization [facility] Address [facility] [place] [address] Care Team Providers Care Numerical Control Operator Name Role Phone Ceci Issa MD Primary Care Provider [phone] Reason for Visit * Auth/Cert Specialty Diagnoses [...] Expiration Date Visits Re quested Visits Authorized [id number] 1 1 Encounter Details Date Type Department Care Team (Latest Contact Info) Description 07/27/2020 9:57 AM EDT - 07/27/2020 4:35 PM EDT Hospital [place] [phone] Danny Dennis MD [facility] [place] [address] Nerve injury; Nerve injury Discharge Disposition: Home Social History [...] Sign Reading Time Taken Comments Blood Pressure 131/69 07/27/2020 4:15 PM EDT Pulse 79 07/27/2020 4:15 PM EDT Temperature 36 ??C (96.8 ??F) 07/27/2020 3:13 PM EDT Respiratory Rate 18 07/27/2020 4:15 PM EDT Oxygen Saturation 94% 07/27/2020 4:15 PM EDT Inhaled Oxygen Concentration - - Weight - - Height - - Body Mass Index - - documented in this encounter Discharge Instructions * Discharge Instructions* Nas Vega II, RN - 07/27/2020 3:32 PM EDT Next dose of acetaminophen (tylenol) can be taken at . Next dose of ibuprofen (motrin) can be taken at . * Patient Instructions* Dameon Lyle MD - 07/27/2020 3:22 PM EDT Hand Discharge Instructions Keep dressing on until seen in clinic. Keep hand elevated on pillow at night. Ok to shower, but put a bag over your hand and the dressing to keep dry until clinic. Do not submerge your incision in water until your follow-up appointment. Take Ibuprofen (Motrin, Advil) and acetaminophen (Tylenol) around the clock for pain relief. Take narcotic pain medication as needed for breakthrough pain. Maximum dose of acetaminophen is 4000mg perday. You may move your fingers but do not use your hand. Continue your home medications. You do not need antibiotics. Call our office if: ??? Fingers /orand hand are white, numb or cold. ??? You have signs of infection o A temperature over 100.4 F. o Redness of the incision lines that is beginning to spread away from the incision. o Yellow pus-like or foul smelling drainage from the incision or drain site. o Increase pain/discomfort that is not relieved by your pain medication. You will have an appointment to have your sutures removed in 14 days. To make an appointment or forquestions about scheduling, please contact our administrative offices at [phone] Future Appointments Date Time Provider Department Center 12/06/2020 3:45 PM John Leon MD [facility] For clinical questions, please call our nurses at [phone] You will have a postoperative follow-up appointment scheduled in roughly 2 weeks. You will be contacted from the Plastic Surgery clinic on further details on the date and time of your appointment. Both offices are open Thursday thru Thursday 8a - 5p. With emergencies after hours, call the hospital dump motor operator at [phone] and ask for the Plastic Surgery Resident hematologist oncologist. documented in this encounter Medications at Time of Discharge Medication Sig Dispensed Refills Start Date End Date ibuprofen (ADVIL;MOTRIN) 600 mg Tablet TAKE ONE TABLET BY MOUTH THREE TIMES A DAY NEEDED 3 11/17/2018 SYMBICORT 80-4.5 mcg/actuation HFA Aerosol Inhaler INHALE TWO PUFFS BY MOUTH ONCE OR TWICE A DAY 3 10/22/2016 fluticasone (FLONASE) 50 mcg/actuation [place], Suspension 03/31/2017 fluocinonide (LIDEX) 0.05 % Ointment 09/14/2015 traMADoL (Ultram) 50 mg Tablet Take 1 tablet by mouth every 6 hours as needed for Pain. 15 tablet 07/27/2020 05/24/2021 gabapentin (Neurontin) 100 mg Capsule Take 1 capsule by mouth 3 times daily for 30 days. 90 capsule 07/20/2020 08/19/2020 acetaminophen-codeine (Tylenol #3) 300-30 mg Tablet TAKE 1 TO 2 TABLETS BY MOUTH EVERY 4 HOURS FOR PAIN 08/17/2019 02/10/2022 amoxicillin-clavulanat e (Augmentin) 875-125 mg Tablet TAKE ONE TABLET BY MOUTH TWICE A DAY FOR TEN DAYS 08/22/2019 08/06/2020 clindamycin (Cleocin) 150 mg Capsule TAKE TWO CAPSULES BY MOUTH THREE TIMES A DAY UNTIL FINISHED 08/17/2019 08/06/2020 naproxen (NAPROSYN) 500 mg Tablet TAKE ONE TABLET BY MOUTH TWICE A DAY NEEDED FOR PAIN 08/24/2019 11/08/2020 ondansetron ODT (Zofran-ODT) 4 mg Tablet, Rapid Dissolve DISSOLVE ONE TABLET ON TONGUE THREE TIMES A DAY NEEDED FOR FOR NAUSEA AND VOMITING 08/24/2019 08/06/2020 penicillin v potassium (VEETID) 500 mg Tablet TAKE ONE TABLET BY MOUTH FOUR TIMES A DAY UNTIL GONE 08/10/2019 08/06/2020 hydroquinone 4 % Cream Apply twice daily in the winter to fade melasma 28.35 g 12/05/2019 11/08/2020 polymyxin B sulf-trimethoprim (POLYTRIM) Drops INSTILL ONE DROP INTO AFFECTED EYE FOUR TIMES A DAY FOR 5 DAYS 1 08/03/2018 08/06/2020 buPROPion (WELLBUTRIN SR OR ZYBAN) 150 mg Tablet Sustained Release 12 hr 01/22/2017 12/18/2022 ADDERALL XR 30 mg Capsule, Sust. Release 24 hr TAKE ONE CAPSULE BY MOUTH EVERY DAY 0 09/20/2015 02/10/2022 fluconazole (DIFLUCAN) 100 mg Tablet 09/14/2015 12/16/2021 documented as of this encounter Progress Notes * Nas Vega II, RN - 07/27/2020 4:34 PM EDT Patient alert and oriented, vital signs stable. Reviewed discharge instructions; patient and (he) verbalized understanding. Copy of instruction sheet with contact numbers for questions/concerns. Pain assessment documented. Patient escorted out of department via wheelchair with nursing staff. documented in this encounter H&P Notes * Dameon Lyle MD - 07/27/2020 1:01 PM EDT Patient Name: Latisha Wiggins Patient Age: 54 y.o. Birthdate: 1965 Admit date: 07/27/2020 Attending Physician: Danny Dennis MD Plastic Surgery Preoperative H&P: Patient Name: Latisha Wiggins Patient : 1965 Today's Date: 07/27/2020 Latisha Wiggins is a 54 y.o. female with right long finger numbness after previous carpal tunnelsurgery who presents today for common digital nerve exploration with possible repair and possible autologous fat grafting. No changes since last seen. History reviewed. No pertinent past medical history. History reviewed. No pertinent surgical history. History reviewed. No pertinent family history. Social History Socioeconomic History ??? Marital status: Spouse name: Not on file ??? Number of children: Not on file ??? Years of education: Not on file ??? Highest education level: Not on file Occupational History ??? Not on file Tobacco Use ??? Smoking status: Never Smoker ??? Smokeless tobacco: Never Used Substance and Sexual Activity ??? Alcohol use: Yes Comment: occasional ??? Drug use: No ??? Sexual activity: Not on file Other Topics Concern ??? Not on file Social History Narrative ??? Not on file Social Determinants of Health Financial Resource Strain: ??? Difficulty of Paying Living Expenses: Food Insecurity: ??? Worried About Running Out of Food in the Last Year: ??? Ran Out of Food in the Last Year: Transportation Needs: ??? Lack of Transportation (Medical): ??? Lack of Transportation (Non-Medical): Physical Activity: ??? Days of Exercise per Week: ??? Minutes of Exercise per Session: Stress: ??? Feeling of Stress : Social Connections: ??? Frequency of Communication with Friends and Family: ??? Frequency of Social Gatherings with Friends and Family: ??? Attends Sabianist Services: ??? Active Member of Clubs or Organizations: ??? Attends Club or Organization Meetings: ??? Marital Status: Intimate Partner Violence: ??? Fear of Current or Ex-Partner: ??? Emotionally Abused: ??? Physically Abused: ??? Sexually Abused: Allergies Allergen Reactions ??? Oxycodone-Acetaminophen CIS - feeling of disorientation Review of systems: As per HPI, otherwise non-contributory. Exam: General: NAD Resp: CTAB CV: normal rate, regular rhythm A/P: Latisha Wiggins is a 54 y.o. female with right long finger numbness after previous carpal tunnel surgery who presents today for common digital nerve exploration with possible repair and possible autologous fat grafting. No changes since last seen. - Proceed to OR. The risks, benefits and indications were reviewed with the patient and there remains an indication for surgery. Consent signed. - Preoperative abx ordered - Surgical site marked Dameon Lyle MD Plastic Surgery Resident documented in this encounter Miscellaneous Notes * Brief Op Note - Dameon Lyle MD - 07/27/2020 3:16 PM EDT Brief Operative Note Patient Name: Latisha Wiggins : [id number] MR#: [id number] Case Date: 07/27/2020 Surgeon: Surgeon(s) and Role: * Danny Dennis MD - Primary * Dameon Lyle MD - Resident Preoperative diagnosis: finger injury Postoperative diagnosis: finger injury Procedure(s) (LRB): NERVE REPAIR,W/ NERVE ALLOGRAFT,EA.NERVE,FIRST STRAND (Right) GRAFTING OF AUTOLOGOUS SOFT TISSUE, OTHER, HARVESTED BY DIRECT EXCISION (FAT, DERMIS, OR FASCIA) MEDIAN NERVE DECOMPRESSION (CARPAL TUNNEL RELEASE) (WRVU 4.97) (Right) Anesthesia: General Findings: 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 No Fluids: Intraprocedure Crystalloid Total Intake Lactated Ringers 600.00 mL Total Intake 600 mL Output Urine Output 0 mL Blood Loss 5 mL Total Output 5 mL Net Net Volume 595 mL PRBCs: none (See Anesthesia Record/Report for Other Blood Products) Urine Output: 0 mL Drains: None Disposition: awakened from anesthesia, extubated and taken to the recovery room in a stable condition, having suffered no apparent untoward event. Condition: doing well without problems (Please see the Surgical Encounter Summary for any Implant and Specimen details pertinent to this patient.) Infection Bundle used? No Post-Op Plan: - Follow up in: 2 weekswith attending/SAL - Wound Check - Suture removal: Yes/2 weeks - Dressings: remove dressings - Casting Needs: Remove splint, do not replace Future Appointments Date Time Provider Department Center 12/06/2020 3:45 PM John Leon MD [facility] * Op Note - Dameon Lyle MD - 07/27/2020 1:52 PM EDT [facility] Operative Note Patient Name: Latisha Wiggins : [id number] MR#: [id number] Case Date: 07/27/2020 Surgeon: Surgeon(s) and Role: * Danny Dennis MD - Primary * Dameon Lyle MD - Resident Preoperative diagnosis: finger injury Postoperative diagnosis: finger injury Procedure(s) (LRB): NERVE REPAIR,W/ NERVE ALLOGRAFT,EA.NERVE,FIRST STRAND (Right) GRAFTING OF AUTOLOGOUS SOFT TISSUE, OTHER, HARVESTED BY DIRECT EXCISION (FAT, DERMIS, OR FASCIA) MEDIAN NERVE DECOMPRESSION (CARPAL TUNNEL RELEASE) (WRVU 4.97) (Right) Findings: 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 No Drains: None Surgical Closure: Primary Closure - skin incision is completely closed without any wires, jayne, drains or other devices Disposition: awakened from anesthesia, extubated and taken to the recovery room in a stable condition, having suffered no apparent untoward event. Condition: doing well without problems (Please see the Surgical Encounter Summary for any Implant and Specimen details pertinent to this patient.) HPI/Surgical Indications: Latisha Wiggins is a 54 y.o. female who presents to clinic with ongoing right wrist pain. Surgical history includes right endoscopic carpal tunnel release, right volar forearm mass excisionwhich she underwent back in 2018. Post surgery she had burning numbness and tingling mostly to her middle finger which was very painful and uncomfortable. She then underwent a revision to her carpal tunnel in March 2019. Since her release her bothersome symptoms improved but she continues to have persistent numbness with her middle finger. Procedure Description: The patient was identified and marked in the preoperative holding area. We reviewed the surgical plan and potential risks and complications. She expressed understanding and wished to proceed. The patient was brought to the operating room and positioned supine on the operating table with theright arm out. Anesthetic monitors and SCDs were applied. General anesthesia was induced and a time-out was performed. Pre- operative antibiotics were administered. A tourniquet was placed on the upper arm and the hand and forearm were prepped and draped in the usual sterile fashion. An Esmarch was used to exsanguinate the extremity and the tourniquet was inflated to 250 mmHg. 0.5%Marcaine with epinephrine was injected at the planned incision site. A carpal tunnel incision was planned which incorporated the patient's previously repaired incision. Beginning outside of the zone of previous incision, blunt dissection was performed using a tenotomy scissor down to the median nerve. This was dissected distally to the neurovascular bundle maximally. The proximal distal nerve ends were freed from the surrounding tissues. After dissection of the common digital nerves it was noted that there was a neuroma in continuity in one of the branches. To confirm it was of the long finger the incision was extended distally and the proper digital branch of the long finger was dissected out and traced to the neuroma identified. The neuroma was then excised using scissors and the proximal and distal ends of the nerve were trimmed until healthy-appearing fascicles were seen. The gap between the proximal and distal ends was measured and found to be 3cm. An Avance nerve graft was selected and cut to an appropriate size for the nerve gap. An 8-0 nylon suture was used to perform an epineural stitch to draw the proximal and distal ends toeach end of the graft. The tourniquet was let down, total tourniquet time was 49 minutes. Hemostasis was achieved with thebipolar, taking care to protect the nerves. The incision was closed with 3-0 Vicryl deep dermal and4-0 nylon for the skin. Xeroform was applied and a volar blocking splint was fashioned. All counts were correct at the end of the case. The attending surgeon was present for the entire case.The patient was awoken from anesthesia with no apparent complications and transported to the recovery room in stable condition. Infection Bundle used? No Associated attestation - Danny Dennis MD - 07/30/2020 7:10 AM EDT Attestation: Case Date: 07/27/2020 I was present and I participated during the entire procedure (does not need to include opening and closing). DANNY DENNIS MD 07/30/2020 documented in this encounter Plan of Treatment Upcoming Encounters Date Type Department Care Team (Late st Contact Info) Description 12/21/2023 3:15 PM EDT Office Visit Dermatology at [place] [address] [facility] [place] [address] John Leon MD [address] [facility], [place] [address] documented as of this encounter Procedures Procedure Name Priority Date/Time Associated Diagnosis Comments SPECIMEN TO PATHOLOGY Routine 07/27/2020 2:35 PM EDT SURGICAL PATHOLOGY REPORT Routine 07/27/2020 2:34 PM EDT Revise Median N/Carpal Tunnel Surg (37991) 07/27/2020 1:28 PM EDT Nerve injury Grafting of Autologous Soft Tiss by Direct Excision ([id number]) 07/27/2020 1:28 PM EDT Nerve injury Nerve Repair W/Nerve Allograft First Strand ([id number]) 07/27/2020 1:28 PM EDT Nerve injury GRAFTING OF AUTOLOGOUS SOFT TISSUE, OTHER, HARVESTED BY DIRECT EXCISION (FAT, DERMIS, OR FASCIA) Routine 07/27/2020 11:41 AM EDT Nerve injury NERVE REPAIR, W/ SYNTHETIC CONDUIT OR VEIN ALLOGRAFT, EACH NERVE Routine 07/27/2020 11:41 AM EDT Nerve injury MEDIAN NERVE DECOMPRESSION (CARPAL TUNNEL RELEASE) Routine 07/27/2020 11:41 AM EDT Nerve injury documented in this encounter Results * Specimen to Pathology (07/27/2020 2:35 PM EDT) AP Specimen 07/27/2020 2:35 PM EDT 07/27/2020 2:35 PM EDT Narrative [facility] - 07/27/2020 2:35 PM EDT Specimen requisition ordered. ??Separate Pathology report to follow Danny Dennis MD PATHOLOGY/CYTOLOGY O RDERAMISTY [facility] [place] [address] * Surgical Pathology Report (07/27/2020 2:34 PM EDT) Final Diagnosis [id number] ? Location: [facility]; The signing pathologist has (i) examined the relevant preparation(s) for the specimen(s) and (ii) rendered or confirmed the diagnosis(es). . ?Surgical Pathology DIAGNOSIS A - Soft tissue, right neuroma, excision: - Traumatic neuroma. Electronically signed by: ?Funmilayo Liriano MD Verified: ??08/01/2020 9:31 ?? Pathologist Performed at: ??-[facility] Dept. of Pathology, [place], [place] SPECIMEN(S) SUBMITTED A - Right neuroma, excision CLINICAL INFORMATION Finger injury SPECIMEN PROCESSING A - Labeled/Fixativ e: Right neuroma, fresh. Quantity/Size: Single, 2.4 x 0.3 x 0.2 cm. Tissue Description: Soft, pink-white cylindrical tissue. Sections/Proces sing: Submitted en toto ??in 1 cassette labeled A1. ??sns 08/01/2020 9:31 AM EDT [facility] SPECIMEN FROM NERVE / Unknown 07/27/2020 2:34 PM EDT 07/27/2020 2:34 PM EDT Danny Dennis MD PATHOLOGY/CYTOLOGY O YUMIKO [facility] [place] [address] documented in this encounter Visit Diagnoses Diagnosis Nerve injury- Primary Injury to nerves, unspecified site documented in this encounter Admitting Diagnoses Diagnosis Nerve injury Injury to nerves, unspecified site documented in this encounter Administered Medications Inactive Administered Medications - up to 3 most recent administrations Medication Order MAR Action Action Date Dose Rate Site acetaminophen (Tylenol) tablet 975 mg 975 mg, Oral, ONCE PRN, 1 dose, Starting on Thu07/27/20 at 1511, Until Thu07/27/20 at 1523, Pain, Maximum dose of acetaminophen is 4000 mg from all sources in 24 hours. When ordered for pain, acetaminophen should be given even when other ordered pain medications are indicated. *May take when tolerating liquids prior to discharge*, PACU Recovery, Routine Given 07/27/2020 3:23 PM EDT 975 mg lactated ringers infusion 1,000 mL, at 100 mL/hr, Intravenous, CONTINUOUS, Starting on Thu07/27/20 at 1315, Until Thu07/27/20 at 1633, Day of Surgery (Day of Procedure) New Bag 07/27/2020 12:56 PM EDT 1,000 mLs 100 mL/hr oxyCODONE (Roxicodone) tablet 5 mg 5 mg, Oral, EVERY 4 HOURS PRN, Starting on Thu07/27/20 at 1543, Until Thu07/27/20 at 1836, Pain, Routine Given 07/27/2020 3:46 PM EDT 5 mg documented in this encounter Active and Recently Administered Medications Times are shown in EDT. Continuous Medication Order 07/25/2020 07/26/2020 07/27/2020 lactated ringers infusion (CANCELED) 1,000 mL, at 100 mL/hr, Intravenous, CONTINUOUS, Starting on Thu07/27/20 at 1315, Until Thu07/27/20 at 1633, Day of Surgery (Day of Procedure) 1256 (New Bag - Prov ider: Capri Will RN) PRN Medication Order 07/25/2020 07/26/2020 07/27/2020 acetaminophen (Tylenol) tablet 975 mg (COMPLETED) 975 mg, Oral, ONCE PRN, 1 dose, Starting on Thu07/27/20 at 1511, Until Thu07/27/20 at 1523, Pain, Maximum dose of acetaminophen is 4000 mg from all sources in 24 hours. When ordered for pain, acetaminophen should be given even when other ordered pain medications are indicated. *May take when tolerating liquids prior to discharge*, PACU Recovery, Routine 1523 (Given - Provid er: Nas Vega II, TATI) BUpivacaine-EPINEPHrine 0.5 %-1:200,000 injection (CANCELED) ONCE PRN, Starting on Thu07/27/20 at 1450, Until Thu07/27/20 at 1836, Intra-Operative (Intra-Procedure), Routine 1450 (Given - Provid er: Danny Dennis MD)1451 (Given - Provider: Danny Dennis MD) oxyCODONE (Roxicodone) tablet 5 mg 5 mg, Oral, EVERY 4 HOURS PRN, Starting on Thu07/27/20 at 1543, Until Thu07/27/20 at 1836, Pain, Routine 1546 (Given - Provid er: Nas Vega II, RN) documented in this encounter Care Teams Numerical Control Operator Relationship Specialty Start Date End Date Ceci Issa MD [address] [place] [address] PCP - General 02/26/10 documented as of this encounter
--- OUTSIDE RECORDS SUMMARY | 2023-12-17 20:11 | XMS_ITS | Encounter Summary ---
Author Organization [facility] Address [address] [place] [address] Care Team Providers Care Water Rights Specialist Name Role Phone Ceci Issa MD Primary Care Provider [phone] Encounter Details Date Type Department Care Team (Latest Contact Info) Description 12/22/2018 9:48 EDT - 12/22/2018 23:59 EDT Hospital Encounter [address] [address] Unknown, Provider, Discharge Disposition: Home or Self [...] Code Departure Means Destination Home or Self Usp documented in this encounter Plan of Treatment Not on file documented as of this encounter Visit Diagnoses Not on filedocumented in this encounter Care Teams Water Rights Specialist Relationship Specialty Start Date End Date Ceci Issa MD [address] [place] [address] PCP - General 09/02/17 documented as of this encounter
--- OUTSIDE RECORDS SUMMARY | 2023-12-17 20:11 | XMS_ITS | Encounter Summary ---
Author Organization [facility] Address [facility] [place] [address] Care Team Providers Care Field Laborer Name Role Phone Ceci Issa MD Primary Care Provider [phone] Encounter Details Date Type Department Care Team (Late st Contact Info) Description 05/11/2017 Tele[place] [address] Jay Jay Barry MD [facility] [address] ORTHOPAED[place] [address] Social History Tobacco Use Types Packs/Day Years [...] encounter Miscellaneous Notes * Telephone Encounter - Jay Jay Barry MD - 05/11/2017 8:45 AM EST I called to discuss my conversation with Dr. Dixon about her foot pain. I left her a message that she could call back for details. Dr. Dixon and I both agree that surgery is unlikely to help with herpain, and at this point we would not suggest surgical intervention. documented in this encounter Plan of Treatment Upcoming Encounters Date Type Department Care Team (Late st Contact Info) Description 12/21/2023 3:15 PM EDT Office Visit Dermatology at [place] [address] [place] [address] John Leon MD [address], [place] [address] documented as of this encounter Visit Diagnoses Not on filedocumented in this encounter Care Teams Field Laborer Relationship Specialty Start Date End Date Ceci Issa MD [address] [place] [address] PCP - General 02/26/10 documented as of this encounter
--- OUTSIDE RECORDS SUMMARY | 2023-12-17 20:11 | XMS_ITS | Encounter Summary ---
Author Organization [facility] Address [address] [place] [address] Care Team Providers Care Shake Packer Name Role Phone Ceci Issa MD Primary Care Provider [phone] Encounter Details Date Type Department Care Team (Late st Contact Info) Description 09/03/2017 Results Only Imaging [facility] [phone] Unknown, Provider, Social History Tobacco Use Types Packs/Day Years Used Date Smoking Tobacco: Never Smokeless Tobacco: Never Sex and Gender Information Value Date Recorded Sex Assigned at Not on file Gender Identity Not on file Sexual Orientation Not on file documented as of this encounter Plan of Treatment Pending Results Name Type Priority Associated Diagnoses Date /Time OUTSIDE IMAGES - PLAIN FILM MSK Imaging 09/03/2017 10:02 EDT documented as of this encounter Visit Diagnoses Not on filedocumented in this encounter Care Teams Shake Packer Relationship Specialty Start Date End Date Ceci Issa MD [address] [place] [address] PCP - General 09/02/17 documented as of this encounter
--- OUTSIDE RECORDS SUMMARY | 2023-12-17 20:11 | XMS_ITS | Encounter Summary ---
Author Organization [facility] Address [address] [place] [address] Care Team Providers Care Line Up Worker Name Role Phone Ceci Issa MD Primary Care Provider [phone] Reason for Visit * Reason Comments Foot Pain left Encounter Details Date Type Department Care Team (Late st Contact Info) Description 10/06/2017 15:30 EDT Office Visit [facility] - [address] [phone] Beto Vega MD [address] [place] [address] Flexor hallucis longus tendinitis (Primary Dx) Social History Tobacco Use Types Packs/Day Years Used Date Smoking Tobacco: Never Smokeless Tobacco: Never Sex and Gender Information Value Date Recorded Sex Assigned at Not on file Gender Identity Not on file Sexual Orientation Not on file documented as of this encounter Progress Notes * Beto Vega MD - 10/06/2017 1530 EDT PROGRESS NOTE/FOLLOWUP NOTE Chief Complaint Patient presents with ??? Foot Pain left SUBJECTIVE: Latisha Wei came in today in follow up of left foot pain. At her last visit she was started on FHL stretches, which she has done, but which she said have not helped yet and at this point she is discouraged. She now has some tingling in the lateral plantar area. REVIEW OF SYSTEMS: Negative except for pertinent positives listed above. OBJECTIVE: Patient is in no acute distress. Left Foot: Skin: Intact, no skin changes. Pulses: Nicely palpable. Sensation: Intact. No tingling with compression over posterior tibial nerve. Musculoskeletal: The FHL is still tight. Tender over the fibroosseous tunnel. gastroc is somewhat tight, but foot can get past neutral. ASSESSMENT AND PLAN: The patient has not had good pain relief with FHL stretches and her FHL continues to be very tight.At last visit we discussed the possibility of FHL release and the surgical procedure was described in detail, as well as expected recovery time and rehab. After thorough discussion and once all questions were answered, the patient did want to go ahead with surgery. The risks, benefits and potentialcomplications of surgery were discussed in detail with the patient. She may not have complete pain relief, but I do think there is a good chance that FHL surgery will give her good pain relief. We had her meet with our assistant professor surgical technology to schedule surgery at her earliest convenience. The patient will be seen back two weeks postop. Abena Faustin, am scribing for Dr. Beto Vega, while he is personally performing the service. 10/06/2017 15:39 Cc: Ceci Issa Cc: Maegan documented in this encounter Plan of Treatment Not on file documented as of this encounter Visit Diagnoses Diagnosis Flexor hallucis longus tendinitis- Primary Tenosynovitis of foot and ankle documented in this encounter Care Teams Line Up Worker Relationship Specialty Start Date End Date Ceci Issa MD [address] [place] [address] PCP - General 09/02/17 documented as of this encounter
--- OUTSIDE RECORDS SUMMARY | 2023-12-17 20:11 | XMS_ITS | Encounter Summary ---
[place] [address] Care Team Providers Care Mammalogist Name Role Phone Ceci Issa MD Primary Care Provider [phone] Encounter Details Date Type Department Care Team (Late st Contact Info) Description 10/11/2015 3:30 PM EDT Office Visit Dermatology at [address] [place] [id number] John Leon MD [address] [place] [address], [facility] A DERMATOLOGY [place], [place] [phone] Nevus; Melasma Social History Tobacco Use Types Packs/Day Years Used Date Smoking Tobacco: Never Sex and Gender Information Value Date Recorded Sex Assigned at Not on file Gender Identity Not on file Sexual Orientation Not on file documented as of this encounter Progress Notes * John Leon MD - 10/11/2015 3:47 PM EDT PROBLEM: 1. Yearly skin checkup. 2. History of tinea versicolor. 3. History of melasma. Latisha follows up and is now 49. She is here for yearly check. Her melasma is acting up again. Physical examination reveals mild to moderate melasma on the lateral cheeks bilaterally. Fortunately, careful examination of the face and the neck, the chest, the back, the shoulders, hands and forearms, the thighs and calves, feet including the soles of the feet and the toe web spaces is benign. She has no tinea versicolor currently. ASSESSMENT AND PLAN: 1. Benign nevi. Benign skin examination. A. Patient reassured. B. No lesion of concern seen. C. Recommend that I see her back now just on a p.r.n. basis. 2. Melasma. A. In the past, I had prescribed hydroquinone 4% cream, and I believe this worked well for her. She cannot remember. Thirty grams will be dispensed with 2 refills to apply b.i.d. to affected areas until the melasma fades. B. Continue sun avoidance precautions. Stressed the importance of protecting from sun. Return to clinic p.r.n. Cc: Ceci Issa MD. documented in this encounter Miscellaneous Notes * Addendum Note - Milena Carvalho LPN - 10/11/2015 3:54 PM EDTAddended by: MILENA CARVALHO on: 10/11/2015 03:54 PM Modules accepted: Orders documented in this encounter Plan of Treatment Upcoming Encounters Date Type Department Care Team (Late st Contact Info) Description 12/21/2023 3:15 PM EDT Office Visit Dermatology at [address] [address] John Leon MD [address] [place] [address], [facility] [place] [address] documented as of this encounter Visit Diagnoses Diagnosis Nevus Benign neoplasm of skin, site unspecified Melasma Other dyschromia documented in this encounter Care Teams Mammalogist Relationship Specialty Start Date End Date Ceci Issa MD [address] [place] [address] PCP - General 02/26/10 documented as of this encounter
--- OUTSIDE RECORDS SUMMARY | 2023-12-17 20:11 | XMS_ITS | Encounter Summary ---
Author Organization [facility] Address [address] [place] [address] Care Team Providers Care Security Support Analyst Name Role Phone Ceci Issa MD Primary Care Provider [phone] Encounter Details Date Type Department Care Team (Late st Contact Info) Description 12/22/2018 Results Only [facility] [phone] Fanny Bishop Jr., MD [address] [place] [address] Social History Tobacco Use Types Packs/Day Years [...] Date/Time Associated Diagnosis Comments SURGICAL PATHOLOGY Routine 12/22/2018 17 :28 EDT documented in this encounter Results * SURGICAL PATHOLOGY (12/22/2018 17:28 EDT) Pathology Report: SURGICAL PATHOLOGY REPORT Reports generated via electronic interface contain original data; however they are lacking the format of the original report. Caution should be taken when reading/interpret ing unformatted reports. Name: ? ALEX VICENTE ? Accession #: ? [id number] ? : ? 1965 (Age: 52) ??F ? Collect Date: ? 12/22/2018 ? Location: ? [facility] ? Receive Date: ? 12/22/2018 ? Provider: FANNY BISHOP MD Copy to: CECI ISSA MD ? Final Pathologic Diagnosis: SOFT TISSUE, RIGHT DISTAL VOLAR FOREARM, MASS, RESECTION: - Angiolipoma. Document reviewed and electronically signed by: Maria Del Carmen aGmez MD Report ??Date: 12/25/2018 10:16 By the signature above, the attending physician certifies that he/she has personally conducted a gross and/or microscopic examination of the described specimens and rendered or confirmed the above diagnosis. Specimen(s) Received: Right forearm mass Clinical History: Right distal volar forearm mass, likely lipoma Gross Description: ? Received in formalin labelled with proper patient identification (initials L, D) and right forearm mass is an ovoid yellow portion of adipose tissue (0.09 g, 0.9 x 0.6 x 0.3 cm). The outer surface is inked blue. The tissue is bisected to reveal a homogenous pale yellow cut surface devoid of hemorrhage or necrosis. The specimen is entirely submitted in 1. TIM Valladares (ASCP) 12/23/2018 8:32 AM End of Report [facility] 12/22/2018 17:2 8 EDT 12/22/2018 17:28 EDT Fanny Bishop Jr., MD PATHOLO GY ORDERABLES [facility] [address] [place] [address] documented in this encounter Visit Diagnoses Not on filedocumented in this encounter Care Teams Security Support Analyst Relationship Specialty Start Date End Date Ceci Issa MD [address] [place] [address] PCP - General 09/02/17 documented as of this encounter
--- OUTSIDE RECORDS SUMMARY | 2023-12-17 20:11 | XMS_ITS | Encounter Summary ---
Author Organization [facility] Address [facility] [place] [address] Care Team Providers Care Sports Leadership Instructor Name Role Phone Ceci Issa MD Primary Care Provider [phone] Reason for Visit * Occupational Therapy (Routine) - Specialty Diagnoses / Procedures Referred By Stuart stone Referred To Contact Diagnoses Nerve injury Danny Veliz MD [facility] [place] [address] Referral ID Status Reason Start Date Expiration Date V isits Requested Visits Authorized [id number] Evaluate and Treat 08/06/2020 02/02/2021 12 12 Encounter Details Date Type Department Care Team (Late st Contact Info) Description 09/12/2020 4:30 PM EDT Office Visit Occupational Therapy at [facility] [address] [place] [address] Nicko Tomas, OT [facility] PHYSICAL MEDICINE & [place] [address] Nerve injury Social History Tobacco Use Types [...] - Therapy - Nicko Tomas, OT - 09/12/2020 4:30 PM EDT OCCUPATIONAL THERAPY TREATMENT NOTE [...] she was referred to Dr. 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 STM to volar wrist/palmar incision Performed the following: ?? Passive and active wrist flex/ext ?? Flexor tendon glides ?? Gentle finger extension stretch with hand flat on table (addition of table drags for digit extension) ?? Wrist extension stretch (prayer/table top/wall) ?? Hines putty for tendon gliding/light gripping ?? Continue with middle finger and ring finger with coban wrap for her to use when in the car driving with AC on - fingertips very sensitive to cold [...] is able to bear weight on her palm. The orthosis for night time is helping to decreasethe extreme cupping posture of her palm. She continues with sensitivity to touch and cold air with the middle and ring finger tips, with the coban wrap helping. She tried swimming in a pool this weekend and her hand could not tolerate the cold water. She has been performing the desensitization of these fingers with a variety of textures and brushing every day. She saw the MD early this week and he reports to continue with OT. 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 (to be met by discharge): Date [...] 4-6 week(s) to progress toward short and terminal supervisor goals, Soft tissue mobilization as therapeutically necessary [...] 3:15 PM EDT Office Visit Dermatology at [place] [address] [place] [address] John Leon MD [address], [place] [address] documented as of this encounter Visit Diagnoses Diagnosis Nerve injury Injury to nerves, unspecified site documented in this encounter Care Teams Sports Leadership Instructor Relationship Specialty Start Date End Date Ceci Issa MD [address] [place] [address] PCP - General 02/26/10 documented as of this encounter
--- OUTSIDE RECORDS SUMMARY | 2023-12-17 20:11 | XMS_ITS | Referral Summary ---
Author Organization [facility] Address [address] [place] [address] Care Team Providers Care Research Manager Name Role Phone Ceci Issa MD Primary Care Provider [phone] Allergies Active Allergy Reactions Criticality Noted Date Comments Oxycodone-Acetaminophen Nausea Only 09/03/2017 Medications Medication Sig Dispensed Refills Start Date End Date Status dextroamphetamine-am phetamine (ADDERALL XR) 30 mg XR capsule Take 30 mg by mouth every morning. Active buPROPion (WELLBUTRIN XL) 150 mg XL tablet Take 150 mg by mouth 2 times daily. Active fluticasone (FLONASE) 50 mcg/actuation nasal spray Instill 100 mcg into both nostrils daily. Active albuterol 90 mcg/actuation inhaler Inhale 180 mcg as directed every 4 hours as needed for Wheezing. Active HYDROmorphone (DILAUDID) 2 mg tablet Take 1 Tab by mouth every 4 hours as needed for Pain. Daily Max: 12 mg 10 Tab 10/29/2017 Active Additional Information Patient not taking.Reported on 11/12/2017 Active Problems Problem Noted Date Diagnosed Date Flexor hallucis longus tendinitis 10/29/2017 Social History Tobacco Use Types Packs/Day Years [...] Body Mass Index 39.11 10/22/2017 0955 EDT Plan of Treatment Not on file Advance Directives For more information, please contact: [phone] * Full Code (Latest Code Status on File) Date Activated Date Inactivated Comments 10/29/2017 12:32 10/29/2017 20:41 Question Answer Comments Reason for decision includes: Full code consistent with overall plan of care Who participated in the discussion? Not Discusse d Care Teams Research Manager Relationship Specialty Start Date End Date Ceci Issa MD [address] [place] [address] PCP - General 09/02/17
--- OUTSIDE RECORDS SUMMARY | 2023-12-17 20:11 | XMS_ITS | Encounter Summary ---
[place] [address] Care Team Providers Care Advanced Practice Provider Name Role Phone Ceci Issa MD Primary Care Provider [phone] Reason for Visit * Reason Comments Skin Check Encounter Details Date Type Department Care Team (Late st Contact Info) Description 12/05/2019 4:00 PM EDT Office Visit Dermatology at [address] [address] John Leon MD [address] [place] [address], [facility] [place] [address] Nevus; Melasma; Tinea versicolor Social History Tobacco [...] Progress Notes * John Leon MD - 12/05/2019 4:00 PM EDT PROBLEM: 1. ??Yearly skin checkup. 2. ??History of tinea versicolor. 3. ??History of melasma. 4. Patient desirous of yearly skin examinations given her father's history of skin cancers Noemy follows up and is now 53. She would like to have her yearly skin checkup. She enjoys the sun and tries to protect herself particular because she wants to prevent recurrence of the melasma whichshe has gotten under control since her last visit. She is using SPF 50 sunscreen religiously to protect self from the sun. Because of her father's history of skin cancer she like to get a yearly skincheckup. Physical examination reveals a pleasant 53-year-old woman who has moderate goss and no melasma present today on the right cheek nor on the right upper forehead as it was last year. She has a benign examination of the head and the neck the chest the back the hands the arms forearms thighs and the calves. There is no evidence of any malignant lesions on exam today. She has no tinea versicolor on examination of her lower back today. The patient has a dark brown papillated nevus/tag on the right lateral shoulder near the base of her neck. She also has a small follicular cyst on the left nape of her neck currently not symptomatic nor inflamed. It measures perhaps 6 mm in diameter and superficial with a dilated comedonal opening to its side. Assessment plan: Benign nevi/benign skin examination 1. Patient was reassured about her benign examination 2. No lesions of concern noted 3. Return to clinic in a year for recheck Melasma, currently quiescent 1. Patient doing well 2. Continue sun avoidance precautions 3. We will call in more hydroquinone cream 4% which she can apply twice daily as needed to areas ofinvolvement dispense 30 g with 2 refills Tinea versicolor 1. Today inactive 2. What works the best for her is Selsun Blue for recurrences which she get myfe-[id number]-[id number]. Applyallow lather to sit on skin of back for 20 minutes on and on a daily basis for a week and then oncea week thereafter to control this issue. Irritated nevus right lateral base of neck on shoulder 1. Could consider incision snip biopsy for removal Small follicular cyst nape of neck 1. At time of return visit next year patient would like to have this excised as it is occasionally red sore and inflamed. 2. Schedule a 1/2-hour appointment for this per the patient request in 1 year. CC: Ceci Dowling MD documented in this encounter Plan of Treatment Upcoming Encounters Date Type Department Care Team (Late st Contact Info) Description 12/21/2023 3:15 PM EDT Office Visit Dermatology at [place] [address] [place] [address] John Leon MD [address], [place] [address] documented as of this encounter Visit Diagnoses Diagnosis Nevus Benign neoplasm of skin, site unspecified Melasma Other dyschromia Tinea versicolor Pityriasis versicolor documented in this encounter Care Teams Advanced Practice Provider Relationship Specialty Start Date End Date Ceci Issa MD [address] [place] [address] PCP - General 02/26/10 documented as of this encounter
--- OUTSIDE RECORDS SUMMARY | 2023-12-17 20:11 | XMS_ITS | Encounter Summary ---
Author Organization [facility] Address [address] [place] [address] Care Team Providers Care Burlap Spreader Name Role Phone Ceci Issa MD Primary Care Provider [phone] Reason for Visit * Reason Onset Date Comments Appointment Related 10/29/2017 Encounter Details Date Type Department Care Team (Late st Contact Info) Description 10/29/2017 Telephone [facility]le Program [place] [address] [place] [address] Elana Lea LPN [address] [place] [address] Appointment Related Social History Tobacco Use Types Packs/Day Years Used Date Smoking Tobacco: Never Smokeless Tobacco: Never Sex and Gender Information Value Date Recorded Sex Assigned at Not on file Gender Identity Not on file Sexual Orientation Not on file documented as of this encounter Miscellaneous Notes * Telephone Encounter - Elana Lea LPN - 10/29/2017 1005 EDT Telephone call placed to pt regarding the date and time of arrival for upcoming surgery. documented in this encounter Plan of Treatment Not on file documented as of this encounter Visit Diagnoses Not on filedocumented in this encounter Care Teams Burlap Spreader Relationship Specialty Start Date End Date Ceci Issa MD [address] [place] [address] PCP - General 09/02/17 documented as of this encounter
--- OUTSIDE RECORDS SUMMARY | 2023-12-17 20:11 | XMS_ITS | Clinical Summary ---
Author Organization [facility] Address [address] [place] [address] Care Team Providers Care Hide Curer Name Role Phone Ceci Issa MD Primary Care Provider [phone] Allergies Active Allergy Reactions Criticality Noted Date [...] on file Sexual Orientation Not on file Obstetrics History Last Filed Vital Signs Vital Sign Reading [...] 39.11 10/22/2017 0955 EDT Plan of Treatment Health Maintenance Due Date Last Done Comments Hepatitis C Screen 1965 Hepatitis B Vaccine (1 of 3 - 19+ 3-dose series) 12/24 COVID-19 Vaccine (2022-24 season) 2023 Advance Directives For more information, please contact: [phone] * Full Code (Latest Code Status on File) Date Activated Date Inactivated Comments 10/29/2017 12:32 10/29/2017 20:41 Question Answer Comments Reason for decision includes: Full code consistent with overall plan of care Who participated in the discussion? Not Discusse d Care Teams Hide Curer Relationship Specialty Start Date End Date Ceci Issa MD [address] [place] [address] PCP - General 09/02/17
--- OUTSIDE RECORDS SUMMARY | 2023-12-17 20:11 | XMS_ITS | Encounter Summary ---
Author Organization [facility] [place] [address] Care Team Providers Care Pan Pusher Name Role Phone Ceci Issa MD Primary Care Provider [phone] Reason for Referral * Occupational Therapy (Routine) - Closed Specialty Diagnoses / Procedures Referred By Stuart stone Referred To Contact Occupational Therapy Diagnoses Nerve injury Nerve injury Procedures Evaluate and Treat Danny Dennis MD [facility] [place] [address] [facility] [address] [place] [address] Referral ID Status Reason Start Date Expiration Date V isits Requested Visits Authorized [id number] Closed Evaluate and Treat 07/23/2020 07/23/2021 12 12 Reason for Visit * Reason Comments Advice Only s/p ctr 2018 on righ t hand, middle right finger numbness * Consultation (Urgent) - Closed Specialty Diagnoses / Procedures Referred By Stuart stone Referred To Contact Plastic Surgery Diagnoses S/P OPEN ECTR 03/2019, NUMBERS AND TINGLING MIDDLE FINGERS Ernesto Bishop MD [address] [place] [address] Danny Dennis MD [facility] [place] [address] Referral ID Status Reason Start Date Expiration Date V isits Requested Visits Authorized [id number] Closed Consult, Test & Treat Connection Center PCP Updated and/or Approved 07/05/2020 07/05/2021 6 6 Encounter Details Date Type Department Care Team (Late st Contact Info) Description 07/20/2020 10:00 AM EDT Office [place] [address] Danny Dennis MD [facility] [place] [address] Nerve injury Social History Tobacco Use Types [...] - Inhaled Oxygen Concentration - - Weight 112.5 kg (248 lb) 07/20/2020 10:03 AM EDT Height 165.1 cm (5' 5) 07/20/2020 10:03 AM EDT Body Mass Index 41.27 07/20/2020 10:03 AM EDT documented in this encounter Patient Instructions * Patient Instructions* Jenny-Martina Wu RMA - 07/20/2020 10:00 AM EDT Preoperative Instructions You have been [...] may resume taking 48 hours after surgery. Do not take medications containing Ibuprofen. Do not take any anti-steroidal's such as Advil, Aleve, Celebrex, Daypro, Indocin, Midol, Motrin, Naproxen, Nuprinand Toradol. These medications increase your risk of bleeding. You may resume taking any of these medications 48 hours after surgery. Stop Vitamin E, [...] brush. DO NOT wear any rings, nail palauan or artifical nails. The Same Day Surgery [...] to your surgery. Day of Surgery A guard driver is required at time of discharge. [...] pm) For an appointment or insurance questions [phone] For questions pertaining to your surgical date [phone] For nursing related questions [phone] On weekends, holidays or after office hours: Call and ask the gimp buttonhole machine operator to page the Plastic Surgery Resident smoke control supervisor. documented in this encounter Progress Notes * Danny Dennis MD - 07/20/2020 10:00 AM EDT Plastic Surgery Consultation Note Provider: Danny Dennis M.D. PCP: Ceci Issa MD CC: Bilateral wrist pain HPI: Latisha Wiggins is a 54 y.o. female [...] have persistent numbness with her middle finger. Social History Socioeconomic History ??? Marital status: [...] Gatherings with Friends and Family: ??? Attends Yazidism Services: ??? Active Member of Clubs or Organizations: ??? Attends Club or Organization Meetings: ??? Marital Status: Intimate Partner Violence: ??? Fear of Current or Ex-Partner: ??? Emotionally Abused: ??? Physically Abused: ??? Sexually Abused: Allergies Allergen Reactions ??? Oxycodone-Acetaminophen CIS - feeling of disorientation Current Outpatient Medications on File Prior to Visit Medication Sig Dispense Refill ??? acetaminophen-codeine (Tylenol #3) 300-30 mg Tablet TAKE 1 TO 2 TABLETS BY MOUTH EVERY 4 HOURS FOR PAIN ??? amoxicillin-clavulanate (Augmentin) 875-125 mg Tablet TAKE ONE TABLET BY MOUTH TWICE A DAY FOR TEN DAYS ??? clindamycin (Cleocin) 150 mg Capsule TAKE TWO CAPSULES BY MOUTH THREE TIMES A DAY UNTIL FINISHED ??? naproxen (NAPROSYN) 500 mg Tablet TAKE ONE TABLET BY MOUTH TWICE A DAY NEEDED FOR PAIN ??? ondansetron ODT (Zofran-ODT) 4 mg Tablet, Rapid Dissolve DISSOLVE ONE TABLET ON TONGUE THREE TIMES A DAY NEEDED FOR FOR NAUSEA AND VOMITING ??? penicillin v potassium (VEETID) 500 mg Tablet TAKE ONE TABLET BY MOUTH FOUR TIMES A DAY UNTIL GONE ??? hydroquinone 4 % Cream Apply twice daily in the winter to fade melasma 28.35 g PRN ??? ibuprofen (ADVIL;MOTRIN) 600 mg Tablet TAKE ONE TABLET BY MOUTH THREE TIMES A DAY NEEDED 3 ??? polymyxin B sulf-trimethoprim (POLYTRIM) Drops INSTILL ONE DROP INTO AFFECTED EYE FOUR TIMES A DAY FOR 5 DAYS 1 ??? buPROPion (WELLBUTRIN SR OR ZYBAN) 150 mg Tablet Sustained Release 12 hr ??? SYMBICORT 80-4.5 mcg/actuation HFA Aerosol Inhaler INHALE TWO PUFFS BY MOUTH ONCE OR TWICE A DAY 3 ??? fluticasone (FLONASE) 50 mcg/actuation Pingree, Suspension ??? ADDERALL XR 30 mg Capsule, Sust. Release 24 hr TAKE ONE CAPSULE BY MOUTH EVERY DAY 0 ??? fluconazole (DIFLUCAN) 100 mg Tablet ??? fluocinonide (LIDEX) 0.05 % Ointment No current facility-administered medications on file prior to visit. Examination: Right hand- Incision is healed from previous procedures which goes from the palm crosses the wrist Numbness limited to the ulnar side of the right long finger but the rest of the areas are fine. 5/5 abduction thumb. - phalens test -compression test -tinels Diagnostic Testing: None Impression: Latisha Wiggins 54 y.o. female patient with a possible nerve injury/irritation caused by previous carpal tunnel release at an outside facility. Discussed with patient that I would recommend proceeding with exploration and possible fat graftingaround the nerves to help offer protection and support. I did express that there is a chance that while I plan to revise, proceed with exploration I may ormay not find any signs of nerve injury or irritation. Surgical Grid Dr Dennis Duration: 2 hours Timeframe: next available Procedure: Fat grafting around the nerve, exploration, nerve graft, re-revision of carpal tunnel. 19143, 49501, 92283 (fat from abdomen) Surgical site: long finger /wrist Side: right Anesthesia: General Follow up: 10-14 days THHF: Y/N: no PAT: no Implants needed: biopure 50 cc's, avance allograft 2mm diameter 7cm long advance graft OT needed at post op visit: yes, rom, strengthening no splint Does not need covid testing Plan: 1. Proceed with fat grafting. 2. Course of gabapentin I, Magaly Ortega, have performed the documentation for this encounter in the presence of and acting as a scribe for DANNY DENNIS MD. documented in this encounter Plan of Treatment Upcoming Encounters Date Type Department Care Team (Late st Contact Info) Description 12/21/2023 3:15 PM EDT Office Visit Dermatology at [place] [address] [facility] [address] [place] [id number] John Leon MD [address], [place] [address] Scheduled Referrals Name Type Priority Associated Diagnoses Order Schedule Referral to Occupational Therapy Outpatient Referral Routine Nerve injury Ordered: 07/23/2020 documented as of this encounter Visit Diagnoses Diagnosis Nerve injury Injury to nerves, unspecified site documented in this encounter Care Teams Pan Pusher Relationship Specialty Start Date End Date Ccei Issa MD [address] [place] [address] PCP - General 02/26/10 documented as of this encounter
--- OUTSIDE RECORDS SUMMARY | 2023-12-17 20:11 | XMS_ITS | Encounter Summary ---
Author Organization [facility] Address [facility] [place] [address] Care Team Providers Care Parachute Rigger Name Role Phone Ceci Issa MD Primary Care Provider [phone] Reason for Visit * Occupational Therapy (Routine) - Closed Specialty Diagnoses / Procedures Referred By Stuart stone Referred To Contact Occupational Therapy Diagnoses Nerve injury Nerve injury Procedures Evaluate and Treat Danny Veliz MD [facility] [place] [address] [address] [place] [address] Referral ID Status Reason Start Date Expiration Date V isits Requested Visits Authorized [id number] Closed Evaluate and Treat 07/23/2020 07/23/2021 12 12 Encounter Details Date Type Department Care Team (Late st Contact Info) Description 08/15/2020 3:00 PM EDT Office Visit Occupational Therapy at [address] [place] [address] Nicko Tomas, OT [facility] PHYSICAL MEDICINE & [place] [address] Nerve injury Social History Tobacco [...] Miscellaneous Notes * Initial Evaluation - Nicko Tomas, OT - 08/15/2020 3:00 PM EDT OCCUPATIONAL THERAPY INITIAL UPPER EXTREMITY EVALUATION Referral Source: Dr. Nuno Welch MD Follow-up: 09/10/20 Total Treatment time: 60 Minutes Timed Code Treatment Time: 60 minutes OCCUPATIONAL PROFILE: Latisha Wiggins is a 54 y.o. year old Right hand dominant female who had an initial right hand carpal tunnel release in 09/2018, following this surgery she had electrical feelings very intense to the middle finger, therefore she had a return surgical exploration with removalof scar tissue in 02/2019 , eventually she was referred to Dr. 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 Open a tight or new jar Unable 2. Write Unable 3. Turn a loco Unable 4. Prepare a meal Unable 5. Push open a heavy door Unable 6. Place an object on a shelf above your head Unable 7. Do heavy external relations manager (eg wash shea, wash floors) Unable 8. Garden or do yard work Unable 9. Make a bed Unable 10. Carry a shopping bag or briefcase Unable 11. Carry a heavy object (over 10 lbs) Unable 12. Change a lightbulb overhead Unable 13. Wash or blow dry your hair Unable 14. Wash your back Unable 15. Put on a pullover sweater Unable 16. Use a knife to cut food Unable 17. Recreational activities which require little effort (eg cardplaying, knitting, etc) Unable 18. Recreational activities in which you take some force or impact through your arm, shoulder or hand (eg golf, hammering, tennis, etc) Unable 19. Recreational activities in which you move your arm freely (eg playing frisbee, badMediProPharmaton, etc) Unable 20. Manage transportation needs (getting from one place to another) Unable 21. Sexual activities Unable 22. During the past week, to what [...] of my arm, shoulder or hand problem Agree 1. Please select the answers that best [...] sport or an instrument? No DASH Score 95.83 DASH - Work Score 75 Standardized measurement of functional limitation related to an upper extremity disability, using 0-100 scale indicating percent of perceived functional impairment. Pain: (Assessed using the visual analog pain scale) At Rest: 0/10 With Activity: 5/10 8 at times if bump it Active Range of Motion: Measured in degrees of active motion with goniometer Right Left Wrist Extension/Flexion 27/61 80/75 Ulnar/Radial Deviation 30/10 35/20 Pronation/Supination 104/90 104/95 Composite Extension/Flexion 20/41 75/64 Measured in degrees of active motion with goniometer and/or distance measured from finger tip to the distal palmar crease (DPC) Digits Right: MP PIP DIP DPC Thumb +2/70 +53/75 - 0 Index Finger -32/70 0/84 0/61 3.0 cm Middle Finger -25/69 -9 0/61 2.0 Ring Finger -16/72 -12/ 0/57 2.0 Small Finger -9/ -15/82 0/63 2.0 Digits Left: MP PIP DIP DPC Thumb +/72 +66/93 - 0 Index Finger 0/90 +11/111 0/83 0 Middle Finger 0/92 +13/96 0/98 0 Ring Finger 0/95 +20/100 0/94 0 Small Finger 0/92 +11/93 0/88 0 Strength: not tested today due to incision and pain with pressure at palm Auto Emissions Technician Testing with Dynamometer setting #2 Pinch Testing with Pinch Gauge Right Left Auto Emissions Technician setting 2 Auto Emissions Technician Average Loco 3 Pt Tip Treatment Today: Evaluation MODERATE Complexity (36984) Therex: Strength/Endurance/ROM (72308) 10 min Educated patient in etiology and biomechanics as related to the patient's symptoms Instructed patient in: Rest and activity modification, Appropriate pacing and how to safely return to normal activities, Safe posture and positioning to avoid re-injury and Protocol related to current diagnosis Provided with home exercise program to include flexor tendon glides, wrist flexion/extension and radial and ulnar deviation, intrinsic finger stretch, active place and hold composite flexion, finger extension stretch, gripping with foam block, scar massage and compression glove, see scanned documents Instructed in home modalities to include: Moist heat and Compression garment use Scar massage Retrograde massage to dorsal and volar hand and fingers Passive and active wrist flexion/extension Passive finger flexion at each joint and then compositely Intrinsic stretch digits 2-5 Volar plate stretch - not an issue Flexor tendon glides Active place and hold composite flexion Gentle finger extension stretch with hand flat on table Gripping with pink foam block - 2 sets of 10 - 2 times a day Fitted and dispensed with compression gloves - fingertip free for daytime/typing/driving, and full fingered for night time CLINICAL DECISION MAKING: Latisha Wiggins has post op hand/finger/wrist stiffness causing functional deficits in ADL/IADL performance. Please see above, PSFS and DASH for specific functional deficits. Noemy initially presented to the appointment with a protective posture of her hand, little movement at fingers or wrist, and fingers resting in flexed posture. Once educated to her ability and encouragement to move and use her hand, she began to demonstrate greater movement. Her scar has deadened tissue along 75% of the length of the incision, but nice pink closed skin underneath this peelinglayer. She tolerated scar massage except for one tender area near the distal portion. She is lacking the end ranges of her wrist and her fingers are lacking both flexion and extension ranges. She will begin to incorporate these fingers in her work tasks, as she has been only typing with her left hand. Latisha Wiggins is able to demonstrate home exercises with written instructions provided. Latisha Wiggins has good potential for gains with therapy with identified needs for skilled therapy for treatment of deficits noted during evaluation today, to maximize functional performance during daily activities. Senior Care Goals (to be met by discharge): Date [...] 4-6 week(s) to progress toward short and mcfp goals, Soft tissue mobilization as therapeutically necessary [...] 3:15 PM EDT Office Visit Dermatology at [place] [address] [facility] [address] [place] [id number] John Leon MD [address], [address] [place] [address] Scheduled Referrals Name Type Priority Associated Diagnoses Order Schedule Referral to Occupational Therapy Outpatient Referral Routine Nerve injury Ordered: 07/23/2020 documented as of this encounter Visit Diagnoses Diagnosis Nerve injury Injury to nerves, unspecified site documented in this encounter Care Teams Parachute Rigger Relationship Specialty Start Date End Date Ceci Issa MD [address] [place] [address] PCP - General 02/26/10 documented as of this encounter
--- OUTSIDE RECORDS SUMMARY | 2023-12-17 20:11 | XMS_ITS | Encounter Summary ---
Author Organization [facility] Address [facility] [place] [address] Care Team Providers Care Chief Supply Chain Officer Name Role Phone Ceci Issa MD Primary Care Provider [phone] Reason for Visit * Auth/Cert Specialty Diagnoses [...] Expiration Date Visits Re quested Visits Authorized [id number] 1 1 Encounter Details Date Type Department Care Team (Late st Contact Info) Description 07/27/2020 11:56 AM EDT - 07/27/2020 2:24 PM EDT Surgery [place] [phone] Danny Dennis MD [facility] [place] [address] NERVE REPAIR,W/ NERVE ALLOGRAFT,EA.NERVE,FIR ST STRAND (WRVU 12) Social History Tobacco Use Types Packs/Day Years [...] Sign Reading Time Taken Comments Blood Pressure 136/77 07/27/2020 12:07 PM EDT Pulse 76 07/27/2020 12:07 PM EDT Temperature 36.9 ??C (98.4 ??F) 07/27/2020 12:07 PM E DT Respiratory Rate 16 07/27/2020 12:07 PM EDT Oxygen Saturation 99% 07/27/2020 12:07 PM EDT Inhaled Oxygen Concentration - - [...] scheduling, please contact our administrative offices at [phone] Future Appointments Date Time Provider Department Center 12/06/2020 3:45 PM John Leon MD [facility] For clinical questions, please call our nurses at [phone] You will have a postoperative follow-up appointment scheduled in roughly 2 weeks. You will be contacted from the Plastic Surgery clinic on further details on the date and time of your appointment. Both offices are open Thursday thru Thursday 8a - 5p. With emergencies after hours, call the hospital hard rock drill operator at [phone] and ask for the Plastic Surgery Resident button grader. documented in this encounter Medications at Time of Discharge Medication Sig Dispensed Refills Start Date End Date ibuprofen (ADVIL;MOTRIN) 600 mg Tablet TAKE ONE TABLET BY MOUTH THREE TIMES A DAY NEEDED 3 11/17/2018 SYMBICORT 80-4.5 mcg/actuation HFA Aerosol Inhaler INHALE TWO PUFFS BY MOUTH ONCE OR TWICE A DAY 3 10/22/2016 fluticasone (FLONASE) 50 mcg/actuation Tyler, Suspension 03/31/2017 fluocinonide (LIDEX) 0.05 % Ointment [...] Gatherings with Friends and Family: ??? Attends Alevism Services: ??? Active Member of Clubs or [...] Operative Note Patient Name: Latisha Wiggins : [id number] MR#: [id number] Case Date: 07/27/2020 Surgeon: Surgeon(s) and Role: [...] PM John Leon MD [facility] [place] * Op Note - Dameon Lyle MD - 07/27/2020 1:52 PM EDT [facility] Operative Note Patient Name: Latisha Wiggins : [id number] MR#: [id number] Case Date: 07/27/2020 Surgeon: Surgeon(s) and Role: [...] 3:15 PM EDT Office Visit Dermatology at [place] [address] [facility] [place] [address] John Leon MD [address] [facility], [place] [address] documented as of this encounter Procedures Procedure Name Priority Date/Time Associated Diagnosis Comments SPECIMEN TO PATHOLOGY Routine 07/27/2020 2:35 PM EDT SURGICAL PATHOLOGY REPORT Routine 07/27/2020 2:34 PM EDT Revise Median N/Carpal Tunnel Surg (46513) 07/27/2020 1:28 PM EDT Nerve injury Grafting of Autologous Soft Tiss by Direct Excision (80182) 07/27/2020 1:28 PM EDT Nerve injury Nerve Repair W/Nerve Allograft First Strand (65639) 07/27/2020 1:28 PM EDT Nerve injury GRAFTING [...] PM EDT 07/27/2020 2:35 PM EDT Narrative [facility] - 07/27/2020 2:35 PM EDT Specimen requisition ordered. ??Separate Pathology report to follow Danny Dennis MD PATHOLOGY/CYTOLOGY O RDERABLES [facility] [place] [address] * Surgical Pathology Report (07/27/2020 2:34 PM EDT) Final Diagnosis [id number] ? Location: [facility]; [facility]; The signing pathologist has (i) examined the relevant preparation(s) for the specimen(s) and (ii) rendered or confirmed the diagnosis(es). . ?Surgical Pathology DIAGNOSIS A - Soft tissue, right neuroma, excision: - Traumatic neuroma. Electronically signed by: ?Funmilayo Liriano MD Verified: ??08/01/2020 9:31 ?? Pathologist Performed at: ??-[facility] Dept. of Pathology, [place], [place] SPECIMEN(S) SUBMITTED A - Right neuroma, excision CLINICAL INFORMATION Finger injury SPECIMEN PROCESSING A - Labeled/Fixativ e: Right neuroma, fresh. Quantity/Size: Single, 2.4 x 0.3 x 0.2 cm. Tissue Description: Soft, pink-white cylindrical tissue. Sections/Proces sing: Submitted en toto ??in 1 cassette labeled A1. ??sns 08/01/2020 9:31 AM EDT [facility] SPECIMEN FROM NERVE / Unknown 07/27/2020 2:34 PM EDT 07/27/2020 2:34 PM EDT Danny Dennis MD PATHOLOGY/CYTOLOGY O [facility] [place] [address] documented in this encounter Visit Diagnoses Diagnosis Nerve injury- Primary Injury to nerves, unspecified site Nerve injury [...] Given 07/27/2020 3:23 PM EDT 975 mg BUpivacaine-EPINEPHrine 0.5 %-1:200,000 injection ONCE PRN, Starting on Thu07/27/20 at 1450, Until Thu07/27/20 at 1836, Intra-Operative (Intra-Procedure), Routine Given 07/27/2020 2:51 PM EDT 10 mLs 19- Surgical Site Given 07/27/2020 2:50 PM EDT 10 mLs Ab dominal Tissue lactated ringers infusion 1,000 mL, at 100 [...] - Provid er: Nas Vega II, RN) BUpivacaine-EPINEPHrine 0.5 %-1:200,000 injection (CANCELED) ONCE PRN, [...] RN) documented in this encounter Care Teams Chief Supply Chain Officer Relationship Specialty Start Date End Date Ceci Issa MD [address] [place] [address] PCP - General 02/26/10 documented as of this encounter
--- OUTSIDE RECORDS SUMMARY | 2023-12-17 20:11 | XMS_ITS | Encounter Summary ---
Author Organization [facility] Address [address] [place] [address] Care Team Providers Care Footwear Sales Coordinator Name Role Phone Unavailable Primary Care Provider Unavailabl e Encounter Details Date Type Department Care Team (Late st Contact Info) Description 12/18/1999 Results Only [facility] [address] [place] [address] Lauren Mart, TOOL MAINTENANCE WORKER Social History Tobacco Use Types Packs/Day Years Used Date Smoking Tobacco: Never Assessed Sex and Gender Information Value Date Recorded Sex Assigned at Not on file Gender Identity Not on file Sexual Orientation Not on file documented as of this encounter Plan of Treatment Not on file documented as of this encounter Procedures Procedure Name Priority Date/Time Associated Diagnosis Comments CYTOPATHOLOGY Routine 12/18/1999 0:00 EDT documented in this encounter Results * CYTOPATHOLOGY (12/18/1999 0:00 EDT) Pathology Report: CYTOPATHOLOGY REPORT Reports generated via electronic interface contain original data; however they are lacking the format of the original report. Caution should be taken when reading/interpreti ng unformatted reports. Name: ? ALEX VICENTE ? Accession #: ? [id number] : ? 1965 (Age: 33) ??F ?Collect Date: ? 12/18/1999 Location: ? [facility] ? Receive Date: ? 12/20/1999 Provider: ?LAUREN MART NP Copy to: ? Specimen/Source: ?ThinPrep Pap Test, Cervix/Endocervix Last Menstrual Period: ? 12/07/99 Hormonal/Contracep tive Status: ? Yes Previous Gynecologic Pathology: ? ASC-US: Benign cellular changes: ASC-US: epithelial cell abnormality ? SPECIMEN ADEQUACY ? Satisfactory for evaluation. GENERAL CATEGORIZATION ? Within Normal Limits ? Document reviewed and electronically signed by: ? SAL Winter(ASCP) ? Report Date: ??12/25/1999 13:29 End of Report RAQUEL WHITNEY 12/18/1999 12/20/1999 Lauren Mart NP PATHOLOGY ORDERABLES RAQUEL WHITNEY [address] [place] [address] documented in this encounter Visit Diagnoses Not on filedocumented in this encounter
--- OUTSIDE RECORDS SUMMARY | 2023-12-17 20:11 | XMS_ITS | Encounter Summary ---
Author Organization [facility] Address [address] [place] [address] Care Team Providers Care Fire Extinguisher Repairer Inspector Name Role Phone Unavailable Primary Care Provider Unavailabl e Encounter Details Date Type Department Care Team (Late st Contact Info) Description 08/20/2000 Results Only [facility] [address] [place] [address] Lauren Mart, ELECTRICAL DESIGNER Social History Tobacco Use Types Packs/Day Years Used Date Smoking Tobacco: Never Assessed Sex and Gender Information Value Date Recorded Sex Assigned at Not on file Gender Identity Not on file Sexual Orientation Not on file documented as of this encounter Plan of Treatment Not on file documented as of this encounter Procedures Procedure Name Priority Date/Time Associated Diagnosis Comments CYTOPATHOLOGY Routine 08/20/2000 0:00 EDT documented in this encounter Results * CYTOPATHOLOGY (08/20/2000 0:00 EDT) Pathology Report: CYTOPATHOLOGY REPORT Reports generated via electronic interface contain original data; however they are lacking the format of the original report. Caution should be taken when reading/interpreti ng unformatted reports. Name: ? ALEX VICENTE ? Accession #: ? [id number] : ? 1965 (Age: 34) ??F ?Collect Date: ? 08/20/2000 Location: ? [facility] ? Receive Date: ? 08/24/2000 Provider: ?LAUREN MART NP Copy to: ? Specimen/Source: ?ThinPrep Pap Test, Cervix/Endocervix Last Menstrual Period: ? 08/03/00 Previous Gynecologic Pathology: ? ASC-US: Benign cellular changes: ASC-US: epithelial cell abnormality Other: ? Additional clinical information: WNL ? SPECIMEN ADEQUACY ? Satisfactory for evaluation. GENERAL CATEGORIZATION ? Within Normal Limits ? Document reviewed and electronically signed by: ? SAL [place](ASCP) ? Report Date: ??08/25/2000 10:48 End of Report RAQUEL WHITNEY 08/20/2000 08/24/2000 Lauren Mart NP PATHOLOGY ORDERABLES RAQUEL WHITNEY [address] [place] [address] documented in this encounter Visit Diagnoses Not on filedocumented in this encounter
--- OUTSIDE RECORDS SUMMARY | 2023-12-17 20:11 | XMS_ITS | Encounter Summary ---
Author Organization [facility] [place] [address] Care Team Providers Care Research Chemical Engineer Name Role Phone Ceci Issa MD Primary Care Provider [phone] Encounter Details Date Type Department Care Team (Latest Contact Info) Description 12/14/2013 - 12/14/2013 11:59 PM EDT Hospital Encounter [place] [address] Jay Jay Barry MD [facility] [address] [place] [address] Discharge Disposition: Home Social History Tobacco Use Types Packs/Day Years Used Date Smoking Tobacco: Never Sex and Gender Information Value Date Recorded Sex Assigned at Not on file Gender Identity Not on file Sexual Orientation Not on file documented as of this encounter Medications at Time of Discharge Medication Sig Dispensed Refills Start Date End Date CIS Free Text Med - BuSpar 08/23/2009 0 04/14/2017 BUPROPION HCL (WELLBUTRIN ORAL) 0 04/14/2017 documented as of this encounter Plan of Treatment Upcoming Encounters Date Type Department Care Team (Late st Contact Info) Description 12/21/2023 3:15 PM EDT Office Visit Dermatology at [address] [place] [id number] John Leon MD [address], [place] [address] documented as of this encounter Procedures Procedure Name Priority Date/Time Associated Diagnosis Comments FILM LIBRARY STORAGE ONLY MR FOOT Routine 12/14/2013 12:00 AM EDT documented in this encounter Results * Film Library- Storage Only MR Foot (12/14/2013 12:00 AM EDT) Narrative [facility] - 03/20/2017 11:39 AM EST This exam is for storage only and is auto-finalizing. Jay Jay Barry MD IMG FILM LIBRARY ORD ERABLES [place], [place] documented in this encounter Visit Diagnoses Not on filedocumented in this encounter Care Teams Research Chemical Engineer Relationship Specialty Start Date End Date Ceci Issa MD [address] [place] [address] PCP - General 02/26/10 documented as of this encounter
[2023-12-17 21:17] LABS: ALT 24 U/L (14-59); AST 23 U/L (15-37); Alkaline Phosphatase 84 U/L (46-116); Anion Gap 13.5 mmol/L (3-11); BUN 12 mg/dL (7-18); Bilirubin, Total 0.68 mg/dL (0.2-1.0); CO2 19.5 mmol/L (21.0-32.0); CREATININE 0.8 mg/dL (0.55-1.02); Chloride 105 mmol/L (98-107); Estimated GFR 86.42 (mL/min/1.73m2); Glucose 79 mg/dL (74-106); Sodium 138 mmol/L (136-145); TSH (W/Ref FT4) 0.95 uIU/mL (0.36-3.74); Total Protein 7.5 g/dL (6.4-8.2)
== END 2023-12-17 20:07 | disposition home or self-care (01) ==
LOC: NCHCN 20:06
PROVIDERS: PCP Family Medicine; Visit Provider Family Medicine
DX: Z00.00 Encounter for general adult medical examination without abnormal findings (principal)
CPT/HCPCS: 80053; 84443

== ENCOUNTER 2024-06-07 09:37 | Outpatient (REF) | payer BC, OTHER, SELFPAY ==
[2024-06-07 16:31] LABS: Anion Gap 10.5 mmol/L (3-11); BUN 10 mg/dL (7-18); CO2 22.5 mmol/L (21.0-32.0); CREATININE 0.8 mg/dL (0.55-1.02); Calcium 8.6 mg/dL (8.5-10.1); Calculated LDL 107 mg/dL (<100); Chloride 110 mmol/L (98-107); Cholesterol 188 mg/dL (<200); Estimated GFR 85.89 (mL/min/1.73m2); Glucose 88 mg/dL (74-106); HDL Cholesterol 71 mg/dL (>or=50); Potassium 3.7 mmol/L (3.5-5.1); Sodium 143 mmol/L (136-145); Triglyceride 51 mg/dL (<150)
== END 2024-06-07 09:38 | disposition home or self-care (01) ==
LOC: NCHCN 09:37
PROVIDERS: PCP Family Medicine; Visit Provider Family Medicine
DX: E66.9 Obesity, unspecified (principal)
CPT/HCPCS: 80048; 80061

== ENCOUNTER 2024-12-20 03:40 | Outpatient (CLI) | payer BC, OTHER, SELFPAY ==
--- NOTE | 2024-12-20 | DI.MAMMO_ITS ---
Exam(s) MAMMO SCREENING EXAM: MAMMO SCREENING CLINICAL HISTORY: SCREENING,Z12.31 TECHNIQUE: Bilateral full field digital CC and MLO mammographic images were obtained with 3D tomosynthesis and utilizing computer aided detection (CAD). COMPARISON: Comparison is made with prior examinations. FINDINGS: Masses/Architectural Distortion: No suspicious masses or areas of architectural distortion are present. There are few small well-circumscribed nodules in the breasts. Microcalcifications: No suspicious pleomorphic-type are seen. Skin Thickening/Nipple Retraction: None. IMPRESSION: 1. No significant interval change with no specific features of malignancy noted. 2. Unless there is more urgent need, screening mammography is recommended, as per [employer] guidelines. BI-RADS Category 2 - Benign Findings Breast Density - Category B - There are scattered areas of fibroglandular density. Breast density Category C or D implies that the patient has dense breast tissue. Dense breast tissue can make it harder to find cancer on a mammogram. Dense breast tissue is also associated with an increased risk of breast cancer. This information about the result of the mammogram report was provided to the patient to raise their awareness. Use this report when you speak with the patient about their risks for breast cancer, which includes their family history. At that time, you may recommend additional screening tests (Ultrasound or MRI) as these tests may add significant information. A negative radiographic report should not delay biopsy if a dominant or clinically suspicious mass is present. Up to ten percent of cancers are not identified on mammography. A negative report may reinforce clinical impression. Adenosis and dense breasts may obscure an underlying neoplasm. False positive reports average 6 to 10%. Patient will receive a letter notifying them of these results.
== END 2024-12-20 04:00 ==
LOC: DI 03:40
PROVIDERS: PCP Family Medicine; Visit Provider Family Medicine
DX: Z12.31 Encounter for screening mammogram for malignant neoplasm of breast (principal)
CPT/HCPCS: 77063; 77067